=== PATIENT | female | born 1945 | race Caucasian/White ===

== ENCOUNTER 2020-05-11 07:07 | Emergency (ER) | payer MEDICARE, MEDICAID, SELFPAY ==
[2020-05-11] VITALS (8 sets, daily range): BP systolic 154–177; BP diastolic 68–103; PULSE 81–92; RESP 9–22; TEMP 36.7; O2SAT 96–99
--- NOTE | 2020-05-11 07:23 | PC.NURSE ---
PT CANNOT SAY WHAT PHARMACY SHE USES.
[2020-05-11] MEDS: FAMOTIDINE 20 MG TABLET PO (07:39)
[2020-05-11] MEDS: predniSONE 20 MG TABLET 60 MG PO (07:39)
--- NOTE | 2020-05-11 09:27 | ED.ALLEREA ---
HPI - Allergic Reaction General Chief complaint: Allergic Reaction Stated complaint: poss allergic reaction Source: RN notes reviewed History of Present Illness HPI narrative: Patient presents emergency department from [facility] via EMS for possible allergic reaction. The patient states that she had surgery on rectal prolapse approximately 1 week ago. She states that she has been on oxycodone as well as fentanyl IM for this at the long term. Last night the patient was having pain and possibly was given hydrocodone instead of oxycodone which she is allergic to. Patient states when she gets an allergy to these medication she gets a rash on her back which she developed last night and states that it is pruritic. She denies any rash anywhere else on her body. Denies any shortness of breath swelling of the lips or tongue. Patient was given Benadryl at 530 this morning and was sent to the emergency department for further evaluation. Patient currently with no complaints outside of rash Related Data Home Medications Medication Instructions Recorded Confirmed acetaminophen 650 mg PO Q8H 05/11/20 aspirin 81 mg PO DAILY 05/11/20 enoxaparin 40 mg SUBCUT DAILY 05/11/20 famotidine 20 mg PO DAILY 05/11/20 fentanyl citrate (PF) 25 mcg IM Q2-3H PRN 05/11/20 insulin lispro [Humalog KwikPen 6 unit SUBCUT DAILY 05/11/20 Insulin] ioversol [Optiray 320] 320 mg IV ONCE 05/11/20 lorazepam [Ativan] 1 mg PO TID PRN 05/11/20 losartan 100 mg PO DAILY 05/11/20 metoclopramide HCl 5 mg PO DAILY 05/11/20 miconazole nitrate 1 applic TOPICAL DAILY 05/11/20 ondansetron 4 mg PO Q6H PRN 05/11/20 oxycodone-acetaminophen 1 tablet PO Q4H PRN 05/11/20 polyethylene glycol 3350 17 g PO BID 05/11/20 quetiapine 50 mg PO BID 05/11/20 Allergies Allergy/AdvReac Type Severity Reaction Status Date / Time codeine Allergy Rash Verified 05/11/20 07:11 hydrocodone Allergy Rash Verified 05/11/20 07:11 morphine Allergy Rash Verified 05/11/20 07:11 sitagliptin [From Januvia] Allergy Rash Verified 05/11/20 07:11 Review of Systems Review of Systems: Narrative: Gen.: Denies fevers or chills ENT: Denies congestion Respiratory: Denies shortness of breath or cough CV: Denies chest pain or palpitations GI: Denies abdominal pain nausea, emesis or diarrhea denies burning, urgency, frequency or hematuria Musculoskeletal: Denies back pain or muscle pain Neuro: Denies numbness, tingling, weakness or focal weakness Skin: Reports rash Except as documented, all other systems reviewed and negative [facility] Past Medical History Medical History (Updated 05/11/20 @ 09:31 by Etienne Martínez DO) Diabetes mellitus Rectal prolapse Social History Social History (Updated 05/11/20 @ 09:28 by Etienne Martínez DO) Smoking status: Never smoker Gender identity (if verbalized by the patient): Female Exam Narrative: Exam Narrative: APPEARANCE: No acute distress, nontoxic, resting in bed EYES: EOMI HEENT: Normocephalic, atraumatic, OMM no swelling of the lips or tongue RESPIRATORY: No respiratory distress Clear to auscultation bilaterally with no rhonchi wheezing or rales. CARDIOVASCULAR: Regular rate and rhythm without murmurs rubs or gallops. ABDOMINAL: Soft, nontender, nondistended, no rebound or guarding MUSCULOSKELETAl: Moves all extremities. No clubbing, cyanosis or edema. NEURO: Awake and alert. Following commands, speech normal, no focal deficits SKIN:: Warm, dry. Erythematous rash over back that does not extend down past the line of her adult diaper and does not extend around to the flank or the abdomen. No rash on the extremities face or neck PSYCHIATRIC: Normal affect/mood, Course Course Emergency Course: Patient given prednisone and Pepcid in the ED. And will be monitored Patient does note some pain and is on every 2 hours IM fentanyl given fentanyl in ED Patient monitored in ED no progression of rash no swelling of lips or tongue. Discussed with phyllis
--- NOTE | 2020-05-11 09:51 | PC.NURSE ---
PT C/O NAUSEA, VERBAL ORDER PER [facility] FOR 4MG ZOFRAN ODT STAT. SPOKE WITH PT DAUGHTER AT HER REQUEST, INFORMED HER OF PT BEING TRANSFERRED BACK TO [facility]. DAUGHTER REFUSING TO COME AND TAKE PT BACK, INFORMED THAT EMS TRANSFER WOULD TAKE PLACE. NO FURTHER QUESTIONS. PT UPDATED THAT I SPOKE TO HER DAUGHTER.
[2020-05-11] MEDS: ONDANSETRON HCL ODT 4 MG TABLET PO (10:05)
--- NOTE | 2020-05-11 11:25 | PC.NURSE ---
pt informed that we are still awaiting pt transport.
--- NOTE | 2020-05-11 12:08 | PC.NURSE ---
still awaiting transport for pt.
== END 2020-05-11 12:46 | disposition home or self-care (01) ==
PROVIDERS: Emergency Provider Emergency Medicine; PCP Family Medicine
DX: T78.40XA Allergy, unspecified, initial encounter (principal); E11.9 Type 2 diabetes mellitus without complications; Z79.82 Long term (current) use of aspirin; Z79.4 Long term (current) use of insulin
CPT/HCPCS: 96372; 99283; A9270; J3010; J7512

== ENCOUNTER 2020-07-14 00:54 | Emergency (ER) | payer MEDICARE, MEDICAID, SELFPAY ==
--- NOTE | ~2020-07-14 | CT_ITS ---
EXAMINATION: CT abdomen pelvis w con EXAM DATE: 07/14/2020 02:24 INDICATION: Generalized abdominal pain for 3 days with nausea and vomiting. TECHNIQUE: Spiral CT of the abdomen and pelvis was performed following intravenous injection of 100 m L Omnipaque 350. Axial, coronal and sagittal images were reviewed. The dose-length product (DLP) fo r this examination was 1188.65 mGy-cm. The exposure was tailored according to patient size (auto mA exposure control), and iterative reconstruction (ASIR) was used as additional dose reduction techniqu e. There is no prior study for comparison. FINDINGS: The liver, spleen, adrenal glands and pancreas are unremarkable. There are cholecystectomy clips. Portal and splenic veins are patent. Kidneys enhance symmetrically. There is no hydronephr osis. The uterus is not identified and has likely been surgically resected. Some diffuse bladder w all thickening, could indicate chronic cystitis. Acute cystitis not excludable. There is no retroper itoneal or pelvic lymphadenopathy. There is mild scattered arteriosclerotic disease. Small umbilica l fat-containing hernia. Small right inguinal fat-containing hernia. The appendix is not positively visualized. There is no pericecal inflammatory change to suggest appe ndicitis. Rectosigmoid anastomosis material. There is mild sigmoid colonic diverticulosis. There is no adjacent inflammatory change to suggest diverticulitis. Equivocal mild gastric antritis and sigmoi d colitis. No free intraperitoneal gas. The heart is normal in size. There are no pericardial or p leural effusions. The lung bases are unremarkable. There are no osteoblastic or osteolytic lesions identified. L4-5 posterior and interbody fusion. Advanced lower lumbar spondylosis. IMPRESSION: 1. Equivocal mild gastric antritis and sigmoid colitis. 2. Mild bladder wall thickening, could be acute or chronic cystitis. Reviewed, dictated and finalized at location B.
--- NOTE | ~2020-07-14 | CT_ITS ---
EXAMINATION: CT soft tissue neck wo con DATE: 07/14/2020 06:10 INDICATION: Left neck and jaw pain. TECHNIQUE: Computed tomography (CT) of the neck was performed without intravenous contrast. Automated exposure control and iterative reconstruction technique were employed. The dose-length product was 5 95.09 mGy-cm. COMPARISON: None FINDINGS: The visualized portions of the lung apices demonstrate mild atelectasis. There are likely c hanges of ocular lens replacement surgeries. There are no pathologically enlarged lymph nodes. There is a 1.3 cm nodule in right thyroid lobe, likely not clinically significant. Calcified mediastinal ly mph nodes are consistent with old granulomatous disease. The pharyngeal mucosal space is normal. The larynx is normal. No abscess. The paranasal sinuses are clear. There are changes of left-sided mastoi dectomy with prosthetic stapes. There is a left mastoid effusion. There is severe cervical and thorac ic spondylosis. There are changes of anterior fusion procedure from C4 to C7. IMPRESSION: 1. No specific etiology for the patient's symptoms. Reviewed, dictated and finalized at location A.
[2020-07-14 01:00] VITALS: BP 136/93; PULSE 96; RESP 14; TEMP 37; O2SAT 100
--- NOTE | 2020-07-14 01:08 | ECG_ITS ---
Measurements Intervals [place] Rate: 101 P: 59 VT: 191 QRS: 36 QRSD: 121 T: 47 QT: 361 QTc: 470 Interpretive Statements SINUS TACHYCARDIA RIGHT BUNDLE BRANCH BLOCK ABNORMAL ECG Electronically Signed On 07-14-2020 6:59:24 CDT by Aaron Terry D.O.
--- NOTE | 2020-07-14 01:12 | ED.ABDPAIN ---
HPI - Abdominal Pain General Chief Complaint: Abdominal Pain Stated Complaint: EAR/JAW/ABD PAIN Time Seen by Provider: 07/14/20 00:58 History of Present Illness HPI narrative: Patient presents emergency department from [facility] via EMS for multiple complaints. Patient says for the past 3 days she is had pain in her left ear that radiates into her left jaw and left neck. States that hurts to touch in any of these areas. Patient also states that earlier today she is having abdominal pain with one episode of emesis this morning. 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 Related Data Home Medications Medication Instructions Recorded Confirmed aspirin 81 mg PO DAILY 05/11/20 famotidine 20 mg PO DAILY 05/11/20 insulin lispro [Humalog KwikPen 6 unit SUBCUT DAILY 05/11/20 Insulin] lorazepam [Ativan] 1 mg PO TID PRN 05/11/20 losartan 100 mg PO DAILY 05/11/20 ondansetron 4 mg PO Q6H PRN 05/11/20 polyethylene glycol 3350 17 g PO BID 05/11/20 quetiapine 50 mg PO BID 05/11/20 Adults Multivitamin 07/14/20 Vitamin B-1 07/14/20 dicyclomine 10 mg PO QID 07/14/20 glucagon HCl [Glucagon (HCl) 07/14/20 Emergency Kit] linaclotide [Linzess] 290 mcg PO DAILY 07/14/20 tramadol 50 mg PO Q6H PRN 07/14/20 vitamin B complex 07/14/20 Allergies Allergy/AdvReac Type Severity Reaction Status Date / Time acetaminophen [From Tylenol] Allergy Unknown Verified 07/14/20 03:15 aspirin Allergy Unknown Verified 07/14/20 03:15 caffeine Allergy Unknown Verified 07/14/20 03:15 chlordiazepoxide Allergy Unknown Verified 07/14/20 03:15 clidinium Allergy Unknown Verified 07/14/20 03:15 codeine Allergy Rash Verified 05/11/20 07:11 doxepin Allergy Unknown Verified 07/14/20 03:15 hydrocodone Allergy Rash Verified 05/11/20 07:11 hydromorphone [From Dilaudid] Allergy Unknown Verified 07/14/20 03:15 hydroxychloroquine Allergy Unknown Verified 07/14/20 03:15 morphine Allergy Rash Verified 05/11/20 07:11 sitagliptin [From Januvia] Allergy Rash Verified 05/11/20 07:11 Review of Systems Review of Systems: Narrative: Gen.: Denies fevers or chills Eyes: Denies eye pain or visual change ENT: See HPI Respiratory: Denies shortness of breath or cough CV: Denies chest pain or palpitations GI: Reports abdominal pain and one episode of nausea and vomiting denies burning, urgency, frequency or hematuria Musculoskeletal: Denies back pain or muscle pain Neuro: Denies numbness, tingling, weakness or focal weakness Skin: Denies rash Except as documented, all other systems reviewed and negative [facility] Past Medical History Medical History (Updated 07/14/20 @ 06:57 by Etienne Martínez DO) Diabetes mellitus Meniere disease Rectal prolapse Social History Social History Smoking status: Never smoker Gender identity (if verbalized by the patient): Female Exam Narrative: Exam Narrative: APPEARANCE: No acute distress, nontoxic, resting in bed EYES: EOMI HEENT: Normocephalic, atraumatic, right TM is normal in appearance, the left TM is erythematous, mild tenderness with pulling on the left ear, tender palpation of the left lower posterior jaw and left lateral neck no submandibular tenderness no submandibular tenderness, oromucosa is moist, there is no erythema exudate posterior pharynx uvula midline no trismus no loose or avulsed teeth or dental abscesses seen Neck: Supple, no cervical lymphadenopathy RESPIRATORY: No respiratory distress Clear to auscultation bilaterally with no rhonchi wheezing or rales. CARDIOVASCULAR: Regular rate and rhythm without murmurs rubs or gallops. ABDOMINAL: Soft, nondistended tender palpation right lower quadrant left lower quadrant, no tenderness right upper quadrant left upper quadrant, no
[2020-07-14 01:24] LABS: Basophils Percent Auto 0.8 % (0.2-1.2); Eosinophils Absolute Auto 0.1 K/mm3 (0-0.3); Eosinophils Percent Auto 2.7 % (0-4.4); Hematocrit 41.6 % (37.0-47.0); Hemoglobin 13.8 g/dL (12.0-15.0); Immature Granulocyte Absolute 0.01 K/mm3 (0.00-0.031); Immature Granulocyte Percent A 0.2 % (0-0.5); Lymphocytes Absolute Auto 1.63 K/mm3 (0.9-3.2); Lymphocytes Percent Auto 31.5 % (18.3-44.2); Mean Corpuscular HGB Conc 33.2 g/dl (32-36); Mean Corpuscular Hemoglobin 29.3 pg (26-34); Mean Corpuscular Volume 88.3 fl (80-100); Mean Platelet Volume 11.4 fl (7.4-10.4); Monocytes Absolute Auto 0.5 K/mm3 (0.1-0.6); Monocytes Percent Auto 8.9 % (2.6-8.5); Neutrophils Absolute Auto 2.9 K/mm3 (1.3-6.7); Neutrophils Percent Auto 55.9 % (45.5-73.1); Platelet Count Result 167 k/mm3 (150-375); Red Blood Count 4.71 M/mm3 (4.2-5.4); Red Cell Distribution Width 12.8 % (11.5-14.5); White Blood Count 5.2 K/mm3 (4.5-10.0)
[2020-07-14 01:29] LABS: Add Urine Microscopic? YES; Appearance Urine Cloudy (Clear); Bilirubin Urine Negative (Negative); Color Urine Yellow (Yellow); Glucose Urine UA 3+ mg/dL (Negative); Ketones Urine Negative (Negative); Leukocyte Esterase Ur 1+ LEU/UL (Negative); Mucus Urine Rare /lpf; Nitrate Urine Positive (Negative); Protein Urine Negative (Negative); Specific Grav Ur 1.015 (1.001-1.035); Urobilinogen Urine Negative mg/dL (<2.0); WBC Urine 51-75 /hpf
[2020-07-14 01:33] LABS: Blood Urine Negative (Negative)
[2020-07-14 01:34] LABS: Partial Thromboplastin Time 25.2 SECONDS (22.3-36.8); Prothrombin Time 13.2 Seconds (11.1-14.7)
[2020-07-14 01:35] LABS: Alanine Aminotransferase 19 U/L (4-35); Alkaline Phosphatase 98 U/L (38-126); Anion Gap 9 mmol/L (8-16); Aspartate Amino Transferase 26 U/L (14-36); Bilirubin,Total 0.4 mg/dL (0.2-1.3); Blood Urea Nitrogen 10 mg/dL (7-17); Calcium 9.5 mg/dL (8.4-10.2); Carbon Dioxide 24 mmol/L (22-30); Chloride 102 mmol/L (98-107); Estimated Glomerular Filt Rate > 60; Glucose 235 mg/dL (65-105); Lipase 22 U/L (23-300); Potassium 4.1 mmol/L (3.4-5.0); Sodium 135 mmol/L (137-145)
[2020-07-14 01:47] LABS: Troponin I < 0.012 ng/mL (0.000-0.034)
[2020-07-14 03:10] VITALS: BP 112/75; PULSE 86; RESP 16; O2SAT 96
[2020-07-14 04:12] VITALS: BP 112/69; PULSE 85; RESP 16; O2SAT 96
[2020-07-14] MEDS: traMADol HCL 50 MG TABLET PO (06:09)
[2020-07-14 06:32] VITALS: BP 143/88; PULSE 85; RESP 16; O2SAT 100
--- NOTE | 2020-07-14 07:03 | PC.NURSE ---
spoke to poa, pt unable to ambulated. pt will need to be taken back to [facility] by ems.
--- NOTE | 2020-07-14 07:13 | PC.NURSE ---
tried to call ron multiple times between [phone] and [phone]. they only answered 1 time and placed me on hold for over 8 mins. the phone either rings and gives me a your call can not be completed at this time , or they don't answer.
[2020-07-14 07:19] VITALS: BP 132/77; PULSE 91; RESP 17; O2SAT 97
[2020-07-14 08:18] VITALS: BP 142/70; PULSE 85; RESP 14; O2SAT 97
== END 2020-07-14 08:20 ==
PROVIDERS: Emergency Provider Emergency Medicine; PCP Internal Medicine
DX: H66.92 Otitis media, unspecified, left ear (principal); N39.0 Urinary tract infection, site not specified; E11.9 Type 2 diabetes mellitus without complications; H81.09 Meniere's disease, unspecified ear; R10.9 Unspecified abdominal pain; R00.0 Tachycardia, unspecified; I45.10 Unspecified right bundle-branch block; Z79.82 Long term (current) use of aspirin; Z79.4 Long term (current) use of insulin
CPT/HCPCS: 36415; 51701; 70490; 74177; 80053; 81001; 83690; 84484; 85025; 85610; 85730; 87077; 87086; 87088; 93005; 96365; 99284; A9270; J0696; Q9967

== ENCOUNTER 2020-07-31 15:31 | Emergency (ER) | payer MEDICARE, MEDICAID, SELFPAY ==
--- NOTE | ~2020-07-31 | CT_ITS ---
EXAMINATION: CT abdomen pelvis w con DATE: 07/31/2020 16:59 INDICATION: Lower abdominal pain and painful urination for 3 days TECHNIQUE: Computed tomography (CT) of the abdomen and pelvis was performed with 100 cc Omnipaque 350 intravenous contrast. Automated exposure control and iterative reconstruction technique were employe d. Exam dose: 954.63 mGy-cm total exam DLP. COMPARISON: 07/14/2020 CT abdomen and pelvis FINDINGS: Right breast implant is noted Normal heart size. No pericardial or pleural effusion. There are patchy bilateral lower lung groundgl ass infiltrates and atelectasis. Small sliding hiatal hernia. Status post cholecystectomy. This likely accounts for the mild intrahepatic and extra hepatic bile du ct prominence. No hepatic, splenic, pancreatic, and adrenal or renal space-occupying mass lesion is e vident. No urinary tract calculus or hydroureteronephrosis. There is diffuse thickening of the urinar y bladder which, in combination with dysuria and lower abdominal pain, suggest cystitis. Status post hysterectomy. Status post sigmoid colon resection. There are air-fluid levels within the colon which is not a normal finding in the absence of recent en emas. There is diverticulosis of the left colon; no CT evidence of diverticulitis. There is a fat-containing umbilical hernia. Status post posterior and interbody spinal fusion at L4-5. There is prominent degenerative disc disea se throughout the remaining lumbar and lumbosacral spine and diffuse idiopathic skeletal hyperostosis of the thoracic spine. IMPRESSION: Diffuse bladder wall thickening which in combination with lower abdominal pain and dysur ia suggest cystitis Status post right breast implant placement Small sliding hiatal hernia Status post cholecystectomy Status post sigmoid colon resection Diverticulosis of the sigmoid and descending colon; no CT evidence of diverticulitis Air-fluid levels within the colon which may indicate colitis in the absence of any recent enemas. No bowel obstruction Reviewed, dictated and finalized at Location [facility]. Reviewed, dictated and finalized at location A. IMPRESSION: Diffuse bladder wall thickening which in combination with lower ab dominal pain and dysuria suggest cystitis Status post right breast implant placement Small sliding hiatal hernia Status post cholecystectomy Status post sigmoid colon resection Diverticulosis of the sigmoid and descending colon; no CT evidence of diverticu litis Air-fluid levels within the colon which may indicate colitis in the absence of any recent enemas. No bowel obstruction
[2020-07-31 15:34] VITALS: BP 146/89; PULSE 96; RESP 16; TEMP 36.6; O2SAT 98
[2020-07-31 16:21] LABS: Basophils Absolute Auto 0.1 K/mm3 (0.0-0.1); Basophils Percent Auto 1.6 % (0.2-1.2); Eosinophils Absolute Auto 0.2 K/mm3 (0-0.3); Eosinophils Percent Auto 3.7 % (0-4.4); Hematocrit 41.9 % (37.0-47.0); Hemoglobin 13.9 g/dL (12.0-15.0); Immature Granulocyte Absolute 0.02 K/mm3 (0.00-0.031); Immature Granulocyte Percent A 0.4 % (0-0.5); Lymphocytes Absolute Auto 1.27 K/mm3 (0.9-3.2); Lymphocytes Percent Auto 22.6 % (18.3-44.2); Mean Corpuscular HGB Conc 33.2 g/dl (32-36); Mean Corpuscular Hemoglobin 29.3 pg (26-34); Mean Corpuscular Volume 88.4 fl (80-100); Mean Platelet Volume 11.3 fl (7.4-10.4); Monocytes Absolute Auto 0.5 K/mm3 (0.1-0.6); Monocytes Percent Auto 8.2 % (2.6-8.5); Neutrophils Absolute Auto 3.6 K/mm3 (1.3-6.7); Neutrophils Percent Auto 63.5 % (45.5-73.1); Platelet Count Result 191 k/mm3 (150-375); Red Blood Count 4.74 M/mm3 (4.2-5.4); Red Cell Distribution Width 12.7 % (11.5-14.5); White Blood Count 5.6 K/mm3 (4.5-10.0)
[2020-07-31 16:27] LABS: Add Urine Microscopic? YES; Appearance Urine Cloudy (Clear); Bacteria Urine Trace /hpf; Bilirubin Urine Negative (Negative); Color Urine Amber (Yellow); Glucose Urine UA 3+ mg/dL (Negative); Ketones Urine Negative (Negative); Leukocyte Esterase Ur 3+ LEU/UL (Negative); Mucus Urine Moderate /lpf; Nitrate Urine Negative (Negative); Protein Urine 2+ mg/dL (Negative); Specific Grav Ur 1.024 (1.001-1.035); Squamous Epithelial Cell Urine Rare /hpf (Few); Urobilinogen Urine Negative mg/dL (<2.0); WBC Urine >75 /hpf
[2020-07-31 16:28] LABS: Blood Urine Negative (Negative)
[2020-07-31 16:33] LABS: Alanine Aminotransferase 18 U/L (4-35); Alkaline Phosphatase 89 U/L (38-126); Anion Gap 9 mmol/L (8-16); Aspartate Amino Transferase 26 U/L (14-36); Bilirubin,Total 0.5 mg/dL (0.2-1.3); Blood Urea Nitrogen 17 mg/dL (7-17); Calcium 9.4 mg/dL (8.4-10.2); Carbon Dioxide 24 mmol/L (22-30); Chloride 103 mmol/L (98-107); Estimated CRCL calculation 59 ml/min; Estimated Glomerular Filt Rate > 60; Glucose 232 mg/dL (65-105); Lipase 24 U/L (23-300); Potassium 3.9 mmol/L (3.4-5.0); Sodium 136 mmol/L (137-145)
--- NOTE | 2020-07-31 17:01 | ED.ABDPAIN ---
HPI - Abdominal Pain General Chief Complaint: Abdominal Pain Stated Complaint: UTI/ABD PAIN Time Seen by Provider: 07/31/20 15:33 Source: patient Mode of arrival: EMS Limitations: no limitations History of Present Illness HPI narrative: 75 years old intermediate presents with severe burning urination and lower abdominal pain and rectal pain started 3 days ago. Intermittent nausea. Patient denies any fever, chills, vomiting. Related Data Home Medications Medication Instructions Recorded Confirmed aspirin 81 mg PO DAILY 05/11/20 famotidine 20 mg PO DAILY 05/11/20 lorazepam [Ativan] 1 mg PO TID PRN 05/11/20 losartan 100 mg PO DAILY 05/11/20 ondansetron 4 mg PO Q6H PRN 05/11/20 polyethylene glycol 3350 17 g PO BID 05/11/20 quetiapine 50 mg PO BID 05/11/20 Adults Multivitamin 07/14/20 Vitamin B-1 100 mg DAILY 07/14/20 dicyclomine 10 mg PO QID 07/14/20 glucagon HCl [Glucagon (HCl) 07/14/20 Emergency Kit] linaclotide [Linzess] 290 mcg PO DAILY 07/14/20 tramadol 50 mg PO Q6H PRN 07/14/20 vitamin B complex DAILY 07/14/20 insulin aspart U-100 [Novolog See Rx Instructions .ROUTE .COMPLEX 07/31/20 Flexpen U-100 Insulin] insulin glargine [Lantus Solostar 28 unit SUBCUT DAILY 07/31/20 U-100 Insulin] lactobacillus combination no.8 3,000 mmu cells PO DAILY 07/31/20 [Adult Probiotic] Allergies Allergy/AdvReac Type Severity Reaction Status Date / Time acetaminophen [From Tylenol] Allergy Unknown Verified 07/31/20 15:41 aspirin Allergy Unknown Verified 07/31/20 15:41 caffeine Allergy Unknown Verified 07/31/20 15:41 chlordiazepoxide Allergy Unknown Verified 07/31/20 15:41 clidinium Allergy Unknown Verified 07/31/20 15:41 codeine Allergy Rash Verified 07/31/20 15:41 doxepin Allergy Unknown Verified 07/31/20 15:41 hydrocodone Allergy Rash Verified 07/31/20 15:41 hydromorphone [From Dilaudid] Allergy Unknown Verified 07/31/20 15:41 hydroxychloroquine Allergy Unknown Verified 07/31/20 15:41 morphine Allergy Rash Verified 05/11/20 07:11 sitagliptin [From Januvia] Allergy Rash Verified 05/11/20 07:11 Review of Systems Review of Systems: Narrative: CONSTITUTIONAL: Denies fever, chills, or sweats. EYES: Denies visual changes, redness, or discharge. ENT: Denies rhinorrhea, congestion, sore throat, or otalgia. CARDIOVASCULAR: Denies chest pain, palpitations, or edema. RESPIRATORY: Denies cough or dyspnea. GASTROINTESTINAL: Denies abdominal pain, nausea, vomiting, or diarrhea. GENITOURINARY: Denies dysuria or hematuria. SKIN: Denies rash or itching. MUSCULOSKELETAL: Denies back pain, joint pain, or myalgia. NEUROLOGIC: Denies headache, numbness, or weakness. PSYCHIATRIC: Denies anxiety or depression. [facility] Past Medical History Medical History Diabetes mellitus Meniere disease Rectal prolapse Social History Social History Smoking status: Never smoker Gender identity (if verbalized by the patient): Female Exam Narrative: Exam Narrative: General appearance: Well-developed, well-nourished Skin: Normal color Head: Normocephalic, nontraumatic Eyes: Clear conjunctiva ENT: Oropharynx normal, ears normal, nose normal Neck: Supple, nontender Chest and respiratory: Airway patent, no respiratory distress, no accessory muscle use Heart: Regular rate/rhythm Abdomen: Soft, mild tenderness suprapubic area, no organomegaly, quiet bowel sounds Vascular: Normal peripheral pulses, normal capillary refill. Musculoskeletal: Normal range of motion, nontender back Neurologic: Alert and oriented ?3, ATHLETIC COACH is normal as tested, no gross motor deficit
[2020-07-31 17:27] VITALS: BP 150/74; PULSE 95; RESP 16; O2SAT 96
[2020-07-31] MEDS: PHENAZOPYRIDINE HCL 100 MG TABLET 200 MG PO (17:54)
[2020-07-31] MEDS: ACETAMINOPHEN 325 MG TABLET 650 MG PO (17:55)
--- NOTE | 2020-07-31 18:08 | PC.NURSE ---
phone report to paulino godinez of [place]. request for [facility] transport. pt updated
[2020-07-31 18:11] VITALS: BP 155/77; PULSE 90; RESP 16; O2SAT 96
== END 2020-07-31 18:49 ==
PROVIDERS: Emergency Provider Emergency Medicine; PCP Family Medicine
DX: N30.01 Acute cystitis with hematuria (principal); E11.9 Type 2 diabetes mellitus without complications; Z79.4 Long term (current) use of insulin
CPT/HCPCS: 36415; 51701; 74177; 80053; 81001; 83690; 85025; 87077; 87086; 87088; 87186; 96365; 99284; A9270; J0696; Q9967

== ENCOUNTER 2020-09-16 21:32 | Inpatient (IN) | payer MEDICARE, MEDICAID, SELFPAY ==
--- NOTE | ~2020-09-16 | XR_ITS ---
EXAMINATION: XR chest 1V portable DATE: 09/16/2020 22:14 INDICATION: Transient alteration of awareness TECHNIQUE: frontal view of the chest was obtained. COMPARISON: None FINDINGS: Mild left basilar atelectasis and mild biapical pleural-parenchymal scarring. No pulmonary edema, ple ural effusion or pneumothorax. The cardiomediastinal silhouette is normal. Cholecystectomy clips in t he right upper quadrant. Additional surgical clips at the right axilla likely related to prior lymph node dissection. IMPRESSION: 1. Mild left basilar atelectasis. Reviewed, dictated and finalized at location A.
--- NOTE | ~2020-09-16 | CT_ITS ---
EXAMINATION: CT abdomen pelvis wo con DATE: 09/20/2020 18:47 INDICATION: Lower abdominal pain. Dysuria. TECHNIQUE: Computed tomography (CT) of the abdomen and pelvis was performed without intravenous contr ast. The dose-length product was 893.27 mGy-cm. Automated exposure control and iterative reconstructi on technique were employed. COMPARISON: CT dated 07/31/2020. FINDINGS: There is bibasilar atelectasis. Heart size normal. Partially visualized right breast implan t. No significant pleural or pericardial effusion. Moderate atherosclerosis. No aneurysm. There is a focal fat-containing lesion with surrounding fatty infiltration in the anterior abdominal wall overlying the pelvis, likely focal fat necrosis. Mild shonna dder wall thickening. There are surgical changes of the distal colon. There are several locules of richardson bcutaneous gas, likely from recent injections. The liver, spleen, pancreas, adrenal glands and kidneys are unremarkable. Nonobstructive bowel gas pa ttern. Colonic diverticulosis without evidence for acute diverticulitis. No hydronephrosis or stones identified. No abnormal pelvic masses or fluid collections. There are surgical changes consistent wit h posterior spinal fusion at L4-5. There is severe lumbar spondylosis. Small fat-containing umbilical hernia. Status post cholecystectomy. IMPRESSION: 1. Mild bladder wall thickening. Consider cystitis in the appropriate clinical setting. 2: Probable focal fatty necrosis of the subcutaneous tissues anterior wall at the pelvic level. Reviewed, dictated and finalized at location A. IMPRESSION: 1. Mild bladder wall thickening. Consider cystitis in the appropriate clinical setting. 2: Probable focal fatty necrosis of the subcutaneous tissues anterior wall at t he pelvic level.
--- NOTE | ~2020-09-16 | CT_ITS ---
EXAMINATION: CT brain wo con DATE: 09/16/2020 22:09 INDICATION: Altered mental status TECHNIQUE: Computed tomography (CT) of the head was performed without intravenous contrast. Sagittal and coronal reconstructions were performed. The mA was adjusted according to patient size. Iterative reconstruction technique was employed. The dose-length product was 681.00 mGy-cm. COMPARISON: None FINDINGS: No acute intracranial hemorrhage, acute infarction or mass/mass effect. There is symmetric prominence of the sulci consistent with mild age-appropriate diffuse cerebral volume loss. Moderate scattered periventricular and subcortical white matter hypoattenuation consistent with chronic small vessel isc hemic disease. Changes of bilateral intraocular lens replacement. Left mastoid effusion with change o f prior mastoidectomy. Postoperative changes at the bilateral maxilla with tiny metallic clips along the anterior hanley of both the left and right maxilla and with chronic small defect along the posteri or inferior wall of the left maxilla. IMPRESSION: 1. No acute intracranial process. 2. Age-related changes including mild diffuse volume loss and moderate scattered white matter hypoatt enuation consistent with chronic small vessel ischemic disease. Reviewed, dictated and finalized at location A. IMPRESSION: 1. No acute intracranial process. 2. Age-related changes including mild diffuse volume loss and moderate scattere d white matter hypoattenuation consistent with chronic small vessel ischemic di sease.
[2020-09-16 21:34] VITALS: BP 176/88; PULSE 94; RESP 20; TEMP 36.2; O2SAT 96
--- NOTE | 2020-09-16 21:39 | ECG_ITS ---
Measurements Intervals [place] Rate: 94 P: 43 FL: 229 QRS: -9 QRSD: 85 T: 16 QT: 393 QTc: 493 Interpretive Statements SINUS RHYTHM BORDERLINE AV CONDUCTION DELAY INCOMPLETE RIGHT BUNDLE BRANCH BLOCK BASELINE ARTIFACT- II, III, AVF, V1 BORDERLINE ECG Electronically Signed On 09-17-2020 7:05:17 CDT by Aaron Terry D.O.
--- NOTE | 2020-09-16 21:54 | ED.GENADULT ---
HPI - General Adult General Chief complaint: Altered Mental Status Stated complaint: AMS Time Seen by Provider: 09/16/20 21:35 Source: RN notes reviewed History of Present Illness HPI narrative: Patient presents emergency department from [facility] via EMS for altered mental status. Per the staff the patient is normally awake and alert and has had progressively worsened altered mental status starting yesterday. Patient was tested for a UTI and urine had just come back positive however no medications have been started on the patient. Patient is currently laying in bed responsive to painful stimuli nonresponsive to verbal stimuli. Per the staff at [facility] patient has had similar episodes with UTIs in the past. Related Data Home Medications Medication Instructions Recorded Confirmed aspirin 81 mg PO DAILY 05/11/20 famotidine 20 mg PO DAILY 05/11/20 lorazepam [Ativan] 1 mg PO TID PRN 05/11/20 losartan 100 mg PO DAILY 05/11/20 ondansetron 4 mg PO Q6H PRN 05/11/20 polyethylene glycol 3350 17 g PO BID 05/11/20 quetiapine 50 mg PO BID 05/11/20 Adults Multivitamin 07/14/20 Vitamin B-1 100 mg DAILY 07/14/20 dicyclomine 10 mg PO QID 07/14/20 glucagon HCl [Glucagon (HCl) 07/14/20 Emergency Kit] linaclotide [Linzess] 290 mcg PO DAILY 07/14/20 tramadol 50 mg PO Q6H PRN 07/14/20 vitamin B complex DAILY 07/14/20 insulin aspart U-100 [Novolog See Rx Instructions .ROUTE .COMPLEX 07/31/20 Flexpen U-100 Insulin] insulin glargine [Lantus Solostar 28 unit SUBCUT DAILY 07/31/20 U-100 Insulin] lactobacillus combination no.8 3,000 mmu cells PO DAILY 07/31/20 [Adult Probiotic] Allergies Allergy/AdvReac Type Severity Reaction Status Date / Time acetaminophen [From Tylenol] Allergy Unknown Verified 07/31/20 15:41 aspirin Allergy Unknown Verified 07/31/20 15:41 caffeine Allergy Unknown Verified 07/31/20 15:41 chlordiazepoxide Allergy Unknown Verified 07/31/20 15:41 clidinium Allergy Unknown Verified 07/31/20 15:41 codeine Allergy Rash Verified 07/31/20 15:41 doxepin Allergy Unknown Verified 07/31/20 15:41 hydrocodone Allergy Rash Verified 07/31/20 15:41 hydromorphone [From Dilaudid] Allergy Unknown Verified 07/31/20 15:41 hydroxychloroquine Allergy Unknown Verified 07/31/20 15:41 morphine Allergy Rash Verified 05/11/20 07:11 sitagliptin [From Januvia] Allergy Rash Verified 05/11/20 07:11 Review of Systems Review of Systems: ROS unobtainable: Yes unobtainable due to medical condition and unobtainable due to mental status [facility] Past Medical History Medical History (Updated 09/17/20 @ 00:55 by Etienne Martínez DO) Diabetes mellitus Meniere disease Rectal prolapse Social History Social History Smoking status: Never smoker Gender identity (if verbalized by the patient): Female Exam Narrative: Exam Narrative: APPEARANCE: Laying in bed with eyes closed unresponsive to verbal stimuli, withdraws to painful stimuli EYES: PERRL HEENT: Normocephalic, atraumatic, EOMI RESPIRATORY: No respiratory distress Clear to auscultation bilaterally with no rhonchi wheezing or rales. CARDIOVASCULAR: Regular rate and rhythm without murmurs rubs or gallops. ABDOMINAL: Soft, nontender, nondistended, no rebound or guarding MUSCULOSKELETAl: No clubbing, cyanosis or edema. NEURO: Unresponsive to verbal stimuli, withdraws to painful stimuli, positive gag reflex, nonverbal SKIN:: Warm, dry. No rashes lesions or abrasions Course Course Emergency Course: Reviewed patient's lab work patient is a DNR who is comfortable with IV fluids and antibiotics. The patient's daughter did call up and discussed with nursing staff states patient similar episode several years ago with UTI Discussed with Dr. Schafer presentation work-up agrees with admission at this time Discussed with patient and family results of workup and diagnosis. Discussed need for admission. Patient and family understan
[2020-09-16] MEDS: SODIUM CHLORIDE 0.9% IV 1,000 ML 999 ML IV CONT (22:46)
[2020-09-16 22:47] VITALS: BP 152/81; PULSE 93; RESP 13; O2SAT 98
[2020-09-16 23:01] LABS: Basophils Percent Auto 0.7 % (0.2-1.2); Eosinophils Absolute Auto 0.1 K/mm3 (0-0.3); Eosinophils Percent Auto 2.4 % (0-4.4); Hematocrit 41.3 % (37.0-47.0); Hemoglobin 13.3 g/dL (12.0-15.0); Immature Granulocyte Absolute 0.02 K/mm3 (0.00-0.031); Immature Granulocyte Percent A 0.3 % (0-0.5); Lymphocytes Absolute Auto 1.36 K/mm3 (0.9-3.2); Lymphocytes Percent Auto 23.6 % (18.3-44.2); Mean Corpuscular HGB Conc 32.2 g/dl (32-36); Mean Corpuscular Hemoglobin 28.8 pg (26-34); Mean Corpuscular Volume 89.4 fl (80-100); Mean Platelet Volume 10.8 fl (7.4-10.4); Monocytes Absolute Auto 0.5 K/mm3 (0.1-0.6); Monocytes Percent Auto 7.8 % (2.6-8.5); Neutrophils Absolute Auto 3.8 K/mm3 (1.3-6.7); Neutrophils Percent Auto 65.2 % (45.5-73.1); Platelet Count Result 206 k/mm3 (150-375); Red Blood Count 4.62 M/mm3 (4.2-5.4); Red Cell Distribution Width 12.6 % (11.5-14.5); White Blood Count 5.8 K/mm3 (4.5-10.0)
[2020-09-16 23:08] LABS: INR 1.1; Prothrombin Time 13.8 Seconds (11.1-14.7)
[2020-09-16 23:09] LABS: Partial Thromboplastin Time 26.2 SECONDS (22.3-36.8)
[2020-09-16 23:11] LABS: Alanine Aminotransferase 19 U/L (4-35); Albumin Level 3.7 g/dL (3.5-5.1); Alkaline Phosphatase 91 U/L (38-126); Anion Gap 6 mmol/L (8-16); Aspartate Amino Transferase 25 U/L (14-36); Bilirubin,Total 0.5 mg/dL (0.2-1.3); Blood Urea Nitrogen 13 mg/dL (7-17); Calcium 9.5 mg/dL (8.4-10.2); Carbon Dioxide 31 mmol/L (22-30); Chloride 106 mmol/L (98-107); Estimated Glomerular Filt Rate > 60; Glucose 125 mg/dL (65-105); Potassium 3.9 mmol/L (3.4-5.0); Sodium 143 mmol/L (137-145)
[2020-09-16 23:12] LABS: Lactic Acid Reflex 1.5 mmol/L (0.7-2.1)
--- NOTE | 2020-09-16 23:21 | PC.NURSE ---
Report received from ANNIKA Garrison. Assumed care of patient at this time.
[2020-09-16 23:37] VITALS: PULSE 96; RESP 23
[2020-09-16 23:45] VITALS: PULSE 89
[2020-09-16 23:51] LABS: Add Urine Microscopic? YES; Appearance Urine Cloudy (Clear); Bacteria Urine Trace /hpf; Bilirubin Urine Negative (Negative); Blood Urine Negative (Negative); Color Urine Amber (Yellow); Glucose Urine UA Negative (Negative); Ketones Urine Negative (Negative); Leukocyte Esterase Ur 3+ LEU/UL (Negative); Mucus Urine Rare /lpf; Nitrate Urine Positive (Negative); Protein Urine Negative (Negative); Squamous Epithelial Cell Urine Rare /hpf (Few); Urobilinogen Urine Negative mg/dL (<2.0); WBC Urine >75 /hpf
[2020-09-17] VITALS (13 sets, daily range): BP systolic 144–181; BP diastolic 74–104; PULSE 83–107; RESP 16–22; TEMP 35.8–36.9; O2SAT 95–99
[2020-09-17 00:13] LABS: Base Excess ABG -2.3 mEq/l (+/-2.0); Fractional Inspired Oxygen 21 %; Oxygen Saturation ABG 96.4 % (95.0-100.0); Oxyhemoglobin 92.8 % THb (90.0-100.0); PCO2 ABG 31.5 mmHg (35.0-45.0); PO2 FiO2 Ratio Arterial Blood 3.81 %; Total Hemoglobin 12.2 g/dL (12.0-18.0); pH ABG 7.442 (7.350-7.450)
[2020-09-17 00:16] LABS: Device ROOM AIR; Modified Allen's Test Pass; Site Drawn LEFT RADIAL
--- NOTE | 2020-09-17 01:29 | PM.IMHP ---
H&P: HPI History of Present Illness Date/Time: 09/17/20 01:29 Chief complaint: UTI, metabolic encepholopathy Narrative: This is a 75 year old Diabetic female who was sent to the hospital [facility] from the group home secondary to acute altered mental status. The patient has been poorly responsive and nonverbal. Routine labs demonstrated a grossly abnormal urinalysis. CT brain was unremarkable. The patient's daughter called in and told the ER provider that the patient became unresponsive like this the last time she had a UTI. On my encounter with the patient she opens her eyes and withdraws to painful stimuli but is unresponsive to verbal stimuli. No history is obtainable from the patient. Review of Systems Review of Systems: ROS unobtainable: Yes unobtainable due to mental status PMFSH Past Medical History Medical History (Updated 09/17/20 @ 02:06 by Garth Schafer MD) Diabetes mellitus Meniere disease Rectal prolapse Social History Social History Smoking status: Never smoker Second hand tobacco smoke exposure: No Alcohol intake: never Substance use: never Gender identity (if verbalized by the patient): Female Spiritual care concerns: No Comments Past medical/surgical/social/family medical histories are unobtainable from the patient. Meds Home Medications and Allergies Home Medications Medication Instructions Recorded Confirmed Type aspirin 81 mg PO DAILY 05/11/20 History famotidine 20 mg PO DAILY 05/11/20 History lorazepam [Ativan] 1 mg PO TID PRN 05/11/20 History losartan 100 mg PO DAILY 05/11/20 History ondansetron 4 mg PO Q6H PRN 05/11/20 History polyethylene glycol 3350 17 g PO BID 05/11/20 History quetiapine 50 mg PO BID 05/11/20 History Adults Multivitamin 07/14/20 History Vitamin B-1 100 mg DAILY 07/14/20 History amoxicillin-pot clavulanate 1 tablet PO Q12H #20 tablet 07/14/20 Rx [Augmentin] dicyclomine 10 mg PO QID 07/14/20 History glucagon HCl [Glucagon (HCl) 07/14/20 History Emergency Kit] linaclotide [Linzess] 290 mcg PO DAILY 07/14/20 History tramadol 50 mg PO Q6H PRN 07/14/20 History vitamin B complex DAILY 07/14/20 History insulin aspart U-100 [Novolog See Rx Instructions .ROUTE .COMPLEX 07/31/20 History Flexpen U-100 Insulin] insulin glargine [Lantus Solostar 28 unit SUBCUT DAILY 07/31/20 History U-100 Insulin] lactobacillus combination no.8 3,000 mmu cells PO DAILY 07/31/20 History [Adult Probiotic] nitrofurantoin monohyd/m-cryst 100 mg PO Q12H 5 Days #10 cap 07/31/20 Rx [Macrobid] phenazopyridine [Pyridium] 200 mg PO TID PRN #6 tablet 07/31/20 Rx rifaximin 550 mg tablet 550 mg PO BID #20 tablet 08/17/20 Rx gabapentin 09/17/20 History Allergies Allergy/AdvReac Type Severity Reaction Status Date / Time acetaminophen [From Tylenol] Allergy Unknown Verified 09/17/20 01:06 aspirin Allergy Unknown Verified 09/17/20 01:06 caffeine Allergy Unknown Verified 09/17/20 01:06 chlordiazepoxide Allergy Unknown Verified 09/17/20 01:06 clidinium Allergy Unknown Verified 09/17/20 01:06 codeine Allergy Rash Verified 09/17/20 01:06 doxepin Allergy Unknown Verified 09/17/20 01:06 hydrocodone Allergy Rash Verified 09/17/20 01:06 hydromorphone [From Dilaudid] Allergy Unknown Verified 09/17/20 01:06 hydroxychloroquine Allergy Unknown Verified 09/17/20 01:06 morphine Allergy Rash Verified 09/17/20 01:06 sitagliptin [From Januvia] Allergy Rash Verified 09/17/20 01:06 Vital Signs Vital Signs - 24 hr 09/16/20 21:34 09/16/20 22:47 09/16/20 23:37 Temperature 36.2 C L Pulse Rate 94 93 96 Respiratory Rate 20 13 23 H Blood Pressure 176/88 H 152/81 H Pulse Oximetry 96 98 09/16/20 23:45 09/17/20 00:17 Temperature Pulse Rate 89 87 Respiratory Rate 18 Blood Pressure 144/86 H Pulse Oximetry 99 Exam Const: General: ill appearing and other (encephalopathic++ )
--- NOTE | 2020-09-17 01:54 | ADMGEN ---
This patient, Naomi Govea, was admitted to IMU Room 206-01. Patient/family oriented to hospital policies and general routines including ID bracelet, bed and alarms, visiting hours, pain management, procedures, bathroom and other care routines, personal items, smoking policy, room service/diet, and visiting hours. Information on how to activate the Rapid Response Team has been discussed. Patient/Family are encouraged to report perceived risks to care and to ask questions if they do not understand what they are told or what they should do.
[2020-09-17] MEDS: SODIUM CHLORIDE 0.9% IV 1,000 ML 100 ML IV CONT ×3 (02:38→21:34)
[2020-09-17 02:47] LABS: Glucose Point of Care 116 (65-105)
[2020-09-17 05:36] LABS: Glucose Point of Care 117 (65-105)
[2020-09-17 06:01] LABS: Thyroid Stimulating Hormone Reflex 0.342 uIU/mL (0.465-4.68)
[2020-09-17 06:08] LABS: Folic Acid 8.7 ng/mL (2.76->20)
[2020-09-17] MEDS: FAMOTIDINE 20 MG TABLET PO (11:22)
[2020-09-17] MEDS: ENOXAPARIN 40 MG/0.4 ML SYRINGE SUB-Q (11:22)
[2020-09-17] MEDS: LOSARTAN POTASSIUM 100 MG TABLET PO (11:23)
[2020-09-17] MEDS: ONDANSETRON HCL ODT 4 MG TABLET PO (11:23)
[2020-09-17] MEDS: ASPIRIN 81 MG ENTERIC TABLET PO (11:23)
[2020-09-17] MEDS: LORazepam (*CRX) 1 MG TABLET PO ×2 (11:24→15:51)
[2020-09-17] MEDS: traMADol HCL (*CRX) 50 MG TABLET PO (11:24)
[2020-09-17] MEDS: PHENAZOPYRIDINE HCL 100 MG TABLET 200 MG PO (11:25)
--- NOTE | 2020-09-17 11:46 | PC.NURSE ---
This patient, Naomi Govea, was transferred to [facility] on 09/17/20 at 1146. Personal belongings sent with patient. Report given to Rosalia ROBLERO. Appropriate documentation sent with patient.
--- NOTE | 2020-09-17 11:50 | PC.NURSE ---
This patient, Naomi Govea, was received from [IMU] on 09/17/20 at 1150. Personal belongings list checked and signed. Patient/family oriented to unit policies and routines
[2020-09-17 12:34] LABS: Glucose Point of Care 143 (65-105)
--- NOTE | 2020-09-17 13:03 | PCPTNOTE ---
Attempted PT evaluation; pt reported abdominal pain and refused PT evaluation at this time; discussed pt with charge nurse and MACHINE SHOP APPRENTICE/ her nurse is at lunch;
[2020-09-17] MEDS: GABAPENTIN 300 MG CAPSULE PO ×2 (13:38→17:54)
[2020-09-17] MEDS: DICYCLOMINE HCL 10 MG CAPSULE PO ×3 (13:38→21:32)
[2020-09-17 13:43] LABS: Free T4 Free Thyroxine Reflex 0.78 ng/dL (0.78-2.19)
--- NOTE | 2020-09-17 13:48 | PCOTNOTE ---
Attempted OT evaluation this date. Pt. reports 09/02 pain when she urinates and requested to attempt evaluation tomorrow.
--- NOTE | 2020-09-17 16:11 | PM.IMPN ---
Progress Note: A&P Assessment and Plan (1) Acute encephalopathy: Code(s): G93.40 - Encephalopathy, unspecified Status: Acute Assessment and Plan: Appears to be infectious encephalopathy. much improved this a.m. after hydration and IV antibiotics. Cultures of blood in urine still pending. TSH and B12 normal (2) Acute UTI: Code(s): N39.0 - Urinary tract infection, site not specified Status: Acute Assessment and Plan: Continue IV ceftriaxone, urine culture still pending. (3) Diabetes mellitus: Qualifiers: Diabetes mellitus type: type 2 Diabetes mellitus custodial insulin use: with custodial use Diabetes mellitus complication status: without complication Qualified Code(s): E11.9 - Type 2 diabetes mellitus without complications; Z79.4 - roasterman (current) use of insulin Code(s): E11.9 - Type 2 diabetes mellitus without complications Status: Acute Assessment and Plan: Accuchecks, SSI Coverage, Hypoglycemic protocol. continue sliding scale until sugars start rising then will resume Lantus. (4) Hypertension: Code(s): I10 - Essential (primary) hypertension Status: Acute Assessment and Plan: resume losartan (5) DVT prophylaxis: Code(s): Z29.9 - Encounter for prophylactic measures, unspecified Status: Acute Assessment and Plan: Lovenox Subjective Date/time seen: 09/17/20 16:11 Interval history: date of visit . 75-year-old hypertensive type 2 diabetic longterm resident presented to the emergency room with altered mental status and found to have urinary tract infection. Daughter relates that she has history of the same becoming obtunded with UTIs.. This a.m. after IV hydration and antibiotics she is alert and conversant and complaining of dysuria. Exam Narrative: Exam Narrative: blood pressure 150/80 pulse is 100 temp 36.9? sat 97% on room air pupils equal reactive light sclera anicteric lungs clear CV regular rate rhythm abdomen soft nontender no masses extremities without edema distal pulses 1+ neuro she is alert oriented person place with no focal deficits and cranial nerves 2-12 are intact integument no skin breakdown rashes psych affect slightly flat Objective Data Vital Signs Vital Signs: Vital Signs - 24 hr 09/16/20 21:34 09/16/20 22:47 09/16/20 23:37 Temperature 36.2 C L Pulse Rate 94 93 96 Respiratory Rate 20 13 23 H Blood Pressure 176/88 H 152/81 H Pulse Oximetry 96 98 09/16/20 23:45 09/17/20 00:17 09/17/20 01:29 Temperature 36.6 C Pulse Rate 89 87 92 Respiratory Rate 18 18 Blood Pressure 144/86 H 146/81 H Pulse Oximetry 99 96 09/17/20 01:38 09/17/20 01:50 09/17/20 04:00 Temperature 36.1 C L 36.0 C L Pulse Rate 86 84 107 H Respiratory Rate 18 16 Blood Pressure 162/74 H 170/85 H Pulse Oximetry 97 96 09/17/20 04:57 09/17/20 06:00 09/17/20 08:00 Temperature Pulse Rate 83 99 103 H Respiratory Rate Blood Pressure Pulse Oximetry 09/17/20 08:09 09/17/20 10:00 09/17/20 12:00 Temperature 35.8 C L Pulse Rate 106 H 98 98 Respiratory Rate 22 H 22 H Blood Pressure 181/104 H Pulse Oximetry 97 97 09/17/20 14:00 Temperature 36.9 C Pulse Rate 103 H Respiratory Rate 18 Blood Pressure 153/83 H Pulse Oximetry 97 Intake/Output Intake/Output: Intake & Output 09/14/20 09/15/20 09/16/20 09/17/20 23:59 23:59 23:59 23:59 Intake Total 1000 1110 Output Total 400 Balance 600 1110 Meds/Results Medications: Active Medications Generic Name Dose Route Start Last Admin Trade Name Freq PRN Reason Stop Dose Admin Aspirin 81 mg 09/17/20 10:15 09/17/20 11:23 Aspirin 81 Mg Enteric Tablet PO 81 mg DAILY WALDEMAR Administration Dextrose 12.5 gm 09/17/20 02:06 Dextrose 50% 25 Gm/50 Ml Syringe IV PUSH PRN PRN Hypoglycemia Protocol Dicyclomine HCl 10 mg 09/17/20 13:00 09/17/20 13:
[2020-09-17 19:10] LABS: Glucose Point of Care 139 (65-105)
[2020-09-18] MEDS: traMADol HCL (*CRX) 50 MG TABLET 100 MG PO ×3 (00:16→20:43)
[2020-09-18 06:00] VITALS: BP 128/72; PULSE 94; RESP 18; TEMP 36.9; O2SAT 97
[2020-09-18 06:14] LABS: Basophils Percent Auto 0.8 % (0.2-1.2); Eosinophils Absolute Auto 0.1 K/mm3 (0-0.3); Eosinophils Percent Auto 2.6 % (0-4.4); Hematocrit 34.2 % (37.0-47.0); Hemoglobin 11.2 g/dL (12.0-15.0); Immature Granulocyte Absolute 0.02 K/mm3 (0.00-0.031); Immature Granulocyte Percent A 0.4 % (0-0.5); Lymphocytes Absolute Auto 1.74 K/mm3 (0.9-3.2); Lymphocytes Percent Auto 34.8 % (18.3-44.2); Mean Corpuscular HGB Conc 32.7 g/dl (32-36); Mean Corpuscular Hemoglobin 29.2 pg (26-34); Mean Corpuscular Volume 89.1 fl (80-100); Monocytes Absolute Auto 0.5 K/mm3 (0.1-0.6); Neutrophils Absolute Auto 2.6 K/mm3 (1.3-6.7); Neutrophils Percent Auto 52.4 % (45.5-73.1); Platelet Count Result 181 k/mm3 (150-375); Red Blood Count 3.84 M/mm3 (4.2-5.4); Red Cell Distribution Width 12.5 % (11.5-14.5)
[2020-09-18] MEDS: SODIUM CHLORIDE 0.9% IV 1,000 ML 100 ML IV CONT ×3 (06:22→20:44)
[2020-09-18 06:24] LABS: Anion Gap 4 mmol/L (8-16); Blood Urea Nitrogen 10 mg/dL (7-17); Calcium 8.8 mg/dL (8.4-10.2); Carbon Dioxide 26 mmol/L (22-30); Chloride 109 mmol/L (98-107); Estimated CRCL calculation 66 ml/min; Estimated Glomerular Filt Rate > 60; Glucose 154 mg/dL (65-105); Potassium 3.4 mmol/L (3.4-5.0); Sodium 139 mmol/L (137-145)
[2020-09-18 08:00] VITALS: PULSE 94; RESP 18; O2SAT 97
[2020-09-18 08:53] LABS: Glucose Point of Care 150 (65-105)
[2020-09-18] MEDS: POTASSIUM CHLORIDE 20 MEQ TABLET 40 MEQ PO (09:24)
[2020-09-18] MEDS: THERAPEUTIC MULTIVITAMINS/MINERALS TAB (*BKC) 1 TABLET PO (09:26)
[2020-09-18] MEDS: DICYCLOMINE HCL 10 MG CAPSULE PO ×4 (09:26→20:43)
[2020-09-18] MEDS: THIAMINE HCL 100 MG TABLET PO (09:27)
[2020-09-18] MEDS: LOSARTAN POTASSIUM 100 MG TABLET PO (09:27)
[2020-09-18] MEDS: VITAMIN B COMPLEX CAPSULE 1 CAP PO (09:27)
[2020-09-18] MEDS: FAMOTIDINE 20 MG TABLET PO (09:27)
[2020-09-18] MEDS: ENOXAPARIN 40 MG/0.4 ML SYRINGE SUB-Q (09:28)
[2020-09-18] MEDS: SACCHAROMYCES BOULARDII 250 MG CAPSULE PO (09:28)
[2020-09-18] MEDS: GABAPENTIN 300 MG CAPSULE PO ×3 (09:28→17:42)
[2020-09-18] MEDS: ASPIRIN 81 MG ENTERIC TABLET PO (09:28)
[2020-09-18] MEDS: ONDANSETRON HCL ODT 4 MG TABLET PO (09:30)
--- NOTE | 2020-09-18 11:01 | PC.NURSE ---
Notified Dr. Brown of urine culture preliminary results. No new orders received.
[2020-09-18 12:40] LABS: Glucose Point of Care 252 (65-105)
[2020-09-18] MEDS: INSULIN ASPART (*BKC) 100 UNITS/ML SUB-Q ×2 (13:26→17:43)
[2020-09-18 14:00] VITALS: BP 156/75; PULSE 88; RESP 18; TEMP 37.2; O2SAT 98
--- NOTE | 2020-09-18 15:42 | PM.IMPN ---
Progress Note: A&P Assessment and Plan (1) Acute encephalopathy: Code(s): G93.40 - Encephalopathy, unspecified Status: Acute Assessment and Plan: Appears to be infectious encephalopathy. much improved after hydration and IV antibiotics. Cultures of blood neg so far and urine growing proteus as had in July, continue ceftriaxone for now. TSH and B12 normal (2) Acute UTI: Code(s): N39.0 - Urinary tract infection, site not specified Status: Acute Assessment and Plan: Continue IV ceftriaxone, urine culture proteus m. 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 continue sliding scale , Eating better now so will resume Lantus in lower dose 15 U and check A1C. (4) Hypertension: Code(s): I10 - Essential (primary) hypertension Status: Acute Assessment and Plan: resumed losartan (5) DVT prophylaxis: Code(s): Z29.9 - Encounter for prophylactic measures, unspecified Status: Acute Assessment and Plan: Lovenox Subjective Date/time seen: 09/18/20 15:42 Interval history: date of visit . 75-year-old hypertensive type 2 diabetic half-way resident presented to the emergency room with altered mental status and found to have urinary tract infection. Daughter relates that she has history of the same, becoming obtunded with UTIs.. This a.m. after IV hydration and antibiotics she is alert and conversant and complaining of less dysuria. Up with PT Exam Narrative: Exam Narrative: blood pressure 128/72 pulse is 94 temp AF sat 98% on room air pupils equal reactive light sclera anicteric lungs clear CV regular rate rhythm abdomen soft nontender no masses extremities without edema distal pulses 1+ neuro she is alert oriented person place with no focal deficits , hard of hearing integument no skin breakdown rashes psych affect slightly flat Objective Data Vital Signs Vital Signs: Vital Signs - 24 hr 09/17/20 22:00 09/18/20 06:00 09/18/20 08:00 Temperature 36.8 C 36.9 C Pulse Rate 104 H 94 94 Respiratory Rate 20 18 18 Blood Pressure 144/74 H 128/72 Pulse Oximetry 95 97 97 Intake/Output Intake/Output: Intake & Output 09/15/20 09/16/20 09/17/20 09/18/20 23:59 23:59 23:59 23:59 Intake Total 1000 2700 2960 Output Total 400 300 Balance 600 2400 2960 Meds/Results Medications: Active Medications Generic Name Dose Route Start Last Admin Trade Name Freq PRN Reason Stop Dose Admin Aspirin 81 mg 09/17/20 10:15 09/18/20 09:28 Aspirin 81 Mg Enteric Tablet PO 81 mg DAILY WALDEMAR Administration Dextrose 12.5 gm 09/17/20 02:06 Dextrose 50% 25 Gm/50 Ml Syringe IV PUSH PRN PRN Hypoglycemia Protocol Dicyclomine HCl 10 mg 09/17/20 13:00 09/18/20 13:29 Dicyclomine Hcl 10 Mg Capsule PO 10 mg QID WALDEMAR Administration Enoxaparin Sodium 40 mg 09/17/20 10:20 09/18/20 09:28 Enoxaparin 40 Mg/0.4 Ml Syringe SUB-Q 40 mg DAILY WALDEMAR Administration Famotidine 20 mg 09/17/20 10:15 09/18/20 09:27 Famotidine 20 Mg Tablet PO 20 mg DAILY WALDEMAR Administration Gabapentin 300 mg 09/17/20 13:00 09/18/20 13:29 Gabapentin 300 Mg Capsule PO 300 mg TID WALDEMAR Administration Glucagon 1 mg 09/17/20 02:06 Glucagon For Inj 1 Mg Vial IM PRN PRN Hypoglycemia Protocol Ceftriaxone Sodium/Dextrose 1 gm in 50 mls @ 100 mls/hr 09/17/20 21:00 09/17/20 23:19 Rocephin 1 Gm/D5w 50 Ml IVPB Infused HS WALDEMAR Infu
[2020-09-18 17:21] LABS: Glucose Point of Care 203 (65-105)
[2020-09-18] MEDS: INSULIN GLARGINE (*BKC) 100 UNITS/ML 15 UNITS SUB-Q (17:43)
[2020-09-18 21:13] LABS: Glucose Point of Care 267 (65-105)
[2020-09-18 22:00] VITALS: BP 127/97; PULSE 90; RESP 20; TEMP 36.6; O2SAT 100
[2020-09-19 06:00] VITALS: BP 139/86; PULSE 80; RESP 20; TEMP 36.9; O2SAT 95
[2020-09-19 06:48] LABS: Hemoglobin A1C 8.6 % (<5.7)
[2020-09-19 06:52] LABS: Anion Gap 5 mmol/L (8-16); Blood Urea Nitrogen 11 mg/dL (7-17); Carbon Dioxide 27 mmol/L (22-30); Chloride 106 mmol/L (98-107); Estimated CRCL calculation 66 ml/min; Estimated Glomerular Filt Rate > 60; Glucose 171 mg/dL (65-105); Potassium 4.1 mmol/L (3.4-5.0); Sodium 138 mmol/L (137-145)
--- NOTE | 2020-09-19 08:03 | PCOTNOTE ---
Attempted OT evaluation, pt reports to much pain for therapy at this time. RN notified. Will attempt at later time.
[2020-09-19] MEDS: ASPIRIN 81 MG ENTERIC TABLET PO (08:44)
[2020-09-19] MEDS: DICYCLOMINE HCL 10 MG CAPSULE PO (08:46)
[2020-09-19] MEDS: ENOXAPARIN 40 MG/0.4 ML SYRINGE SUB-Q (08:47)
[2020-09-19] MEDS: FAMOTIDINE 20 MG TABLET PO (08:48)
[2020-09-19] MEDS: GABAPENTIN 300 MG CAPSULE PO ×3 (08:51→17:37)
[2020-09-19] MEDS: INSULIN GLARGINE (*BKC) 100 UNITS/ML 15 UNITS SUB-Q (08:51)
[2020-09-19] MEDS: LOSARTAN POTASSIUM 100 MG TABLET PO (08:53)
[2020-09-19] MEDS: THERAPEUTIC MULTIVITAMINS/MINERALS TAB (*BKC) 1 TABLET PO (08:53)
[2020-09-19] MEDS: SACCHAROMYCES BOULARDII 250 MG CAPSULE PO (08:56)
[2020-09-19] MEDS: THIAMINE HCL 100 MG TABLET PO (08:57)
[2020-09-19] MEDS: VITAMIN B COMPLEX CAPSULE 1 CAP PO (08:57)
[2020-09-19] MEDS: PHENAZOPYRIDINE HCL 100 MG TABLET 200 MG PO (08:59)
[2020-09-19] MEDS: traMADol HCL (*CRX) 50 MG TABLET 100 MG PO ×2 (08:59→17:36)
[2020-09-19] MEDS: SODIUM CHLORIDE 0.9% IV 1,000 ML 100 ML IV CONT (09:05)
--- NOTE | 2020-09-19 09:21 | PM.IMPN ---
Progress Note: A&P Assessment and Plan (1) Acute encephalopathy: Code(s): G93.40 - Encephalopathy, unspecified Status: Acute Assessment and Plan: Appears to be infectious encephalopathy related to UTI. TSH and B12 level normal. Patient is anxious and nervous but is oriented x4. Acute encephalopathy symptoms appear to have a resolved. Continue to monitor. (2) Acute UTI: Code(s): N39.0 - Urinary tract infection, site not specified Status: Acute Assessment and Plan: Patient still complaining of dysuria. No evidence of fungal the vaginal infection. Urine culture growing Proteus sensitive to ceftriaxone. BCx NGTD. Symptoms could be related to urine retention. Continue Rocephin. Check bladder scan. 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 The patient's blood glucose was reviewed on 09/19 Glucose poorly controlled. Continue AccuCheks covering with sliding scale. Hypoglycemia protocol available as needed. Lantus resumed last night. Continue current medications with Lantus. (4) Hypertension: Code(s): I10 - Essential (primary) hypertension Status: Acute Assessment and Plan: Patient's blood pressure was reviewed on 09/19 Blood pressure better controlled. Will continue current medications with losartan (5) DVT prophylaxis: Code(s): Z29.9 - Encounter for prophylactic measures, unspecified Status: Acute Assessment and Plan: Lovenox Subjective Date/time seen: 09/19/20 09:21 Interval history: Date of visit 75yo female with HTN and DM brought in from [place] for altered mental status and found to have urinary tract infection. Assuming care. Chart reviewed. No issues overnight per RN. Patient complains of lower abdominal pain. Having dysuria again. No vaginal discharge. Having diarrheal stools. No blood. No chest pain or shortness of breath. She does chest wall soreness from what sounds sternal rub. staff states patient is refusing to get out of bed Exam Narrative: Exam Narrative: AF 98.4 139/86 80 20 95% ra Gen - NARD Chest - CTA bilaterally, nml RR CV - RRR S1/S2 Abd - Soft. Nondistended. Suprapubic tenderness. Bladder feels distended. - No vaginal erythema or discharge. Ext - No pedal edema Neuro - Alert and oriented x4. Psych - Anxious and nervous Skin - Warm and dry Objective Data Vital Signs Vital Signs: Vital Signs - 24 hr 09/18/20 14:00 09/18/20 22:00 09/19/20 06:00 Temperature 98.9 F 98 F 98.4 F Pulse Rate 88 90 80 Respiratory Rate 18 20 20 Blood Pressure 156/75 H 127/97 H 139/86 Pulse Oximetry 98 100 95 Intake/Output Intake/Output: Intake & Output 09/16/20 09/17/20 09/18/20 09/19/20 23:59 23:59 23:59 23:59 Intake Total 1000 2700 5350 1290 Output Total 400 300 Balance 600 2400 5350 1290 Meds/Results Medications: Active Medications Generic Name Dose Route Start Last Admin Trade Name Freq PRN Reason Stop Dose Admin Aspirin 81 mg 09/17/20 10:15 09/19/20 08:44 Aspirin 81 Mg Enteric Tablet PO 81 mg DAILY WALDEMAR Administration Dextrose 12.5 gm 09/17/20 02:06 Dextrose 50% 25 Gm/50 Ml Syringe IV PUSH PRN PRN Hypoglycemia Protocol Dicyclomine HCl 10 mg 09/17/20 13:00 09/19/20 08:46 Dicyclomine Hcl 10 Mg Capsule PO 10 mg QID WALDEMAR Administration Enoxaparin Sodium 40 mg 09/17/20 10:09/19/20 08:47 Enoxaparin 40 Mg/0.4 Ml Syringe SUB-Q 40 mg DAILY WALDEMAR Administration Famotidine 20 mg 09/17/20 10:15 09/19/20 08:48
[2020-09-19 09:46] LABS: Glucose Point of Care 147 (65-105)
[2020-09-19 10:10] VITALS: BP 157/85; PULSE 77; RESP 14; TEMP 36.3; O2SAT 95
--- NOTE | 2020-09-19 11:53 | PCPTNOTE ---
Attempted therapy session, Pt was sleeping upon entering room. Once awoken, Pt refused therapy stating she hurt all over. Reminded Pt the importance of getting up and moving and how that can sometimes help us to feel better, Pt continued to refuse and asked if therapy could come back later. Informed nursing of Pt's pain.
[2020-09-19 12:23] LABS: Glucose Point of Care 250 (65-105)
--- NOTE | 2020-09-19 13:11 | PC.NURSE ---
Called Dr. Gutiérrez left message about pt still having pain after prn Tramadol.
[2020-09-19] MEDS: INSULIN ASPART (*BKC) 100 UNITS/ML SUB-Q ×2 (13:16→18:36)
[2020-09-19 14:00] VITALS: BP 157/85; PULSE 78; RESP 16; TEMP 36.4; O2SAT 96
[2020-09-19 18:22] LABS: Glucose Point of Care 226 (65-105)
[2020-09-19 20:46] LABS: Glucose Point of Care 206 (65-105)
[2020-09-19 22:00] VITALS: BP 155/82; PULSE 83; RESP 18; TEMP 36.7; O2SAT 96
[2020-09-20 05:54] VITALS: BP 154/85; PULSE 80; RESP 20; TEMP 36.7; O2SAT 95
[2020-09-20] MEDS: LORazepam (*CRX) 1 MG TABLET PO (08:08)
[2020-09-20] MEDS: INSULIN GLARGINE (*BKC) 100 UNITS/ML 15 UNITS SUB-Q (08:47)
[2020-09-20] MEDS: ASPIRIN 81 MG ENTERIC TABLET PO (08:51)
[2020-09-20] MEDS: ENOXAPARIN 40 MG/0.4 ML SYRINGE SUB-Q (08:51)
[2020-09-20 08:52] LABS: Glucose Point of Care 200 (65-105)
[2020-09-20] MEDS: VITAMIN B COMPLEX CAPSULE 1 CAP PO (08:52)
[2020-09-20] MEDS: LOSARTAN POTASSIUM 100 MG TABLET PO (08:52)
[2020-09-20] MEDS: GABAPENTIN 300 MG CAPSULE PO ×2 (08:52→17:10)
[2020-09-20] MEDS: THIAMINE HCL 100 MG TABLET PO (08:52)
[2020-09-20] MEDS: THERAPEUTIC MULTIVITAMINS/MINERALS TAB (*BKC) 1 TABLET PO (08:52)
[2020-09-20] MEDS: SACCHAROMYCES BOULARDII 250 MG CAPSULE PO (08:52)
[2020-09-20] MEDS: FAMOTIDINE 20 MG TABLET PO (08:52)
[2020-09-20 10:40] VITALS: O2SAT 95
[2020-09-20] MEDS: traMADol HCL (*CRX) 50 MG TABLET 100 MG PO ×2 (11:11→21:27)
[2020-09-20] MEDS: INSULIN ASPART (*BKC) 100 UNITS/ML SUB-Q (12:36)
[2020-09-20 12:55] LABS: Glucose Point of Care 228 (65-105)
--- NOTE | 2020-09-20 13:40 | PCOTNOTE ---
Attempted to see patient twice this date. First attempt, patient declined due to burning pain from UTI. Attempted this pm, however patient unable to participate due to increased lethargy as a result of pain medicine.
[2020-09-20 14:00] VITALS: BP 125/71; PULSE 71; RESP 18; TEMP 36.7; O2SAT 98
--- NOTE | 2020-09-20 15:56 | PCPTNOTE ---
PT attempted to see patient 2x today. Patient refused PT in A.M. due to c/o pain from UTI. Patient sleeping this afternoon and did not wake to participate. PT will continue to follow per plan of care.
--- NOTE | 2020-09-20 17:15 | PM.IMPN ---
Progress Note: A&P Assessment and Plan (1) Acute encephalopathy: Code(s): G93.40 - Encephalopathy, unspecified Status: Acute Assessment and Plan: Appears to be infectious encephalopathy related to UTI. TSH and B12 level normal. Patient is anxious and nervous more related to the abd pain. Acute encephalopathy symptoms appear to have a resolved. Continue to monitor. (2) Acute UTI: Code(s): N39.0 - Urinary tract infection, site not specified Status: Acute Assessment and Plan: Patient still complaining of dysuria and lower abd pain. She has this as a long standing problem. She has had CT A/P in June and again in Jul showing acute/chronic cystitis. No evidence of fungal the vaginal infection. Consider fistula tract. Urine culture growing Proteus sensitive to ceftriaxone. BCx NGTD. Continue Rocephin. Repeat CT scan. Urology consult. Schedule pyridium for now Discussed with dtr. Patient did have a sigmoidectomy 4-5 months ago in [place]. Patient has chronic, persistent UTIs with chronic dysuria. (3) Diabetes mellitus: Qualifiers: Diabetes mellitus complication status: without complication Diabetes mellitus correction insulin use: with correction use Diabetes mellitus type: type 2 Qualified Code(s): E11.9 - Type 2 diabetes mellitus without complications; Z79.4 - longterm (current) use of insulin Code(s): E11.9 - Type 2 diabetes mellitus without complications Status: Acute Assessment and Plan: A1c 8.6. The patient's blood glucose was reviewed on 09/20 Glucose still poorly controlled. Continue AccuCheks covering with sliding scale. Hypoglycemia protocol available as needed. Will advance Lantus. (4) Hypertension: Code(s): I10 - Essential (primary) hypertension Status: Acute Assessment and Plan: Patient's blood pressure was reviewed on 09/20 Blood pressure reasonably well controlled. Will continue current medications with losartan (5) DVT prophylaxis: Code(s): Z29.9 - Encounter for prophylactic measures, unspecified Status: Acute Assessment and Plan: Lovenox - hold for possible cysto tomorrow. Subjective Date/time seen: 09/20/20 17:15 Interval history: Date of visit 09/20 75yo female with HTN and DM brought in from [place] for altered mental status and found to have urinary tract infection. No CP or SOB. Still with significant dysuria. Also has lower abd pain. States it occurs when voiding but also occurs on/off throughout the day. Nausea but no vomiting. Nausea associated with the dysuria and abd pain. Exam Narrative: Exam Narrative: AF 98.0 154/85 80 20 95% ra Gen - NARD Chest - CTA bilaterally, nml RR CV - RRR S1/S2 Abd - soft, diffusely tender, +BS, no guarding. - No vaginal erythema or discharge. No erythema at urethra. No obvious tears or sores Ext - No pedal edema Psych - Anxious and nervous Skin - Warm and dry Objective Data Vital Signs Vital Signs: Vital Signs - 24 hr 09/19/20 22:00 09/20/20 05:54 09/20/20 10:40 Temperature 98.0 F 98.0 F Pulse Rate 83 80 Respiratory Rate 18 20 Blood Pressure 155/82 H 154/85 H Pulse Oximetry 96 95 95 Intake/Output Intake/Output: Intake & Output 09/17/20 09/18/20 09/19/20 09/20/20 23:59 23:59 23:59 23:59 Intake Total 2700 5350 2680 370 Output Total 300 1800 Balance 2400 5350 880 370 Meds/Results Medications: Active Medications Generic Name Dose Route Start Last Admin Trade Name Freq PRN Reason Stop Dose Admin Aspirin 81 mg 09/17/20 10:15 09/20/20 08:51 Aspirin 81 Mg Enteric Tablet PO 81 mg DAILY WALDEMAR Administration Dextrose 12.5 gm 09/17/20 02:06 Dextrose 50% 25 Gm/50 Ml Syringe IV PUSH PRN PRN Hypoglycemia Protocol Dicyclomine HCl 10 mg 09/17/20 13:00 09/19/20 08:46 Dicyclomine Hcl 10 Mg Capsule PO 10 mg QID WALDEMAR Administration Enoxaparin Sodium
[2020-09-20 17:23] LABS: Glucose Point of Care 163 (65-105)
[2020-09-20 19:30] VITALS: RESP 18; O2SAT 95
[2020-09-20 20:36] VITALS: O2SAT 94
[2020-09-20] MEDS: PHENAZOPYRIDINE HCL 100 MG TABLET 200 MG PO (21:00)
[2020-09-20 21:20] LABS: Glucose Point of Care 276 (65-105)
[2020-09-20 22:00] VITALS: BP 153/74; PULSE 87; RESP 18; TEMP 36.8; O2SAT 95
[2020-09-21 06:00] VITALS: BP 150/99; PULSE 96; RESP 18; TEMP 36.7; O2SAT 97
[2020-09-21 06:37] LABS: Basophils Absolute Auto 0.1 K/mm3 (0.0-0.1); Eosinophils Absolute Auto 0.2 K/mm3 (0-0.3); Eosinophils Percent Auto 3.6 % (0-4.4); Hematocrit 39.2 % (37.0-47.0); Hemoglobin 13.1 g/dL (12.0-15.0); Immature Granulocyte Absolute 0.01 K/mm3 (0.00-0.031); Immature Granulocyte Percent A 0.2 % (0-0.5); Lymphocytes Absolute Auto 1.64 K/mm3 (0.9-3.2); Lymphocytes Percent Auto 32.7 % (18.3-44.2); Mean Corpuscular HGB Conc 33.4 g/dl (32-36); Mean Corpuscular Hemoglobin 28.6 pg (26-34); Mean Corpuscular Volume 85.6 fl (80-100); Mean Platelet Volume 10.8 fl (7.4-10.4); Monocytes Absolute Auto 0.5 K/mm3 (0.1-0.6); Monocytes Percent Auto 9.2 % (2.6-8.5); Neutrophils Absolute Auto 2.7 K/mm3 (1.3-6.7); Neutrophils Percent Auto 53.3 % (45.5-73.1); Platelet Count Result 208 k/mm3 (150-375); Red Blood Count 4.58 M/mm3 (4.2-5.4); Red Cell Distribution Width 12.3 % (11.5-14.5)
[2020-09-21 06:48] LABS: Alanine Aminotransferase 34 U/L (4-35); Albumin Level 3.7 g/dL (3.5-5.1); Alkaline Phosphatase 82 U/L (38-126); Anion Gap 6 mmol/L (8-16); Aspartate Amino Transferase 42 U/L (14-36); Bilirubin,Total 0.5 mg/dL (0.2-1.3); Blood Urea Nitrogen 11 mg/dL (7-17); Calcium 9.4 mg/dL (8.4-10.2); Carbon Dioxide 27 mmol/L (22-30); Chloride 103 mmol/L (98-107); Estimated CRCL calculation 66 ml/min; Estimated Glomerular Filt Rate > 60; Glucose 181 mg/dL (65-105); Lipase 20 U/L (23-300); Potassium 3.7 mmol/L (3.4-5.0); Sodium 136 mmol/L (137-145)
[2020-09-21 08:32] LABS: Glucose Point of Care 170 (65-105)
[2020-09-21] MEDS: ASPIRIN 81 MG ENTERIC TABLET PO (08:40)
[2020-09-21] MEDS: GABAPENTIN 300 MG CAPSULE PO ×3 (08:41→16:43)
[2020-09-21] MEDS: FAMOTIDINE 20 MG TABLET PO (08:41)
[2020-09-21] MEDS: INSULIN GLARGINE (*BKC) 100 UNITS/ML 20 UNITS SUB-Q (08:41)
[2020-09-21] MEDS: LOSARTAN POTASSIUM 100 MG TABLET PO (08:44)
[2020-09-21] MEDS: VITAMIN B COMPLEX CAPSULE 1 CAP PO (08:44)
[2020-09-21] MEDS: THERAPEUTIC MULTIVITAMINS/MINERALS TAB (*BKC) 1 TABLET PO (08:45)
[2020-09-21] MEDS: SACCHAROMYCES BOULARDII 250 MG CAPSULE PO (08:46)
[2020-09-21] MEDS: PHENAZOPYRIDINE HCL 100 MG TABLET 200 MG PO ×3 (08:46→16:43)
[2020-09-21] MEDS: THIAMINE HCL 100 MG TABLET PO (08:46)
[2020-09-21] MEDS: traMADol HCL (*CRX) 50 MG TABLET 100 MG PO (10:14)
[2020-09-21] MEDS: ONDANSETRON HCL ODT 4 MG TABLET PO (10:16)
[2020-09-21 12:41] LABS: Glucose Point of Care 167 (65-105)
--- NOTE | 2020-09-21 13:12 | WPDURCON ---
Assessment and Plan Assessment and plan (1) Acute UTI: Code(s): N39.0 - Urinary tract infection, site not specified Status: Acute Assessment and Plan: Continue IV antibiotics. (2) Chronic UTI: Code(s): N39.0 - Urinary tract infection, site not specified Status: Acute Assessment and Plan: I would recommend prophylaxis after treatment of this UTI with Keflex 250mg daily to prevent further UTI's. Upper tracts look normal on CT. Will recommend she also see Dr. Lo as an outpatient for a cystoscope. Otherwise no further recommendation or evaluation necessary. Urology Consult Note HPI Date Seen: 09/21/20 Requesting Physician: Tray Gutiérrez MD Primary Care Provider: Bhupendra Kerr MD Consult Narrative Narrative: Naomi Govea is a 75 year old female who presented to the ER on 09/16/2020 with complaints from [facility] staff of altered mental status, dysuria, hematuria and unresponsiveness. She is alert and oriented this morning but is very COMANCHE. She states she has had three UTI's since April of 2020 and has been in the hospital d/t sepsis a couple of times. Before this she has not had hardly any UTI's in her lifetime. She has a WBC today of 5.0, creatinine of 0.70, urine culture that grew proteus and is sensitive to the Ceftriaxone she is on. Her CT scan of the abdomen and pelvis shows mild bladder wall thickening but otherwise is normal. She states that a few of the aids at her NH refuse to change her diaper, which she wears d/t urinary incontinence and yell at her because she will not ambulate to the bathroom, even though she states she cannot walk on her own. Review of Systems Cardiovascular: Cardiovascular: Denies chest pain Respiratory: Respiratory: Reports no additional respiratory complaints Gastrointestinal: Gastrointestinal: Denies abdominal pain, Denies nausea and Denies vomiting Genitourinary: Genitourinary: Denies hematuria, Reports dysuria, Denies pelvic pain, Denies flank pain and Reports urinary incontinence PMF Past Medical History Medical History Diabetes mellitus Meniere disease Rectal prolapse Family History Family History Father Parkinsons Mother Alzheimer disease Social History Social History Smoking status: Never smoker Second hand tobacco smoke exposure: No Alcohol intake: never Substance use: never Gender identity (if verbalized by the patient): Female Spiritual care concerns: No Meds Home Medications and Allergies Home Medications Medication Instructions Recorded Confirmed Type aspirin 81 mg PO DAILY 05/11/20 09/17/20 History famotidine 20 mg PO DAILY 05/11/20 09/17/20 History lorazepam [Ativan] 1 mg PO QID PRN 05/11/20 09/17/20 History losartan 100 mg PO DAILY 05/11/20 09/17/20 History ondansetron 4 mg PO Q6H PRN 05/11/20 09/17/20 History polyethylene glycol 3350 17 g PO DAILY 05/11/20 09/17/20 History Vitamin B-1 100 mg PO DAILY 07/14/20 09/17/20 History dicyclomine 10 mg PO QID 07/14/20 09/17/20 History glucagon HCl [Glucagon (HCl) 1 mg SUBCUT PRN PRN 07/14/20 09/17/20 History Emergency Kit] linaclotide [Linzess] 290 mcg PO DAILY 07/14/20 09/17/20 History tramadol 50 mg PO Q8H PRN 07/14/20 09/17/20 History vitamin B complex 1 tablet PO DAILY 07/14/20 09/17/20 History insulin aspart U-100 [Novolog See Rx Instructions .ROUTE .COMPLEX 07/31/20 09/17/20 History Flexpen U-100 Insulin] insulin glargine [Lantus Solostar 28 unit SUBCUT DAILY 07/31/20 09/17/20 History U-100 Insulin] phenazopyridine [Pyridium] 200 mg PO TID PRN #6 tablet 07/31/20 09/17/20 Rx Saccharomyces boulardii [Florastor] 250 mg PO DAILY 09/17/20 09/17/20 History gabapentin 300 mg PO TID 09/17/20 09/17/20 History multivitamin with minerals 1 cap PO DAILY 09/17/20 09/17/20 History
[2020-09-21 14:00] VITALS: BP 133/81; PULSE 94; RESP 14; TEMP 37; O2SAT 96
--- NOTE | 2020-09-21 14:23 | PM.DS ---
DS: Admitting Diagnosis Admitting Diagnosis Admitting Diagnosis: UTI, metabolic encepholopathy DS: Discharge Diagnosis Discharge Diagnosis (1) Acute encephalopathy: Code(s): G93.40 - Encephalopathy, unspecified Status: Acute Assessment and Plan: Appears to be infectious encephalopathy related to UTI. TSH and B12 level normal. Patient is anxious and nervous more related to the abd pain. Acute encephalopathy symptoms have resolved. (2) Acute UTI: Code(s): N39.0 - Urinary tract infection, site not specified Status: Acute Assessment and Plan: Patient still complaining of dysuria and lower abd pain. She has this as a long standing problem. She has had CT A/P in June and again in Jul showing acute/chronic cystitis. No evidence of fungal vaginal infection. Urine culture growing Proteus sensitive to ceftriaxone. BCx NGTD. CT Abd/Pelvis showing mild bladder wall thickening - consider cystitis as well as probable focal fatty necrosis of the subcutaneous tissues anterior wall at the pelvic level. This could be causing some of her pain but the pain is diffuse and not localized. Urology consulted and recommended Keflex prophylaxis once she has completed her abx course. Also, plan for follow up with cystoscopy after discharge. Discussed with dtr. Hospital course and follow up plan discussed (3) Diabetes mellitus: Qualifiers: Diabetes mellitus type: type 2 Diabetes mellitus prison insulin use: with supervisor intermediates use Diabetes mellitus complication status: without complication Qualified Code(s): E11.9 - Type 2 diabetes mellitus without complications; Z79.4 - supervisor intermediates (current) use of insulin Code(s): E11.9 - Type 2 diabetes mellitus without complications Status: Acute Assessment and Plan: A1c 8.6. The patient's blood glucose was monitored closely. Glucose better controlled. We continued AccuCheks covering with sliding scale. Hypoglycemia protocol available as needed. (4) Hypertension: Code(s): I10 - Essential (primary) hypertension Status: Acute Assessment and Plan: Patient's blood pressure was monitored closely. Blood pressure reasonably well controlled. We continued current medications with losartan. DS: Summary Hospital Course Reason for hospitalization: 75yo female here for altered mental status. Please see H&P for details. Hospital Course: As above Time Spent with Patient Time attestation: Total time spent providing and/or coordinating discharge services: 34 minutes Time spent: Greater than 30 minutes Exam Narrative: Exam Narrative: AF 98.0 150/99 96 18 97% ra Gen - NARD Chest - CTA bilaterally, nml RR CV - RRR S1/S2 Abd - soft, diffusely tender but no guarding. +BS Ext - No pedal edema Psych - Anxious and nervous; AOx4 Skin - Warm and dry DS: Data Data Completed and Pending Labs on day of discharge: Labs from last 24 hours 09/21/20 09/21/20 09/21/20 12:38 08:26 05:55 WBC RBC Hgb Hct MCV MCH MCHC RDW Plt Count MPV Immature Gran % (Auto) Neut % (Auto) Lymph % (Auto) [place] % (Auto) Eos % (Auto) Baso % (Auto) Lymph # (Auto) [place] # (Auto) Eos # (Auto) Baso # (Auto) Abs Immat Gran (auto) Absolute Neuts (auto) Absolute Nucleated RBC Nucleated RBC % Sodium 136 L Potassium 3.7 Chloride 103 Carbon Dioxide 27 Anion Gap 6 L BUN 11 Creatinine 0.70 Estim Creat Clear Calc 66 Estimated GFR > 60 Glucose 181 H POC Capillary Glucose 167 H 170 H Calcium 9.4 Total Bilirubin 0.5 AST 42 H ALT 34 Alkaline Phosphatase 82 Total Protein 6.0 L Albumin 3.7 Lipase 20 L 09/21/20 09/20/20 09/20/20 05:55 21:09 17:09 WBC 5.0 RBC 4.58 Hgb 13.1 Hct 39.2 MCV 85.6 MCH 28.6 MCHC 33.4 RDW 12.3 Plt Count 208 MPV 10.8 H Immature Gran
[2020-09-21 16:45] LABS: Glucose Point of Care 127 (65-105)
== END 2020-09-21 18:05 | DRG 690 ==
LOC: ANHED 09-17 00:55 → ANHIMU 09-17 01:04 → ANH3MEDSUR 09-17 11:42
PROVIDERS: Internal Medicine; Admitting Provider Family Medicine; Emergency Provider Emergency Medicine; PCP Family Medicine; Visit Provider Internal Medicine
DX: N39.0 Urinary tract infection, site not specified (principal); G93.40 Encephalopathy, unspecified; B96.4 Proteus (mirabilis) (morganii) as the cause of diseases classified elsewhere; E11.9 Type 2 diabetes mellitus without complications; I10 Essential (primary) hypertension; Z79.4 Long term (current) use of insulin; Z79.82 Long term (current) use of aspirin
CPT/HCPCS: 36415; 36600; 51701; 70450; 71045; 74176; 80048; 80053; 81001; 82607; 82746; 82805; 83036; 83605; 83690; 84439; 84443; 84480; 85025; 85610; 85730; 87040; 87077; 87086; 87088; 87186; 93005; 96361; 96365; 96366; 96372; 97110; 97161; 97165; 97530; 99285; A9270; G0378; J0696; J1650; J1815; J7030

== ENCOUNTER 2020-09-22 14:45 | Inpatient (IN) | payer MEDICARE, MEDICAID, SELFPAY ==
[2020-09-22] VITALS (32 sets, daily range): BP systolic 112–142; BP diastolic 66–100; PULSE 63–101; RESP 12–22; TEMP 36.6–36.9; O2SAT 93–100; BMI 32.1
--- NOTE | ~2020-09-22 | XR_ITS ---
EXAMINATION: XR chest 1V portable 09/22/2020 15:55 INDICATION: Weakness, transient alteration of awareness PROCEDURE: AP portable chest COMPARISON: 10/17/2020 FINDINGS: The lungs are clear. The cardiomediastinal silhouette is within normal limits. There are no pleural effusions. There is no pneumothorax suspected. There are degenerative changes of the lef t shoulder with probable rotator cuff tear. There is atherosclerosis of the aorta. IMPRESSION: 1: NO ACUTE CARDIOPULMONARY DISEASE. Reviewed, dictated and finalized at location A.
--- NOTE | ~2020-09-22 | CT_ITS ---
EXAMINATION: CT brain wo con DATE: 09/22/2020 16:37 INDICATION: Confusion TECHNIQUE: Computed tomography (CT) of the head was performed without intravenous contrast. The dose- length product was 681.00 mGy-cm. The mA was adjusted according to patient size. Iterative reconstruc tion technique was employed. COMPARISON: CT dated 09/16/2020 FINDINGS: No acute intracranial hemorrhage, infarction, mass or mass effect. There are scattered mode rate periventricular and subcortical white matter changes, most likely related to small vessel ischem ic disease (microangiopathy). There is intracranial atherosclerosis. No ventriculomegaly or midline s hift. There is minimal mucosal thickening of the ethmoid air cells. Left mastoid effusion. Postsurgic al changes of the left mastoids noted. IMPRESSION: 1. No acute intracranial abnormality. 2: Chronic age-related findings. Reviewed, dictated and finalized at location A.
--- NOTE | 2020-09-22 15:18 | ECG_ITS ---
Measurements Intervals [place] Rate: 78 P: 51 SD: 209 QRS: -8 QRSD: 125 T: 24 QT: 388 QTc: 444 Interpretive Statements SINUS RHYTHM RIGHT BUNDLE BRANCH BLOCK BASELINE ARTIFACT- I, II, AVR, AVL, V1 ABNORMAL ECG Electronically Signed On 09-22-2020 16:58:18 CDT by Aaron Terry D.O.
--- NOTE | 2020-09-22 17:12 | ED.GENADULT ---
HPI - General Adult General Chief complaint: Altered Mental Status Stated complaint: AMS Time Seen by Provider: 09/22/20 14:56 Source: EMS Limitations: dementia History of Present Illness HPI narrative: Patient is 75 years old white female came from [facility] because of increased change of mental status in the last 24 hours. Patient is normally oriented x1, and responsive to verbal command, today is responsive only to painful stimulation. Patient was recently diagnosed of having urinary tract infection Related Data Home Medications Medication Instructions Recorded Confirmed aspirin 81 mg PO DAILY 05/11/20 09/17/20 famotidine 20 mg PO DAILY 05/11/20 09/17/20 lorazepam [Ativan] 1 mg PO QID PRN 05/11/20 09/17/20 losartan 100 mg PO DAILY 05/11/20 09/17/20 ondansetron 4 mg PO Q6H PRN 05/11/20 09/17/20 polyethylene glycol 3350 17 g PO DAILY 05/11/20 09/17/20 Glucagon (HCl) Emergency Kit 1 mg SUBCUT PRN PRN 07/14/20 09/17/20 Linzess 290 mcg PO DAILY 07/14/20 09/17/20 Vitamin B-1 100 mg PO DAILY 07/14/20 09/17/20 vitamin B complex 1 tablet PO DAILY 07/14/20 09/17/20 Lantus Solostar U-100 Insulin 28 unit SUBCUT DAILY 07/31/20 09/17/20 insulin aspart U-100 [Novolog See Rx Instructions .ROUTE .COMPLEX 07/31/20 09/17/20 Flexpen U-100 Insulin] Saccharomyces boulardii [Florastor] 250 mg PO DAILY 09/17/20 09/17/20 gabapentin 300 mg PO TID 09/17/20 09/17/20 multivitamin with minerals 1 cap PO DAILY 09/17/20 09/17/20 Allergies Allergy/AdvReac Type Severity Reaction Status Date / Time acetaminophen [From Tylenol] Allergy Unknown Verified 09/17/20 01:06 aspirin Allergy Unknown Verified 09/17/20 01:06 caffeine Allergy Unknown Verified 09/17/20 01:06 chlordiazepoxide Allergy Unknown Verified 09/17/20 01:06 clidinium Allergy Unknown Verified 09/17/20 01:06 codeine Allergy Rash Verified 09/17/20 01:06 doxepin Allergy Unknown Verified 09/17/20 01:06 hydrocodone Allergy Rash Verified 09/17/20 01:06 hydromorphone [From Dilaudid] Allergy Unknown Verified 09/17/20 01:06 hydroxychloroquine Allergy Unknown Verified 09/17/20 01:06 morphine Allergy Rash Verified 09/17/20 01:06 sitagliptin [From Januvia] Allergy Rash Verified 09/17/20 01:06 Review of Systems Review of Systems: ROS unobtainable: Yes unobtainable due to medical condition and unobtainable due to mental status PMFSH Past Medical History Medical History Diabetes mellitus Meniere disease Rectal prolapse Family History Family History Father Parkinsons Mother Alzheimer disease Social History Social History Smoking status: Never smoker Second hand tobacco smoke exposure: No Alcohol intake: never Substance use: never Gender identity (if verbalized by the patient): Female Spiritual care concerns: No Exam Narrative: Exam Narrative: General appearance: Well-developed, well-nourished Skin: Normal color Head: Normocephalic, nontraumatic Eyes: Clear conjunctiva ENT: Oropharynx normal, ears normal, nose normal Neck: Supple, nontender Chest and respiratory: Airway patent, no respiratory distress, no accessory muscle use Heart: Regular rate/rhythm Abdomen: Soft, nontender, no organomegaly, quiet bowel sounds Vascular: Normal peripheral pulses, normal capillary refill. Neurologic: Responsive only to painful stimulation Course Course Emergency Course: Stable Vital Signs Vital signs: Vital Signs Temperature 36.9 C 09/22/20 15:10 Pulse Rate 82 09/22/20 15:10 Respiratory Rate 14 09/22/20 15:10 Blood Pre
[2020-09-22 17:35] LABS: Basophils Percent Auto 0.6 % (0.2-1.2); Eosinophils Absolute Auto 0.1 K/mm3 (0-0.3); Hematocrit 44.3 % (37.0-47.0); Hemoglobin 14.4 g/dL (12.0-15.0); Immature Granulocyte Absolute 0.03 K/mm3 (0.00-0.031); Immature Granulocyte Percent A 0.4 % (0-0.5); Lymphocytes Absolute Auto 1.64 K/mm3 (0.9-3.2); Lymphocytes Percent Auto 23.1 % (18.3-44.2); Mean Corpuscular HGB Conc 32.5 g/dl (32-36); Mean Corpuscular Volume 89.3 fl (80-100); Mean Platelet Volume 11.1 fl (7.4-10.4); Monocytes Absolute Auto 0.6 K/mm3 (0.1-0.6); Monocytes Percent Auto 7.9 % (2.6-8.5); Neutrophils Absolute Auto 4.7 K/mm3 (1.3-6.7); Platelet Count Result 205 k/mm3 (150-375); Red Blood Count 4.96 M/mm3 (4.2-5.4); Red Cell Distribution Width 13.1 % (11.5-14.5); White Blood Count 7.1 K/mm3 (4.5-10.0)
[2020-09-22 17:47] LABS: Alanine Aminotransferase 35 U/L (4-35); Albumin Level 4.2 g/dL (3.5-5.1); Alkaline Phosphatase 89 U/L (38-126); Anion Gap 11 mmol/L (8-16); Aspartate Amino Transferase 41 U/L (14-36); Bilirubin,Total 0.6 mg/dL (0.2-1.3); Blood Urea Nitrogen 23 mg/dL (7-17); Calcium 9.8 mg/dL (8.4-10.2); Carbon Dioxide 27 mmol/L (22-30); Chloride 102 mmol/L (98-107); Estimated Glomerular Filt Rate 48; Glucose 170 mg/dL (65-105); Sodium 140 mmol/L (137-145)
[2020-09-22 18:02] LABS: Add Urine Microscopic? YES; Appearance Urine Clear (Clear); Bacteria Urine Trace /hpf; Bilirubin Urine Negative (Negative); Blood Urine Negative (Negative); Color Urine Amber (Yellow); Glucose Urine UA Negative (Negative); Hyaline Casts Urine 30-49 /lpf; Ketones Urine Negative (Negative); Leukocyte Esterase Ur Negative LEU/UL (Negative); Mucus Urine Heavy /lpf; Nitrate Urine Positive (Negative); Protein Urine 1+ mg/dL (Negative); Specific Grav Ur 1.019 (1.001-1.035); Squamous Epithelial Cell Urine Rare /hpf (Few)
--- NOTE | 2020-09-22 19:40 | PM.IMHP ---
H&P: HPI History of Present Illness Date/Time: 09/22/20 19:40 Chief complaint: sent from long term for altered mental status Narrative: Naomi Govea is a 75 year old female With a past medical history of dementia, chronic back pain, chronic abdominal pain, and chronic UTI who presented back to the ER around 24 hours after discharge due to altered mental status. The patient was reportedly only alert and oriented to painful stimuli On arrival to the ER. Shortly after arrival to the ER the patient was awake in yelling out repeatedly for help. The patient was fixated on discomfort from her IV site. She reported to the nursing staff that she wanted the nurse to stay in the room with her. At the time of my evaluation the patient could not give me specific complaints for why she was in the ER. She was weak but moving all extremities. She was fixated on a hallucination she had of a mouse running across the counter in the ER. She was commenced that there was mouse droppings on the wall under the paper towel dispenser. On examination she complained of pain in her periumbilical and lower abdominal region. Her abdomen was otherwise benign. She has been afebrile since presentation and does not have a white count. She has not had any nausea or vomiting since presentation in no mention of said symptoms in EMS documentation. Nursing staff informs me that his carter is the patient arrived to the medical floor she was alert oriented to the fact that she was in the hospital but could not tell the nurse which hospital. She was oriented to the month and year as well as the name of the current president. She stated that she hates her current living facility. She does not like that they tried to get her up and move her around for the day. Each time nursing staff leaves the room the patient presses the call light income has a new complaint. She initially complained of abdominal pain. She then complained of foot pain. But again the patient would not provide me any of this information when she was in the ER and was focused on the fact that she thought she saw limb mouse running across the counter. She did not mention seeing the mouse to the nursing staff. Review of Systems Review of Systems: ROS unobtainable: Yes unobtainable due to medical condition (Dementia) and unobtainable due to mental status PMFSH Past Medical History Medical History (Updated 09/22/20 @ 19:56 by Carlene Nolasco DO) Cancer of right breast Dementia Diabetes mellitus Essential hypertension GERD (gastroesophageal reflux disease) Hyperlipidemia Meniere disease Rectal prolapse Surgical History Surgical History (Updated 09/22/20 @ 19:56 by Carlene Nolasco DO) H/O cervical spine surgery History of bilateral cataract extraction History of hysterectomy History of lumbar surgery History of rectopexy rectal prolapse with repair February 2020 History of right mastectomy Hx of cholecystectomy Family History Family History Father Parkinsons Mother Alzheimer disease Social History Social History (Updated 09/22/20 @ 20:36 by Carlene Nolasco DO) Social History: Primary care physician: Dr. Bhupendra Kerr Code status: Per state advanced directive form the patient is supposed to be a full code with only selective treatment. This will need to be clarified with family. Smoking status: Never smoker Second hand tobacco smoke exposure: No Alcohol intake: unknown Substance use: never Substance use type: does not use Living arrangements: long term Gender identity (if verbalized by the patient): Female Spiritual care concerns: No Meds Home Medications and Allergies Home Medications Medication Instructions Recorded Confirmed Type aspirin 81 mg PO DAILY 05/11/20 09/22/20 History famotidine 20 mg PO DAILY 05/11/20 09/22/20 History lorazepam [Ativan] 1 mg PO QID PRN 05/11/20 09/22/20 Hi
--- NOTE | 2020-09-22 20:28 | ADMGEN ---
This patient, Naomi Govea, was admitted to 2 Medical Room 241-01 on 09/22/2020 @ 2024. Patient/family oriented to hospital policies and general routines including ID bracelet, bed and alarms, visiting hours, pain management, procedures, bathroom and other care routines, personal items, smoking policy, room service/diet, and visiting hours. Information on how to activate the Rapid Response Team has been discussed. Patient/Family are encouraged to report perceived risks to care and to ask questions if they do not understand what they are told or what they should do.
[2020-09-22] MEDS: SODIUM CHLORIDE 0.9% IV 1,000 ML 125 ML IV CONT (20:43)
[2020-09-22 21:47] LABS: Glucose Point of Care 175 (65-105)
[2020-09-23] MEDS: CEFDINIR 300 MG CAPSULE PO (01:52)
[2020-09-23] MEDS: traMADol HCL (*CRX) 50 MG TABLET PO (01:52)
[2020-09-23] MEDS: GABAPENTIN 300 MG CAPSULE PO ×3 (01:52→12:07)
[2020-09-23] MEDS: LORazepam (*CRX) 1 MG TABLET PO (01:53)
[2020-09-23] MEDS: INSULIN GLARGINE (*BKC) 100 UNITS/ML 28 UNITS SUB-Q (01:53)
[2020-09-23] MEDS: SODIUM CHLORIDE 0.9% IV 1,000 ML 125 ML IV CONT (05:47)
[2020-09-23 06:00] VITALS: BP 135/68; PULSE 92; RESP 18; TEMP 36.7; O2SAT 95
[2020-09-23 07:06] LABS: Hematocrit 39.4 % (37.0-47.0); Mean Corpuscular Hemoglobin 29.1 pg (26-34); Mean Corpuscular Volume 88.1 fl (80-100); Mean Platelet Volume 10.9 fl (7.4-10.4); Platelet Count Result 195 k/mm3 (150-375); Red Blood Count 4.47 M/mm3 (4.2-5.4); Red Cell Distribution Width 12.9 % (11.5-14.5); White Blood Count 6.4 K/mm3 (4.5-10.0)
[2020-09-23 07:17] LABS: Anion Gap 6 mmol/L (8-16); Blood Urea Nitrogen 18 mg/dL (7-17); Calcium 9.1 mg/dL (8.4-10.2); Carbon Dioxide 24 mmol/L (22-30); Chloride 108 mmol/L (98-107); Estimated CRCL calculation 60 ml/min; Estimated Glomerular Filt Rate > 60; Glucose 128 mg/dL (65-105); Potassium 3.7 mmol/L (3.4-5.0); Sodium 138 mmol/L (137-145)
[2020-09-23 07:49] LABS: Glucose Point of Care 123 (65-105)
[2020-09-23] MEDS: VITAMIN B COMPLEX CAPSULE 1 CAP PO (08:27)
[2020-09-23] MEDS: THERAPEUTIC MULTIVITAMINS/MINERALS TAB (*BKC) 1 TABLET PO (08:27)
[2020-09-23] MEDS: LOSARTAN POTASSIUM 100 MG TABLET PO (08:28)
[2020-09-23] MEDS: THIAMINE HCL 100 MG TABLET PO (08:28)
[2020-09-23] MEDS: SACCHAROMYCES BOULARDII 250 MG CAPSULE PO (08:28)
[2020-09-23] MEDS: FAMOTIDINE 20 MG TABLET PO (08:28)
[2020-09-23 09:12] VITALS: O2SAT 94
[2020-09-23 11:32] LABS: Glucose Point of Care 114 (65-105)
[2020-09-23] MEDS: ASPIRIN 81 MG ENTERIC TABLET PO (12:07)
--- NOTE | 2020-09-23 12:32 | PM.DS ---
DS: Admitting Diagnosis Admitting Diagnosis Admitting Diagnosis: sent from custodial for altered mental status DS: Discharge Diagnosis Discharge Diagnosis (1) SHELL (acute kidney injury): Code(s): N17.9 - Acute kidney failure, unspecified Status: Acute Assessment and Plan: The patient had just been discharged from the hospital on Sep 21. Her BUN and creatinine at that time were 11 and 0.7 respectfully. On admission here, her BUN was 23 and Cr 1.1. She is likely dehydrated due to decreased oral intake. She was started on IV fluids and renal function improved (18/0.8). (2) Chronic UTI: Code(s): N39.0 - Urinary tract infection, site not specified Status: Acute Assessment and Plan: Her urine culture from 09/16/2020 grew out Proteus that was relatively pansensitive. Urology was consulted at that time due to chronic cystitis and chronic dysuria. They recommended the patient be discharged on cefdinir to finish a coarse of abx and then start Keflex prophylaxis. She was to complete her abx on 09/22/20. Her UA here is positive for nitrates but only 4-6WBC. Will stop Rocephin and resume Keflex prophylaxis. 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 Glucoses remained reasonably well controlled. Lantus was resumed and moderate sliding scale insulin added with Accu-Cheks a.c. HS. (4) Altered mental status: Qualifiers: Altered mental status type: unspecified Qualified Code(s): R41.82 - Altered mental status, unspecified Code(s): R41.82 - Altered mental status, unspecified Status: Acute Assessment and Plan: Patient brought [facility] the ED from the [facility] for altered mental status. CT brain showing no acute findings. CXR was clear. CBC was normal. Please see H&P for details of what had transpired. It was felt that the patient's symptoms are due to malingering. She does not like her current living facility. She is histrionic at times. Dtr is aware but is ot making any plans to move the patient at this time. She is agreeable for patient discharge with plan for psychiatry evaluation at the [facility]. DS: Summary Hospital Course Reason for hospitalization: 75yo female here for altered mental status. Please see H&P for details. Hospital Course: As above Time Spent with Patient Time attestation: Total time spent providing and/or coordinating discharge services: 34 minutes Time spent: Greater than 30 minutes Exam Narrative: Exam Narrative: AF 98.1 135/68 92 18 95% ra Gen - NARD lying almost flat in bed Chest - CTA bilaterally, nml RR CV - RRR S1/S2 Abd - Soft, mild, diffuse tenderness. No guarding Ext - No pedal edema Neuro - Alert and appropriate. Nml speech. strength and tone symmetric. no facial asymmetry Psych - alert, cooperative Skin - Warm and dry DS: Data Data Completed and Pending Labs on day of discharge: Labs from last 24 hours 09/23/20 09/23/20 09/23/20 11:29 07:42 06:44 WBC RBC Hgb Hct MCV MCH MCHC RDW Plt Count MPV Immature Gran % (Auto) Neut % (Auto) Lymph % (Auto) [place] % (Auto) Eos % (Auto) Baso % (Auto) Lymph # (Auto) [place] # (Auto) Eos # (Auto) Baso # (Auto) Abs Immat Gran (auto) Absolute Neuts (auto) Absolute Nucleated RBC Nucleated RBC % Sodium 138 Potassium 3.7 Chloride 108 H Carbon Dioxide 24 Anion Gap 6 L BUN 18 H Creatinine 0.80 Estim Creat Clear Calc 60 Estimated GFR > 60 Glucose 128
--- NOTE | 2020-09-25 07:51 | PC.NURSE ---
Urine cx results- probable contamination. Dr. Marla solano.
--- NOTE | 2020-09-29 11:48 | PC.NURSE ---
Blood cx are negative.
== END 2020-09-23 15:00 | DRG 683 ==
LOC: ANHED 18:32 → ANH2MED 20:00
PROVIDERS: Internal Medicine; Admitting Provider Family Medicine; Emergency Provider Emergency Medicine; PCP Family Medicine; Visit Provider Internal Medicine
DX: N17.9 Acute kidney failure, unspecified (principal); N39.0 Urinary tract infection, site not specified; R41.82 Altered mental status, unspecified; Z76.5 Malingerer [conscious simulation]; E11.9 Type 2 diabetes mellitus without complications; F03.90 Unspecified dementia, unspecified severity, without behavioral disturbance, psychotic disturbance, mood disturbance, and anxiety; E78.5 Hyperlipidemia, unspecified; K21.9 Gastro-esophageal reflux disease without esophagitis; Z79.4 Long term (current) use of insulin; Z79.82 Long term (current) use of aspirin; Z79.899 Other long term (current) drug therapy; Z85.3 Personal history of malignant neoplasm of breast; Z98.42 Cataract extraction status, left eye; Z98.41 Cataract extraction status, right eye
CPT/HCPCS: 36415; 51701; 70450; 71045; 80048; 80053; 81001; 85025; 85027; 87040; 87086; 87088; 93005; 96365; 99285; A9270; J0696; J1815; J7030

== ENCOUNTER 2021-01-08 19:28 | Emergency (ER) | payer MEDICARE, MEDICAID, SELFPAY ==
[2021-01-08] VITALS (11 sets, daily range): BP systolic 157–176; BP diastolic 69–120; PULSE 98–127; RESP 13–25; TEMP 36.6; O2SAT 95–99
--- NOTE | ~2021-01-08 | XR_ITS ---
EXAMINATION: XR chest 1V EXAM DATE: 01/08/2021 19:51 INDICATION: Transient alteration of awareness. TECHNIQUE: Portable AP frontal chest x-ray was obtained. Comparison is made to prior examination from 09/15/2020. FINDINGS: The lungs are clear. There are no pleural effusions. The cardiomediastinal silhouette is within normal limits. There is no pneumothorax suspected. There are bony degenerative changes. Righ t axillary surgical clips. IMPRESSION: No acute cardiopulmonary findings. Reviewed, dictated and finalized at location G. ATAL INTENSIVE CARE UNIT NURSE
--- NOTE | ~2021-01-08 | CT_ITS ---
EXAMINATION: CT brain wo [facility] EXAM DATE: 01/08/2021 19:48 INDICATION: Confusion and altered mental status. TECHNIQUE: Spiral CT of the head was performed without contrast. Axial, coronal and sagittal images were reviewed. The dose-length product (DLP) for this examination was 681.00 mGy-cm. The exposure w as tailored according to patient size, and iterative reconstruction (ASIR) was used as additional dos e reduction technique. There is no prior study for comparison. FINDINGS: There is no acute intraparenchymal hemorrhage. No evidence of intraparenchymal brain mass lesion. No evidence of acute infarction. Please note that initial head CT has limited sensitivity f or small or acute infarctions. There is moderate periventricular and subcortical hypodensity, nonspec ific but probably related to small vessel ischemic disease. There is moderate prominence of the sul ci and ventricles related to cerebral atrophy. There is intracranial carotid arteriosclerosis. The re are no extra-axial collections. There is no mass effect or midline shift. The orbits are unremar kable. Soft tissue is unremarkable. The visualized sinuses and mastoid air cells are well aerated. IMPRESSION: 1. No acute intracranial findings. 2. Chronic age related findings. Reviewed, dictated and finalized at location G. METRY TECH
--- NOTE | 2021-01-08 19:33 | ECG_ITS ---
Measurements Intervals [place] Rate: 123 P: 92 TN: 190 QRS: 31 QRSD: 126 T: 30 QT: 320 QTc: 459 Interpretive Statements SINUS TACHYCARDIA RIGHT BUNDLE BRANCH BLOCK BASELINE WANDER- I, II ABNORMAL ECG Electronically Signed On 01-09-2021 7:10:27 BUNDLE CLERK by Aaron Terry D.O.
--- NOTE | 2021-01-08 19:39 | PC.NURSE ---
Patient to radiology.
--- NOTE | 2021-01-08 19:57 | ED.GENADULT ---
HPI - General Adult General Chief complaint: Altered Mental Status Stated complaint: behavior issues/psych eval Time Seen by Provider: 01/08/21 19:32 Source: patient History of Present Illness HPI narrative: Patient is a 75 y/o female sent from [facility] for altered mental status. There is no alleviating or exacerbating factor. She states that she feels fine and does not like the way they do things at the facility. She has no medical complaints at this time. Patient is reported to be combative at the facility. Related Data Home Medications Medication Instructions Recorded Confirmed aspirin 81 mg PO DAILY 05/11/20 09/22/20 famotidine 20 mg PO DAILY 05/11/20 09/22/20 losartan 100 mg PO DAILY 05/11/20 09/22/20 ondansetron 4 mg PO Q6H PRN 05/11/20 09/22/20 Linzess 290 mcg PO DAILY 07/14/20 09/22/20 Vitamin B-1 100 mg PO DAILY 07/14/20 09/22/20 vitamin B complex 1 tablet PO DAILY 07/14/20 09/22/20 Lantus Solostar U-100 Insulin 28 unit SUBCUT HS 07/31/20 09/22/20 insulin aspart U-100 [Novolog See Rx Instructions .ROUTE .COMPLEX 07/31/20 09/22/20 Flexpen U-100 Insulin] Saccharomyces boulardii [Florastor] 250 mg PO DAILY 09/17/20 09/22/20 gabapentin 300 mg PO TID 09/17/20 09/22/20 multivitamin with minerals 1 cap PO DAILY 09/17/20 09/22/20 Allergies Allergy/AdvReac Type Severity Reaction Status Date / Time acetaminophen [From Tylenol] Allergy Unknown Verified 09/23/20 03:52 caffeine Allergy Unknown Verified 09/23/20 03:52 chlordiazepoxide Allergy Unknown Verified 09/23/20 03:52 clidinium Allergy Unknown Verified 09/23/20 03:52 codeine Allergy Rash Verified 09/23/20 03:52 doxepin Allergy Unknown Verified 09/23/20 03:52 hydrocodone Allergy Rash Verified 09/23/20 03:52 hydromorphone [From Dilaudid] Allergy Unknown Verified 09/23/20 03:52 hydroxychloroquine Allergy Unknown Verified 09/23/20 03:52 morphine Allergy Rash Verified 09/17/20 01:06 sitagliptin [From Januvia] Allergy Rash Verified 09/17/20 01:06 Review of Systems Constitutional: Constitutional: Denies chills, Denies fever(s), Denies headache(s) and Denies weakness Eyes: Eyes: Denies blurry vision ENT: Denies headache(s) and Denies neck pain Cardiovascular: Cardiovascular: Denies chest pain and Denies dyspnea Respiratory: Respiratory: Denies cough and Denies dyspnea Gastrointestinal: Gastrointestinal: Denies abdominal pain, Denies diarrhea, Denies nausea and Denies vomiting Genitourinary: Genitourinary: Denies hematuria and Denies dysuria Musculoskeletal: Musculoskeletal: Reports back pain and Denies neck pain Neurologic: Denies headache(s) and Denies weakness PMFSH Past Medical History Medical History Anxiety disorder, unspecified Cancer of right breast Dementia Diabetes mellitus Essential hypertension GERD (gastroesophageal reflux disease) Hyperlipidemia Meniere disease Rectal prolapse Surgical History Surgical History H/O cervical spine surgery History of bilateral cataract extraction History of hysterectomy History of lumbar surgery History of rectopexy rectal prolapse with repair February 2020 History of right mastectomy Hx of cholecystectomy Family History Family History Father Parkinsons Mother Alzheimer disease Social History Social History Social History: Primary care physician: Dr. Bhupendra Kerr Code status: Per state advanced directive form the patient is supposed to be a full code with only selective treatment. This will need to be clarified with family. Smoking status: Never smoker Second hand tobacco smoke exposure: No Alcohol intake: unknown Substance use: never Substance use type: does not use Gender identity (if verbalized by the patient): Female Spiritual care concerns: No Exam
[2021-01-08 20:28] LABS: Basophils Percent Auto 0.7 % (0.2-1.2); Eosinophils Absolute Auto 0.1 K/mm3 (0-0.3); Eosinophils Percent Auto 1.3 % (0-4.4); Hemoglobin 13.7 g/dL (12.0-15.0); Immature Granulocyte Absolute 0.01 K/mm3 (0.00-0.031); Immature Granulocyte Percent A 0.2 % (0-0.5); Lymphocytes Absolute Auto 1.49 K/mm3 (0.9-3.2); Lymphocytes Percent Auto 26.7 % (18.3-44.2); Mean Corpuscular HGB Conc 33.4 g/dl (32-36); Mean Corpuscular Volume 86.7 fl (80-100); Mean Platelet Volume 11.2 fl (7.4-10.4); Monocytes Absolute Auto 0.4 K/mm3 (0.1-0.6); Monocytes Percent Auto 7.7 % (2.6-8.5); Neutrophils Absolute Auto 3.5 K/mm3 (1.3-6.7); Neutrophils Percent Auto 63.4 % (45.5-73.1); Platelet Count Result 196 k/mm3 (150-375); Red Blood Count 4.73 M/mm3 (4.2-5.4); Red Cell Distribution Width 12.5 % (11.5-14.5); White Blood Count 5.6 K/mm3 (4.5-10.0)
[2021-01-08 20:39] LABS: Potassium 4.2 mmol/L (3.4-5.0)
[2021-01-08 20:41] LABS: Alanine Aminotransferase 18 U/L (4-35); Albumin Level 4.1 g/dL (3.5-5.1); Alkaline Phosphatase 92 U/L (38-126); Anion Gap 2 mmol/L (8-16); Aspartate Amino Transferase 27 U/L (14-36); Bilirubin,Total 0.4 mg/dL (0.2-1.3); Blood Urea Nitrogen 9 mg/dL (7-17); Carbon Dioxide 32 mmol/L (22-30); Chloride 105 mmol/L (98-107); Estimated Glomerular Filt Rate > 60; Glucose 179 mg/dL (65-105); Sodium 139 mmol/L (137-145)
[2021-01-08 20:50] LABS: Add Urine Microscopic? YES; Appearance Urine Clear (Clear); Bilirubin Urine Negative (Negative); Blood Urine 1+ (Negative); Color Urine Colorless (Yellow); Glucose Urine UA Negative (Negative); Ketones Urine Negative (Negative); Leukocyte Esterase Ur Negative LEU/UL (Negative); Nitrate Urine Negative (Negative); Protein Urine Negative (Negative); RBC Urine 0-2 /hpf (0-2); Specific Grav Ur 1.006 (1.001-1.035); Urobilinogen Urine Negative mg/dL (<2.0); WBC Urine 0-3 /hpf
[2021-01-08] MEDS: SODIUM CHLORIDE 0.9% IV 1,000 ML 999 ML IV CONT (21:38)
--- NOTE | 2021-01-08 23:31 | PC.NURSE ---
Pt resting on stretcher, requests my tramadol that I always take at night . States I don't know if that other dong told you, he knows, I'm not going back to that [facility] . Explained that at this time that is the plan, states I'm not going back there, no matter what you say . IVF continue to infuse.
[2021-01-08] MEDS: diphenhydrAMINE HCl INJ 50 MG/ML VIAL 25 MG IV PUSH (23:41)
--- NOTE | 2021-01-08 23:43 | PC.NURSE ---
Spoke to patient's POA, Nelda, regarding discharge home to [facility]. She states she is unable to pick patient up from hospital. Patient in room stating she wants to go home with her daughter to see her new house because I don't want to go back to the [facility].
--- NOTE | 2021-01-09 00:40 | PC.NURSE ---
new eta for transport back to [facility]f is [id number]
[2021-01-09] MEDS: traMADol HCL (*CRX) 50 MG TABLET 100 MG (01:07)
[2021-01-09 01:30] VITALS: BP 140/92; PULSE 95; RESP 12; O2SAT 96
--- NOTE | 2021-01-09 01:45 | PC.NURSE ---
Pt sleeping soundly on stretcher.
--- NOTE | 2021-01-09 02:28 | PC.NURSE ---
[facility] called with updated ETA. Crew is en route and will be at this facility in approx 1 hour pending weather conditions.
[2021-01-09 03:01] VITALS: BP 142/77; PULSE 88; RESP 14; O2SAT 97
== END 2021-01-09 03:48 ==
PROVIDERS: Emergency Provider Emergency Medicine; PCP Family Medicine
DX: F03.90 Unspecified dementia, unspecified severity, without behavioral disturbance, psychotic disturbance, mood disturbance, and anxiety (principal); R41.82 Altered mental status, unspecified; Z85.3 Personal history of malignant neoplasm of breast; I10 Essential (primary) hypertension; K21.9 Gastro-esophageal reflux disease without esophagitis; E11.9 Type 2 diabetes mellitus without complications; E78.5 Hyperlipidemia, unspecified; H81.09 Meniere's disease, unspecified ear; Z90.11 Acquired absence of right breast and nipple; Z79.4 Long term (current) use of insulin; Z79.82 Long term (current) use of aspirin; R00.0 Tachycardia, unspecified; I45.10 Unspecified right bundle-branch block
CPT/HCPCS: 36415; 70450; 71045; 80053; 81001; 85025; 93005; 96361; 96374; 99284; A9270; J1200; J7030

== ENCOUNTER 2021-03-19 21:43 | Inpatient (IN) | payer MEDICARE, MEDICAID, SELFPAY ==
--- NOTE | ~2021-03-19 | XR_ITS ---
EXAMINATION: XR chest 2V DATE: 03/19/2021 22:29 INDICATION: Shortness of breath and midsternal chest pain TECHNIQUE: frontal and lateral views of the chest were obtained. COMPARISON: Chest radiograph dated 01/08/2021 and 09/22/2020 FINDINGS: Mild elevation of the left hemidiaphragm. No airspace opacities, pulmonary edema, pleural effusion or pneumothorax. The cardiomediastinal silhouette is normal. Cholecystectomy clips in the right upper q uadrant. Surgical clips at the right axilla consistent with prior axillary lymph node dissection. Sut ure anchors at the right humeral head likely for prior rotator cuff repair. IMPRESSION: 1. Chronic mild elevation the left hemidiaphragm. No acute cardiopulmonary disease. Reviewed, dictated and finalized at location A. IMPRESSION: 1. Chronic mild elevation the left hemidiaphragm. No acute cardiopulmonary dise ase.
--- NOTE | ~2021-03-19 | CT_ITS ---
EXAMINATION: CTA chest PE protocol DATE: 03/20/2021 17:21 INDICATION: Chest pain with inspiration. Expiratory rhonchi. TECHNIQUE: Computed tomography (CT) pulmonary angiogram of the chest was performed with 100 mL Omnipa que-350 intravenous contrast. Additional 3D reconstructions utilizing coronal maximum intensity proje ction (MIP) were performed. Automated exposure control and iterative reconstruction technique were em ployed. The dose-length product was 664.13 mGy-cm. COMPARISON: None FINDINGS: Excellent contrast opacification of the pulmonary arteries. There is mild streak artifact from dense contrast in the superior vena cava and right atrium. Mild to moderate basilar predominant scattered r espiratory motion artifact. Overall this mildly decreases sensitivity in the subsegmental pulmonary a rteries most prominently at the lung bases. Mild right basilar atelectasis. No interval change since 07/14/2020 in a band of consolidation extending inferiorly from the right hilum along the posterior me dial right middle lobe. No pulmonary edema, pneumonia, pleural effusion or pneumothorax. Heart size i s normal. No pericardial effusion. Thoracic aorta is normal in caliber with no dissection. No patholo gically enlarged thoracic lymphadenopathy. Small sliding-type hiatal hernia. Postoperative change of prior right mastectomy and right axillary lymph node dissection with right breast implant. Cholecyst ectomy clips the gallbladder fossa. A few tiny calcified splenic nodules consistent with old granulom atous disease. Relatively recent-appearing T12 burst fracture with 20% anterior vertebral body height loss and 3 mm retropulsion which is new since CT abdomen and pelvis dated 09/20/2020. Moderate to se antony upper thoracic predominant spondylosis. 6 anchors at the right humeral head from likely rotator cuff repair. Moderate bilateral glenohumeral osteoarthritis. IMPRESSION: 1. No pulmonary embolism. 2. Chronic bandlike consolidation at the posterior medial right middle lobe most likely representing atelectasis/scarring although could not exclude a central obstructing lesion. Consider PET CT for fur ther evaluation. 3. Small sliding-type hiatal hernia. 4. Relatively recent-appearing T12 burst fracture, new since 09/20/2020 Reviewed, dictated and finalized at location A. IMPRESSION: 1. No pulmonary embolism. 2. Chronic bandlike consolidation at the posterior medial right middle lobe mos t likely representing atelectasis/scarring although could not exclude a central obstructing lesion. Consider PET CT for further evaluation. 3. Small sliding-type hiatal hernia. 4. Relatively recent-appearing T12 burst fracture, new since 09/20/2020
--- NOTE | ~2021-03-19 | CT_ITS ---
EXAMINATION: CT abdomen pelvis wo con EXAM DATE: 03/22/2021 13:43 INDICATION: Abdominal pain with nausea and vomiting. TECHNIQUE: Spiral CT of the abdomen and pelvis was performed without contrast. Axial, coronal and s agittal images of the abdomen and pelvis were reviewed. The dose-length product (DLP) for this exami nation was 1123.01 mGy-cm. The exposure was tailored according to patient size (auto mA exposure con trol), and iterative reconstruction (ASIR) was used as additional dose reduction technique. Compariso n is made to prior examination from 09/20/2020. FINDINGS: The liver, spleen, adrenal glands and pancreas are unremarkable. There are cholecystectomy clips. There is no nephrolithiasis or hydronephrosis. The uterus is not identified and has likely been surgically resected. The bladder is unremarkable. There is no retroperitoneal or pelvic lymph adenopathy. There is mild scattered arteriosclerotic disease. Small umbilical fat-containing hernia . The appendix is not positively visualized. There is no pericecal inflammatory change to suggest appe ndicitis. There is mild scattered colonic diverticulosis. There is no adjacent inflammatory change t o suggest diverticulitis. There is small sliding gastroesophageal hiatal hernia. There is moderate a mount of colonic stool. Rectosigmoid anastomosis. No free intraperitoneal gas. The heart is danielle l in size. There are no pericardial or pleural effusions. Right middle lobe subsegmental atelectasi s. T12 has developed a mild burst fracture at the superior endplate, minimal involvement of the posterio r superior aspect. Probably subacute with reparative response. There is mild lumbar dextroscoliosis. L4-5 fusion with pedicular screws and interbody device. IMPRESSION: 1. No acute intra-abdominal findings. 2. Moderate colonic stool. 3. Scattered colonic diverticulosis. 4. Small umbilical hernia. 5. Subacute T12 burst fracture. Reviewed, dictated and finalized at location A.
--- NOTE | ~2021-03-19 | US_ITS ---
EXAMINATION:US venous doppler LE BI INDICATION:Elevated d-dimer TECHNIQUE: Multiple grayscale, color flow and Doppler images of the right and left lower extremity de ep venous systems were obtained and reviewed. COMPARISON:No prior studies for comparison. FINDINGS: The common femoral, superficial femoral and popliteal veins demonstrate normal respiratory variation, augmentation and compressibility. Color flow is also seen within the posterior tibial, pe roneal, greater saphenous and profunda veins. IMPRESSION: 1: No lower extremity deep venous thrombosis. Reviewed, dictated and finalized at location B.
[2021-03-19 21:43] VITALS: BP 162/95; PULSE 87; RESP 20; TEMP 36.5; O2SAT 100
--- NOTE | 2021-03-19 21:50 | ECG_ITS ---
Measurements Intervals [place] Rate: 101 P: 57 [place]: 199 QRS: 43 QRSD: 129 T: 40 QT: 368 QTc: 477 Interpretive Statements SINUS TACHYCARDIA RIGHT BUNDLE BRANCH BLOCK BASELINE ARTIFACT- I, II, III, AVR, AVL, AVF, V2-V6 ABNORMAL ECG Electronically Signed On 03-20-2021 7:02:32 CDT by Aaron Terry D.O.
--- NOTE | 2021-03-19 22:05 | ED.CHESTPAIN ---
HPI - Chest Pain General Chief Complaint: Chest Pain Stated Complaint: chest pain Time Seen by Provider: 03/19/21 22:03 Related Data Home Medications Medication Instructions Recorded Confirmed aspirin 81 mg PO DAILY 05/11/20 09/22/20 famotidine 20 mg PO DAILY 05/11/20 09/22/20 losartan 100 mg PO DAILY 05/11/20 09/22/20 ondansetron 4 mg PO Q6H PRN 05/11/20 09/22/20 Linzess 290 mcg PO DAILY 07/14/20 09/22/20 Vitamin B-1 100 mg PO DAILY 07/14/20 09/22/20 vitamin B complex 1 tablet PO DAILY 07/14/20 09/22/20 Lantus Solostar U-100 Insulin 28 unit SUBCUT HS 07/31/20 09/22/20 insulin aspart U-100 [Novolog See Rx Instructions .ROUTE .COMPLEX 07/31/20 09/22/20 Flexpen U-100 Insulin] Saccharomyces boulardii [Florastor] 250 mg PO DAILY 09/17/20 09/22/20 gabapentin 300 mg PO TID 09/17/20 09/22/20 multivitamin with minerals 1 cap PO DAILY 09/17/20 09/22/20 Allergies Allergy/AdvReac Type Severity Reaction Status Date / Time acetaminophen [From Tylenol] Allergy Unknown Verified 09/23/20 03:52 caffeine Allergy Unknown Verified 09/23/20 03:52 chlordiazepoxide Allergy Unknown Verified 09/23/20 03:52 clidinium Allergy Unknown Verified 09/23/20 03:52 codeine Allergy Rash Verified 09/23/20 03:52 doxepin Allergy Unknown Verified 09/23/20 03:52 hydrocodone Allergy Rash Verified 09/23/20 03:52 hydromorphone [From Dilaudid] Allergy Unknown Verified 09/23/20 03:52 hydroxychloroquine Allergy Unknown Verified 09/23/20 03:52 morphine Allergy Rash Verified 09/17/20 01:06 sitagliptin [From Januvia] Allergy Rash Verified 09/17/20 01:06 [facility] Past Medical History Medical History Anxiety disorder, unspecified Cancer of right breast Dementia Diabetes mellitus Essential hypertension GERD (gastroesophageal reflux disease) Hyperlipidemia Meniere disease Rectal prolapse Surgical History Surgical History H/O cervical spine surgery History of bilateral cataract extraction History of hysterectomy History of lumbar surgery History of rectopexy rectal prolapse with repair February 2020 History of right mastectomy Hx of cholecystectomy Family History Family History Father Parkinsons Mother Alzheimer disease Social History Social History Social History: Primary care physician: Dr. Bhupendra Kerr Code status: Per state advanced directive form the patient is supposed to be a full code with only selective treatment. This will need to be clarified with family. Smoking status: Never smoker Second hand tobacco smoke exposure: No Alcohol intake: unknown Substance use: never Substance use type: does not use Gender identity (if verbalized by the patient): Female Spiritual care concerns: No Course Vital Signs Vital signs: Vital Signs Temperature 36.5 C 03/19/21 21:43 Pulse Rate 87 03/19/21 21:43 Respiratory Rate 20 03/19/21 21:43 Blood Pressure 162/95 H 03/19/21 21:43 Pulse Oximetry 100 03/19/21 21:43 Temperature 36.5 C 03/19/21 21:43 Pulse Rate 87 03/19/21 21:43 Respiratory Rate 20 03/19/21 21:43 Blood Pressure 162/95 H 03/19/21 21:43 Pulse Oximetry 100 03/19/21 21:43 Discharge Plan Discharge Prescriptions: No Action ondansetron 4 mg Tablet,Disintegrating 4 mg PO Q6H PRN (Reason: Nausea) RF: 0 aspirin 81 mg Tablet,Delayed Release (Dr/Ec) 81 mg PO DAILY RF: 0 famotidine 20 mg Tablet 20 mg PO DAILY RF: 0 losartan 100 mg Tablet 100 mg PO DAILY RF: 0 Linzess 290 mcg Capsule 290 mcg PO DAILY RF: 0 Vitamin B-1 100 mg PO DAILY RF: 0 vitamin B complex 1 tablet PO DAILY RF: 0 Lantus Solostar U-100 Insulin 100 unit/mL (3 mL) insulin pen 28 unit SUBCUT HS RF: 0 insulin aspart U-100 [Novolog Flexpen U-100 Insulin] 100 u
[2021-03-19 22:24] LABS: Basophils Percent Auto 0.8 % (0.2-1.2); Eosinophils Absolute Auto 0.2 K/mm3 (0-0.3); Hematocrit 41.6 % (37.0-47.0); Hemoglobin 13.7 g/dL (12.0-15.0); Immature Granulocyte Absolute 0.01 K/mm3 (0.00-0.031); Immature Granulocyte Percent A 0.2 % (0-0.5); Lymphocytes Absolute Auto 1.85 K/mm3 (0.9-3.2); Lymphocytes Percent Auto 36.8 % (18.3-44.2); Mean Corpuscular HGB Conc 32.9 g/dl (32-36); Mean Corpuscular Hemoglobin 28.7 pg (26-34); Mean Platelet Volume 11.1 fl (7.4-10.4); Monocytes Absolute Auto 0.4 K/mm3 (0.1-0.6); Monocytes Percent Auto 8.2 % (2.6-8.5); Neutrophils Absolute Auto 2.6 K/mm3 (1.3-6.7); Platelet Count Result 189 k/mm3 (150-375); Red Blood Count 4.78 M/mm3 (4.2-5.4); Red Cell Distribution Width 13.5 % (11.5-14.5)
[2021-03-19 22:33] LABS: Prothrombin Time 13.3 Seconds (11.1-14.7)
[2021-03-19 22:34] LABS: Anion Gap 4 mmol/L (8-16); Blood Urea Nitrogen 15 mg/dL (7-17); Calcium 9.7 mg/dL (8.4-10.2); Carbon Dioxide 30 mmol/L (22-30); Chloride 103 mmol/L (98-107); Estimated CRCL calculation 57 ml/min; Estimated Glomerular Filt Rate > 60; Glucose 254 mg/dL (65-105); Partial Thromboplastin Time 25.1 SECONDS (22.3-36.8); Sodium 137 mmol/L (137-145)
[2021-03-19] MEDS: LIDOCAINE HCL 2% VISC SOLN 15 ML UDC 10 ML PO (22:41)
[2021-03-19] MEDS: MAG HYDROX/AL HYDROX/SIMETH 30 ML UDC PO (22:41)
[2021-03-19 22:46] LABS: Troponin I < 0.012 ng/mL (0.000-0.034)
[2021-03-19 22:51] LABS: Alanine Aminotransferase 20 U/L (4-35); Albumin Level 4.1 g/dL (3.5-5.1); Alkaline Phosphatase 105 U/L (38-126); Aspartate Amino Transferase 29 U/L (14-36); Bilirubin,Total 0.3 mg/dL (0.2-1.3); Lipase 45 U/L (23-300)
[2021-03-19 23:38] VITALS: BP 132/80; PULSE 98; RESP 16; O2SAT 97
[2021-03-20] VITALS (18 sets, daily range): BP systolic 130–180; BP diastolic 85–106; PULSE 73–134; RESP 18–20; TEMP 36–36.6; O2SAT 95–99
[2021-03-20] MEDS: fentaNYL CITRATE INJ (*CRX) 100 MCG/2 ML VIAL 25 MCG IV PUSH (01:23)
[2021-03-20 01:42] LABS: Troponin I < 0.012 ng/mL (0.000-0.034)
--- NOTE | 2021-03-20 02:31 | ED.GENADULT ---
HPI - General Adult General Chief complaint: Chest Pain Stated complaint: chest pain Time Seen by Provider: 03/19/21 22:03 History of Present Illness HPI narrative: Patient 76-year-old female presents to emergency department with chief complaint of chest pain. Patient is a resident of a local care facility and tonight after eating started having chest pain this is a normal thing for the patient but normally this resolves with a sublingual nitro and a p.o. Ativan. After the patient's pain did not resolve EMS was called and the patient was transported to our facility for further evaluation patient states that she feels as though a little boy is running up and kicking her in the chest and she wants to stop them from doing that Related Data Home Medications Medication Instructions Recorded Confirmed aspirin 81 mg PO DAILY 05/11/20 09/22/20 famotidine 20 mg PO DAILY 05/11/20 09/22/20 losartan 100 mg PO DAILY 05/11/20 09/22/20 ondansetron 4 mg PO Q6H PRN 05/11/20 09/22/20 Linzess 290 mcg PO DAILY 07/14/20 09/22/20 Vitamin B-1 100 mg PO DAILY 07/14/20 09/22/20 vitamin B complex 1 tablet PO DAILY 07/14/20 09/22/20 Lantus Solostar U-100 Insulin 28 unit SUBCUT HS 07/31/20 09/22/20 insulin aspart U-100 [Novolog See Rx Instructions .ROUTE .COMPLEX 07/31/20 09/22/20 Flexpen U-100 Insulin] Saccharomyces boulardii [Florastor] 250 mg PO DAILY 09/17/20 09/22/20 gabapentin 300 mg PO TID 09/17/20 09/22/20 multivitamin with minerals 1 cap PO DAILY 09/17/20 09/22/20 Allergies Allergy/AdvReac Type Severity Reaction Status Date / Time acetaminophen [From Tylenol] Allergy Unknown Verified 03/19/21 23:40 caffeine Allergy Unknown Verified 03/19/21 23:40 chlordiazepoxide Allergy Unknown Verified 03/19/21 23:40 clidinium Allergy Unknown Verified 03/19/21 23:40 codeine Allergy Rash Verified 03/19/21 23:40 doxepin Allergy Unknown Verified 03/19/21 23:40 hydrocodone Allergy Rash Verified 03/19/21 23:40 hydromorphone [From Dilaudid] Allergy Unknown Verified 03/19/21 23:40 hydroxychloroquine Allergy Unknown Verified 03/19/21 23:40 morphine Allergy Rash Verified 03/19/21 23:40 sitagliptin [From Januvia] Allergy Rash Verified 03/19/21 23:40 Review of Systems Review of Systems: Narrative: A 10 system review of systems was completed on the patient and is negative except for what is stated in the HPI. Nursing and ancillary documentation was reviewed. PMFSH Past Medical History Medical History Anxiety disorder, unspecified Cancer of right breast Dementia Diabetes mellitus Essential hypertension GERD (gastroesophageal reflux disease) Hyperlipidemia Meniere disease Rectal prolapse Surgical History Surgical History H/O cervical spine surgery History of bilateral cataract extraction History of hysterectomy History of lumbar surgery History of rectopexy rectal prolapse with repair February 2020 History of right mastectomy Hx of cholecystectomy Family History Family History Father Parkinsons Mother Alzheimer disease Social History Social History Social History: Primary care physician: Dr. Bhupendra Kerr Code status: Per state advanced directive form the patient is supposed to be a full code with only selective treatment. This will need to be clarified with family. Smoking status: Never smoker Second hand tobacco smoke exposure: No Alcohol intake: unknown Substance use: never Substance use type: does not use Gender identity (if verbalized by the patient): Female Spiritual care concerns: No Exam Narrative: Exam Narrative: GENERAL: Well-appearing, well-nourished, and in no acute distress. HEAD: Normocephalic, atraumatic. EYES: PERRLA and EOMI. ENT: Nares clear, n
--- NOTE | 2021-03-20 04:21 | ADMGEN ---
This patient, Naomi Govea, was admitted to IMU Room 206-02. Patient/family oriented to hospital policies and general routines including ID bracelet, bed and alarms, visiting hours, pain management, procedures, bathroom and other care routines, personal items, smoking policy, room service/diet, and visiting hours. Information on how to activate the Rapid Response Team has been discussed. Patient/Family are encouraged to report perceived risks to care and to ask questions if they do not understand what they are told or what they should do.
[2021-03-20 05:27] LABS: Troponin I < 0.012 ng/mL (0.000-0.034)
--- NOTE | 2021-03-20 06:17 | PM.IMHP ---
H&P: HPI History of Present Illness Date/Time: 03/20/21 06:17 this is a 76-year-old female patient who resides at care center at [facility]. Is reported that the patient complains of having chest pain every night after eating dinner. She typically gets Ativan and nitro after dinner which resolved her chest discomfort. She received a Ativan and nitro last night which it did not resolve her chest pain. The chest pain is reproducible. The patient stated that she feels like she got kicked in the chest. Her troponins are negative. This chest pain occurred after she ate something. Chest x-ray was read as chronic mild elevation the left hemo diaphragm. No acute cardiopulmonary disease., nitro, and GI cocktail. The patient stated that she still has some soreness. Patient's EKG was read as tachycardia. Patient has a right bundle-branch block. Patient was being admitted for observation on the date of service of 03/20/2021. Chief Complaint: chest pain Review of Systems Review of Systems: All systems reviewed & are unremarkable except as noted in HPI and below Constitutional: Constitutional: Reports as per HPI and Reports no additional constitutional complaints Eyes: Eyes: Reports as per HPI and Reports no additional eye complaints ENT: Reports system reviewed and no additional complaints, except as documented and Reports Normal hearing present Cardiovascular: Cardiovascular: Reports no additional cardiovascular complaints Respiratory: Respiratory: Reports no additional respiratory complaints and Reports no additional respiratory complaints Gastrointestinal: Gastrointestinal: Reports as per HPI and Reports no additional gastrointestinal complaints Musculoskeletal: Musculoskeletal: Reports no additional musculoskeletal complaints Integumentary/Breasts: Skin/Breast: Reports system reviewed and no additional complaints, except as docu and Reports as per HPI Neurologic: Reports system reviewed and no additional complaints, except as documented, Reports as per HPI and Reports Normal hearing present Psychiatric: Psychiatric: Reports no additional psychiatric complaints and Reports as per HPI Endocrine: Endocrine: Reports no additional endocrine complaints Hematologic/Lymphatic: Hematologic/Lymphatic: Reports no additional hematologic/lymphatic complaints Allergic/Immunologic: Allergic/Immunologic: Reports no additional allergic/immunologic complaints [facility] Past Medical History Medical History (Updated 03/20/21 @ 06:31 by Iqra Dodson NP) Anxiety disorder, unspecified Cancer of right breast Right mastectomy with chemo and radiation Dementia Diabetes mellitus With neuropathy Essential hypertension GERD (gastroesophageal reflux disease) Hyperlipidemia Meniere disease Rectal prolapse Surgical History Surgical History H/O cervical spine surgery History of bilateral cataract extraction History of hysterectomy History of lumbar surgery History of rectopexy rectal prolapse with repair February 2020 History of right mastectomy Hx of cholecystectomy Family History Family History Father Parkinsons Mother Alzheimer disease Social History Social History (Updated 03/20/21 @ 06:32 by Iqra Dodson NP) Social History: The patient resides at care center at [facility]. Primary care physician: Dr. Bhupendra Kerr Code status: Per state advanced directive form the patient is supposed to be a full code with only selective treatment. This will need to be clarified with family. The patient has a son and a daughter. She is estranged from the son. 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 To lifelong nonsmoker. She does not use any marijuana or illicit drugs. No alcohol. Smoking status: Never smoker Second hand tobacco smoke exposure: No Alcohol intake: never Substance use: never Substance use
[2021-03-20 06:49] LABS: Alanine Aminotransferase 17 U/L (4-35); Albumin Level 3.7 g/dL (3.5-5.1); Alkaline Phosphatase 78 U/L (38-126); Anion Gap 5 mmol/L (8-16); Aspartate Amino Transferase 28 U/L (14-36); Bilirubin,Total 0.4 mg/dL (0.2-1.3); Blood Urea Nitrogen 14 mg/dL (7-17); Calcium 9.1 mg/dL (8.4-10.2); Carbon Dioxide 30 mmol/L (22-30); Chloride 104 mmol/L (98-107); Estimated CRCL calculation 66 ml/min; Estimated Glomerular Filt Rate > 60; Glucose 106 mg/dL (65-105); Lipase 26 U/L (23-300); Potassium 4.2 mmol/L (3.4-5.0); Sodium 139 mmol/L (137-145)
[2021-03-20 06:50] LABS: Basophils Absolute Auto 0.1 K/mm3 (0.0-0.1); Basophils Percent Auto 1.2 % (0.2-1.2); Eosinophils Absolute Auto 0.2 K/mm3 (0-0.3); Eosinophils Percent Auto 3.3 % (0-4.4); Hematocrit 38.3 % (37.0-47.0); Hemoglobin 12.9 g/dL (12.0-15.0); Immature Granulocyte Absolute 0.01 K/mm3 (0.00-0.031); Immature Granulocyte Percent A 0.2 % (0-0.5); Lymphocytes Percent Auto 40.6 % (18.3-44.2); Mean Corpuscular HGB Conc 33.7 g/dl (32-36); Mean Corpuscular Hemoglobin 28.6 pg (26-34); Mean Corpuscular Volume 84.9 fl (80-100); Mean Platelet Volume 11.6 fl (7.4-10.4); Monocytes Absolute Auto 0.4 K/mm3 (0.1-0.6); Monocytes Percent Auto 8.5 % (2.6-8.5); Neutrophils Absolute Auto 2.4 K/mm3 (1.3-6.7); Neutrophils Percent Auto 46.2 % (45.5-73.1); Platelet Count Result 211 k/mm3 (150-375); Red Blood Count 4.51 M/mm3 (4.2-5.4); Red Cell Distribution Width 13.5 % (11.5-14.5); White Blood Count 5.2 K/mm3 (4.5-10.0)
[2021-03-20 06:54] LABS: Hemoglobin A1C 8.2 % (<5.7)
[2021-03-20 08:05] LABS: Glucose Point of Care 87 (65-105)
[2021-03-20] MEDS: CEPHALEXIN 250 MG CAPSULE PO (08:14)
[2021-03-20] MEDS: ASPIRIN 81 MG ENTERIC TABLET PO (08:14)
[2021-03-20] MEDS: FAMOTIDINE 20 MG TABLET PO (08:14)
[2021-03-20] MEDS: GABAPENTIN 300 MG CAPSULE PO ×2 (08:14→19:55)
[2021-03-20] MEDS: SACCHAROMYCES BOULARDII 250 MG CAPSULE PO (08:15)
[2021-03-20] MEDS: LOSARTAN POTASSIUM 100 MG TABLET PO (08:15)
[2021-03-20] MEDS: THERAPEUTIC MULTIVITAMINS/MINERALS TAB (*BKC) 1 TABLET PO (08:15)
[2021-03-20] MEDS: VITAMIN B COMPLEX CAPSULE 1 CAP PO (08:15)
[2021-03-20] MEDS: THIAMINE HCL 100 MG TABLET PO (08:15)
[2021-03-20] MEDS: traMADol HCL (*CRX) 50 MG TABLET 100 MG PO ×2 (08:22→17:38)
--- NOTE | 2021-03-20 09:55 | PM.CNCAR ---
Assessment and Plan Assessment and plan (1) Chest pain: Qualifiers: Chest pain type: unspecified Qualified Code(s): R07.9 - Chest pain, unspecified Code(s): R07.9 - Chest pain, unspecified Status: Acute Assessment and Plan: Atypical, constant highly reproducible palpation with negative serial cardiac enzymes, chronic right bundle branch block without acute ischemic changes very likely musculoskeletal in etiology. Reported recurrence or onset of chest pain after eating but patient does not confirm this upon questioning. Severity of chest pain improved although has been constant since yesterday. Pain control per primary service. 2D echocardiogram reasonable, however, this is the precise location where she complains of significant pain with palpation. Improved pain control prior to obtaining echocardiogram. No indication for ischemic evaluation at this time despite multiple risk factors atypical, musculoskeletal reproducible chest pain. May continue aspirin daily. Continue famotidine. Depending upon response to therapy further recommendations to follow. Telemetry unremarkable thus far. (2) Diabetes mellitus: Qualifiers: Diabetes mellitus complication status: without complication Diabetes mellitus buttermaker helper insulin use: with usp use Diabetes mellitus type: type 2 Qualified Code(s): E11.9 - Type 2 diabetes mellitus without complications; Z79.4 - manager terminal (current) use of insulin Code(s): E11.9 - Type 2 diabetes mellitus without complications Status: Chronic Assessment and Plan: Management per primary service. (3) Essential hypertension: Code(s): I10 - Essential (primary) hypertension Status: Chronic Assessment and Plan: BP not ideally controlled at this time. Additional medical therapy may be required if remains elevated. (4) Hyperlipidemia: Code(s): E78.5 - Hyperlipidemia, unspecified Status: Chronic Assessment and Plan: Check lipid panel. History of Present Illness History of Present Illness Consult date/time: Date of service: 03/20/21 09:55 Cardiology [facility]. Requesting physician: Massiel Gore PA-C Consult reason: chest pain Reason For Visit: chest pain Narrative: Patient is a 76-year-old female with a past medical history significant for hypertension, diabetes mellitus, dementia, GERD admitted [facility] from [facility] for complaints of chest pain. Reportedly she was experiencing chest pain every night after eating dinner and apparently receives Ativan and nitroglycerin resolving or chest pain. Per electronic medical record she received Ativan and nitroglycerin without resolution of her chest pain and was sent to the emergency department as a result. Chest pain has persisted without response to nitroglycerin chest pain is reportedly reproducible on exam. She has ruled out for myocardial infarction with negative serial cardiac enzymes with a chronic RBBB on EKG without acute changes. Patient continues to complain of chest achiness much better but has not resolved at all since onset last night. She received multiple medications including GI cocktail nitroglycerin, Ativan, viscous lidocaine, and Fentanyl. we were asked to see her for her chest pain. On my questioning patient states she has never had chest pain similar to this before which is quite different than that reported in the electronic record. She denies any prior known coronary disease history or prior workup. She denies shortness of breath, falls, trauma, recent illnesses cough, nausea or vomiting. Review of Systems Review of Systems: All systems reviewed & are unremarkable except as noted in HPI and below Constitutional: Constitutional: Reports as per HPI, Reports no additional constitutional complaints and Denies weakn
[2021-03-20] MEDS: LIDOCAINE 5% PATCH 1 PATCH TRANSDERM (10:50)
[2021-03-20 11:55] LABS: Glucose Point of Care 136 (65-105)
--- NOTE | 2021-03-20 15:42 | PM.IMPN ---
Progress Note: A&P Assessment and Plan (1) Chest pain: Qualifiers: Chest pain type: unspecified Qualified Code(s): R07.9 - Chest pain, unspecified Code(s): R07.9 - Chest pain, unspecified Status: Acute Assessment and Plan: Atypical chest pain that is reproducible. Negative cardiac enzymes x3. EKG is unchanged with a chronic right bundle branch block without acute ischemic changes. Cardiology was consulted due to the patient's chest pain as well as her taking nitro and Ativan every night for chest pain. Wanted to rule out it being cardiac in nature. Cardiology evaluated the patient who recommended no indication for ischemic evaluation at this time. If patient's chest pain improves they did recommend an echocardiogram, but she is still very tender to palpation. Applied Lidocaine patch and to continue Tramadol PRN which she takes at home. Will also order Kpad Due to pain with deep inspiration will order a CTA of her chest to rule out PE Telemetry shows normal sinus rhythm with a heart rate of 97 beats per minute. One alarms with no acute arrhythmia noted. Continue monitoring. Continue telemetry (2) Anxiety disorder, unspecified: Code(s): F41.9 - Anxiety disorder, unspecified Status: Chronic Assessment and Plan: Continue with Ativan p.r.n.. (3) Hypertension: Code(s): I10 - Essential (primary) hypertension Status: Acute Assessment and Plan: Blood pressure was 170/88 this morning, elevated. Continue home medications. Continue monitoring. (4) Diabetes mellitus: Qualifiers: Diabetes mellitus type: type 2 Diabetes mellitus chcf insulin use: with ocean transportation intermediary use Diabetes mellitus complication status: without complication Qualified Code(s): E11.9 - Type 2 diabetes mellitus without complications; Z79.4 - buttermaker helper (current) use of insulin Code(s): E11.9 - Type 2 diabetes mellitus without complications Status: Chronic Assessment and Plan: Hemoglobin A1c is 8.2%. Elevated. Will continue home Lantus. Continue monitoring glucose Accu-Cheks AC and HS. Sliding scale insulin. Hypoglycemic protocol in place. (5) Hyperlipidemia: Code(s): E78.5 - Hyperlipidemia, unspecified Status: Chronic Assessment and Plan: Continue with home medications. Time Spent With Patient Time with patient: 25 - 35 minutes Subjective Date/time seen: 03/20/21 15:42 Interval history: Date of service 03/20/2021: Patient still having chest pain mostly substernal to left-sided that is reproducible to palpation. She feels like someone kicked her in the chest. Denies any activity, lifting or falling causing the pain. Reports constant chest pain, without any alleviating factors. Worsening chest discomfort with taking a deep breath. Also feeling some rattling noises when she takes a deep breath in unsure what that is. Patient states she has been noticing some foot and ankle swelling which is relieved with elevation. Denies any coughing, productive cough, palpitations, fever, chills, nausea, vomiting, abdominal pain, constipation, calf pain, urinary symptoms, or any other symptoms at this time. Review of Systems Review of Systems: All systems reviewed & are unremarkable except as noted in HPI and below Exam Narrative: Exam Narrative: General: 76-year-old woman sitting up in bed watching TV. Appears comfortable. In no acute distress. Skin: No jaundice or cyanosis. Good skin turgor. Neck: Full range of motion. Supple. Respiratory: Lungs are clear to auscultation bilaterally. Expiratory rhonchi noted to right and left lower anterior lung field. Reproducible tenderness to palpation of substernal area a
[2021-03-20 16:29] LABS: Glucose Point of Care 200 (65-105)
[2021-03-20] MEDS: GABAPENTIN 300 MG CAPSULE 600 MG PO (17:39)
[2021-03-20] MEDS: AMITRIPTYLINE HCL 25 MG TABLET 50 MG PO (17:39)
[2021-03-20] MEDS: SUCRALFATE 1 GM TABLET PO ×2 (17:41→19:55)
[2021-03-20] MEDS: LORazepam (*CRX) 1 MG TABLET PO (19:54)
[2021-03-20] MEDS: PANTOPRAZOLE SODIUM IV 40 MG VIAL IV PUSH (19:55)
[2021-03-20] MEDS: INSULIN GLARGINE (*BKC) 100 UNITS/ML 35 UNITS SUB-Q (19:56)
[2021-03-20 20:04] LABS: Glucose Point of Care 230 (65-105)
[2021-03-21] VITALS (13 sets, daily range): BP systolic 119–151; BP diastolic 74–91; PULSE 10–123; RESP 18–24; TEMP 36.1–36.6; O2SAT 96–100
[2021-03-21] MEDS: SUCRALFATE 1 GM TABLET PO ×4 (06:19→20:45)
[2021-03-21 06:51] LABS: Basophils Percent Auto 0.8 % (0.2-1.2); Eosinophils Absolute Auto 0.2 K/mm3 (0-0.3); Eosinophils Percent Auto 4.1 % (0-4.4); Hematocrit 44.4 % (37.0-47.0); Hemoglobin 14.6 g/dL (12.0-15.0); Immature Granulocyte Absolute 0.01 K/mm3 (0.00-0.031); Immature Granulocyte Percent A 0.2 % (0-0.5); Lymphocytes Absolute Auto 1.86 K/mm3 (0.9-3.2); Lymphocytes Percent Auto 37.9 % (18.3-44.2); Mean Corpuscular HGB Conc 32.9 g/dl (32-36); Mean Corpuscular Hemoglobin 28.7 pg (26-34); Mean Corpuscular Volume 87.2 fl (80-100); Mean Platelet Volume 10.9 fl (7.4-10.4); Monocytes Absolute Auto 0.4 K/mm3 (0.1-0.6); Monocytes Percent Auto 8.6 % (2.6-8.5); Neutrophils Absolute Auto 2.4 K/mm3 (1.3-6.7); Neutrophils Percent Auto 48.4 % (45.5-73.1); Platelet Count Result 182 k/mm3 (150-375); Red Blood Count 5.09 M/mm3 (4.2-5.4); Red Cell Distribution Width 13.6 % (11.5-14.5); White Blood Count 4.9 K/mm3 (4.5-10.0)
[2021-03-21 07:48] LABS: Glucose Point of Care 96 (65-105)
--- NOTE | 2021-03-21 08:55 | PCOTNOTE ---
Attempted to see Patient for OT treatment session. Therapist and RN present, attempting to arouse Patient for services and to take her medications. Patient difficult to arouse, will open her eyes with agitation and choosing to not communicate/participate with stimulation. Patient was able to verbalize her date. Patient was encouraged to participate and was given a cool cloth to assist with alertness, declined. Therapist attempted to perform bed mobility with Patient to the edge of the bed, Patient resisting movement and shaking her head NO . Patient is refusing.
[2021-03-21] MEDS: PANTOPRAZOLE SODIUM IV 40 MG VIAL IV PUSH ×2 (09:11→20:44)
[2021-03-21 10:45] LABS: Alanine Aminotransferase 18 U/L (4-35); Albumin Level 3.9 g/dL (3.5-5.1); Alkaline Phosphatase 88 U/L (38-126); Anion Gap 1 mmol/L (8-16); Aspartate Amino Transferase 27 U/L (14-36); Bilirubin,Total 0.5 mg/dL (0.2-1.3); Blood Urea Nitrogen 14 mg/dL (7-17); Calcium 9.3 mg/dL (8.4-10.2); Carbon Dioxide 33 mmol/L (22-30); Chloride 102 mmol/L (98-107); Estimated CRCL calculation 66 ml/min; Estimated Glomerular Filt Rate > 60; Glucose 90 mg/dL (65-105); Sodium 136 mmol/L (137-145)
[2021-03-21] MEDS: LIDOCAINE 5% PATCH 1 PATCH TRANSDERM (10:50)
[2021-03-21] MEDS: GABAPENTIN 300 MG CAPSULE PO ×2 (10:51→20:44)
[2021-03-21] MEDS: CEPHALEXIN 250 MG CAPSULE PO (10:51)
[2021-03-21] MEDS: SACCHAROMYCES BOULARDII 250 MG CAPSULE PO (10:51)
[2021-03-21] MEDS: VITAMIN B COMPLEX CAPSULE 1 CAP PO (10:51)
[2021-03-21] MEDS: ASPIRIN 81 MG ENTERIC TABLET PO (10:51)
[2021-03-21] MEDS: LOSARTAN POTASSIUM 100 MG TABLET PO (10:51)
[2021-03-21] MEDS: THIAMINE HCL 100 MG TABLET PO (10:51)
[2021-03-21] MEDS: THERAPEUTIC MULTIVITAMINS/MINERALS TAB (*BKC) 1 TABLET PO (10:51)
[2021-03-21 12:18] LABS: Glucose Point of Care 161 (65-105)
--- NOTE | 2021-03-21 13:56 | PM.PNCARD ---
Progress Note: A&P Assessment and Plan (1) Chest pain: Qualifiers: Chest pain type: unspecified Qualified Code(s): R07.9 - Chest pain, unspecified Code(s): R07.9 - Chest pain, unspecified Status: Acute Assessment and Plan: Atypical, constant highly reproducible palpation with negative serial cardiac enzymes, chronic right bundle branch block without acute ischemic changes very likely musculoskeletal in etiology. Management per primary service. Lidocaine patch improving symptoms. 2D echocardiogram reasonable If pain better controlled unable to tolerate. No indication for ischemic evaluation at this time despite multiple risk factors atypical, musculoskeletal reproducible chest pain. May continue aspirin daily. Continue famotidine. Depending upon response to therapy further recommendations to follow. May discontinue telemetry. Will follow as needed. Please do not hesitate to contact us with additional questions or concerns. (2) Diabetes mellitus: Qualifiers: Diabetes mellitus type: type 2 Diabetes mellitus mcfp insulin use: with mcfp use Diabetes mellitus complication status: without complication Qualified Code(s): E11.9 - Type 2 diabetes mellitus without complications; Z79.4 - intermediate (current) use of insulin Code(s): E11.9 - Type 2 diabetes mellitus without complications Status: Chronic Assessment and Plan: Management per primary service. (3) Essential hypertension: Code(s): I10 - Essential (primary) hypertension Status: Chronic Assessment and Plan: BP not ideally controlled at this time. Additional medical therapy may be required if remains elevated. (4) Hyperlipidemia: Code(s): E78.5 - Hyperlipidemia, unspecified Status: Chronic Assessment and Plan: Check lipid panel. Subjective Date/time seen: Date of service: 03/21/21 13:56 Follow-up for atypical, reproducible chest pain. Lidocaine patch applied yesterday with improvement in her chest pain. Denies shortness of breath and new concerns. CT PE protocol obtain negative for PE bandlike consolidation posterior medial right middle lobe atelectasis versus scarring although central obstructing lesion could not be excluded with recommendation for PET-CT. T12 burst fracture also noted. Review of Systems Review of Systems: All systems reviewed & are unremarkable except as noted in HPI and below Constitutional: Constitutional: Reports as per HPI, Reports no additional constitutional complaints and Denies weakness Eyes: Eyes: Reports as per HPI and Reports no additional eye complaints ENT: Reports system reviewed and no additional complaints, except as documented and Reports as per HPI Cardiovascular: Cardiovascular: Reports as per HPI, Reports no additional cardiovascular complaints, Reports chest pain, Denies palpitations, Denies dyspnea and Denies dyspnea on exertion Respiratory: Respiratory: Reports as per HPI, Reports no additional respiratory complaints, Denies cough, Denies dyspnea and Denies dyspnea on exertion Gastrointestinal: Gastrointestinal: Reports as per HPI, Reports no additional gastrointestinal complaints, Denies abdominal pain, Denies melena, Denies hematochezia, Denies nausea and Denies vomiting Genitourinary: Genitourinary: Reports as per HPI Musculoskeletal: Musculoskeletal: Reports no additional musculoskeletal complaints, Reports as per HPI, Denies back pain and Reports arthralgias Integumentary/Breasts: Skin/Breast: Reports system reviewed and no additional complaints, except as docu and Reports as per HPI Neurologic: Reports system reviewed and no additional complaints, except as documented, Reports as per HPI, Reports confusion and Denies weakness Psychiatric: Psychiatric: Reports no additional psychiatric complaints, Reports as per HPI and Reports confusion Endocrine: Endocrine: Reports no additional endocrine complaint
--- NOTE | 2021-03-21 14:06 | PM.IMPN ---
Progress Note: A&P Assessment and Plan (1) T12 burst fracture: Code(s): S22.081A - Stable burst fracture of T11-T12 vertebra, initial encounter for closed fracture Status: Acute Assessment and Plan: CT Chest showed Relatively recent-appearing T12 burst fracture, new since 09/20/2020. Called Dr. Gardiner who recommended PT evaluation and if having pain and issues. Also recommend follow up if necessary and [facility] Patient had some pain with PT therapy and it was felt best to order a Lumbar Corset from [employer]. Pending drywall boardhanger coming to bring corset. Will have the patient work with PT/OT prior to discharge. (2) Chest pain: Qualifiers: Chest pain type: unspecified Qualified Code(s): R07.9 - Chest pain, unspecified Code(s): R07.9 - Chest pain, unspecified Status: Acute Assessment and Plan: Atypical chest pain that is reproducible. Negative cardiac enzymes x3. EKG is unchanged with a chronic right bundle branch block without acute ischemic changes. Cardiology evaluated the patient who recommended no indication for ischemic evaluation at this time. If patient's chest pain has improved but drier and pulverizer tender to palpation. Will have her follow-up with cardiology as an outpatient if further heart issues and possible need for echocardiogram. Continue Lidocaine patch and to continue Tramadol PRN which she takes at home. Continue Kpad CTA of her chest showed no acute PE. Telemetry shows normal sinus rhythm with a heart rate of 99 beats per minute. One alarms with no acute arrhythmia noted. Continue monitoring. Continue telemetry (3) Anxiety disorder, unspecified: Code(s): F41.9 - Anxiety disorder, unspecified Status: Chronic Assessment and Plan: Continue with Ativan p.r.n.. (4) Hypertension: Code(s): I10 - Essential (primary) hypertension Status: Acute Assessment and Plan: Blood pressure was 139/82 this morning, stable. Continue home medications. Continue monitoring. (5) Diabetes mellitus: Qualifiers: Diabetes mellitus complication status: without complication Diabetes mellitus ad terminal makeup operator insulin use: with ad terminal makeup operator use Diabetes mellitus type: type 2 Qualified Code(s): E11.9 - Type 2 diabetes mellitus without complications; Z79.4 - penitentiary (current) use of insulin Code(s): E11.9 - Type 2 diabetes mellitus without complications Status: Chronic Assessment and Plan: Hemoglobin A1c is 8.2%. Elevated. Will continue home Lantus. Continue monitoring glucose Accu-Cheks AC and HS. Sliding scale insulin. Hypoglycemic protocol in place. (6) Hyperlipidemia: Code(s): E78.5 - Hyperlipidemia, unspecified Status: Chronic Assessment and Plan: Continue with home medications. (7) Abnormal CT of the chest: Code(s): R93.89 - Abnormal findings on diagnostic imaging of other specified body structures Status: Acute Assessment and Plan: CT chest showed Chronic bandlike consolidation at the posterior medial right middle lobe most likely representing atelectasis/scarring although could not exclude a central obstructing lesion. Consider PET CT for further evaluation. Will need outpatient PET Scan Time Spent With Patient Time with patient: 25 - 35 minutes Subjective Date/time seen: 03/21/21 14:06 Interval history: Date of service 03/21/2021: Patient reports improvement of her chest pain today. She still has it mostly to the left lateral side, worse with palpation. Still has some pain with taking a deep breath. She also reports back pain from
[2021-03-21 16:45] LABS: Glucose Point of Care 110 (65-105)
[2021-03-21] MEDS: GABAPENTIN 300 MG CAPSULE 600 MG PO (17:46)
[2021-03-21] MEDS: AMITRIPTYLINE HCL 25 MG TABLET 50 MG PO (17:46)
[2021-03-21 19:50] LABS: Glucose Point of Care 160 (65-105)
[2021-03-21] MEDS: ACETAMINOPHEN 325 MG TABLET 650 MG PO (20:44)
[2021-03-21] MEDS: LORazepam (*CRX) 1 MG TABLET PO (20:44)
[2021-03-21] MEDS: INSULIN GLARGINE (*BKC) 100 UNITS/ML 35 UNITS SUB-Q (20:44)
[2021-03-22] VITALS (10 sets, daily range): BP systolic 110–151; BP diastolic 63–97; PULSE 103–124; RESP 12–20; TEMP 35.8–36.5; O2SAT 96–99
[2021-03-22] MEDS: SUCRALFATE 1 GM TABLET PO ×4 (05:46→20:25)
[2021-03-22] MEDS: LOSARTAN POTASSIUM 100 MG TABLET PO (08:11)
[2021-03-22] MEDS: CEPHALEXIN 250 MG CAPSULE PO (08:11)
[2021-03-22] MEDS: GABAPENTIN 300 MG CAPSULE PO ×2 (08:12→20:26)
[2021-03-22] MEDS: SACCHAROMYCES BOULARDII 250 MG CAPSULE PO (08:12)
[2021-03-22] MEDS: ASPIRIN 81 MG ENTERIC TABLET PO (08:12)
[2021-03-22] MEDS: VITAMIN B COMPLEX CAPSULE 1 CAP PO (08:12)
[2021-03-22] MEDS: polyethylene glycoL 3350 17 GM POWD.PACK PO (08:12)
[2021-03-22] MEDS: THIAMINE HCL 100 MG TABLET PO (08:12)
[2021-03-22] MEDS: PANTOPRAZOLE SODIUM IV 40 MG VIAL IV PUSH ×2 (08:12→20:26)
[2021-03-22] MEDS: THERAPEUTIC MULTIVITAMINS/MINERALS TAB (*BKC) 1 TABLET PO (08:12)
[2021-03-22 08:23] LABS: Glucose Point of Care 112 (65-105)
--- NOTE | 2021-03-22 09:00 | PC.NURSE ---
This patient, Naomi Govea, was received from [ 206-2 ] on 03/22/21 at 0900. Patient/family oriented to unit policies and routines
[2021-03-22] MEDS: ENOXAPARIN 40 MG/0.4 ML SYRINGE SUB-Q (09:27)
--- NOTE | 2021-03-22 10:03 | PC.NURSE ---
This patient, Naomi Govea, was transferred to [[id number] ] on 03/22/21 at 0847. Personal belongings sent with patient. Report given to [Anali ]. Appropriate documentation sent with patient.
--- NOTE | 2021-03-22 10:49 | PCOTNOTE ---
Patient refused to participate at this time. Patient very alert versus yesterday when attempted for therapy session, very lethargic. Patient verbalized, she was sick to her stomach, needed a bag to get sick in. Patient was set up with an emesis bag and washcloth, RN was notified. Will try back at a later time this afternoon.
--- NOTE | 2021-03-22 11:15 | PCPTNOTE ---
Attempted to see patient, however patient declined PT due to nausea. PT will follow up in P.M..
[2021-03-22 12:01] LABS: Glucose Point of Care 168 (65-105)
--- NOTE | 2021-03-22 12:01 | PM.IMPN ---
Progress Note: A&P Assessment and Plan (1) Abdominal pain: Code(s): R10.9 - Unspecified abdominal pain Status: Acute Assessment and Plan: Patient has diffuse abdominal pain to palpation. Also having symptoms of nausea and vomiting after eating breakfast. Will get a CT of her abdomen pelvis make sure there is no acute abnormality. Pain control and antiemetics p.r.n. Continue monitoring. (2) T12 burst fracture: Code(s): S22.081A - Stable burst fracture of T11-T12 vertebra, initial encounter for closed fracture Status: Acute Assessment and Plan: CT Chest showed Relatively recent-appearing T12 burst fracture, new since 09/20/2020. Called Dr. Gardiner who recommended PT evaluation and if having pain and issues. Also recommend follow up if necessary and recommended by PCP at [facility]. Patient received a Lumbar Corset from [facility] yesterday evening. Will continue to work with therapy with coarse in place.. Continue PT/OT (3) Chest pain: Qualifiers: Chest pain type: unspecified Qualified Code(s): R07.9 - Chest pain, unspecified Code(s): R07.9 - Chest pain, unspecified Status: Acute Assessment and Plan: Atypical chest pain that is reproducible. Negative cardiac enzymes x3. EKG is unchanged with a chronic right bundle branch block without acute ischemic changes. Cardiology evaluated the patient who recommended no indication for ischemic evaluation at this time. If patient's chest pain has improved but slide machine tender to palpation. Will have her follow-up with cardiology as an outpatient if further heart issues and possible need for echocardiogram. Continue Lidocaine patch and to continue Tramadol PRN which she takes at home. Continue Kpad CTA of her chest showed no acute PE. 03/22/21-still having her reproducible tenderness to palpation as well as pain with deep inspiration. Most likely due to costochondritis. Continue medications as such. Continue monitoring. Continue telemetry (4) Anxiety disorder, unspecified: Code(s): F41.9 - Anxiety disorder, unspecified Status: Chronic Assessment and Plan: Continue with Ativan p.r.n.. (5) Hypertension: Code(s): I10 - Essential (primary) hypertension Status: Acute Assessment and Plan: Blood pressure was blood pressure slightly elevated 150/95. Continue home medications. Continue monitoring. 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 Elevated. Glucose this morning was 168. Will continue home Lantus. Continue monitoring glucose Accu-Cheks AC and HS. Sliding scale insulin. Hypoglycemic protocol in place. (7) Hyperlipidemia: Code(s): E78.5 - Hyperlipidemia, unspecified Status: Chronic Assessment and Plan: Continue with home medications. (8) Abnormal CT of the chest: Code(s): R93.89 - Abnormal findings on diagnostic imaging of other specified body structures Status: Acute Assessment and Plan: CT chest showed Chronic bandlike consolidation at the posterior medial right middle lobe most likely representing atelectasis/scarring although could not exclude a central obstructing lesion. Consider PET CT fo
[2021-03-22 15:04] LABS: Glucose Point of Care 133 (65-105)
[2021-03-22] MEDS: BISACODYL 10 MG SUPPOSITORY RECTAL (16:49)
[2021-03-22 17:10] LABS: Glucose Point of Care 189 (65-105)
[2021-03-22] MEDS: GABAPENTIN 300 MG CAPSULE 600 MG PO (17:31)
[2021-03-22] MEDS: AMITRIPTYLINE HCL 25 MG TABLET 50 MG PO (17:31)
[2021-03-22] MEDS: LORazepam (*CRX) 1 MG TABLET PO (20:25)
[2021-03-22] MEDS: DOCUSATE SODIUM 100 MG CAPSULE PO (20:26)
[2021-03-22] MEDS: INSULIN GLARGINE (*BKC) 100 UNITS/ML 35 UNITS SUB-Q (20:26)
[2021-03-22 21:15] LABS: Glucose Point of Care 275 (65-105)
[2021-03-23] VITALS (9 sets, daily range): BP systolic 141–157; BP diastolic 83–94; PULSE 103–125; RESP 16–18; TEMP 35.8–36.1; O2SAT 97–100
--- NOTE | 2021-03-23 | ECHO_ITS ---
Patient Info Name: Naomi Govea Age: 76 years : 1945 Gender: Female Ht: 68 in Wt: 199 lbs BSA: 2.11 m2 HR: 111 bpm BP: 141 / 83 mmHg Heart Rhythm: Sinus Rhythm Technical Quality: Good Exam Date: 03/23/2021 2:56 PM Exam Location: [facility] Card Pulmonary Patient Status: Inpatient Admit Date: 03/22/2021 Staff Ordering Physician: Massiel Gore PA-C Materials Development Engineer: Dony Moseley RDCS, RT Attending Provider: Massiel Gore PA-C Referring Physician: Bao VELASCO; Exam Type: CA echo doppler color flow Study Info Indications R07.89 - Other chest pain Strain analysis performed. Complete two-dimensional, color flow and Doppler transthoracic echocardiogram is performed with contrast to opacify the left ventricle and to improve the deliniation of the left ventricle endocardial borders. Summary 1. Left ventricular systolic function is mildly reduced, estimated at 40-45%. 2. The posterior segment is hypodynamic. 3. Left atrial chamber dimension is mildly enlarged. 4. No significant valve disease. Left Ventricle Left ventricular chamber dimension is mildly enlarged. Left ventricular systolic function is mildly reduced, estimated at 40-45%. The left ventricular diastolic function is normal. The posterior segment is hypodynamic. Right Ventricle Right ventricular chamber dimension is normal. Left Atria Left atrial chamber dimension is mildly enlarged. Right Atria Right atrial chamber dimension is normal. Aortic Valve The aortic valve is trileaflet. There is mild aortic valve sclerosis. Pulmonic Valve The pulmonic valve is not well visualized. Mitral Valve The mitral valve has normal leaflets. Tricuspid Valve The tricuspid valve leaflets are normal. Pericardium/Pleural The pericardium appears normal. Aorta The aortic root size at the sinus of Valsalva is normal. Left Ventricular Outflow Tract Name Value Normal LVOT 2D LVOT Diameter 2.0 cm LVOT Doppler LVOT Peak Gradient 2 mmHg LVOT Mean Gradient 1 mmHg LVOT VTI 11 cm LVOT VTI/AV VTI Ratio 0.6 LVOT Stroke Volume 36 ml LVOT CO 3.9 l/min LVOT CI 1.9 l/min/m2 Mitral Valve Name Value Normal MV Doppler MV Decel [place] 948 cm/s2 MV PHT 31 ms MV Area (PHT) 7.0 cm2 4.0-5.0 MV Diastolic Function MV E Peak Velocity 102 cm/s MV A Peak Velocity 0 cm/s MV E/A 352.4 MV Decel Time 108
[2021-03-23 05:52] LABS: Hematocrit 42.5 % (37.0-47.0); Hemoglobin 14.1 g/dL (12.0-15.0); Mean Corpuscular HGB Conc 33.2 g/dl (32-36); Mean Corpuscular Volume 87.3 fl (80-100); Mean Platelet Volume 10.7 fl (7.4-10.4); Platelet Count Result 192 k/mm3 (150-375); Red Blood Count 4.87 M/mm3 (4.2-5.4); Red Cell Distribution Width 13.7 % (11.5-14.5)
[2021-03-23 06:04] LABS: Alanine Aminotransferase 16 U/L (4-35); Albumin Level 3.8 g/dL (3.5-5.1); Alkaline Phosphatase 84 U/L (38-126); Anion Gap 5 mmol/L (8-16); Aspartate Amino Transferase 23 U/L (14-36); Bilirubin,Total 0.5 mg/dL (0.2-1.3); Blood Urea Nitrogen 14 mg/dL (7-17); Calcium 9.3 mg/dL (8.4-10.2); Carbon Dioxide 28 mmol/L (22-30); Chloride 105 mmol/L (98-107); Estimated CRCL calculation 68 ml/min; Estimated Glomerular Filt Rate > 60; Glucose 164 mg/dL (65-105); Magnesium 1.9 mg/dL (1.6-2.3); Sodium 138 mmol/L (137-145)
[2021-03-23] MEDS: SUCRALFATE 1 GM TABLET PO ×4 (06:06→20:18)
[2021-03-23] MEDS: traMADol HCL (*CRX) 50 MG TABLET 100 MG PO ×2 (06:10→17:08)
[2021-03-23 07:48] LABS: Glucose Point of Care 125 (65-105)
[2021-03-23] MEDS: DOCUSATE SODIUM 100 MG CAPSULE PO ×2 (09:00→20:18)
[2021-03-23] MEDS: ASPIRIN 81 MG ENTERIC TABLET PO (09:00)
[2021-03-23] MEDS: THIAMINE HCL 100 MG TABLET PO (09:01)
[2021-03-23] MEDS: PANTOPRAZOLE SODIUM IV 40 MG VIAL IV PUSH ×2 (09:01→20:18)
[2021-03-23] MEDS: VITAMIN B COMPLEX CAPSULE 1 CAP PO (09:01)
[2021-03-23] MEDS: CEPHALEXIN 250 MG CAPSULE PO (09:01)
[2021-03-23] MEDS: polyethylene glycoL 3350 17 GM POWD.PACK PO (09:01)
[2021-03-23] MEDS: SACCHAROMYCES BOULARDII 250 MG CAPSULE PO (09:01)
[2021-03-23] MEDS: THERAPEUTIC MULTIVITAMINS/MINERALS TAB (*BKC) 1 TABLET PO (09:01)
[2021-03-23] MEDS: LOSARTAN POTASSIUM 100 MG TABLET PO (09:01)
[2021-03-23] MEDS: ENOXAPARIN 40 MG/0.4 ML SYRINGE SUB-Q (09:01)
[2021-03-23] MEDS: GABAPENTIN 300 MG CAPSULE PO ×2 (09:01→20:18)
[2021-03-23 11:11] LABS: D Dimer 0.84 ug/mL (<0.48)
[2021-03-23 12:15] LABS: Glucose Point of Care 243 (65-105)
[2021-03-23] MEDS: INSULIN ASPART (*BKC) 100 UNITS/ML SUB-Q (12:27)
--- NOTE | 2021-03-23 14:24 | PM.IMPN ---
Progress Note: A&P Assessment and Plan (1) Tachycardia: Code(s): R00.0 - Tachycardia, unspecified Status: Acute Assessment and Plan: Reviewing the patient's prior hospitalizations appears she has a history of tachycardia which could be from deconditioning. During this admission her heart rate has ranged in the 90s to low 100s. Patient came in with chest pain and we have had her on telemetry. Over the last 2 days she has had tachycardia. Today resting, eating breakfast her heart rate was 115 beats per minute. She has alarms over the last 24 hours that show her heart rate in the 130s and 2 times in the 150s. Patient is 100% on room air at this time, no complaints of shortness of breath, hemoptysis. She still having some chest pain to palpation and with deep inspiration but it is improving. Patient had a CTA of her chest which ruled out pulmonary embolism on 03/20/2021. Since then she has been on Lovenox 40 mg for DVT prophylaxis. Due to slightly worsening tachycardia at rest and with exertion I ordered a D-dimer which was slightly elevated. I will order venous Dopplers of her lower extremities to rule out any acute blood clots. I will also order an echocardiogram at this time which was not completed initially during her visit due to exquisite tenderness to palpation of her left chest wall. I feel an echo was warranted at this time to rule out acute cardiac abnormality, systolic dysfunction, or other abnormality. If this workup is normal, patient is feeling better tomorrow then she can be discharged back to her residential. (2) Constipation: Code(s): K59.00 - Constipation, unspecified Status: Acute Assessment and Plan: Patient has diffuse abdominal pain to palpation. Also having symptoms of nausea and vomiting after eating breakfast. CT of her abdomen pelvis showed moderate constipation. She was given a suppository with improvement of her constipation and now not having anymore symptoms. She has eaten 100% of her meal for the last 24 hours. Continue monitoring. (3) Chest pain: Qualifiers: Chest pain type: unspecified Qualified Code(s): R07.9 - Chest pain, unspecified Code(s): R07.9 - Chest pain, unspecified Status: Acute Assessment and Plan: Atypical chest pain that is reproducible. Negative cardiac enzymes x3. EKG is unchanged with a chronic right bundle branch block without acute ischemic changes. Cardiology evaluated the patient who recommended no indication for ischemic evaluation at this time. If patient's chest pain has improved but fusing machine tender to palpation. Will have her follow-up with cardiology as an outpatient if further heart issues and possible need for echocardiogram. Continue Lidocaine patch and to continue Tramadol PRN which she takes at home. Continue Kpad CTA of her chest showed no acute PE 03/20/21. 03/23/21-still having her reproducible tenderness to palpation as well as pain with deep inspiration, improved. Will get Echocardiogram due to tachycardia at rest for further structural evaluation of heart. If everything is normal may consider discharge to follow up with cardiology as an outpatient. Continue medications as such. Continue monitoring. Continue telemetry (4) T12 burst fracture: Code(s): S22.081A - Stable burst fracture of T11-T12 vertebra, initial encounter for closed fracture Status: Acute Assessment and Plan: CT Chest showed Relatively recent-appearing T12 burst fracture, new since 09/20/2020. Called Dr. Gardiner who recommended PT evaluation and if having pain and issues. Also recommend follow up if necessary and recommended by PCP at [facility]. Patient received a Lumbar Corset from [facility]. Will continue to work with therapy with coarse in place.. Continue PT/OT
[2021-03-23] MEDS: PERFLUTREN LIPID MICROSPHERES 1.5 ML VIAL DILUTED TO 10 ML TOTAL VOLUME IV PUSH (15:26)
[2021-03-23] MEDS: GABAPENTIN 300 MG CAPSULE 600 MG PO (17:04)
[2021-03-23] MEDS: AMITRIPTYLINE HCL 25 MG TABLET 50 MG PO (17:04)
[2021-03-23 17:46] LABS: Glucose Point of Care 175 (65-105)
[2021-03-23] MEDS: INSULIN GLARGINE (*BKC) 100 UNITS/ML 35 UNITS SUB-Q (20:22)
[2021-03-23 20:48] LABS: Glucose Point of Care 179 (65-105)
[2021-03-24] VITALS: PULSE 102
[2021-03-24 04:00] VITALS: PULSE 98
[2021-03-24 05:35] VITALS: BP 118/69; PULSE 101; RESP 18; TEMP 35.8; O2SAT 96
[2021-03-24] MEDS: SUCRALFATE 1 GM TABLET PO ×2 (06:33→11:00)
[2021-03-24 06:56] LABS: Glucose Point of Care 137 (65-105)
[2021-03-24 08:00] VITALS: PULSE 99
[2021-03-24] MEDS: SACCHAROMYCES BOULARDII 250 MG CAPSULE PO (09:21)
[2021-03-24] MEDS: THIAMINE HCL 100 MG TABLET PO (09:21)
[2021-03-24] MEDS: THERAPEUTIC MULTIVITAMINS/MINERALS TAB (*BKC) 1 TABLET PO (09:21)
[2021-03-24] MEDS: ASPIRIN 81 MG ENTERIC TABLET PO (09:21)
[2021-03-24] MEDS: VITAMIN B COMPLEX CAPSULE 1 CAP PO (09:21)
[2021-03-24] MEDS: LOSARTAN POTASSIUM 100 MG TABLET PO (09:21)
[2021-03-24] MEDS: DOCUSATE SODIUM 100 MG CAPSULE PO (09:21)
--- NOTE | 2021-03-24 09:21 | PM.PNCARD ---
Progress Note: A&P Additional Plan 76-year-old woman with: Chest wall pain, not obviously noncardiac by history and according to Dr. Plummer's consult notes. She does have some evidence of modest LV systolic dysfunction and persistent sinus tachycardia. I am going to start her onmoderate dose of metoprolol for this. Cardiac status otherwise is stable she seems to be a reasonable candidate for discharge Tip Evans MD [facility] Subjective Date/time seen: Date of service:03/24/21 09:21 Interval history: Follow-up visit in this 76-year-old lady with: Chest wall pain, noncardiac this has resolved. Persistent sinus tachycardia. Hospitalist staff called me about this again today. Hope/plans are to discharge her back to her detention. Echocardiogram done yesterday does suggest some evidence of inferior hypokinesia as well as modestly reduced ejection fraction. Discussed this with the patient in detail, she is very hard of hearing but I do believe understands what I have told her. I am going to start some beta-allan therapy for this. She has already appropriately on an ARB. Exam Const: General: comfortable and no acute distress Other: Pleasant white female rather hard of hearing but comfortable cooperative reports no symptoms this morning HENMT: Mouth: Yes moist mucous membranes Eyes: Sclera: sclerae normal Pupils: Equal, round and reactive pupils present Neck: Neck: supple and no JVD Thyroid: thyroid normal Resp: Effort & Inspection: normal respiratory effort Auscultation: clear to auscultation bilaterally Cardio: Rate: regular rate Rhythm: regular rhythm GI: GI Palp: Yes Soft to palpation Auscultation: normal bowel sounds Skin: General skin exam: normal color Neuro: Cognition (Neuro): normal cognition Extrem: General: normal to inspection Objective Data Vital Signs Vital Signs: Vital Signs - 24 hr 03/23/21 12:00 03/23/21 14:00 03/23/21 16:00 Temperature 36.1 C L Pulse Rate 107 H 105 H 125 H Respiratory Rate 16 Blood Pressure 141/83 H Pulse Oximetry 100 03/23/21 20:00 03/23/21 20:14 03/24/21 00:00 Temperature 35.8 C L Pulse Rate 119 H 114 H 102 H Respiratory Rate 18 Blood Pressure 157/94 H Pulse Oximetry 97 03/24/21 04:00 03/24/21 05:35 03/24/21 08:00 Temperature 35.8 C L Pulse Rate 98 101 H 99 Respiratory Rate 18 Blood Pressure 118/69 Pulse Oximetry 96 Intake/Output Intake/Output: Intake & Output 03/21/21 03/22/21 03/23/21 03/24/21 23:59 23:59 23:59 23:59 Intake Total 860 1410 880 300 Output Total 7787 709 9675 150 Balance -140 760 -1170 150 Meds/Results Medications: Active Medications Generic Name Dose Route Start Last Admin Trade Name Freq PRN Reason Stop Dose Admin Acetaminophen 650 mg 03/20/21 21:11 03/21/21 20:44 Acetaminophen 325 Mg Tablet PO 650 mg Q4H PRN Administration Mild Pain (1-3) or Fever Amitriptyline HCl 50 mg 03/20/21 18:00 03/23/21 17:04 Amitriptyline Hcl 25 Mg Tablet PO 50 mg QPM WALDEMAR Administration Aspirin 81 mg 03/20/21 09:00 03/23/21 09:00 Aspirin 81 Mg Enteric Tablet PO 81 mg DAILY WALDEMAR Administration Cephalexin HCl 250 mg 03/20/21 09:00 03/23/21 09:01 Cephalexin 250 Mg Capsule PO 250 mg DAILY WALDEMAR Administration Dextrose 12.5 gm 03/20/21 06:28 Dextrose 50% 25 Gm/50 Ml Syringe IV PUSH PRN PRN Hypoglycemia Protocol Docusate Sodium 100 mg 03/22/21 21:00 03/23/21 20:18 Docusate Sodium 100 Mg Capsule PO 100 mg Q12HR WALDEMAR Administration Enoxaparin Sodium 40 mg 03/22/21 09:05 03/23/21 09:01 Enoxaparin 40 Mg/0.4 Ml Syringe SUB-Q 40 mg DAILY WALDEMAR Administration Gabapentin 300 mg 03/20/21 09:00 03/23/21 20:18 Gabapentin 300 Mg Capsule PO 300 mg Q12HR WALDEMAR Administration Gabapentin 600 mg 03/20/21 18:00 03/23/21 17:04 Gabapentin 300 Mg Capsule PO 600 mg QPM WALDEMAR Administration Glucago
[2021-03-24] MEDS: GABAPENTIN 300 MG CAPSULE PO (09:22)
[2021-03-24] MEDS: CEPHALEXIN 250 MG CAPSULE PO (09:22)
[2021-03-24] MEDS: ENOXAPARIN 40 MG/0.4 ML SYRINGE SUB-Q (09:22)
[2021-03-24] MEDS: PANTOPRAZOLE SODIUM IV 40 MG VIAL IV PUSH (09:23)
[2021-03-24] MEDS: traMADol HCL (*CRX) 50 MG TABLET 100 MG PO (09:39)
[2021-03-24 11:01] VITALS: PULSE 114
[2021-03-24] MEDS: METOPROLOL SUCCINATE EXT REL 50 MG TABCR PO (11:01)
--- NOTE | 2021-03-24 11:06 | PM.DS ---
DS: Admitting Diagnosis Admitting Diagnosis Admitting Diagnosis: Chest pain DS: Discharge Diagnosis Discharge Diagnosis (1) Systolic dysfunction: Code(s): I51.9 - Heart disease, unspecified Status: Acute (2) Tachycardia: Code(s): R00.0 - Tachycardia, unspecified Status: Acute (3) Constipation: Code(s): K59.00 - Constipation, unspecified Status: Acute (4) Chest pain: Qualifiers: Chest pain type: unspecified Qualified Code(s): R07.9 - Chest pain, unspecified Code(s): R07.9 - Chest pain, unspecified Status: Acute (5) T12 burst fracture: Code(s): S22.081A - Stable burst fracture of T11-T12 vertebra, initial encounter for closed fracture Status: Acute (6) Anxiety disorder, unspecified: Code(s): F41.9 - Anxiety disorder, unspecified Status: Chronic (7) Hypertension: Code(s): I10 - Essential (primary) hypertension Status: Acute (8) Diabetes mellitus: Qualifiers: Diabetes mellitus complication status: without complication Diabetes mellitus intermediate insulin use: with intermediate use Diabetes mellitus type: type 2 Qualified Code(s): E11.9 - Type 2 diabetes mellitus without complications; Z79.4 - FPC (current) use of insulin Code(s): E11.9 - Type 2 diabetes mellitus without complications Status: Chronic (9) Hyperlipidemia: Code(s): E78.5 - Hyperlipidemia, unspecified Status: Chronic (10) Abnormal CT of the chest: Code(s): R93.89 - Abnormal findings on diagnostic imaging of other specified body structures Status: Acute Assessment and Plan: CT chest showed Chronic bandlike consolidation at the posterior medial right middle lobe most likely representing atelectasis/scarring although could not exclude a central obstructing lesion. Consider PET CT for further evaluation. Will need outpatient PET Scan DS: Summary Hospital Course Reason for hospitalization: Patient is a 76-year-old woman with a history of diabetes, dementia, hypertension, who presents to the emergency room from her longterm via EMS for chest pain which has been occurring every night after eating dinner. Initial vitals showed she was afebrile, non tachycardic, respiratory rate 20, blood pressure elevated at 162/95, normal oxygenation on room air. Initial labs showed normal CBC with differential, normal coag panel, normal CMP, other than elevated glucose at 254, negative troponin x3. Normal lipase. Normal TSH. Initial chest x-ray showed Chronic mild elevation the left hemidiaphragm. No acute cardiopulmonary disease. The patient was admitted into the hospital for further evaluation of her chest pain with a consult to cardiology. Patient a CTA of her chest which showed no acute pulmonary embolism. Chronic bandlike consolidation at the posterior medial right middle lobe most likely representing atelectasis/scarring although could not exclude a central obstructing lesion. Consider PET CT for further evaluation. Relatively recent-appearing T12 burst fracture, new since 09/20/2020. Patients pain was found to be reproducible in nature and treated with a lidocaine patch and her p.o. tramadol with improvement of symptoms. Cardiology evaluated the patient into normal perform an echocardiogram initially due to her severe tenderness on examination. On patient's x-ray she was found have a T12 burst fracture and I discussed this with Dr. Anne who recommended a lumbar corset if she continued to have pain with PT/OT. Lumbar corset was ordered and patient was doing well. The patient also had nausea, vomiting and abdominal pain [address] abdomen pelvis was performed showing No acute intra-abdominal findings. Moderate colonic stool. She was given a stool softener with improvement of her symptoms. She is back to eating without any issues. Patient continued to have tachycardia a
--- NOTE | 2021-03-24 11:28 | PCPTNOTE ---
Attempted to see patient for Physical Therapy this AM. Patient refused to participate in Physical Therapy secondary to being discharged today.
[2021-03-24 11:50] LABS: Glucose Point of Care 188 (65-105)
[2021-03-24 12:00] VITALS: PULSE 119
== END 2021-03-24 14:42 | DRG 206 ==
LOC: ANHED 03-20 02:35 → ANHIMU 03-20 06:15 → ANH3MED 03-22 10:32 → ANH3MEDSUR 04-04 07:47
PROVIDERS: Nurse Practitioner; Physician Assistant; Admitting Provider Family Medicine; Emergency Provider Emergency Medicine; PCP Family Medicine; Visit Provider Internal Medicine
DX: M94.0 Chondrocostal junction syndrome [Tietze] (principal); S22.081A Stable burst fracture of T11-T12 vertebra, initial encounter for closed fracture; M60.88 Other myositis, other site; R00.0 Tachycardia, unspecified; X58.XXXA Exposure to other specified factors, initial encounter; F41.9 Anxiety disorder, unspecified; K21.9 Gastro-esophageal reflux disease without esophagitis; F03.90 Unspecified dementia, unspecified severity, without behavioral disturbance, psychotic disturbance, mood disturbance, and anxiety; K59.00 Constipation, unspecified; E78.5 Hyperlipidemia, unspecified; E11.42 Type 2 diabetes mellitus with diabetic polyneuropathy; Z85.3 Personal history of malignant neoplasm of breast; Z98.42 Cataract extraction status, left eye; Z98.41 Cataract extraction status, right eye; Z90.710 Acquired absence of both cervix and uterus; Z90.49 Acquired absence of other specified parts of digestive tract; Z79.4 Long term (current) use of insulin
CPT/HCPCS: 36415; 71046; 71275; 74176; 80048; 80053; 80076; 82948; 83036; 83690; 83735; 84443; 84484; 85025; 85027; 85380; 85610; 85730; 93005; 93306; 93970; 96372; 96374; 96375; 96376; 97110; 97161; 97165; 97530; 97535; 99285; A9270; C8929; C9113; G0378; J1650; J1815; J3010; Q9957; Q9967

== ENCOUNTER 2021-07-16 12:14 | Emergency (ER) | payer MEDICARE, MEDICAID, SELFPAY ==
[2021-07-16 12:43] VITALS: BP 136/83; PULSE 81; RESP 18; TEMP 36.6; O2SAT 96
--- NOTE | 2021-07-16 12:49 | ECG_ITS ---
Measurements Intervals [place] Rate: 78 P: 53 DC: 199 QRS: 11 QRSD: 125 T: 24 QT: 391 QTc: 447 Interpretive Statements SINUS RHYTHM RIGHT BUNDLE BRANCH BLOCK ABNORMAL ECG Electronically Signed On 07-16-2021 13:10:15 CDT by Aaron Terry D.O.
[2021-07-16 16:02] VITALS: BP 153/73; PULSE 79; O2SAT 95
--- NOTE | 2021-07-16 17:50 | ED.AMS ---
HPI - Altered Mental Status General Chief Complaint: Altered Mental Status Stated Complaint: AMS Time Seen by Provider: 07/16/21 17:38 History of Present Illness HPI narrative: 76 yo female brought in by EMS from [place] for altered mental status. The history is not clear. She reports that she was choking on a piece of piedra and tried to get someone to help her. They thought she was having a stroke and would not help her. Once she got here she was put in the waiting room for 5.5 hours. She is now concerned because she is diabetic and she has not eaten all day. She does have mild nausea. According to the shelter/EMS she may have lost consciousness and/or been confused after choking. She is apparently being treated for a UTI right now. Related Data Home Medications Medication Instructions Recorded Confirmed aspirin 81 mg PO DAILY 05/11/20 03/20/21 losartan 100 mg PO DAILY 05/11/20 03/20/21 ondansetron 4 mg PO TID PRN 05/11/20 03/20/21 Linzess 290 mcg PO DAILY 07/14/20 03/20/21 Vitamin B-1 100 mg PO DAILY 07/14/20 03/20/21 vitamin B complex 1 tablet PO DAILY 07/14/20 03/20/21 Lantus Solostar U-100 Insulin 35 unit SUBCUT HS 07/31/20 03/20/21 insulin aspart U-100 [Novolog See Protocol SUBCUT BID 07/31/20 03/20/21 Flexpen U-100 Insulin] Saccharomyces boulardii [Florastor] 250 mg PO DAILY 09/17/20 03/20/21 gabapentin 600 mg PO QPM 09/17/20 03/20/21 multivitamin with minerals 1 cap PO DAILY 09/17/20 03/20/21 amitriptyline 50 mg PO QPM 03/20/21 03/20/21 gabapentin 300 mg PO BID 03/20/21 03/20/21 lorazepam [Ativan] 1 mg PO QID PRN 03/20/21 03/20/21 polyethylene glycol 1 ea DAILY 03/20/21 03/20/21 Allergies Allergy/AdvReac Type Severity Reaction Status Date / Time caffeine Allergy Unknown Verified 03/19/21 23:40 chlordiazepoxide Allergy Unknown Verified 03/19/21 23:40 clidinium Allergy Unknown Verified 03/19/21 23:40 codeine Allergy Rash Verified 03/19/21 23:40 doxepin Allergy Unknown Verified 03/19/21 23:40 hydrocodone Allergy Rash Verified 03/19/21 23:40 hydromorphone [From Dilaudid] Allergy Unknown Verified 03/19/21 23:40 hydroxychloroquine Allergy Unknown Verified 03/19/21 23:40 morphine Allergy Rash Verified 03/19/21 23:40 sitagliptin [From Januvia] Allergy Rash Verified 03/19/21 23:40 Review of Systems Review of Systems: All systems reviewed & are unremarkable except as noted in HPI and below Constitutional: Constitutional: Denies fever(s) Cardiovascular: Cardiovascular: Denies chest pain Respiratory: Respiratory: Denies dyspnea Gastrointestinal: Gastrointestinal: Reports nausea Genitourinary: Genitourinary: Reports no additional female genitourinary complaints [facility] Past Medical History Medical History Anxiety disorder, unspecified Cancer of right breast Right mastectomy with chemo and radiation Dementia Diabetes mellitus With neuropathy Essential hypertension GERD (gastroesophageal reflux disease) Hyperlipidemia Meniere disease Rectal prolapse Surgical History Surgical History H/O cervical spine surgery History of bilateral cataract extraction History of hysterectomy History of lumbar surgery History of rectopexy rectal prolapse with repair February 2020 History of right mastectomy Hx of cholecystectomy Family History Family History Father Parkinsons Mother Alzheimer disease Social History Social History Social History: The patient resides at care center at [facility]. Primary care physician: Dr. Bhupendra Kerr Code status: Per state advanced directive form the patient is supposed to be a full code with only selective treatment. This will need to be clarified with family. The patient has a son and a daughter. She is estranged from the son. 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
[2021-07-16 18:13] LABS: Basophils Percent Auto 0.7 % (0.2-1.2); Eosinophils Absolute Auto 0.3 K/mm3 (0-0.3); Eosinophils Percent Auto 4.1 % (0-4.4); Hematocrit 40.1 % (37.0-47.0); Immature Granulocyte Absolute 0.01 K/mm3 (0.00-0.031); Immature Granulocyte Percent A 0.2 % (0-0.5); Lymphocytes Percent Auto 24.6 % (18.3-44.2); Mean Corpuscular HGB Conc 32.4 g/dl (32-36); Mean Corpuscular Hemoglobin 28.6 pg (26-34); Mean Corpuscular Volume 88.1 fl (80-100); Mean Platelet Volume 11.2 fl (7.4-10.4); Monocytes Absolute Auto 0.5 K/mm3 (0.1-0.6); Monocytes Percent Auto 8.4 % (2.6-8.5); Neutrophils Absolute Auto 3.8 K/mm3 (1.3-6.7); Platelet Count Result 173 k/mm3 (150-375); Red Blood Count 4.55 M/mm3 (4.2-5.4); Red Cell Distribution Width 11.9 % (11.5-14.5); White Blood Count 6.1 K/mm3 (4.5-10.0)
[2021-07-16 18:31] VITALS: BP 112/44; PULSE 89; RESP 18; O2SAT 100
[2021-07-16 19:12] LABS: Add Urine Microscopic? YES; Appearance Urine Clear (Clear); Bilirubin Urine Negative (Negative); Blood Urine Negative (Negative); Color Urine Yellow (Yellow); Glucose Urine UA Negative (Negative); Ketones Urine Negative (Negative); Leukocyte Esterase Ur 1+ LEU/UL (Negative); Nitrate Urine Negative (Negative); Protein Urine Negative (Negative); Specific Grav Ur 1.016 (1.001-1.035); Urobilinogen Urine Negative mg/dL (<2.0)
[2021-07-16 19:21] LABS: Alanine Aminotransferase 25 U/L (4-35); Alkaline Phosphatase 114 U/L (38-126); Anion Gap 8 mmol/L (8-16); Aspartate Amino Transferase 29 U/L (14-36); Bilirubin,Total 0.6 mg/dL (0.2-1.3); Blood Urea Nitrogen 18 mg/dL (7-17); Calcium 9.8 mg/dL (8.4-10.2); Carbon Dioxide 29 mmol/L (22-30); Chloride 102 mmol/L (98-107); Estimated Glomerular Filt Rate > 60; Glucose 130 mg/dL (65-110); Sodium 139 mmol/L (137-145)
[2021-07-16 19:24] VITALS: BP 160/96; PULSE 78; RESP 16; O2SAT 97
--- NOTE | 2021-07-16 19:24 | PC.NURSE ---
Assumed care of pt at this time. Pt A&Ox3 upright on stretcher, updated on POC.
[2021-07-16 19:50] LABS: Squamous Epithelial Cell Urine Rare /hpf (Few); WBC Clumps Urine Present /HPF; WBC Urine >75 /hpf
--- NOTE | 2021-07-16 19:55 | PC.NURSE ---
Spoke with DIAMANTEKourtney (daughter) Nelda and gave update on pts POC. Requests further update as results come back. (PH: [phone]).
--- NOTE | 2021-07-16 20:22 | PC.NURSE ---
This RN called ELLIE Lutz to give update on discharge. States she will be able to picker tender helper pt from ED and transport back to facility. Will call when here, but states it might take her a while .
[2021-07-16 20:42] VITALS: BP 156/91; PULSE 85; RESP 18; O2SAT 97
--- NOTE | 2021-07-16 20:46 | PC.NURSE ---
Attempted to call report to [facility] at this time. Phone rang continuously and then was disconnected.
--- NOTE | 2021-07-16 21:10 | PC.NURSE ---
Pt taken to waiting room via wheelchair by neurology technologist to wait for ride. Pt alert and upright in wheelchair during transport to waiting room. daughter reports she will call when here to picker packer pt.
== END 2021-07-16 21:10 ==
PROVIDERS: Family Medicine; Emergency Provider Emergency Medicine; PCP Family Medicine
DX: N39.0 Urinary tract infection, site not specified (principal); F41.9 Anxiety disorder, unspecified; F03.90 Unspecified dementia, unspecified severity, without behavioral disturbance, psychotic disturbance, mood disturbance, and anxiety; E11.40 Type 2 diabetes mellitus with diabetic neuropathy, unspecified; I10 Essential (primary) hypertension; K21.9 Gastro-esophageal reflux disease without esophagitis; E78.5 Hyperlipidemia, unspecified; H81.09 Meniere's disease, unspecified ear; Z85.3 Personal history of malignant neoplasm of breast; Z90.11 Acquired absence of right breast and nipple; Z92.21 Personal history of antineoplastic chemotherapy; Z92.3 Personal history of irradiation; Z79.4 Long term (current) use of insulin; Z79.82 Long term (current) use of aspirin; Z98.42 Cataract extraction status, left eye; Z98.41 Cataract extraction status, right eye
CPT/HCPCS: 36415; 51701; 80053; 81001; 85025; 87086; 87088; 93005; 96365; 99284; J0696

== ENCOUNTER 2021-07-23 17:58 | Emergency (ER) | payer MEDICARE, MEDICAID, SELFPAY ==
--- NOTE | ~2021-07-23 | CT_ITS ---
EXAMINATION: CT cervical spine wo con DATE: 07/23/2021 18:32 INDICATION: Neck injury. TECHNIQUE: Computed tomography (CT) of the cervical spine was performed without intravenous contrast. Automated exposure control and iterative reconstruction technique were employed. The dose-length pro duct was 393.91 mGy-cm. COMPARISON: Neck CT 07/14/2020 FINDINGS: There is kyphosis of cervical spine. There are changes of healed anterior fusion procedure from C4 to C7. Vertebral body heights are normal. There is mildly decreased disc height at C2-C3 and severely decreased disc height at C3-C4, C7-T1, and T1-T2. There are laminectomies from C1 to C5. Oss eous central spinal canal is developmentally small at C6 and C7. The following disc levels are specif ically discussed: C2-C3: There is no uncovertebral joint osteoarthritis. There is severe left facet joint osteoarthriti s. There is ankylosis of right facet joint with moderate hypertrophy. There is mild right neural fora tanisha stenosis. There is mild central canal stenosis with posterior decompression. C3-C4: There is severe bilateral uncovertebral joint osteoarthritis. There is severe bilateral facet joint osteoarthritis. There is moderate bilateral neural foraminal stenosis. There is mild central ca nal stenosis with posterior decompression. C4-C5: There is mild bilateral uncovertebral joint hypertrophy. There is ankylosis of the facet joint s without hypertrophy. There is no neural foraminal stenosis. There is mild central canal stenosis wi th posterior decompression. C5-C6: There is mild bilateral uncovertebral joint hypertrophy. There is ankylosis of the facet joint s without hypertrophy. There is no neural foraminal stenosis. There is mild central canal stenosis wi th posterior decompression. C6-C7: There is mild bilateral uncovertebral joint hypertrophy. There is ankylosis of left facet join t with mild hypertrophy. There is no neural foraminal stenosis. There is mild central canal stenosis. C7-T1: There is severe bilateral uncovertebral joint osteoarthritis. There is severe bilateral facet joint osteoarthritis. There is mild right and moderate left neural foraminal stenosis. There is mild central canal stenosis. IMPRESSION: 1. No fracture. 2. Severe cervical spondylosis. 3. Anterior fusion procedure from C4 to C7. Reviewed, dictated and finalized at location A.
--- NOTE | ~2021-07-23 | XR_ITS ---
EXAMINATION: XR hip BI 2V w AP pelvis DATE: 07/23/2021 18:44 INDICATION: Left hip pain. Fall. TECHNIQUE: An anteroposterior view pelvis and 2 views of each hip were obtained. COMPARISON: None. FINDINGS: There is lumbar dextroscoliosis and severe spondylosis. There are changes of anterior and p osterior fusion procedures at L4-L5. No fracture. There is moderate right hip osteoarthritis and mild left hip osteoarthritis. IMPRESSION: 1. Moderate right hip osteoarthritis and mild left hip osteoarthritis. Reviewed, dictated and finalized at location A.
--- NOTE | ~2021-07-23 | CT_ITS ---
EXAMINATION: CT brain wo con DATE: 07/23/2021 18:32 INDICATION: Head injury. TECHNIQUE: Computed tomography (CT) of the head was performed without intravenous contrast. The mA wa s adjusted according to patient size. Iterative reconstruction technique was employed. The dose-lengt h product was 605.33 mGy-cm. COMPARISON: Head CT 01/08/2021 FINDINGS: There are scattered areas of low attenuation in the cerebral white matter. There is no intr acranial hemorrhage, acute infarction, or abnormal intracranial mass lesion. The ventricles are danielle l in size. There are likely changes of ocular lens replacement surgeries. There is mild mucosal thick ening in the ethmoid sinuses. There are changes of left mastoidectomy. There is a prosthetic stapes o n the left. IMPRESSION: 1. Stable moderate nonspecific cerebral white matter disease, which likely represents chronic small v essel ischemic disease. Reviewed, dictated and finalized at location A. IMPRESSION: 1. Stable moderate nonspecific cerebral white matter disease, which likely repr esents chronic small vessel ischemic disease.
[2021-07-23 17:59] VITALS: BP 155/109; PULSE 87; RESP 17; TEMP 36.8; O2SAT 100
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
[2021-07-23 20:01] VITALS: BP 153/86; PULSE 85; RESP 18; O2SAT 100
[2021-07-23] MEDS: CEFDINIR 300 MG CAPSULE PO (20:21)
--- NOTE | 2021-07-23 20:35 | PC.NURSE ---
pt up for discharge at this time. attempted to call facility to give report 8 separate times over 20 minute span. Facility did not citrus picker. charge nurse made aware pt discharged with instructions given and discharge paperwork.
[2021-07-23 20:47] VITALS: BP 164/74; PULSE 93; RESP 18; O2SAT 99
== END 2021-07-23 20:47 ==
PROVIDERS: Emergency Provider Emergency Medicine; PCP Family Medicine
DX: M25.552 Pain in left hip (principal); M25.551 Pain in right hip; S09.90XA Unspecified injury of head, initial encounter; F03.90 Unspecified dementia, unspecified severity, without behavioral disturbance, psychotic disturbance, mood disturbance, and anxiety; E11.40 Type 2 diabetes mellitus with diabetic neuropathy, unspecified; I10 Essential (primary) hypertension; K21.9 Gastro-esophageal reflux disease without esophagitis; E78.5 Hyperlipidemia, unspecified; F41.9 Anxiety disorder, unspecified; Z85.3 Personal history of malignant neoplasm of breast; Z92.21 Personal history of antineoplastic chemotherapy; Z90.11 Acquired absence of right breast and nipple; Z92.3 Personal history of irradiation; Z79.82 Long term (current) use of aspirin; Z79.4 Long term (current) use of insulin; H81.09 Meniere's disease, unspecified ear; Z98.42 Cataract extraction status, left eye; Z98.41 Cataract extraction status, right eye; R90.82 White matter disease, unspecified; M47.812 Spondylosis without myelopathy or radiculopathy, cervical region; Z98.1 Arthrodesis status; M16.0 Bilateral primary osteoarthritis of hip; W18.39XA Other fall on same level, initial encounter
CPT/HCPCS: 70450; 72125; 73521; 99284; A9270

== ENCOUNTER 2022-11-24 17:30 | Inpatient (IN) | payer MEDICARE, MEDICAID, SELFPAY ==
--- NOTE | ~2022-11-24 | XR_ITS ---
EXAMINATION: XR chest 1V portable Exam Date/Time: 11/27/2022 16:35 BEEF SPLITTER HISTORY: cough Comparison: 11/24/2022. RESULT: Lines, tubes, and devices: Right axillary surgical clips. Cholecystectomy clips. Lungs and pleura: Clear. Slightly improved aeration of the right lung base. Cardiomediastinal silhouette: Stable. Other: No acute osseous or upper abdominal finding. IMPRESSION: No acute cardiopulmonary process. Reviewed, dictated and finalized at location K. SPLITTER
--- NOTE | ~2022-11-24 | CT_ITS ---
EXAMINATION: CT brain wo con DATE: 11/24/2022 20:01 INDICATION: confusion, pt unable to speak but able to understand and nod . TECHNIQUE: Computed tomography (CT) of the head was performed without intravenous contrast. The mA wa s adjusted according to patient size. Iterative reconstruction technique was employed. The dose-lengt h product was 681.00 mGy-cm. COMPARISON: 07/23/2021. FINDINGS: No acute intracranial hemorrhage or extra-axial fluid collection. No hydrocephalus, mass, or herniation. No acute ischemic infarct. Unremarkable dural venous sinus attenuation. No acute osseous abnormality. Left mastoid fluid. Prior partial left mastoidectomy. Aerated secretions in the bilateral maxillary s inuses and ethmoid air cells. Mucosal thickening and a retention cyst/polyp in the sphenoid sinus. Th e remaining aerated spaces are clear. Moderate atrophy and chronic white matter change. Atherosclerotic intracranial calcification. Bilater al lens replacements. IMPRESSION: No acute intracranial process. Paranasal sinus findings may reflect acute sinusitis in the appropriat e clinical context. Reviewed, dictated and finalized at location K. OM POLISHER IMPRESSION: No acute intracranial process. Paranasal sinus findings may reflect acute sinus itis in the appropriate clinical context.
--- NOTE | ~2022-11-24 | XR_ITS ---
EXAMINATION: XR chest 1V portable Exam Date/Time: 11/24/2022 19:18 DIRECTOR WOMEN HISTORY: AMS Comparison: 03/19/2021. RESULT: Lines, tubes, and devices: None. Lungs and pleura: Subsegmental left basilar opacity with angle blunting. Cardiomediastinal silhouette: Stable. Other: No acute osseous or upper abdominal finding. IMPRESSION: Atelectasis/consolidation left lung base. Possible small left pleural effusion. Reviewed, dictated and finalized at location K. CTOR WOMEN
--- NOTE | ~2022-11-24 | XR_ITS ---
EXAM: XR abdomen/kub 1V DATE: 11/25/2022 18:18 HISTORY: abd pain . COMPARISON: CT abdomen and pelvis 03/22/2021. FINDINGS: Bibasilar scar/atelectasis and senescent change. Cholecystectomy clips. Posterior lumbar f usion hardware. Normal bowel gas pattern. No organomegaly. Scattered vascular calcification. Lumbar d egenerative disc disease. Stable T12 burst fracture. Mild bilateral hip osteoarthritis. IMPRESSION: No radiographic evidence of obstruction or ileus. Reviewed, dictated and finalized at location K. L RIVETER
[2022-11-24 18:32] VITALS: BP 180/107; PULSE 102; RESP 18; TEMP 36.6; O2SAT 100
--- NOTE | 2022-11-24 19:13 | ECG_ITS ---
Measurements Intervals [place] Rate: 97 P: 36 CA: 216 QRS: 1 QRSD: 128 T: 34 QT: 370 QTc: 472 Interpretive Statements SINUS RHYTHM WITH FIRST DEGREE AV BLOCK RIGHT BUNDLE BRANCH BLOCK BASELINE ARTIFACT- I, II, III, AVR, AVL, AVF ABNORMAL ECG COMPARED TO ECG 07/16/2021 13:00:38 FIRST DEGREE AV BLOCK NOW PRESENT Electronically Signed On 11-24-2022 19:42:40 PEDIATRIC PHYSICIAN by Aaron Terry D.O.
--- NOTE | 2022-11-24 19:16 | ED.GENADULT ---
HPI - General Adult General Chief complaint: Altered Mental Status Stated complaint: altered mental status Time Seen by Provider: 11/24/22 19:04 Source: EMS and RN notes reviewed History of Present Illness HPI narrative: Patient presents emergency department from [facility] for altered mental status. History is per the patient's daughter. The daughter states that she got a call from the [facility] today and the nurse there had stated that the patient had had a stroke. When I asked her more specifically why she had said that she said that the nurse had just stated patient appeared to have had a stroke. The patient appeared to have walked up to the nurses station and had not been speaking but that is normal per the daughter the patient is currently awake and alert she has no complaints at this time. There is no history of a unilateral neurological deficit. The patient denies any chest pain or shortness of breath denies any headaches per the daughter the patient did recently have a UTI Related Data Home Medications Medication Instructions Recorded Confirmed aspirin 81 mg tablet,delayed 81 mg PO DAILY 05/11/20 03/20/21 release losartan 100 mg tablet 100 mg PO DAILY 05/11/20 03/20/21 ondansetron 4 mg disintegrating 4 mg PO TID PRN Nausea 05/11/20 03/20/21 tablet Vitamin B-1 100 mg PO DAILY 07/14/20 03/20/21 linaclotide 290 mcg capsule 290 mcg PO DAILY 07/14/20 03/20/21 (Linzess) vitamin B complex 1 tablet PO DAILY 07/14/20 03/20/21 insulin aspart U-100 100 unit/mL See Protocol subcut BID 07/31/20 03/20/21 (3 mL) subcutaneous pen (Novolog Flexpen U-100 Insulin aspart) insulin glargine 100 unit/mL (3 35 unit subcut HS 07/31/20 03/20/21 mL) subcutaneous pen (Lantus Solostar U-100 Insulin) Saccharomyces boulardii 250 mg 250 mg PO DAILY 09/17/20 03/20/21 capsule (Florastor) gabapentin 300 mg capsule 600 mg PO QPM 09/17/20 03/20/21 multivitamin with minerals 1 cap PO DAILY 09/17/20 03/20/21 amitriptyline 50 mg tablet 50 mg PO QPM 03/20/21 03/20/21 gabapentin 300 mg capsule 300 mg PO BID 03/20/21 03/20/21 lorazepam 1 mg tablet (Ativan) 1 mg PO QID PRN Anxiety 03/20/21 03/20/21 polyethylene glycol 1 ea DAILY 03/20/21 03/20/21 Allergies Allergy/AdvReac Type Severity Reaction Status Date / Time caffeine Allergy Unknown Verified 07/23/21 18:18 chlordiazepoxide Allergy Unknown Verified 07/23/21 18:18 clidinium Allergy Unknown Verified 07/23/21 18:18 codeine Allergy Rash Verified 07/23/21 18:18 doxepin Allergy Unknown Verified 07/23/21 18:18 hydrocodone Allergy Rash Verified 07/23/21 18:18 hydromorphone [From Dilaudid] Allergy Unknown Verified 07/23/21 18:18 hydroxychloroquine Allergy Unknown Verified 07/23/21 18:18 morphine Allergy Rash Verified 07/23/21 18:18 sitagliptin [From Januvia] Allergy Rash Verified 07/23/21 18:18 Review of Systems Review of Systems: Gen.: Denies fevers or chills Eyes: Denies eye pain or visual change ENT: Denies congestion Respiratory: Denies shortness of breath or cough CV: Denies chest pain or palpitations GI: Denies abdominal pain nausea, emesis or diarrhea reports history of recent UTI Musculoskeletal: Denies back pain or muscle pain Neuro: See HPI Skin: Denies rash Except as documented, all other systems reviewed and negative PMFSH Past Medical History Medical History Anxiety disorder, unspecified Cancer of right breast Right mastectomy with chemo and radiation Dementia Diabetes mellitus With neuropathy Essential hypertension GERD (gastroesophageal reflux disease) Hyperlipidemia Meniere disease Rectal prolapse Surgical History Surgical History H/O cervical spine surgery History of bilateral cataract extraction History of hysterectomy History of lumbar surgery History of rectopexy rectal prolapse with repair February 2020 History of right mastectomy H
[2022-11-24 19:40] LABS: Basophils Absolute Auto 0.1 K/mm3 (0.0-0.1); Basophils Percent Auto 0.8 % (0.2-1.2); Eosinophils Absolute Auto 0.3 K/mm3 (0-0.3); Eosinophils Percent Auto 5.3 % (0-4.4); Hematocrit 41.5 % (37.0-47.0); Hemoglobin 13.6 g/dL (12.0-15.0); Immature Granulocyte Absolute 0.01 K/mm3 (0.00-0.031); Immature Granulocyte Percent A 0.2 % (0-0.5); Lymphocytes Absolute Auto 1.91 K/mm3 (0.9-3.2); Lymphocytes Percent Auto 30.7 % (18.3-44.2); Mean Corpuscular HGB Conc 32.8 g/dl (32-36); Mean Corpuscular Hemoglobin 28.8 pg (26-34); Mean Corpuscular Volume 87.9 fl (80-100); Mean Platelet Volume 10.8 fl (7.4-10.4); Monocytes Absolute Auto 0.5 K/mm3 (0.1-0.6); Monocytes Percent Auto 8.2 % (2.6-8.5); Neutrophils Absolute Auto 3.4 K/mm3 (1.3-6.7); Neutrophils Percent Auto 54.8 % (45.5-73.1); Platelet Count Result 193 k/mm3 (150-375); Red Blood Count 4.72 M/mm3 (4.2-5.4); Red Cell Distribution Width 12.9 % (11.5-14.5); White Blood Count 6.2 K/mm3 (4.5-10.0)
[2022-11-24] MEDS: SODIUM CHLORIDE 0.9% IV 1,000 ML 999 ML IV CONT (19:43)
[2022-11-24 19:46] LABS: Glucose Point of Care 183 mg/dl (65-105)
[2022-11-24 19:51] LABS: Alanine Aminotransferase 19 U/L (6-35); Albumin Level 4.1 g/dL (3.5-5.1); Alkaline Phosphatase 110 U/L (38-126); Anion Gap 6 mmol/L (8-16); Aspartate Amino Transferase 24 U/L (14-36); Bilirubin,Total 0.4 mg/dL (0.2-1.3); Blood Urea Nitrogen 18 mg/dL (7-17); Calcium 9.4 mg/dL (8.4-10.2); Carbon Dioxide 29 mmol/L (22-30); Chloride 102 mmol/L (98-107); Estimated CRCL calculation 56 ml/min; Estimated Glomerular Filt Rate > 60; Glucose 184 mg/dL (65-110); INR 1.1; Potassium 3.8 mmol/L (3.4-5.0); Prothrombin Time 13.5 Seconds (11.1-14.7); Sodium 137 mmol/L (137-145)
[2022-11-24 19:52] LABS: Partial Thromboplastin Time 25.3 SECONDS (22.3-36.8)
[2022-11-24 20:02] LABS: Troponin I < 0.012 ng/mL (0.000-0.034)
[2022-11-24 20:46] LABS: Influenza A QL RT-PCR Negative (Negative); Influenza B QL RT-PCR Negative (Negative); SARS-CoV-2 RNA PCR Negative
[2022-11-24 21:31] LABS: Add Urine Microscopic? YES; Appearance Urine Clear (Clear); Bilirubin Urine Negative (Negative); Blood Urine Negative (Negative); Color Urine Straw (Yellow); Glucose Urine UA Negative (Negative); Ketones Urine Negative (Negative); Leukocyte Esterase Ur 1+ LEU/UL (Negative); Nitrate Urine Negative (Negative); Protein Urine Negative (Negative); Urobilinogen Urine 0.2 mg/dL (<2.0)
[2022-11-24 21:36] LABS: Bacteria Urine Trace /hpf; Mucus Urine Rare /lpf; RBC Urine 0-2 /hpf (0-2); Squamous Epithelial Cell Urine Rare /hpf (Few); WBC Urine 16-20 /hpf
--- NOTE | 2022-11-24 22:24 | ADMGEN ---
This patient, Naomi Govea, was admitted to 2 Medical Room 257-01. Patient/family oriented to hospital policies and general routines including ID bracelet, bed and alarms, visiting hours, pain management, procedures, bathroom and other care routines, personal items, smoking policy, room service/diet, and visiting hours. Information on how to activate the Rapid Response Team has been discussed. Patient/Family are encouraged to report perceived risks to care and to ask questions if they do not understand what they are told or what they should do.
[2022-11-24 22:31] VITALS: BP 167/95; PULSE 80; RESP 18; TEMP 36.7; O2SAT 100
[2022-11-24 22:32] VITALS: BMI 34.1
[2022-11-24 22:33] LABS: Lactic Acid Reflex 1.7 mmol/L (0.7-2.0)
[2022-11-24] MEDS: SODIUM CHLORIDE 0.9% IV 1,000 ML 100 ML IV CONT (22:54)
[2022-11-25] VITALS (9 sets, daily range): BP systolic 153–171; BP diastolic 84–92; PULSE 79–112; RESP 18–21; TEMP 36.3–37.2; O2SAT 98–100; BMI 34.1
--- NOTE | 2022-11-25 02:00 | PM.IMHP ---
H&P: HPI History of Present Illness Date/Time: 11/25/22 02:00 Chief Complaint: Altered mental status Narrative: Patient is a 77-year-old female who lives at [facility] with past medical history essential hypertension, GERD, constipation, type 2 diabetes with peripheral neuropathy, dementia? presents the ED with complaints of altered mental status. [facility] and no some concern of patient becoming altered, baseline functional status is quite minimal. It is unclear as by my evaluation I was told that patient may be back to baseline mentation. In the ED: WBC count 6.2, urinalysis with 16-20 WBC in urine, influenza negative, COVID negative, CT head no acute process, chest x-ray showed atelectasis left lung base. EKG normal sinus rhythm rate 97, first-degree AV block. Review of Systems Review of Systems: Unable to obtain due to mental status PMFSH Past Medical History Medical History Anxiety disorder, unspecified Cancer of right breast Right mastectomy with chemo and radiation Dementia Diabetes mellitus With neuropathy Essential hypertension GERD (gastroesophageal reflux disease) Hyperlipidemia Meniere disease Rectal prolapse Surgical History Surgical History H/O cervical spine surgery History of bilateral cataract extraction History of hysterectomy History of lumbar surgery History of rectopexy rectal prolapse with repair February 2020 History of right mastectomy Hx of cholecystectomy Family History Family History Father Parkinsons Mother Alzheimer disease Social History Social History Social History: The patient resides at care center at [facility]. Primary care physician: Dr. Bhupendra Kerr Code status: Per state advanced directive form the patient is supposed to be a full code with only selective treatment. This will need to be clarified with family. The patient has a son and a daughter. She is estranged from the son. 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 To lifelong nonsmoker. She does not use any marijuana or illicit drugs. No alcohol. Smoking status: Never smoker Second hand tobacco smoke exposure: No Alcohol intake: never Substance use: never Substance use type: does not use Gender identity (if verbalized by the patient): Female Spiritual care concerns: No Meds Home Medications and Allergies Home Medications Medication Instructions Recorded Confirmed Type ondansetron 4 mg disintegrating 4 mg PO TID PRN Nausea 05/11/20 11/25/22 History tablet linaclotide 290 mcg capsule 290 mcg PO DAILY 07/14/20 11/24/22 History (Linzess) vitamin B complex 1 tablet PO DAILY 07/14/20 11/24/22 History insulin glargine 100 unit/mL (3 35 unit subcut HS 07/31/20 11/24/22 History mL) subcutaneous pen (Lantus Solostar U-100 Insulin) gabapentin 300 mg capsule 600 mg PO HS 09/17/20 11/24/22 History gabapentin 300 mg capsule 300 mg PO BID 03/20/21 11/24/22 History lorazepam 1 mg tablet (Ativan) 0.5 mg PO TID 03/20/21 11/24/22 History pantoprazole 40 mg tablet,delayed 40 mg PO QAM 4 weeks #28 tabs 03/24/21 11/25/22 Rx release tramadol 50 mg tablet 100 mg PO Q6H PRN Pain (Scale 07/03/21 11/25/22 Rx Score 4-6) #60 tabs Allergy (diphenhydramine) 25 mg PO Q6-8H PRN Itching 11/24/22 11/24/22 History Anti-Diarrheal (loperamide) 2 mg PO DIRECTED 11/24/22 11/24/22 History Cozaar 100 mg PO DAILY 11/24/22 11/24/22 History Lactobacillus acidophilus 1 cap PO DAILY 11/24/22 11/24/22 History Lasix 20 mg PO DAILY 11/24/22 11/24/22 History Miralax 17 g PO DAILY PRN Constipation 11/24/22 11/25/22 History buspirone 10 mg PO TID 11/24/22 11/24/22 History dextroamphetamine-amphetamine ER 10 mg PO DAILY 11/24/22 11/24/22 History 10 mg 24h
[2022-11-25] MEDS: traZODone HCL 50 MG TABLET 150 MG PO ×2 (03:39→20:47)
[2022-11-25] MEDS: GABAPENTIN 300 MG CAPSULE 600 MG PO (03:39)
[2022-11-25] MEDS: INSULIN GLARGINE (*BKC) 100 UNITS/ML 35 UNITS SUB-Q ×2 (03:43→20:50)
[2022-11-25 03:50] LABS: Glucose Point of Care 226 mg/dl (65-105)
[2022-11-25 05:47] LABS: Alanine Aminotransferase 17 U/L (6-35); Albumin Level 3.6 g/dL (3.5-5.1); Alkaline Phosphatase 92 U/L (38-126); Anion Gap 6 mmol/L (8-16); Aspartate Amino Transferase 23 U/L (14-36); Basophils Percent Auto 0.6 % (0.2-1.2); Bilirubin,Total 0.6 mg/dL (0.2-1.3); Blood Urea Nitrogen 13 mg/dL (7-17); Calcium 8.6 mg/dL (8.4-10.2); Carbon Dioxide 27 mmol/L (22-30); Chloride 101 mmol/L (98-107); Eosinophils Absolute Auto 0.3 K/mm3 (0-0.3); Eosinophils Percent Auto 4.5 % (0-4.4); Estimated CRCL calculation 63 ml/min; Estimated Glomerular Filt Rate > 60; Glucose 194 mg/dL (65-110); Hematocrit 38.6 % (37.0-47.0); Hemoglobin 12.9 g/dL (12.0-15.0); Immature Granulocyte Absolute 0.02 K/mm3 (0.00-0.031); Immature Granulocyte Percent A 0.3 % (0-0.5); Lymphocytes Absolute Auto 1.75 K/mm3 (0.9-3.2); Lymphocytes Percent Auto 28.1 % (18.3-44.2); Mean Corpuscular HGB Conc 33.4 g/dl (32-36); Mean Corpuscular Hemoglobin 28.7 pg (26-34); Mean Corpuscular Volume 85.8 fl (80-100); Mean Platelet Volume 11.7 fl (7.4-10.4); Monocytes Absolute Auto 0.5 K/mm3 (0.1-0.6); Monocytes Percent Auto 8.4 % (2.6-8.5); Neutrophils Absolute Auto 3.6 K/mm3 (1.3-6.7); Neutrophils Percent Auto 58.1 % (45.5-73.1); Platelet Count Result 189 k/mm3 (150-375); Potassium 3.6 mmol/L (3.4-5.0); Red Cell Distribution Width 12.5 % (11.5-14.5); Sodium 134 mmol/L (137-145); White Blood Count 6.2 K/mm3 (4.5-10.0)
[2022-11-25] MEDS: LINACLOTIDE 145 MCG CAPSULE 290 MCG PO (05:51)
[2022-11-25 05:59] LABS: Hemoglobin A1C 10.6 % (<5.7)
[2022-11-25 06:13] LABS: Procalcitonin 0.1 ng/mL
[2022-11-25 08:45] LABS: Glucose Point of Care 199 mg/dl (65-105)
--- NOTE | 2022-11-25 12:10 | PM.IMPN ---
Progress Note: A&P Assessment and Plan (1) Acute metabolic encephalopathy: Code(s): G93.41 - Metabolic encephalopathy Status: Acute (2) Acute UTI: Code(s): N39.0 - Urinary tract infection, site not specified Status: Acute Plan # acute metabolic encephalopathy -it is unclear how far from baseline mentation patient is, patient currently is nonverbal to me. Nurse reports patient will say very few words -possible UTI with WBC 16-20 in the urine otherwise systemic WBCs normal, afebrile, chest x-ray shows some atelectasis CT head shows possible sinusitis. Patient does not appear to have any other respiratory symptoms. Difficult to ascertain if there is any urinary issues -unclear if patient has bacterial infection, checking procalcitonin -antibiotics: Continue azithromycin Rocephin for now and see if there is any clinical improvement by tomorrow -IV fluids normal saline 100 cc/hour -repeat labs in a.m. # other chronic conditions -anxiety/depression: Clifton, Irina, p.r.n. Ativan -essential hypertension: Cozaar, metoprolol, prn hydralazine available to for elevated BP -abdominal spasms: Bentyl -insulin-dependent type 2 diabetic: Sliding scale insulin, continue home insulin lispro 5 units t.i.d. with meals, Lantus 35 units q.h.s., Accu-Cheks a.c. HS, hypoglycemia protocol, checking hemoglobin A1c -peripheral edema Lasix -constipation: MiraLax daily -GERD: Carafate, Protonix -insomnia: Trazodone -peripheral neuropathy likely secondary to type 2 diabetes: Gabapentin -ADHD?: on dextroamphetamine-amphetamine, appears to be long-standing Diet: diabetic diet DVT prophylaxis: Lovenox Code status: Full code Disposition: Likely back to snf in 2-3 days Subjective Date/time seen: 11/25/22 12:10 No new complaints. Vital signs stable. Exam Narrative: - GENERAL: Pleasant older woman nonverbal - EYES: EOMI. Anicteric. - HENT: Moist mucous membranes. - LUNGS: Clear to auscultation bilaterally, no wheezing, rhonchi, or rales. - CARDIOVASCULAR: Regular rate and rhythm. - ABDOMEN: Soft, non-tender and non-distended - EXTREMITIES: No edema. Peripheral pulses 2+. Non-tender. - NEUROLOGIC: No focal neurological deficits, limited exam, not following commands. maintained eye contact, was able to move extremities in bed - PSYCHIATRIC: Awake alert, unable to assess orientation as she is nonverbal. Flat affect Objective Data Vital Signs Vital Signs: Vital Signs - 24 hr 11/24/22 18:32 11/24/22 22:31 11/25/22 00:00 Temperature 97.8 F 98.1 F Pulse Rate 102 H 80 82 Respiratory Rate 18 18 Blood Pressure 180/107 H 167/95 H Pulse Oximetry 100 100 Oxygen Delivery Room Air 11/25/22 04:00 11/25/22 06:00 Temperature 97.9 F Pulse Rate 79 84 Respiratory Rate 21 H Blood Pressure 153/92 H Pulse Oximetry 100 Oxygen Delivery Intake/Output Intake/Output: Intake & Output 11/22/22 11/23/22 11/24/22 11/25/22 23:59 23:59 23:59 23:59 Intake Total 1300 300 Output Total 600 Balance 1300 -300 Meds/Results Medications: Active Medications Generic Name Dose Route Start Last Admin Trade Name Freq PRN Reason Stop Dose Admin Buspirone HCl 10 mg 11/25/22 09:00 11/25/22 11:56 Buspirone Hcl 10 Mg Tablet PO Not Given TID [facility] Dextrose 12.5 gm 11/25/22 02:19 Dextrose 50% 25 Gm/50 Ml Syringe IV PUSH PRN PRN Hypoglycemia Protocol Dicyclomine HCl 10 mg 11/25/22 02:31 Dicyclomine Hcl 10 Mg Capsule PO Q6-8H PRN Abdominal Pain Enoxaparin Sodium 40 mg 11/25/22 09:00 Enoxaparin 40 Mg/0.4 Ml Syringe SUB-Q DAILY [facility] Ergocalciferol 50,000 units 11/25/22 09:00 Ergocalciferol 50,000 Units Capsule PO Mo WALDEMAR Glucagon 1 mg 11/25/22 02:19 Glucagon For Inj 1 Mg Vial IM PRN PRN Hypoglycemia Protocol Glucose 15 gm 11/25/22 02:19 Glucose Oral Gel 15 Gm Of Glucse In 37.5 Gm Tube PO PRN PRN Hy
[2022-11-25 12:17] LABS: Glucose Point of Care 198 mg/dl (65-105)
[2022-11-25] MEDS: METOPROLOL SUCCINATE EXT REL 50 MG TABCR 100 MG PO (12:28)
[2022-11-25] MEDS: ENOXAPARIN 40 MG/0.4 ML SYRINGE SUB-Q (12:28)
[2022-11-25] MEDS: PANTOPRAZOLE 40 MG TABLET PO (12:28)
[2022-11-25] MEDS: VITAMIN B COMPLEX CAPSULE 1 CAP PO (12:28)
[2022-11-25] MEDS: LOSARTAN POTASSIUM 100 MG TABLET PO (12:28)
[2022-11-25] MEDS: ACIDOPHILUS/BULGARICUS CHEWABLE TABLET 2 TABLET BY MOUTH (12:28)
[2022-11-25] MEDS: ERGOCALCIFEROL 50,000 UNITS CAPSULE 50000 UNITS PO (12:28)
[2022-11-25] MEDS: busPIRone HCL 10 MG TABLET PO ×2 (12:29→16:09)
[2022-11-25] MEDS: SUCRALFATE SUSP 100 MG/ML 10 ML UDC 1000 MG PO ×2 (12:29→16:09)
[2022-11-25] MEDS: INSULIN ASPART (*BKC) 100 UNITS/ML SUB-Q (12:37)
[2022-11-25] MEDS: DICYCLOMINE HCL 10 MG CAPSULE PO (16:04)
[2022-11-25] MEDS: traMADol HCL (*CRX) 50 MG TABLET 100 MG PO (16:08)
[2022-11-25] MEDS: MAGNESIUM HYDROXIDE SUSP 30 ML UDC PO (16:12)
[2022-11-25] MEDS: SODIUM CHLORIDE 0.9% IV 1,000 ML 100 ML IV CONT ×2 (16:16→20:36)
[2022-11-25 16:56] LABS: Glucose Point of Care 218 mg/dl (65-105)
[2022-11-25 18:38] LABS: Glucose Point of Care 177 mg/dl (65-105)
[2022-11-25] MEDS: LORazepam (*CRX) 0.5 MG TABLET PO (20:35)
[2022-11-25] MEDS: hydrALAZINE HCL 20 MG/ML VIAL 10 MG IV PUSH (20:36)
[2022-11-25] MEDS: polyethylene glycoL 3350 17 GM POWD.PACK PO (20:48)
[2022-11-25 22:32] LABS: Glucose Point of Care 171 mg/dl (65-105)
[2022-11-26] VITALS (12 sets, daily range): BP systolic 116–183; BP diastolic 73–86; PULSE 74–132; RESP 18–20; TEMP 35.8–37.2; O2SAT 96–100
[2022-11-26] MEDS: LINACLOTIDE 145 MCG CAPSULE 290 MCG PO (05:29)
[2022-11-26 06:04] LABS: Basophils Percent Auto 0.7 % (0.2-1.2); Eosinophils Absolute Auto 0.2 K/mm3 (0-0.3); Eosinophils Percent Auto 3.3 % (0-4.4); Hematocrit 40.3 % (37.0-47.0); Hemoglobin 12.9 g/dL (12.0-15.0); Immature Granulocyte Absolute 0.01 K/mm3 (0.00-0.031); Immature Granulocyte Percent A 0.2 % (0-0.5); Immature Platelet Fraction Pct 10.4 % (0.9-11.2); Lymphocytes Absolute Auto 1.83 K/mm3 (0.9-3.2); Mean Corpuscular Hemoglobin 28.5 pg (26-34); Monocytes Absolute Auto 0.4 K/mm3 (0.1-0.6); Monocytes Percent Auto 7.1 % (2.6-8.5); Neutrophils Absolute Auto 2.9 K/mm3 (1.3-6.7); Neutrophils Percent Auto 54.7 % (45.5-73.1); Platelet Count Result 163 k/mm3 (150-375); Red Blood Count 4.53 M/mm3 (4.2-5.4); Red Cell Distribution Width 12.8 % (11.5-14.5); White Blood Count 5.4 K/mm3 (4.5-10.0)
[2022-11-26 06:09] LABS: Anion Gap 2 mmol/L (8-16); Blood Urea Nitrogen 9 mg/dL (7-17); Calcium 8.4 mg/dL (8.4-10.2); Carbon Dioxide 24 mmol/L (22-30); Chloride 108 mmol/L (98-107); Estimated CRCL calculation 73 ml/min; Estimated Glomerular Filt Rate > 60; Glucose 110 mg/dL (65-110); Potassium 3.6 mmol/L (3.4-5.0); Sodium 134 mmol/L (137-145)
[2022-11-26 08:14] LABS: Glucose Point of Care 112 mg/dl (65-105)
[2022-11-26] MEDS: SODIUM CHLORIDE 0.9% IV 1,000 ML 100 ML IV CONT ×2 (09:04→21:27)
[2022-11-26] MEDS: ENOXAPARIN 40 MG/0.4 ML SYRINGE SUB-Q (09:14)
[2022-11-26] MEDS: PROMETHAZINE HCL 25 MG/ML AMPUL 12.5 MG IV PUSH ×2 (10:02→16:58)
--- NOTE | 2022-11-26 11:35 | PM.IMPN ---
Progress Note: A&P Assessment and Plan (1) Acute metabolic encephalopathy: Code(s): G93.41 - Metabolic encephalopathy Status: Acute (2) Acute UTI: Code(s): N39.0 - Urinary tract infection, site not specified Status: Acute Plan # acute metabolic encephalopathy -it is unclear how far from baseline mentation patient is, patient currently is nonverbal to me. Nurse reports patient will say very few words -likely related to UTI in community-acquired pneumonia. -improved today. Questionable baseline again # other chronic conditions -anxiety/depression: Clifton, Irina, p.r.n. Ativan -essential hypertension: Cozaar, metoprolol, prn hydralazine available to for elevated BP -abdominal spasms: Bentyl -insulin-dependent type 2 diabetic: Sliding scale insulin, continue home insulin lispro 5 units t.i.d. with meals, Lantus 35 units q.h.s., Accu-Cheks a.c. HS, hypoglycemia protocol, checking hemoglobin A1c -peripheral edema Lasix -constipation: MiraLax daily -GERD: Carafate, Protonix -insomnia: Trazodone -peripheral neuropathy likely secondary to type 2 diabetes: Gabapentin -ADHD?: on dextroamphetamine-amphetamine, appears to be long-standing Diet: diabetic diet DVT prophylaxis: Lovenox Code status: Full code Disposition: Likely back to senior living in 1 day Subjective Date/time seen: 11/26/22 11:35 No new complaints. Respiratory status okay. Exam Narrative: - GENERAL: Pleasant older woman nonverbal - EYES: EOMI. Anicteric. - HENT: Moist mucous membranes. - LUNGS: Clear to auscultation bilaterally, no wheezing, rhonchi, or rales. - CARDIOVASCULAR: Regular rate and rhythm. - ABDOMEN: Soft, non-tender and non-distended - EXTREMITIES: No edema. Peripheral pulses 2+. Non-tender. - NEUROLOGIC: No focal neurological deficits, limited exam, not following commands. maintained eye contact, was able to move extremities in bed - PSYCHIATRIC: Awake alert, unable to assess orientation as she is nonverbal. Flat affect Objective Data Vital Signs Vital Signs: Vital Signs - 24 hr 11/25/22 14:00 11/25/22 12:00 11/25/22 16:00 Temperature 99.0 F Pulse Rate 83 91 112 H Respiratory Rate 18 Blood Pressure 162/84 H Pulse Oximetry 98 11/25/22 22:19 11/25/22 20:00 11/26/22 00:00 Temperature 97.4 F L Pulse Rate 83 81 80 Respiratory Rate 20 Blood Pressure 171/92 H Pulse Oximetry 98 11/26/22 00:57 11/26/22 04:00 11/26/22 06:00 Temperature 96.4 F L Pulse Rate 74 88 Respiratory Rate 20 Blood Pressure 116/73 137/81 Pulse Oximetry 99 Intake/Output Intake/Output: Intake & Output 11/23/22 11/24/22 11/25/22 11/26/22 23:59 23:59 23:59 23:59 Intake Total 1300 3220 1100 Output Total 600 Balance 1300 2620 1100 Meds/Results Medications: Active Medications Generic Name Dose Route Start Last Admin Trade Name Freq PRN Reason Stop Dose Admin Buspirone HCl 10 mg 11/25/22 09:00 11/25/22 16:09 Buspirone Hcl 10 Mg Tablet PO 10 mg TID WALDEMAR Administration Dextrose 12.5 gm 11/25/22 02:19 Dextrose 50% 25 Gm/50 Ml Syringe IV PUSH PRN PRN Hypoglycemia Protocol Dicyclomine HCl 10 mg 11/25/22 02:31 11/25/22 16:04 Dicyclomine Hcl 10 Mg Capsule PO 10 mg Q6-8H PRN Administration Abdominal Pain Enoxaparin Sodium 40 mg 11/25/22 09:00 11/26/22 09:14 Enoxaparin 40 Mg/0.4 Ml Syringe SUB-Q 40 mg DAILY WALDEMAR Administration Ergocalciferol 50,000 units 11/25/22 09:00 11/25/22 12:28 Ergocalciferol 50,000 Units Capsule PO 50,000 units Mo WALDEMAR Administration Glucagon 1 mg 11/25/22 02:19 Glucagon For Inj 1 Mg Vial IM PRN PRN Hypoglycemia Protocol Glucose 15 gm 11/25/22 02:19 Glucose Oral Gel 15 Gm Of Glucse In 37.5 Gm Tube PO PRN PRN Hypoglycemia Protocol Hydralazine HCl 10 mg 11/25/22 02:23 11/25/22 20:36 Hydralazine Hcl 20 Mg/Ml Vial IV PUSH 10 mg Q4H PRN Admin
[2022-11-26 12:16] LABS: Glucose Point of Care 178 mg/dl (65-105)
[2022-11-26] MEDS: hydrALAZINE HCL 20 MG/ML VIAL 10 MG IV PUSH (15:03)
[2022-11-26] MEDS: DICYCLOMINE HCL 10 MG CAPSULE PO (16:37)
[2022-11-26] MEDS: traMADol HCL (*CRX) 50 MG TABLET 100 MG PO (16:38)
[2022-11-26] MEDS: busPIRone HCL 10 MG TABLET PO (16:42)
[2022-11-26 17:09] LABS: Glucose Point of Care 177 mg/dl (65-105)
[2022-11-26] MEDS: METOPROLOL TARTRATE INJ 5 MG/5 ML VIAL IV PUSH (20:54)
[2022-11-26] MEDS: INSULIN GLARGINE (*BKC) 100 UNITS/ML 35 UNITS SUB-Q (21:42)
[2022-11-26 21:47] LABS: Glucose Point of Care 207 mg/dl (65-105)
[2022-11-27] VITALS (14 sets, daily range): BP systolic 152–169; BP diastolic 79–100; PULSE 78–113; RESP 16–20; TEMP 36.3–37.2; O2SAT 97–100
[2022-11-27] MEDS: SODIUM CHLORIDE 0.9% IV 1,000 ML 100 ML IV CONT ×3 (01:02→20:41)
[2022-11-27] MEDS: METOPROLOL TARTRATE INJ 5 MG/5 ML VIAL IV PUSH ×4 (04:00→20:41)
[2022-11-27] MEDS: LORazepam INJ (*CRX) 2 MG/ML VIAL 0.5 MG IV PUSH ×2 (06:35→21:28)
--- NOTE | 2022-11-27 06:39 | PC.NURSE ---
Patient uncooperative with care, refused medication. refused po . Incontinent of urine, changed pt entire bed. Pt clenching teeth together, squeezing and pulling at staff. Tele showed ST sustained in 130's since pt refused medication all day shift as well . Notified hospatilist- received order for metoprolol 5mg IVP every 6 hours. Given- -heart rate decreased to 90-100's. Pt continued to be uncooperative with care, yelling help me , received order earlier in shift for ativan IVP. Pt yelling don't leave me Legs over bedside rails. Given ativan 0635 .
--- NOTE | 2022-11-27 07:51 | PC.NURSE ---
Pt calm after ativan given IVP this am.
[2022-11-27] MEDS: INSULIN ASPART (*BKC) 100 UNITS/ML SUB-Q (08:40)
[2022-11-27 08:46] LABS: Glucose Point of Care 161 mg/dl (65-105)
[2022-11-27] MEDS: ENOXAPARIN 40 MG/0.4 ML SYRINGE SUB-Q (09:01)
--- NOTE | 2022-11-27 09:36 | PCNFU ---
Nutrition Follow-Up Complete: Suboptimal po intake related to level of alertness as evidenced by pt not alert or awake for po intake Goal: PO intake 75% of meals Patient has limited progress towards goal. We will continue current goal. Pt current nutrition is DBCC. Last recorded weight is 93 kg. Bowel Motility:+BM reported 1/2 Labs Reviewed:no labs to report. Meds Noted:Protonix, Lovenox, NovoLog, Lantus, Vancomycin, Rocephin. Skin: Deep Tissue PU-Right heel Additional Notes: Nutrition follow up. Patient is refusing meals. Diet supplements are on trays of Glucerna shakes BID providing an additional 220 kcals and 10 gms protein and Protein Modular of Qasim BID added for wound healing. PO intake encouraged. Monitor intake, wt, labs. Follow up in 5 days.
[2022-11-27 12:23] LABS: Glucose Point of Care 101 mg/dl (65-105)
[2022-11-27] MEDS: LORazepam INJ (*CRX) 2 MG/ML VIAL 1 MG IV PUSH (16:07)
--- NOTE | 2022-11-27 16:28 | PM.IMPN ---
Progress Note: A&P Assessment and Plan (1) Acute metabolic encephalopathy: Code(s): G93.41 - Metabolic encephalopathy Status: Acute Assessment and Plan: No focal deficits Neuro check Treat underlying disease (2) Acute UTI: Code(s): N39.0 - Urinary tract infection, site not specified Status: Acute Plan # acute metabolic encephalopathy -it is unclear how far from baseline mentation patient is, patient currently is nonverbal to me. Nurse reports patient will say very few words -likely related to UTI and community-acquired pneumonia. - Questionable baseline again Follow-up CBCs, BMP, chest x-ray, procalcitonin the a.m. tomorrow # other chronic conditions -anxiety/depression: BuSpar, Seroquel, p.r.n. Ativan -essential hypertension: Cozaar, metoprolol, prn hydralazine available to for elevated BP -abdominal spasms: Bentyl -insulin-dependent type 2 diabetic: Sliding scale insulin, continue home insulin lispro 5 units t.i.d. with meals, Lantus 35 units q.h.s., Accu-Cheks a.c. HS, hypoglycemia protocol, checking hemoglobin A1c -peripheral edema Lasix -constipation: MiraLax daily -GERD: Carafate, Protonix -insomnia: Trazodone -peripheral neuropathy likely secondary to type 2 diabetes: Gabapentin -ADHD?: on dextroamphetamine-amphetamine, appears to be long-standing Diet: diabetic diet DVT prophylaxis: Lovenox Code status: Full code Disposition: [facility] back to [facility] in 1 day Subjective Date/time seen: 11/27/22 16:28 I saw examined patient today, no new treatment overnight. Patient is still confused, denies chest pain, still has some shortness breath, and cough. Exam Narrative: - GENERAL: Pleasant older woman nonverbal - EYES: EOMI. Anicteric. - HENT: Moist mucous membranes. - LUNGS: Clear to auscultation bilaterally, no wheezing, rhonchi, or rales. - CARDIOVASCULAR: Regular rate and rhythm. - ABDOMEN: Soft, non-tender and non-distended - EXTREMITIES: No edema. Peripheral pulses 2+. Non-tender. - NEUROLOGIC: No focal neurological deficits, limited exam, not following commands. maintained eye contact, was able to move extremities in bed - PSYCHIATRIC: Awake alert, not orientation , nonverbal. Flat affect Objective Data Vital Signs Vital Signs: Vital Signs - 24 hr 11/26/22 18:23 11/26/22 20:54 11/26/22 21:25 Temperature 98.9 F 98.1 F Pulse Rate 123 H 132 H 126 H Respiratory Rate 18 20 Blood Pressure 147/79 H 143/77 H Pulse Oximetry 96 99 Oxygen Delivery 11/26/22 20:00 11/27/22 00:00 11/27/22 04:00 Temperature Pulse Rate 131 H 88 110 H Respiratory Rate Blood Pressure Pulse Oximetry Oxygen Delivery 11/27/22 05:04 11/27/22 04:00 11/27/22 08:54 Temperature 97.4 F L Pulse Rate 105 H 98 88 Respiratory Rate 17 16 Blood Pressure 159/79 H 152/87 H Pulse Oximetry 97 100 Oxygen Delivery 11/27/22 09:02 11/27/22 09:03 11/27/22 08:00 Temperature Pulse Rate 90 94 78 Respiratory Rate Blood Pressure Pulse Oximetry Oxygen Delivery 11/27/22 09:00 11/27/22 12:00 11/27/22 14:00 Temperature 98.9 F Pulse Rate 87 98 Respiratory Rate 20 Blood Pressure 162/87 H Pulse Oximetry 100 Oxygen Delivery Room Air 11/27/22 14:35 Temperature Pulse Rate 98 Respiratory Rate Blood Pressure Pulse Oximetry Oxygen Delivery Intake/Output Intake/Output: Intake & Output 11/24/22 11/25/22 11/26/22 11/27/22 23:59 23:59 23:59 23:59 Intake Total 1300 3220 4000 1000 Output Total 600 Balance 1300 2620 4000 1000 Meds/Results Medications: Active Medications Generic Name Dose Route Start Last Admin Trade Name Freq PRN Reason Stop Dose Admin Buspirone HCl 10 mg 11/25/22 09:00 11/27/22 16:15 Buspirone Hcl 10 Mg Tablet PO Not Given TID WALDEMAR Dextrose 12.5 gm 11/25/22 02:19 Dextrose 50% 25 Gm/50 Ml Syringe IV PUSH PRN PRN Hypoglycemia Protocol Dicyclomine HCl 10 mg
[2022-11-27 16:58] LABS: Glucose Point of Care 133 mg/dl (65-105)
[2022-11-27] MEDS: diphenhydrAMINE HCl INJ 50 MG/ML VIAL IM (21:35)
[2022-11-27 22:11] LABS: Glucose Point of Care 106 mg/dl (65-105)
[2022-11-27] MEDS: INSULIN GLARGINE (*BKC) 100 UNITS/ML 35 UNITS SUB-Q (23:15)
[2022-11-28] VITALS (9 sets, daily range): BP systolic 139–175; BP diastolic 81–101; PULSE 66–113; RESP 14–18; TEMP 36.1–36.7; O2SAT 97–99
[2022-11-28] MEDS: LORazepam INJ (*CRX) 2 MG/ML VIAL 1 MG IM (04:36)
--- NOTE | 2022-11-28 04:42 | PC.NURSE ---
Cannot provide any teaching , nor instructions this shift due to patient's resistive behavior to all care. Pt uncooperative, swings- hits staff, digs nails into staff, kicks and pulled off tele and pulled out IV sites x2. Kick one staff member in the head. Attempts to restart IV unsuccessful with multiple people assisting. Pt would not cooperate. Able to obtain vein several times while pt screamed and moved to cause the catheter to dislodge from vein even with 4 staff members assisting. Given Ativan IVP earlier in shift and also Benadryl IM with no change in behavior noted. Will not follow any instructions, cannot be redirected. Pt got out of bed, bed alarm went off. Found standing next to bed. Notified hospitalist precision inspector of inability to start IV site due to pt uncooperativeness. Received order for Ativan 1mg IM and bilateral soft wrist restraints.
--- NOTE | 2022-11-28 06:22 | PC.NURSE ---
Call placed to Daughter Nelda Dumont and explained that the pt had been violent through out the night and that we where going to place restraints on her. Daughter understood reason for restraint but wished for us to wait to see if she would be able to help and stated she would come up and to wait if possible on the restraints.
--- NOTE | 2022-11-28 06:29 | PC.NURSE ---
Restraints on hold until family comes in to see pt this am as per daughter request. Pt remains without IV site . No meds/ food given. Pt took 3 sips of water during 12 hour shift
[2022-11-28 08:15] LABS: Glucose Point of Care 87 mg/dl (65-105)
[2022-11-28 08:54] LABS: Procalcitonin 0.1 ng/mL
[2022-11-28 09:10] LABS: Anion Gap 5 mmol/L (8-16); Blood Urea Nitrogen 7 mg/dL (7-17); Calcium 9.4 mg/dL (8.4-10.2); Carbon Dioxide 22 mmol/L (22-30); Chloride 111 mmol/L (98-107); Estimated CRCL calculation 63 ml/min; Estimated Glomerular Filt Rate > 60; Glucose 87 mg/dL (65-110); Potassium 3.7 mmol/L (3.4-5.0); Sodium 138 mmol/L (137-145)
[2022-11-28] MEDS: METOPROLOL SUCCINATE EXT REL 50 MG TABCR 100 MG PO (09:44)
[2022-11-28] MEDS: VITAMIN B COMPLEX CAPSULE 1 CAP PO (09:44)
[2022-11-28] MEDS: ACIDOPHILUS/BULGARICUS CHEWABLE TABLET 2 TABLET BY MOUTH (09:46)
[2022-11-28] MEDS: PANTOPRAZOLE 40 MG TABLET PO (09:46)
[2022-11-28] MEDS: LOSARTAN POTASSIUM 100 MG TABLET PO (09:46)
[2022-11-28] MEDS: LINACLOTIDE 145 MCG CAPSULE 290 MCG PO (09:46)
[2022-11-28] MEDS: busPIRone HCL 10 MG TABLET PO ×2 (09:47→18:16)
[2022-11-28] MEDS: QUEtiapine FUMARATE 25 MG TABLET PO ×2 (09:51→21:18)
[2022-11-28 12:19] LABS: Glucose Point of Care 149 mg/dl (65-105)
[2022-11-28] MEDS: SODIUM CHLORIDE 0.9% IV 1,000 ML 100 ML IV CONT (14:05)
[2022-11-28] MEDS: hydrALAZINE HCL 20 MG/ML VIAL 10 MG IV PUSH (14:55)
--- NOTE | 2022-11-28 16:07 | PM.IMPN ---
Progress Note: A&P Assessment and Plan (1) Acute metabolic encephalopathy: Code(s): G93.41 - Metabolic encephalopathy Status: Acute Assessment and Plan: No focal deficits Neuro check Treat underlying disease (2) Acute UTI: Code(s): N39.0 - Urinary tract infection, site not specified Status: Acute Plan # acute metabolic encephalopathy -it is unclear how far from baseline mentation patient is, patient currently is nonverbal to me. Nurse reports patient will say very few words -likely related to UTI and community-acquired pneumonia. - Questionable baseline again Follow-up CBCs, BMP, chest x-ray, procalcitonin the a.m. tomorrow Mental status improving Discussed with patient nurse, physician more frequently, consult dietitian # other chronic conditions -anxiety/depression: Irina Lazo, p.r.n. Ativan -essential hypertension: Cozaar, metoprolol, prn hydralazine available to for elevated BP -abdominal spasms: Bentyl -insulin-dependent type 2 diabetic: Sliding scale insulin, continue home insulin lispro 5 units t.i.d. with meals, Lantus 35 units q.h.s., Accu-Cheks a.c. HS, hypoglycemia protocol, checking hemoglobin A1c -peripheral edema Lasix -constipation: MiraLax daily -GERD: Carafate, Protonix -insomnia: Trazodone -peripheral neuropathy likely secondary to type 2 diabetes: Gabapentin -ADHD?: on dextroamphetamine-amphetamine, appears to be long-standing Diet: diabetic diet DVT prophylaxis: Lovenox Code status: Full code Disposition: Likely back to group home in 1 day Subjective Date/time seen: 11/28/22 16:07 Patient is nonverbal, still confusing, mental status improving, patient tried to answer questions. No new issues or events overnight Exam Narrative: - GENERAL: Pleasant older woman nonverbal - EYES: EOMI. Anicteric. - HENT: Moist mucous membranes. - LUNGS: Clear to auscultation bilaterally, no wheezing, rhonchi, or rales. - CARDIOVASCULAR: Regular rate and rhythm. - ABDOMEN: Soft, non-tender and non-distended - EXTREMITIES: No edema. Peripheral pulses 2+. Non-tender. - NEUROLOGIC: No focal neurological deficits, limited exam, not following commands. maintained eye contact, was able to move extremities in bed - PSYCHIATRIC: Awake alert, not orientation , nonverbal. Flat affect Objective Data Vital Signs Vital Signs: Vital Signs - 24 hr 11/27/22 16:40 11/27/22 20:41 11/27/22 22:00 Temperature Pulse Rate 89 99 113 H Respiratory Rate 20 Blood Pressure 169/100 H Pulse Oximetry 100 11/27/22 20:00 11/28/22 04:00 11/28/22 09:44 Temperature Pulse Rate 101 H 101 H 66 Respiratory Rate Blood Pressure Pulse Oximetry 11/28/22 14:00 Temperature 98.0 F Pulse Rate 88 Respiratory Rate 14 Blood Pressure 175/101 H Pulse Oximetry 97 Intake/Output Intake/Output: Intake & Output 11/25/22 11/26/22 11/27/22 11/28/22 23:59 23:59 23:59 23:59 Intake Total 3220 4000 2500 1520 Output Total 600 Balance 2620 4000 2500 1520 Meds/Results Medications: Active Medications Generic Name Dose Route Start Last Admin Trade Name Freq PRN Reason Stop Dose Admin Buspirone HCl 10 mg 11/25/22 09:00 11/28/22 13:30 Buspirone Hcl 10 Mg Tablet PO Not Given TID WALDEMAR Dextrose 12.5 gm 11/25/22 02:19 Dextrose 50% 25 Gm/50 Ml Syringe IV PUSH PRN PRN Hypoglycemia Protocol Dicyclomine HCl 10 mg 11/25/22 02:31 11/26/22 16:37 Dicyclomine Hcl 10 Mg Capsule PO 10 mg Q6-8H PRN Administration Abdominal Pain Enoxaparin Sodium 40 mg 11/25/22 09:00 11/28/22 10:07 Enoxaparin 40 Mg/0.4 Ml Syringe SUB-Q Not Given DAILY WALDEMAR Ergocalciferol 50,000 units 11/25/22 09:00 11/25/22 12:28 Ergocalciferol 50,000 Units Capsule PO 50,000 units Mo WALDEMAR Administration Glucagon 1 mg 11/25/22 02:19 Glucagon For Inj 1 Mg Vial IM PRN PRN Hypoglycemia Protocol Glucose 15 gm 11/25/22 02:19
[2022-11-28 17:42] LABS: Glucose Point of Care 107 mg/dl (65-105)
[2022-11-28 18:14] LABS: Hemoglobin 13.7 g/dL (12.0-15.0); Mean Corpuscular HGB Conc 33.4 g/dl (32-36); Mean Corpuscular Hemoglobin 28.9 pg (26-34); Mean Corpuscular Volume 86.5 fl (80-100); Mean Platelet Volume 11.3 fl (7.4-10.4); Platelet Count Result 221 k/mm3 (150-375); Red Blood Count 4.74 M/mm3 (4.2-5.4); Red Cell Distribution Width 12.9 % (11.5-14.5); White Blood Count 5.7 K/mm3 (4.5-10.0)
[2022-11-28 18:31] LABS: Vancomycin Trough 5.9 ug/mL (10.0-20.0)
[2022-11-28] MEDS: ONDANSETRON HCL ODT 4 MG TABLET PO (19:11)
[2022-11-28] MEDS: INSULIN GLARGINE (*BKC) 100 UNITS/ML 35 UNITS SUB-Q (21:01)
[2022-11-28 21:08] LABS: Glucose Point of Care 245 mg/dl (65-105)
[2022-11-28] MEDS: METOPROLOL TARTRATE INJ 5 MG/5 ML VIAL IV PUSH (21:14)
[2022-11-28] MEDS: traZODone HCL 50 MG TABLET 150 MG PO (21:18)
[2022-11-29] VITALS (8 sets, daily range): BP systolic 149–160; BP diastolic 80–90; PULSE 87–112; RESP 16–20; TEMP 36.1–36.8; O2SAT 99–100
[2022-11-29] MEDS: METOPROLOL TARTRATE INJ 5 MG/5 ML VIAL IV PUSH ×2 (02:39→09:17)
[2022-11-29 06:02] LABS: Anion Gap 5 mmol/L (8-16); Blood Urea Nitrogen 9 mg/dL (7-17); Calcium 9.2 mg/dL (8.4-10.2); Carbon Dioxide 25 mmol/L (22-30); Chloride 105 mmol/L (98-107); Estimated CRCL calculation 56 ml/min; Estimated Glomerular Filt Rate > 60; Glucose 129 mg/dL (65-110); Potassium 3.3 mmol/L (3.4-5.0); Sodium 135 mmol/L (137-145)
[2022-11-29 06:34] LABS: Procalcitonin 0.1 ng/mL
[2022-11-29 08:23] LABS: Glucose Point of Care 215 mg/dl (65-105)
[2022-11-29] MEDS: ENOXAPARIN 40 MG/0.4 ML SYRINGE SUB-Q (09:14)
--- NOTE | 2022-11-29 11:08 | PCOTNOTE ---
Attempted OT evaluation, patient is currently sleeping, therapist unable to arouse at this time. Will follow. RN notified.
[2022-11-29] MEDS: SODIUM CHLORIDE 0.9% IV 1,000 ML 100 ML IV CONT (11:40)
[2022-11-29 12:54] LABS: Glucose Point of Care 165 mg/dl (65-105)
--- NOTE | 2022-11-29 14:45 | PM.DS ---
DS: Admitting Diagnosis Discharge Date 11/29/22 Admitting Diagnosis Acute metabolic encephalopathy, UTI, DS: Discharge Diagnosis Discharge Diagnosis (1) Acute UTI: Code(s): N39.0 - Urinary tract infection, site not specified Status: Acute (2) Acute metabolic encephalopathy: Code(s): G93.41 - Metabolic encephalopathy Status: Acute Assessment and Plan: No focal deficits Neuro check Treat underlying disease now pt is alert and f/u commands hold meds with sedative effects at dc (3) Anxiety disorder, unspecified: Code(s): F41.9 - Anxiety disorder, unspecified Status: Chronic Plan # acute metabolic encephalopathy -it is unclear how far from baseline mentation patient is, patient currently is nonverbal to me. Nurse reports patient will say very few words -likely related to UTI and community-acquired pneumonia. -change azithromycin Rocephin to augmentin for 2 more days DS: Summary Hospital Course Reason for hospitalization: Patient is a 77-year-old female who lives at [facility] with past medical history essential hypertension, GERD, constipation, type 2 diabetes with peripheral neuropathy, dementia? presents the ED with complaints of altered mental status.? Patient lives in halfway and no some concern of patient becoming altered, baseline functional status is quite minimal.? It is unclear as by my evaluation In the ED:? WBC count 6.2, urinalysis with 16-20 WBC in urine, influenza negative, COVID negative, CT head no acute process, chest x-ray showed atelectasis left lung base.? EKG normal sinus rhythm rate 97, first-degree AV block. Hospital Course: Patient is a 77-year-old female who lives at [facility] with past medical history essential hypertension, GERD, constipation, type 2 diabetes with peripheral neuropathy, dementia? presents the ED with complaints of altered mental status.? Patient lives in halfway and no some concern of patient becoming altered, baseline functional status is quite minimal.? In the ED:? WBC count 6.2, urinalysis with 16-20 WBC in urine, influenza negative, COVID negative, CT head no acute process, chest x-ray showed atelectasis left lung base.? EKG normal sinus rhythm rate 97, first-degree AV block. Status at Discharge Cognitive/behavioral status at discharge: stable Time Spent with Patient Time attestation: Total time spent providing and/or coordinating discharge services: 44 mins Exam Narrative: - GENERAL: Pleasant older woman nonverbal - EYES: EOMI. Anicteric. - HENT: Moist mucous membranes. - LUNGS: Clear to auscultation bilaterally, no wheezing, rhonchi, or rales. - CARDIOVASCULAR: Regular rate and rhythm. - ABDOMEN: Soft, non-tender and non-distended - EXTREMITIES: No edema. Peripheral pulses 2+. Non-tender. - NEUROLOGIC: No focal neurological deficits, limited exam, not following commands. maintained eye contact, was able to move extremities in bed - PSYCHIATRIC: Awake alert, not orientation , nonverbal. Flat affect DS: Data Data Completed and Pending Labs on day of discharge: Labs from last 24 hours 11/29/22 11/29/22 11/29/22 12:18 08:10 05:32 WBC RBC Hgb Hct MCV MCH MCHC RDW Plt Count MPV Sodium Potassium Chloride Carbon Dioxide Anion Gap BUN Creatinine Estim Creat Clear Calc Estimated GFR Glucose POC Capillary Glucose 165 H 215 H Calcium Procalcitonin 0.1 Vancomycin Trough 11/29/22 11/28/22 11/28/22 05:32 20:58 17:33 WBC 5.7 RBC 4.74 Hgb 13.7 Hct 41.0 MCV 86.5 MCH 28.9 MCHC 33.4 RDW 12.9 Plt Count 221 MPV 11.3 H Sodium 135 L Potassium 3.3 L Chloride 105 Carbon Dioxide 25 Anion Gap 5 L BUN 9 Creatinine 0.80 Estim Creat Clear Calc 56 Estimated GFR > 60 Glucose 129 H POC Capillary Glucose 245 H Calcium 9.2 Procalcitonin Vancomycin Trough 11/28/22 11/28/22
[2022-11-29 15:41] LABS: EDCOVIDSCREEN Negative (Negative)
== END 2022-11-29 16:14 | DRG 689 ==
LOC: ANHED 21:55 → ANH2MED 22:05
PROVIDERS: Chiropractor; Admitting Provider Student in an Organized Health Care Education/Training Program; Emergency Provider Emergency Medicine; Visit Provider Hospitalist
DX: N39.0 Urinary tract infection, site not specified (principal); G93.41 Metabolic encephalopathy; F41.9 Anxiety disorder, unspecified; E11.40 Type 2 diabetes mellitus with diabetic neuropathy, unspecified; I10 Essential (primary) hypertension; K21.9 Gastro-esophageal reflux disease without esophagitis; Z90.11 Acquired absence of right breast and nipple; Z79.4 Long term (current) use of insulin; Z79.82 Long term (current) use of aspirin; Z85.3 Personal history of malignant neoplasm of breast
CPT/HCPCS: 36415; 70450; 71045; 74018; 80048; 80053; 80202; 81001; 82948; 83036; 83605; 84145; 84484; 85025; 85027; 85055; 85610; 85730; 87040; 87086; 87147; 87181; 87186; 87426; 87636; 93005; 96361; 96367; 97161; 99285; A9270; C9803; G0378; J0360; J0456; J0696; J1200; J1650; J1815; J2060; J2550; J3370; J7030

== ENCOUNTER 2023-10-22 20:54 | Inpatient (IN) | payer MEDICARE, MEDICAID, SELFPAY ==
--- NOTE | ~2023-10-22 | CT_ITS ---
EXAMINATION: CT brain wo con DATE: 10/22/2023 22:04 INDICATION: altered mental status . TECHNIQUE: Computed tomography (CT) of the head was performed without intravenous contrast. The mA wa s adjusted according to patient size. Iterative reconstruction technique was employed. The dose-lengt h product was 756.67 mGy-cm. COMPARISON: 11/24/2022. FINDINGS: No acute intracranial hemorrhage or extra-axial fluid collection. No hydrocephalus, mass, or herniation. No acute ischemic infarct. Unremarkable dural venous sinus attenuation. No acute osseous abnormality. Status post left mastoidectomy. Moderate left mastoid fluid, the remaining aerated spaces are clear. Moderate atrophy and chronic white matter change. Atherosclerotic intracranial calcification. Minimal bilateral basal ganglia calcification. Small bilateral old lacunar infarcts. Bilateral lens replacem ents. IMPRESSION: No acute intracranial process. Reviewed, dictated and finalized at location K. LESS OPERATOR
--- NOTE | ~2023-10-22 | XR_ITS ---
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 RESULT: Lines, tubes, and devices: Soft tissue anchors over the right humerus. Right axillary clips. Cholecy stectomy clips. Lungs and pleura: Senescent changes. Bibasilar atelectasis/scar. Cardiomediastinal silhouette: Stable. Other: No acute osseous or upper abdominal finding. IMPRESSION: No acute cardiopulmonary process. Reviewed, dictated and finalized at location K. MBLY LINE ROBOT OPERATOR
--- NOTE | ~2023-10-22 | CT_ITS ---
EXAMINATION: CT abdomen pelvis wo con DATE: 10/22/2023 22:07 INDICATION: abdominal pain TECHNIQUE: Computed tomography (CT) of the abdomen and pelvis was performed without intravenous contr ast. Automated exposure control and iterative reconstruction technique were employed. The dose-length product was 1308.74 mGy-cm. COMPARISON: None. FINDINGS: Lower thorax: Senescent changes. Dependent scar/atelectasis. Mitral calcifications. Partially visuali zed right breast implant. Liver: Normal. Biliary/Gallbladder: Surgically absent gallbladder. No bile duct dilation. Pancreas: Pancreatic atrophy Spleen: Normal. Adrenals:No mass. Kidneys: No suspicious mass, obstructing stone, or hydronephrosis. GI tract: Diffuse perales attenuation wall thickening of the transverse colon, with loss of haustration. Uncomplicated appearing distal sigmoid anastomosis. No small or large bowel dilation. Appendix not v isualized Diverticulosis without diverticulitis. Mesentery/Peritoneum: No ascites, mass, or free air. Retroperitoneum: No mass. Atherosclerotic abdominal aortic and/or arterial calcifications. Pelvis: Partially distended bladder with wall thickening. Absent uterus. Soft Tissues: Soft tissues and body wall unremarkable. Bones: No acute osseous finding. Uncomplicated appearing L4-5 posterior lumbar fusion hardware IMPRESSION: Soft tissue density wall thickening and loss of haustration in the transverse colon, may reflect infl ammatory or ischemic colitis. Cystitis versus bladder wall thickening from inadequate distention. Reviewed, dictated and finalized at location K. E BACKBOARD NOTCHER IMPRESSION: Soft tissue density wall thickening and loss of haustration in the transverse c olon, may reflect inflammatory or ischemic colitis. Cystitis versus bladder wall thickening from inadequate distention.
[2023-10-22 20:51] VITALS: BP 120/50; PULSE 69; RESP 13; TEMP 36; O2SAT 100
--- NOTE | 2023-10-22 20:59 | ECG_ITS ---
Measurements Intervals [place] Rate: 69 P: 34 GA: 224 QRS: -8 QRSD: 133 T: 8 QT: 444 QTc: 478 Interpretive Statements SINUS RHYTHM WITH FIRST DEGREE AV BLOCK RIGHT BUNDLE BRANCH BLOCK BASELINE ARTIFACT- I, II, III, AVR, AVL, V1-V2 ABNORMAL ECG COMPARED TO ECG 11/24/2022 19:33:08 NO SIGNIFICANT CHANGES Electronically Signed On 10-23-2023 6:27:19 SPEECH PATHOLOGY SUPERVISOR by Aaron Terry D.O.
[2023-10-22 21:29] LABS: Glucose Point of Care 436 mg/dl (65-105)
[2023-10-22 21:33] LABS: Basophils Absolute Auto 0.1 K/mm3 (0.0-0.1); Basophils Percent Auto 0.9 % (0.2-1.2); Eosinophils Absolute Auto 0.2 K/mm3 (0-0.3); Eosinophils Percent Auto 3.2 % (0-4.4); Hematocrit 41.5 % (37.0-47.0); Hemoglobin 13.5 g/dL (12.0-15.0); Immature Granulocyte Absolute 0.02 K/mm3 (0.00-0.031); Immature Granulocyte Percent A 0.3 % (0-0.5); Lymphocytes Absolute Auto 1.67 K/mm3 (0.9-3.2); Lymphocytes Percent Auto 24.5 % (18.3-44.2); Mean Corpuscular HGB Conc 32.5 g/dl (32-36); Mean Corpuscular Hemoglobin 29.1 pg (26-34); Mean Corpuscular Volume 89.4 fl (80-100); Monocytes Absolute Auto 0.4 K/mm3 (0.1-0.6); Monocytes Percent Auto 6.3 % (2.6-8.5); Neutrophils Absolute Auto 4.4 K/mm3 (1.3-6.7); Neutrophils Percent Auto 64.8 % (45.5-73.1); Platelet Count Result 157 k/mm3 (150-375); Red Blood Count 4.64 M/mm3 (4.2-5.4); Red Cell Distribution Width 12.5 % (11.5-14.5); White Blood Count 6.8 K/mm3 (4.5-10.0)
[2023-10-22 21:42] LABS: Alanine Aminotransferase 18 U/L (6-35); Alkaline Phosphatase 85 U/L (38-126); Anion Gap 12 mmol/L (8-16); Aspartate Amino Transferase 21 U/L (14-36); Bilirubin,Total 0.4 mg/dL (0.2-1.3); Blood Urea Nitrogen 19 mg/dL (7-17); Calcium 9.3 mg/dL (8.4-10.2); Carbon Dioxide 23 mmol/L (22-30); Chloride 103 mmol/L (98-107); Estimated CRCL calculation 35 ml/min; Estimated Glomerular Filt Rate 36; Glucose 413 mg/dL (65-110); Potassium 4.1 mmol/L (3.4-5.0); Sodium 138 mmol/L (137-145)
[2023-10-22 21:43] LABS: Partial Thromboplastin Time 21.3 SECONDS (22.3-36.8); Prothrombin Time 13.7 Seconds (11.1-14.7)
[2023-10-22 21:44] LABS: Appearance Urine Turbid (Clear); Bacteria Urine 4+ /hpf; Bilirubin Urine Negative (Negative); Blood Urine 3+ (Negative); Color Urine Yellow (Yellow); Glucose Urine UA 2+ mg/dL (Negative); Ketones Urine Trace mg/dL (Negative); Leukocyte Esterase Ur 3+ LEU/UL (Negative); Need Manual Microscopic Reviewed; Nitrate Urine Negative (Negative); Non Pathogenic Casts >20; Protein Urine 1+ mg/dL (Negative); RBC Urine 21-50 /hpf (0-2); Specific Grav Ur 1.018 (1.001-1.035); Squamous Epithelial Cell Urine Many /hpf (Few); Urobilinogen Urine 0.2 mg/dL (<2.0); WBC Urine >100 /hpf; pH Urine 5.5 (5.0-9.0)
[2023-10-22 21:47] LABS: Add Urine Microscopic? YES
[2023-10-22 22:16] LABS: Alveolar/Arterial O2 Gradient 21.6 mmHg; Base Excess ABG -3.9 mEq/l (+/-2.0); Fractional Inspired Oxygen 21 %; HCO3 ABG 21.3 mEq/l (22.0-26.0); Oxygen Content ABG 18.4 %vol (16.0-22.0); Oxygen Saturation ABG 95.5 % (95.0-100.0); Oxyhemoglobin 93.8 % THb (90.0-100.0); PCO2 ABG 39.4 mmHg (35.0-45.0); PO2 FiO2 Ratio Arterial Blood 3.86 %; Total Hemoglobin 13.9 g/dL (12.0-18.0); pH ABG 7.351 (7.350-7.450)
[2023-10-22 22:17] LABS: Device ROOM AIR; Modified Allen's Test Pass; Site Drawn RIGHT RADIAL
[2023-10-22 22:23] LABS: Troponin I < 0.012 ng/mL (0.000-0.034)
[2023-10-22 22:32] LABS: Procalcitonin 0.1 ng/mL
[2023-10-22] MEDS: SODIUM CHLORIDE 0.9% IV 1,000 ML 999 ML IV CONT (22:33)
--- NOTE | 2023-10-22 22:47 | ED.GENADULT ---
HPI - General Adult General Chief complaint: Altered Mental Status Stated complaint: unresponsive Time Seen by Provider: 10/22/23 21:44 History of Present Illness HPI narrative: patient 78-year-old female presents emergency department chief complaint of altered mental status patient is a resident of a local nursing facility and was found to be decreased responsive than normal patient is normally nonverbal and now is responsive with opening her eyes to loud stimuli. The patient has prior history of altered mental status with UTIs Related Data Home Medications Medication Instructions Recorded Confirmed ondansetron 4 mg disintegrating 4 mg PO TID PRN Nausea 05/11/20 11/25/22 tablet linaclotide 290 mcg capsule 290 mcg PO DAILY 07/14/20 11/24/22 (Linzess) vitamin B complex 1 tablet PO DAILY 07/14/20 11/24/22 insulin glargine 100 unit/mL (3 35 unit subcut HS 07/31/20 11/24/22 mL) subcutaneous pen (Lantus Solostar U-100 Insulin) gabapentin 300 mg capsule 600 mg PO HS 09/17/20 11/24/22 gabapentin 300 mg capsule 300 mg PO BID 03/20/21 11/24/22 lorazepam 1 mg tablet (Ativan) 0.5 mg PO TID 03/20/21 11/24/22 Allergy (diphenhydramine) 25 mg PO Q6-8H PRN Itching 11/24/22 11/24/22 Anti-Diarrheal (loperamide) 2 mg PO DIRECTED 11/24/22 11/24/22 Cozaar 100 mg PO DAILY 11/24/22 11/24/22 Lactobacillus acidophilus 1 cap PO DAILY 11/24/22 11/24/22 Lasix 20 mg PO DAILY 11/24/22 11/24/22 Miralax 17 g PO DAILY PRN Constipation 11/24/22 11/25/22 buspirone 10 mg PO TID 11/24/22 11/24/22 dextroamphetamine-amphetamine ER 10 mg PO DAILY 11/24/22 11/24/22 10 mg 24hr capsule,extend release dicyclomine 10 mg PO Q6-8H PRN Abdominal Pain 11/24/22 11/24/22 ergocalciferol (vitamin D2) 50,000 unit PO WEEKLY 11/24/22 11/25/22 ibuprofen 800 mg tablet 800 mg PO Q8-10H PRN Pain 11/24/22 11/24/22 insulin lispro 100 unit/mL 5 unit subcut TIDWM 11/24/22 11/24/22 subcutaneous pen (Humalog KwikPen (U-100) Insulin) insulin lispro 100 unit/mL See Rx Instructions .Route .COMPLEX 11/24/22 11/24/22 subcutaneous pen (Humalog KwikPen (U-100) Insulin) magnesium hydroxide 30 ml PO HS PRN constipation 11/24/22 11/25/22 meloxicam 7.5 mg PO DAILY 11/24/22 11/25/22 nitrofurantoin 1 cap PO DAILY 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 11/24/22 11/25/22 monohydrate/macrocrystals 100 mg antibiotic therapy capsule quetiapine 25 mg tablet 25 mg PO BID 11/24/22 11/25/22 sucralfate 10 ml PO BID 11/24/22 11/25/22 trazodone 150 mg PO HS 11/24/22 11/25/22 metoprolol succinate 50 mg 100 mg PO QAM 11/25/22 11/25/22 tablet,extended release 24 hr Allergies Allergy/AdvReac Type Severity Reaction Status Date / Time caffeine Allergy Unknown Verified 11/24/22 23:43 chlordiazepoxide Allergy Unknown Verified 11/24/22 23:43 clidinium Allergy Unknown Verified 11/24/22 23:43 codeine Allergy Rash Verified 11/24/22 23:43 doxepin Allergy Unknown Verified 11/24/22 23:43 hydrocodone Allergy Rash Verified 11/24/22 23:43 hydromorphone [From Dilaudid] Allergy Unknown Verified 11/24/22 23:43 hydroxychloroquine Allergy Unknown Verified 11/24/22 23:43 morphine Allergy Rash Verified 11/24/22 23:43 sitagliptin [From Januvia] Allergy Rash Verified 11/24/22 23:43 Review of Systems Review of Systems: A 10 system review of systems was completed on the patient and is negative except for what is stated in the HPI. Nursing and ancillary documentation was reviewed. [facility] Past Medical History Medical History Anxiety disorder, unspecified Cancer of right breast Right mastectomy with chemo and radiation Dementia Diabetes mellitus With neuropathy Essential hypertension GERD (gastroesophageal reflux disease) Hyperlipidemia Meniere disease Rectal prolapse Surgical History Surgical History H/O cervical spine surgery History of bilateral cataract extraction History of hyst
[2023-10-22 23:24] VITALS: BP 139/68; PULSE 73; RESP 12; O2SAT 98
[2023-10-22 23:27] LABS: Influenza A QL RT-PCR Negative (Negative); Influenza B QL RT-PCR Negative (Negative); RSV RNA, RT-PCR Negative (Negative); SARS-CoV-2 RNA PCR Negative (Negative)
[2023-10-22 23:39] LABS: Lactic Acid Reflex 3.5 mmol/L (0.7-2.0)
[2023-10-23] VITALS (8 sets, daily range): BP systolic 109–159; BP diastolic 52–81; PULSE 67–86; RESP 12–16; TEMP 36.1–37; O2SAT 95–99; BMI 34.5
--- NOTE | 2023-10-23 00:20 | PC.NURSE ---
When attempting to take pt's blood pressure pt swung her closed fist at this RN. Pt still disoriented. Care ongoing.
[2023-10-23 02:25] LABS: Reflex Lactic Acid Yes or No Add Lactic
[2023-10-23] MEDS: SODIUM CHLORIDE 0.9% IV 1,000 ML 125 ML IV CONT ×2 (02:41→15:36)
--- NOTE | 2023-10-23 03:18 | PC.NURSE ---
Pt brought up to the floor via bed, A&Ox0, unable to make needs know. Pt is unable to make needs known. Pt requires continuous monitoring, bed alarm is on. Physician's orders carried out. Pt is unable to answer admission questions, will have to contact family.
[2023-10-23 05:25] LABS: Basophils Absolute Auto 0.1 K/mm3 (0.0-0.1); Basophils Percent Auto 1.1 % (0.2-1.2); Eosinophils Absolute Auto 0.1 K/mm3 (0-0.3); Hematocrit 42.7 % (37.0-47.0); Hemoglobin 13.5 g/dL (12.0-15.0); Immature Granulocyte Absolute 0.02 K/mm3 (0.00-0.031); Immature Granulocyte Percent A 0.3 % (0-0.5); Lymphocytes Absolute Auto 1.78 K/mm3 (0.9-3.2); Lymphocytes Percent Auto 27.8 % (18.3-44.2); Mean Corpuscular HGB Conc 31.6 g/dl (32-36); Mean Corpuscular Volume 91.8 fl (80-100); Mean Platelet Volume 11.9 fl (7.4-10.4); Monocytes Absolute Auto 0.4 K/mm3 (0.1-0.6); Monocytes Percent Auto 6.4 % (2.6-8.5); Neutrophils Percent Auto 62.4 % (45.5-73.1); Platelet Count Result 158 k/mm3 (150-375); Red Blood Count 4.65 M/mm3 (4.2-5.4); Red Cell Distribution Width 12.6 % (11.5-14.5); White Blood Count 6.4 K/mm3 (4.5-10.0)
[2023-10-23 05:38] LABS: Anion Gap 13 mmol/L (8-16); Blood Urea Nitrogen 18 mg/dL (7-17); Carbon Dioxide 18 mmol/L (22-30); Chloride 107 mmol/L (98-107); Estimated CRCL calculation 44 ml/min; Estimated Glomerular Filt Rate 48; Glucose 364 mg/dL (65-110); Potassium 4.1 mmol/L (3.4-5.0); Sodium 138 mmol/L (137-145)
[2023-10-23 05:40] LABS: Lactic Acid 4.3 mmol/L (0.7-2.0)
--- NOTE | 2023-10-23 06:45 | PC.NURSE ---
new order received from Dr Garcia to re-check Lactic Acid in 3 hours at 11:55 am. Order entered by this RN.
[2023-10-23 12:06] LABS: Lactic Acid Reflex 3.8 mmol/L (0.7-2.0)
--- NOTE | 2023-10-23 13:50 | PM.IMHP ---
H&P: HPI History of Present Illness Date/Time: 10/23/23 13:50 Chief Complaint: Altered mental status Narrative: Patient is a 77-year-old female who lives at [facility] with past medical history essential hypertension, GERD, constipation, type 2 diabetes with peripheral neuropathy, dementia? presents the ED with complaints of altered mental status. Patient lives in custodial and no some concern of patient being altered. Pt was quiet restless yesterday and agitated today appears calm, pt is non verbal from [facility]. UA is positive awaiting UC. Review of Systems Review of Systems: AMS and agitation on admission PMFSH Past Medical History Medical History Anxiety disorder, unspecified Cancer of right breast Right mastectomy with chemo and radiation Dementia Diabetes mellitus With neuropathy Essential hypertension GERD (gastroesophageal reflux disease) Hyperlipidemia Meniere disease Rectal prolapse Surgical History Surgical History H/O cervical spine surgery History of bilateral cataract extraction History of hysterectomy History of lumbar surgery History of rectopexy rectal prolapse with repair February 2020 History of right mastectomy Hx of cholecystectomy Family History Family History Father Parkinsons Mother Alzheimer disease Social History Social History Social History: The patient resides at care center at [facility]. Primary care physician: Dr. Bhupendra Kerr Code status: Per state advanced directive form the patient is supposed to be a full code with only selective treatment. This will need to be clarified with family. The patient has a son and a daughter. She is estranged from the son. 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 To lifelong nonsmoker. She does not use any marijuana or illicit drugs. No alcohol. Smoking status: Never smoker Second hand tobacco smoke exposure: No Alcohol intake: never Substance use: never Substance use type: does not use Living arrangements: custodial Gender identity (if verbalized by the patient): Female Spiritual care concerns: No Meds Home Medications and Allergies Home Medications Medication Instructions Recorded Confirmed Type ondansetron 4 mg disintegrating 4 mg PO TID PRN Nausea 05/11/20 10/23/23 History tablet linaclotide 290 mcg capsule 290 mcg PO DAILY 07/14/20 10/23/23 History (Linzess) vitamin B complex 1 tablet PO DAILY 07/14/20 10/23/23 History insulin glargine 100 unit/mL (3 35 unit subcut HS 07/31/20 10/23/23 History mL) subcutaneous pen (Lantus Solostar U-100 Insulin) gabapentin 300 mg capsule 600 mg PO HS 09/17/20 10/23/23 History gabapentin 300 mg capsule 300 mg PO BID 03/20/21 10/23/23 History lorazepam 1 mg tablet (Ativan) 0.5 mg PO TID 03/20/21 10/23/23 History pantoprazole 40 mg tablet,delayed 40 mg PO QAM 4 weeks #28 tabs 03/24/21 10/23/23 Rx release tramadol 50 mg tablet 100 mg PO Q6H PRN Pain (Scale 07/03/21 10/23/23 Rx Score 4-6) #60 tabs Allergy (diphenhydramine) 25 mg PO Q6-8H PRN Itching 11/24/22 10/23/23 History Anti-Diarrheal (loperamide) 2 mg PO DIRECTED 11/24/22 10/23/23 History Cozaar 100 mg PO DAILY 11/24/22 10/23/23 History Lactobacillus acidophilus 1 cap PO DAILY 11/24/22 10/23/23 History Lasix 20 mg PO DAILY 11/24/22 10/23/23 History Miralax 17 g PO DAILY PRN Constipation 11/24/22 10/23/23 History buspirone 10 mg PO TID 11/24/22 10/23/23 History dicyclomine 10 mg PO Q6-8H PRN Abdominal Pain 11/24/22 10/23/23 History ergocalciferol (vitamin D2) 50,000 unit PO WEEKLY 11/24/22 10/23/23 History ibuprofen 800 mg tablet 800 mg PO Q8-10H PRN Pain 11/24/22 10/23/23 History insulin lispro 100 unit/mL 5 unit subcut TIDWM 11/24/22 10/23/23 Histor
[2023-10-23 14:48] LABS: Reflex Lactic Acid Yes or No Add Lactic
[2023-10-23 15:26] LABS: Lactic Acid 4.4 mmol/L (0.7-2.0)
[2023-10-23] MEDS: cefTRIAXone 2 GM/NS 100 ML 2 GM/100 ML BAG IVPB (15:31)
[2023-10-23] MEDS: SUCRALFATE SUSP 100 MG/ML 10 ML UDC 1000 MG PO (18:05)
[2023-10-23] MEDS: busPIRone HCL 10 MG TABLET PO (18:05)
[2023-10-23] MEDS: GABAPENTIN 300 MG CAPSULE PO (18:07)
[2023-10-23] MEDS: QUEtiapine FUMARATE 25 MG TABLET PO (18:07)
[2023-10-23] MEDS: LORazepam (*CRX) 0.5 MG TABLET PO (18:07)
[2023-10-23 18:17] LABS: Glucose Point of Care 335 mg/dl (65-105)
[2023-10-23] MEDS: INSULIN ASPART (*BKC) 100 UNITS/ML SUB-Q ×2 (18:17)
[2023-10-23 18:40] LABS: Hemoglobin A1C 9.6 % (<5.7)
[2023-10-23] MEDS: traZODone HCL 50 MG TABLET 150 MG PO (21:21)
[2023-10-23] MEDS: GABAPENTIN 300 MG CAPSULE 600 MG PO (21:21)
[2023-10-23] MEDS: INSULIN GLARGINE (*BKC) 100 UNITS/ML 35 UNITS SUB-Q (21:22)
[2023-10-23 23:30] LABS: Glucose Point of Care 336 mg/dl (65-105)
[2023-10-24 06:00] VITALS: BP 162/65; PULSE 82; RESP 16; TEMP 36.7; O2SAT 99
[2023-10-24] MEDS: SUCRALFATE SUSP 100 MG/ML 10 ML UDC 1000 MG PO ×2 (06:29→16:13)
[2023-10-24] MEDS: SODIUM CHLORIDE 0.9% IV 1,000 ML 125 ML IV CONT (06:29)
[2023-10-24 07:44] LABS: Glucose Point of Care 312 mg/dl (65-105)
[2023-10-24 08:00] VITALS: O2SAT 97
[2023-10-24 11:21] LABS: Glucose Point of Care 268 mg/dl (65-105)
[2023-10-24] MEDS: busPIRone HCL 10 MG TABLET PO ×2 (11:22→15:57)
[2023-10-24] MEDS: LORazepam (*CRX) 0.5 MG TABLET PO ×2 (11:23→15:57)
[2023-10-24] MEDS: GABAPENTIN 300 MG CAPSULE PO ×2 (11:23→15:57)
[2023-10-24] MEDS: QUEtiapine FUMARATE 25 MG TABLET PO ×2 (11:24→16:13)
[2023-10-24] MEDS: ACIDOPHILUS/BULGARICUS CHEWABLE TABLET 1 TABLET PO (11:24)
[2023-10-24] MEDS: FUROSEMIDE 20 MG TABLET PO (11:25)
[2023-10-24 11:26] VITALS: PULSE 95
[2023-10-24] MEDS: METOPROLOL SUCCINATE EXT REL 50 MG TABCR 100 MG PO (11:26)
[2023-10-24] MEDS: LOSARTAN POTASSIUM 100 MG TABLET PO (11:26)
[2023-10-24] MEDS: LINACLOTIDE 145 MCG CAPSULE 290 MCG PO (11:26)
[2023-10-24] MEDS: PANTOPRAZOLE 40 MG TABLET PO (11:27)
[2023-10-24] MEDS: INSULIN ASPART (*BKC) 100 UNITS/ML SUB-Q ×4 (11:28→18:12)
--- NOTE | 2023-10-24 11:47 | PM.IMPN ---
Progress Note: A&P Assessment and Plan (1) Acute UTI: Code(s): N39.0 - Urinary tract infection, site not specified Status: Acute Assessment and Plan: - possible UTI with WBC 21-50 in the urine otherwise systemic WBCs normal, afebrile, chest x-ray is nl CT head is nl - continue fluids and iv rocephin 2 grams daily day 2 - repeat labs in a.m. - watch lactate levels - UC shows Ecoli (2) Acute metabolic encephalopathy: Code(s): G93.41 - Metabolic encephalopathy Status: Acute Assessment and Plan: # acute metabolic encephalopathy -it is unclear how far from baseline mentation patient is, patient currently is nonverbal to me. - pt appears more calm today - pt was very agitated and restless on admission Plan Pts sugars are running high today Plan to increase lantus to 40 units at night continue to monitor in hospital # other chronic conditions -anxiety/depression: BuSrosibel, Serojanett, p.r.n. Ativan -essential hypertension: Cozaar, metoprolol, prn hydralazine available to for elevated BP -abdominal spasms: Bentyl -insulin-dependent type 2 diabetic: Sliding scale insulin, continue home insulin lispro 5 units t.i.d. with meals, Lantus 35 units q.h.s., Accu-Cheks a.c. HS, hypoglycemia protocol, checking hemoglobin A1c -peripheral edema Lasix -constipation: MiraLax daily -GERD: Carafate, Protonix -insomnia: Trazodone -peripheral neuropathy likely secondary to type 2 diabetes: Gabapentin Diet: diabetic diet DVT prophylaxis: Lovenox Code status: Full code Disposition: Likely back to care home in 1-2 days time Subjective Date/time seen: 10/24/23 11:47 Interval history: 77-year-old female who lives at [facility] with past medical history essential hypertension, GERD, constipation, type 2 diabetes with peripheral neuropathy, dementia? Presents the ED with complaints of altered mental status.? Patient lives in care home and no some concern of patient being altered. Pt is usually non verbal or talking few words. Pt is more relaxed and calm today resting more. Review of Systems Review of Systems: AMS and agitation on admission More calm Exam Narrative: - GENERAL: Pleasant older woman nonverbal - EYES: EOMI. Anicteric. - HENT: Moist mucous membranes. - LUNGS: Clear to auscultation bilaterally, no wheezing, rhonchi, or rales. - CARDIOVASCULAR: Regular rate and rhythm. - ABDOMEN: Soft, non-tender and non-distended - EXTREMITIES: No edema. Peripheral pulses 2+. Non-tender. - NEUROLOGIC: No focal neurological deficits, limited exam, not following commands. maintained eye contact, was able to move extremities in bed - PSYCHIATRIC: Awake alert, not orientation , nonverbal. Flat affect Objective Data Vital Signs Vital Signs: Vital Signs - 24 hr 10/23/23 14:00 10/23/23 22:00 10/24/23 06:00 Temperature 37.0 C 36.5 C 36.7 C Pulse Rate 86 74 82 Respiratory Rate 16 16 16 Blood Pressure 159/81 H 141/70 H 162/65 H Pulse Oximetry 98 98 99 10/24/23 11:26 Temperature Pulse Rate 95 Respiratory Rate Blood Pressure Pulse Oximetry Intake/Output Intake/Output: Intake & Output 10/21/23 10/22/23 10/23/23 10/24/23 23:59 23:59 23:59 23:59 Intake Total 50 5880 120 Balance 50 5880 120 Meds/Results Medications: Active Medications Generic Name Dose Route Start Last Admin Trade Name Freq PRN Reason Stop Dose Admin Acetaminophen 650 mg 10/22/23 22:52 Acetaminophen 325 Mg Tablet PO Q4H PRN Mild Pain (1-3) or Fever Buspirone HCl 10 mg 10/23/23 17:00 10/24/23 11:22 Buspirone Hcl 10 Mg Tablet PO 11/22/23 16:59 10 mg TID WALDEMAR Administration Dextrose 12.5 gm 10/23/23 16:35 Dextrose 50% 25 Gm/50 Ml Syringe IV PUSH PRN PRN Hypoglycemia Protocol Dicyclomine HCl 10 mg 10/23/23 14:03 Dicyclomine Hcl 10 Mg Capsule PO Q6-8H PRN Abdominal Pain Furosemide 20 mg 10/24/23 09:00 10/24/23 11:2
[2023-10-24] MEDS: cefTRIAXone 2 GM/NS 100 ML 2 GM/100 ML BAG IVPB (13:51)
[2023-10-24 14:00] VITALS: BP 168/91; PULSE 108; RESP 21; TEMP 36.2; O2SAT 98
[2023-10-24] MEDS: SODIUM CHLORIDE 0.9% IV 1,000 ML 70 ML IV CONT ×2 (15:54→18:12)
[2023-10-24 16:32] LABS: Glucose Point of Care 388 mg/dl (65-105)
[2023-10-24 19:26] LABS: Hematocrit 39.2 % (37.0-47.0); Hemoglobin 13.1 g/dL (12.0-15.0); Mean Corpuscular HGB Conc 33.4 g/dl (32-36); Mean Corpuscular Volume 86.9 fl (80-100); Mean Platelet Volume 11.7 fl (7.4-10.4); Platelet Count Result 158 k/mm3 (150-375); Red Blood Count 4.51 M/mm3 (4.2-5.4)
[2023-10-24 20:06] LABS: Lactic Acid Reflex 4.5 mmol/L (0.7-2.0)
--- NOTE | 2023-10-24 20:06 | PC.NURSE ---
lactic acid 4.5 critical reported to ROCIO Becker
--- NOTE | 2023-10-24 20:08 | PC.NURSE ---
ROCIO Knox to place orders to start patient on Flagyl r/t lactic acid 4.5
[2023-10-24 20:22] LABS: Alanine Aminotransferase 31 U/L (6-35); Albumin Level 3.6 g/dL (3.5-5.1); Alkaline Phosphatase 85 U/L (38-126); Anion Gap 11 mmol/L (8-16); Aspartate Amino Transferase 23 U/L (14-36); Bilirubin,Total 0.4 mg/dL (0.2-1.3); Blood Urea Nitrogen 11 mg/dL (7-17); Carbon Dioxide 21 mmol/L (22-30); Chloride 105 mmol/L (98-107); Estimated CRCL calculation 41 ml/min; Estimated Glomerular Filt Rate 43; Glucose 386 mg/dL (65-110); Potassium 3.8 mmol/L (3.4-5.0); Sodium 137 mmol/L (137-145)
[2023-10-24] MEDS: INSULIN GLARGINE (*BKC) 100 UNITS/ML 40 UNITS SUB-Q (20:39)
[2023-10-24 20:41] LABS: Glucose Point of Care 361 mg/dl (65-105)
[2023-10-24 21:16] VITALS: BP 154/86; PULSE 106; RESP 13; TEMP 36.6; O2SAT 97
[2023-10-24 22:24] LABS: Reflex Lactic Acid Yes or No Add Lactic
--- NOTE | 2023-10-24 22:25 | PC.NURSE ---
patient closed lips and refused to take HS medication. Reattempted patient continued to refuse medication.
[2023-10-24 23:21] LABS: Lactic Acid 2.5 mmol/L (0.7-2.0)
[2023-10-25] VITALS (8 sets, daily range): BP systolic 119–191; BP diastolic 70–98; PULSE 77–90; RESP 13–18; TEMP 36.1–37.1; O2SAT 96–100
--- NOTE | 2023-10-25 01:00 | P.PNCROSS_ITS ---
Event Note Event Note Event Note: Cross Coverage: Lactic initially 3.5 on 10/22. Has remained elevated over the last 2 days ranging from 3.8-4.5. Sepsis alert activated, RN called to alert provider. Per chart review patient was fluid resuscitated with 1L and currently being treated for UTI, given minimal improvement in lactic acid - reassessed chart. CT showed signs of colitis as well as bladder wall thickening. patient unable to provide ROS. on exam patient had guarding of lower abdomen, specif ically LLQ. Adding Flagyl for colitis coverage. Lactate repeated as well, 2.5.
[2023-10-25] MEDS: metroNIDAZOLE 500 MG/ISO 100ML 500 MG/100 ML BAG 100 MG IVPB ×3 (01:38→17:11)
--- NOTE | 2023-10-25 01:46 | PC.NURSE ---
attempted purewick patient did not tolerate.
--- NOTE | 2023-10-25 05:16 | PC.NURSE ---
patient not having medication, will not open mouth.
--- NOTE | 2023-10-25 05:27 | PC.NURSE ---
patient bp 191/97 this morning.
[2023-10-25] MEDS: hydrALAZINE HCL 20 MG/ML VIAL 10 MG IV PUSH (06:00)
[2023-10-25 07:15] LABS: Anion Gap 10 mmol/L (8-16); Blood Urea Nitrogen 10 mg/dL (7-17); Calcium 9.7 mg/dL (8.4-10.2); Carbon Dioxide 21 mmol/L (22-30); Chloride 105 mmol/L (98-107); Estimated CRCL calculation 59 ml/min; Estimated Glomerular Filt Rate > 60; Glucose 279 mg/dL (65-110); Potassium 4.5 mmol/L (3.4-5.0); Sodium 136 mmol/L (137-145)
[2023-10-25 07:26] LABS: Glucose Point of Care 293 mg/dl (65-105)
[2023-10-25] MEDS: LINACLOTIDE 145 MCG CAPSULE 290 MCG PO (09:20)
[2023-10-25] MEDS: ACIDOPHILUS/BULGARICUS CHEWABLE TABLET 1 TABLET PO (09:21)
[2023-10-25] MEDS: LOSARTAN POTASSIUM 100 MG TABLET PO (09:21)
[2023-10-25] MEDS: PANTOPRAZOLE 40 MG TABLET PO (09:21)
[2023-10-25] MEDS: busPIRone HCL 10 MG TABLET PO ×3 (09:21→17:11)
[2023-10-25] MEDS: QUEtiapine FUMARATE 25 MG TABLET PO ×2 (09:22→17:11)
[2023-10-25] MEDS: LORazepam (*CRX) 0.5 MG TABLET PO ×3 (09:22→17:11)
[2023-10-25] MEDS: GABAPENTIN 300 MG CAPSULE PO ×2 (09:22→17:11)
[2023-10-25] MEDS: FUROSEMIDE 20 MG TABLET PO (09:22)
[2023-10-25] MEDS: INSULIN ASPART (*BKC) 100 UNITS/ML SUB-Q ×6 (09:23→17:15)
--- NOTE | 2023-10-25 09:49 | PM.IMPN ---
Progress Note: A&P Assessment and Plan (1) Acute UTI: Code(s): N39.0 - Urinary tract infection, site not specified Status: Acute Assessment and Plan: - possible UTI with WBC 21-50 in the urine otherwise systemic WBCs normal, afebrile, chest x-ray is nl CT head is nl - continue fluids and iv rocephin 2 grams daily day 2 - repeat labs in a.m. - watch lactate levels - UC shows Ecoli (2) Acute metabolic encephalopathy: Code(s): G93.41 - Metabolic encephalopathy Status: Acute Assessment and Plan: # acute metabolic encephalopathy -it is unclear how far from baseline mentation patient is, patient currently is nonverbal to me. - pt appears more calm today - pt was very agitated and restless on admission Plan Pts sugars are running high again at 270s Plan to increase lantus to 40 units at night continue to monitor in hospital continue fluid hydration Elevated lactic levels _ pt to continue on fluids - lactic level is improving continue to watch lactate levels over the weekend - kidney function is stable Colitis - iv Flagyl added by night team # other chronic conditions -anxiety/depression: Irina Lazo, p.r.n. Ativan -essential hypertension: Cozaar, metoprolol, prn hydralazine available to for elevated BP -abdominal spasms: Bentyl -insulin-dependent type 2 diabetic: Sliding scale insulin, continue home insulin lispro 5 units t.i.d. with meals, Lantus 35 units q.h.s., Accu-Cheks a.c. HS, hypoglycemia protocol, checking hemoglobin A1c -peripheral edema Lasix -constipation: MiraLax daily -GERD: Carafate, Protonix -insomnia: Trazodone -peripheral neuropathy likely secondary to type 2 diabetes: Gabapentin Diet: diabetic diet DVT prophylaxis: Lovenox Code status: Full code Disposition: Likely back to fdc in 1-2 days time friday/ friday Subjective Date/time seen: 10/25/23 09:49 Interval history: 77-year-old female who lives at [facility] with past medical history essential hypertension, GERD, constipation, type 2 diabetes with peripheral neuropathy, dementia? Presents the ED with complaints of altered mental status.? Patient lives in [facility]dc and no some concern of patient being altered. Pt is usually non verbal or talking few words. Pt is more relaxed and calm today resting more. Pts lactic level is still running high but is improving started on flagyl by night team Pt holding few words conversation today no specific complaints Review of Systems Review of Systems: Slow improvement Exam Narrative: - GENERAL: Pleasant older woman usually nonverbal few words today - EYES: EOMI. Anicteric. - HENT: Moist mucous membranes. - LUNGS: Clear to auscultation bilaterally, no wheezing, rhonchi, or rales. - CARDIOVASCULAR: Regular rate and rhythm. - ABDOMEN: Soft, non-tender and non-distended - EXTREMITIES: No edema. Peripheral pulses 2+. Non-tender. - NEUROLOGIC: No focal neurological deficits, limited exam, not following commands. maintained eye contact, was able to move extremities in bed - PSYCHIATRIC: Awake alert, not orientation , nonverbal. Flat affect Objective Data Vital Signs Vital Signs: Vital Signs - 24 hr 10/24/23 11:26 10/24/23 14:00 10/24/23 21:16 Temperature 36.2 C L 36.6 C Pulse Rate 95 108 H 106 H Respiratory Rate 21 H 13 Blood Pressure 168/91 H 154/86 H Pulse Oximetry 98 97 10/25/23 05:33 10/25/23 05:57 10/25/23 08:00 Temperature 36.1 C L 36.4 C L Pulse Rate 77 77 90 Respiratory Rate 13 18 Blood Pressure 191/97 H 191/97 H 163/98 H Pulse Oximetry 100 99 Intake/Output Intake/Output: Intake & Output 10/22/23 10/23/23 10/24/23 10/25/23 23:59 23:59 23:59 23:59 Intake Total 50 5880 3960 600 Balance 50 5880 3960 600 Meds/Results Medications: Active Medications Generic Name Dose Route Start Last Admin Trade Name Freq PRN Reason Stop Dose Admin Acetaminophen 650 mg 10/22/23
[2023-10-25] MEDS: METOPROLOL SUCCINATE EXT REL 100 MG TABCR PO (10:03)
[2023-10-25 11:29] LABS: Glucose Point of Care 316 mg/dl (65-105)
[2023-10-25 13:15] LABS: Lactic Acid Reflex 2.6 mmol/L (0.7-2.0)
[2023-10-25] MEDS: cefTRIAXone 2 GM/NS 100 ML 2 GM/100 ML BAG IVPB (14:49)
[2023-10-25 15:39] LABS: Lactic Acid Reflex 2.3 mmol/L (0.7-2.0)
[2023-10-25 16:04] LABS: Reflex Lactic Acid Yes or No Add Lactic
[2023-10-25 16:22] LABS: Glucose Point of Care 232 mg/dl (65-105)
[2023-10-25] MEDS: SUCRALFATE SUSP 100 MG/ML 10 ML UDC 1000 MG PO (17:11)
[2023-10-25] MEDS: amLODIPine BESYLATE 5 MG TABLET 10 MG PO (17:12)
[2023-10-25 17:51] LABS: Lactic Acid 2.2 mmol/L (0.7-2.0)
[2023-10-25] MEDS: INSULIN GLARGINE (*BKC) 100 UNITS/ML 40 UNITS SUB-Q (20:16)
[2023-10-25 20:44] LABS: Glucose Point of Care 264 mg/dl (65-105)
[2023-10-25 22:02] LABS: Lactic Acid Reflex 1.7 mmol/L (0.7-2.0)
[2023-10-26] MEDS: metroNIDAZOLE 500 MG/ISO 100ML 500 MG/100 ML BAG 100 MG IVPB ×2 (01:47→09:10)
[2023-10-26 05:31] VITALS: BP 165/85; PULSE 84; RESP 14; TEMP 36.5; O2SAT 98
[2023-10-26] MEDS: SUCRALFATE SUSP 100 MG/ML 10 ML UDC 1000 MG PO (05:59)
[2023-10-26 07:07] LABS: Hematocrit 43.3 % (37.0-47.0); Hemoglobin 14.1 g/dL (12.0-15.0); Mean Corpuscular HGB Conc 32.6 g/dl (32-36); Mean Corpuscular Hemoglobin 28.6 pg (26-34); Mean Corpuscular Volume 87.8 fl (80-100); Platelet Count Result 179 k/mm3 (150-375); Red Blood Count 4.93 M/mm3 (4.2-5.4); Red Cell Distribution Width 12.6 % (11.5-14.5); White Blood Count 6.3 K/mm3 (4.5-10.0)
[2023-10-26 07:17] LABS: Glucose Point of Care 216 mg/dl (65-105)
[2023-10-26 07:20] LABS: Anion Gap 9 mmol/L (8-16); Blood Urea Nitrogen 16 mg/dL (7-17); Calcium 9.9 mg/dL (8.4-10.2); Carbon Dioxide 25 mmol/L (22-30); Chloride 105 mmol/L (98-107); Estimated CRCL calculation 59 ml/min; Estimated Glomerular Filt Rate > 60; Glucose 212 mg/dL (65-110); Potassium 3.6 mmol/L (3.4-5.0); Sodium 139 mmol/L (137-145)
[2023-10-26 07:21] LABS: Lactic Acid Reflex 1.9 mmol/L (0.7-2.0)
[2023-10-26] MEDS: FUROSEMIDE 20 MG TABLET PO (09:09)
[2023-10-26] MEDS: LINACLOTIDE 145 MCG CAPSULE 290 MCG PO (09:09)
[2023-10-26] MEDS: ENOXAPARIN 40 MG/0.4 ML SYRINGE SUB-Q (09:09)
[2023-10-26 09:10] VITALS: PULSE 84
[2023-10-26] MEDS: LOSARTAN POTASSIUM 100 MG TABLET PO (09:10)
[2023-10-26] MEDS: busPIRone HCL 10 MG TABLET PO ×2 (09:10→14:17)
[2023-10-26] MEDS: ACIDOPHILUS/BULGARICUS CHEWABLE TABLET 1 TABLET PO (09:10)
[2023-10-26] MEDS: PANTOPRAZOLE 40 MG TABLET PO (09:10)
[2023-10-26] MEDS: METOPROLOL SUCCINATE EXT REL 100 MG TABCR PO (09:10)
[2023-10-26] MEDS: LORazepam (*CRX) 0.5 MG TABLET PO ×2 (09:10→14:17)
[2023-10-26] MEDS: GABAPENTIN 300 MG CAPSULE PO (09:10)
[2023-10-26] MEDS: amLODIPine BESYLATE 5 MG TABLET 10 MG PO (09:11)
[2023-10-26] MEDS: QUEtiapine FUMARATE 25 MG TABLET PO (09:11)
[2023-10-26] MEDS: INSULIN ASPART (*BKC) 100 UNITS/ML SUB-Q ×4 (09:18→12:27)
[2023-10-26 11:41] LABS: Glucose Point of Care 250 mg/dl (65-105)
[2023-10-26 12:39] LABS: SARS-CoV-2 RNA PCR Negative (Negative)
--- NOTE | 2023-10-26 13:21 | PM.DS ---
DS: Admitting Diagnosis Discharge Date 10/26/2023: Admitting Diagnosis Altered mental status UTI DS: Discharge Diagnosis Discharge Diagnosis (1) Acute UTI: Code(s): N39.0 - Urinary tract infection, site not specified Status: Acute (2) Acute metabolic encephalopathy: Code(s): G93.41 - Metabolic encephalopathy Status: Acute (3) Hyperlipidemia: Code(s): E78.5 - Hyperlipidemia, unspecified Status: Chronic (4) Essential hypertension: Code(s): I10 - Essential (primary) hypertension Status: Chronic (5) Anxiety disorder, unspecified: Code(s): F41.9 - Anxiety disorder, unspecified Status: Chronic (6) SHELL (acute kidney injury): Code(s): N17.9 - Acute kidney failure, unspecified Status: Acute (7) Hypertension: Code(s): I10 - Essential (primary) hypertension Status: Acute (8) Diabetes mellitus: Qualifiers: Diabetes mellitus type: type 2 Diabetes mellitus shelter insulin use: with combination window installer use Diabetes mellitus complication status: without complication Qualified Code(s): E11.9 - Type 2 diabetes mellitus without complications; Z79.4 - nursing home (current) use of insulin Code(s): E11.9 - Type 2 diabetes mellitus without complications Status: Chronic DS: Summary Hospital Course Reason for hospitalization: Altered mental status UTI Hospital Course: H&P: HPI History of Present Illness Date/Time: 10/23/23? 13:50 Chief Complaint: Altered mental status Narrative: Patient is a 77-year-old female who lives at [facility] with past medical history essential hypertension, GERD, constipation, type 2 diabetes with peripheral neuropathy, dementia? presents the ED with complaints of altered mental status.? Patient lives in detention and no some concern of patient being altered. Pt was quiet restless yesterday and agitated today appears calm, pt is non verbal from [facility]. UA is positive awaiting UC. Hospital Course: 10/23/2023 - 10/26/2023: 77-year-old female who lives at [facility] with past medical history essential hypertension, GERD, constipation, type 2 diabetes with peripheral neuropathy, dementia, presents the ED with complaints of altered mental status.? Patient lives in detention and they had concerns of patient being altered. Patient was found to have UTI and SHELL. She was started on IV antibiotics and IV hydration. Her condition slowly improved over the last couple of days. Pt is usually non verbal or talking few words. Pt is more relaxed, calm today and resting more. She expressed that she wants to go back home. She is approaching her baseline hence I'll discharge her on oral antibiotics in the form of nitrofurantoin due to her urine culture results as below: Urine Culture Final 10/24/23-2248 Q Organism 1 Escherichia Coli SOURCE: UCATH STATUS: FINAL RESULT: Additional non-predominating organism(s) isolated. These organisms, commonly found on external and internal genitalia, are considered colonizers. No further testing performed. ISOLATE 1: Greater than 100,000 CFU/mL of Escherichia coli NOTE: THIS RESULT IS FLAGGED ABNORMAL THIS TEST WAS PERFORMED AT: [facility] [id number] RIDGE STONER MD 1. Escherichia Coli M.I.C. RX --------- --- Amoxicillin/Clavulanate 16 I Ampicillin/Sulbactam >=32 R Cefazolin >=64 R Ceftazidime 16 I Cefepime 8 I Ceftriaxone >=64 R Ciprofloxacin
[2023-10-26 14:00] VITALS: BP 124/62; PULSE 94; RESP 18; TEMP 36.8; O2SAT 100
== END 2023-10-26 15:05 | DRG 689 ==
LOC: ANHED 22:51 → ANH3MEDSUR 10-23 01:53
PROVIDERS: Family Medicine; Student in an Organized Health Care Education/Training Program; Admitting Provider Internal Medicine; Emergency Provider Emergency Medicine; PCP Hospitalist; Visit Provider Family Medicine
DX: N39.0 Urinary tract infection, site not specified (principal); G93.41 Metabolic encephalopathy; N17.9 Acute kidney failure, unspecified; B96.20 Unspecified Escherichia coli [E. coli] as the cause of diseases classified elsewhere; E78.5 Hyperlipidemia, unspecified; E11.42 Type 2 diabetes mellitus with diabetic polyneuropathy; F03.90 Unspecified dementia, unspecified severity, without behavioral disturbance, psychotic disturbance, mood disturbance, and anxiety; F41.9 Anxiety disorder, unspecified; F32.A Depression, unspecified; G47.00 Insomnia, unspecified; H81.09 Meniere's disease, unspecified ear; I10 Essential (primary) hypertension; K52.9 Noninfective gastroenteritis and colitis, unspecified; K21.9 Gastro-esophageal reflux disease without esophagitis; K59.00 Constipation, unspecified; Z85.3 Personal history of malignant neoplasm of breast; Z11.52 Encounter for screening for COVID-19; Z98.41 Cataract extraction status, right eye; Z98.42 Cataract extraction status, left eye; Z79.4 Long term (current) use of insulin; Z90.710 Acquired absence of both cervix and uterus; Z90.49 Acquired absence of other specified parts of digestive tract
CPT/HCPCS: 36415; 36600; 70450; 71045; 74176; 80048; 80053; 81001; 82805; 82948; 83036; 83605; 84145; 84484; 85025; 85027; 85610; 85730; 87040; 87077; 87086; 87147; 87181; 87186; 87635; 87637; 93005; 96361; 96365; 99285; A9270; G0378; J0360; J0696; J1650; J1815; J1836; J7030

== ENCOUNTER 2023-12-23 15:17 | Outpatient (NON) | payer MEDICARE, MEDICAID, SELFPAY ==
[2023-12-23 15:54] LABS: Influenza A QL RT-PCR Positive (Negative); Influenza B QL RT-PCR Negative (Negative); RSV RNA, RT-PCR Negative (Negative); SARS-CoV-2 RNA PCR Negative (Negative)
== END 2023-12-23 15:18 | disposition home or self-care (01) ==
LOC: ANHLAB 15:20
PROVIDERS: PCP Hospitalist; Visit Provider Hospitalist
DX: R05.9 Cough, unspecified (principal); Z20.822 Contact with and (suspected) exposure to COVID-19
CPT/HCPCS: 87637

== ENCOUNTER 2024-01-02 20:18 | Inpatient (IN) | payer MEDICARE, MEDICAID, SELFPAY ==
--- NOTE | ~2024-01-02 | CT_ITS ---
EXAMINATION: CT chest abdomen pelvis wo con DATE: 01/02/2024 21:32 INDICATION: Pulmonary nodule. Abdominal pain. TECHNIQUE: Computed tomography (CT) of the chest, abdomen, and pelvis was performed without intraveno us contrast. Automated exposure control and iterative reconstruction technique were employed. The dos e-length product was 1561.97 mGy-cm. COMPARISON: CT abdomen and pelvis 10/22/2023, chest CT 03/20/2021 FINDINGS: CHEST CT: The lungs demonstrate mild atelectasis. There is peripheral septal thickening in the lungs with an in ferior predominance. There is chronic collapse of right middle lobe. No pleural effusion. The heart s ize is normal. No pericardial effusion. There is a small sliding hiatal hernia. There is a right emelia st implant. There is severe thoracic spondylosis. There is a chronic burst fracture of T12. ABDOMEN/PELVIS CT: The liver is normal. There are changes of cholecystectomy. Calcifications in the spleen are consisten t with old granulomatous disease. The pancreas, adrenal glands, and kidneys are normal. There is no u rolithiasis. There is an anastomosis in the sigmoid colon. There is diverticulosis of the colon witho ut evidence of diverticulitis. The appendix is not visualized. There is calcified atherosclerosis of the aorta and many of the other arteries. There are no pathologically enlarged lymph nodes. There is no free intraperitoneal fluid. There is a right inguinal hernia containing fat. There are changes of anterior and posterior fusion procedures at L4-L5. There is severe lumbar spondylosis. IMPRESSION: 1. Right inguinal hernia containing fat. 2. Mild chronic interstitial lung disease. Chronic collapse of right lung middle lobe. 3. No abnormal lung nodule to correlate with the chest radiograph finding. 4. Small sliding hiatal hernia. Reviewed, dictated and finalized at location E. ISION ASSEMBLY INSPECTOR IMPRESSION: 1. Right inguinal hernia containing fat. 2. Mild chronic interstitial lung disease. Chronic collapse of right lung middl e lobe. 3. No abnormal lung nodule to correlate with the chest radiograph finding. 4. Small sliding hiatal hernia.
--- NOTE | ~2024-01-02 | XR_ITS ---
Portable chest x-ray Comparison: 01/02/2024 Clinical History: Cough Findings: Lungs are clear, without focal consolidation or pleural effusion. Cardiomediastinal silho uette is stable. Bones and soft tissues are unremarkable. Impression: Clear lungs. Reviewed, dictated and finalized at location . H HEAD MAKER Impression: Clear lungs.
--- NOTE | ~2024-01-02 | XR_ITS ---
EXAMINATION: XR chest 1V portable DATE: 01/02/2024 20:44 INDICATION: Weakness. Failure to thrive. TECHNIQUE: A single frontal view of the chest was obtained. COMPARISON: Chest single view 10/22/2023, CT abdomen and pelvis 10/22/2023, chest CT 07/23/21 FINDINGS: There is mild atelectasis in left lower lung zone. There is an ill-defined nodule in left u pper lobe. No pleural effusion or pneumothorax. The heart size is normal. Surgical clips in the right upper quadrant are likely from cholecystectomy. There is a right breast implant. IMPRESSION: 1. Ill-defined nodule in left lung upper lobe suspicious for primary bronchogenic carcinoma. Noncontr ast chest CT is recommended. Reviewed, dictated and finalized at location E. HER TOOLER IMPRESSION: 1. Ill-defined nodule in left lung upper lobe suspicious for primary bronchogen ic carcinoma. Noncontrast chest CT is recommended.
[2024-01-02 20:23] VITALS: BP 164/100; PULSE 108; RESP 18; TEMP 36.2; O2SAT 98
[2024-01-02 20:27] VITALS: BP 164/101; O2SAT 98
[2024-01-02 20:31] VITALS: BP 185/111; O2SAT 99
--- NOTE | 2024-01-02 20:34 | ECG_ITS ---
Measurements Intervals [place] Rate: 111 P: 38 IA: 175 QRS: -29 QRSD: 121 T: 25 QT: 351 QTc: 479 Interpretive Statements SINUS TACHYCARDIA BORDERLINE LEFT AXIS DEVIATION [QRS AXIS < -20] RIGHT BUNDLE BRANCH BLOCK [120+ ms QRS DURATION, UPRIGHT V1, 40+ ms S IN I/aVL/V4/V5/V6] ABNORMAL ECG COMPARED TO ECG 10/22/2023 21:00:05 SINUS TACHYCARDIA NOW PRESENT Electronically Signed On 01-03-2024 8:03:45 MOBILE SERVICE RV TECHNICIAN by Smooth Casas M.D.
[2024-01-02] MEDS: SODIUM CHLORIDE 0.9% IV 1,000 ML 999 ML IV CONT (21:07)
[2024-01-02 21:09] LABS: Basophils Absolute Auto 0.1 K/mm3 (0.0-0.1); Basophils Percent Auto 0.5 % (0.2-1.2); Eosinophils Absolute Auto 0.1 K/mm3 (0-0.3); Eosinophils Percent Auto 1.1 % (0-4.4); Hematocrit 45.7 % (37.0-47.0); Hemoglobin 15.3 g/dL (12.0-15.0); Immature Granulocyte Absolute 0.06 K/mm3 (0.00-0.031); Immature Granulocyte Percent A 0.5 % (0-0.5); Lymphocytes Absolute Auto 1.98 K/mm3 (0.9-3.2); Lymphocytes Percent Auto 15.1 % (18.3-44.2); Mean Corpuscular HGB Conc 33.5 g/dl (32-36); Mean Corpuscular Hemoglobin 28.5 pg (26-34); Mean Corpuscular Volume 85.3 fl (80-100); Mean Platelet Volume 11.8 fl (7.4-10.4); Monocytes Absolute Auto 0.9 K/mm3 (0.1-0.6); Monocytes Percent Auto 6.9 % (2.6-8.5); Neutrophils Percent Auto 75.9 % (45.5-73.1); Platelet Count Result 302 k/mm3 (150-375); Red Blood Count 5.36 M/mm3 (4.2-5.4); White Blood Count 13.1 K/mm3 (4.5-10.0)
[2024-01-02 21:22] LABS: Lactic Acid Reflex 1.6 mmol/L (0.7-2.0)
[2024-01-02 21:40] LABS: Procalcitonin 0.5 ng/mL
[2024-01-02 21:52] LABS: INR 1.1; Partial Thromboplastin Time 25.8 SECONDS (22.3-36.8); Prothrombin Time 14.4 Seconds (11.1-14.7)
[2024-01-02 21:55] LABS: Influenza A QL RT-PCR Negative (Negative); Influenza B QL RT-PCR Negative (Negative); RSV RNA, RT-PCR Negative (Negative); SARS-CoV-2 RNA PCR Negative (Negative)
[2024-01-02 22:49] LABS: Appearance Urine Turbid (Clear); Bacteria Urine 4+ /hpf; Bilirubin Urine Negative (Negative); Blood Urine Negative (Negative); Color Urine Dark Yellow (Yellow); Glucose Urine UA 1+ mg/dL (Negative); Ketones Urine 1+ mg/dL (Negative); Leukocyte Esterase Ur 2+ LEU/UL (Negative); Nitrate Urine Negative (Negative); Non Pathogenic Casts 0-2; Protein Urine 1+ mg/dL (Negative); RBC Urine 0-2 /hpf (0-2); Squamous Epithelial Cell Urine None seen /hpf (Few); WBC Urine 21-50 /hpf
--- NOTE | 2024-01-02 23:04 | PC.NURSE ---
this rn assumed care of patient. this rn took patient report from ANNIKA Tony.
[2024-01-02 23:09] VITALS: PULSE 69; RESP 12; O2SAT 100
--- NOTE | 2024-01-02 23:09 | PC.NURSE ---
upon trying to take vitals from pt, pt began ripping vital equipment off. This RN was unable to obtain a blood pressure for pt due to pt not wanting to keep blood pressure cuff on.
[2024-01-02 23:23] LABS: Add Urine Microscopic? YES
--- NOTE | 2024-01-02 23:50 | PC.NURSE ---
Per POA request, they would like to be called and updated on pt condition.
[2024-01-03] VITALS (8 sets, daily range): BP systolic 156–193; BP diastolic 70–120; PULSE 81–101; RESP 16–20; TEMP 35.8–36.4; O2SAT 94–100; BMI 25.9
[2024-01-03 00:14] LABS: Alanine Aminotransferase 24 U/L (6-35); Albumin Level 3.5 g/dL (3.5-5.1); Alkaline Phosphatase 77 U/L (38-126); Anion Gap 6 mmol/L (8-16); Aspartate Amino Transferase 39 U/L (14-36); Bilirubin,Total 1.3 mg/dL (0.2-1.3); Blood Urea Nitrogen 15 mg/dL (7-17); Calcium 9.8 mg/dL (8.4-10.2); Carbon Dioxide 27 mmol/L (22-30); Chloride 105 mmol/L (98-107); Estimated CRCL calculation 67 ml/min; Estimated Glomerular Filt Rate > 60; Glucose 265 mg/dL (65-110); Magnesium 1.9 mg/dL (1.6-2.3); Potassium 3.4 mmol/L (3.4-5.0); Sodium 138 mmol/L (137-145)
[2024-01-03 00:19] LABS: Troponin I < 0.012 ng/mL (0.000-0.034)
--- NOTE | 2024-01-03 01:01 | ED.GENADULT ---
HPI - General Adult General Chief complaint: Unspecified Stated complaint: failure to thrive Time Seen by Provider: 01/02/24 20:28 History of Present Illness HPI narrative: patient is a 78-year-old female who presents from and he will Nursing Rehab for failure to thrive. He had decreased oral intake for the last week did family and facility have noticed that she has been less active than normal. The patient normally is nonverbal but will nod. Upon presentation here the patient is able to mumble some and will point to things but otherwise is not able to communicate. The patient does appear to be extremely dry Related Data Home Medications Medication Instructions Recorded Confirmed ondansetron 4 mg disintegrating 4 mg PO TID PRN Nausea 05/11/20 10/23/23 tablet linaclotide 290 mcg capsule 290 mcg PO DAILY 07/14/20 10/23/23 (Linzess) vitamin B complex 1 tablet PO DAILY 07/14/20 10/23/23 insulin glargine 100 unit/mL (3 35 unit subcut HS 07/31/20 10/23/23 mL) subcutaneous pen (Lantus Solostar U-100 Insulin) gabapentin 300 mg capsule 300 mg PO BID 03/20/21 10/23/23 lorazepam 1 mg tablet (Ativan) 0.5 mg PO TID 03/20/21 10/23/23 Allergy (diphenhydramine) 25 mg PO Q6-8H PRN Itching 11/24/22 10/23/23 Anti-Diarrheal (loperamide) 2 mg PO DIRECTED 11/24/22 10/23/23 Cozaar 100 mg PO DAILY 11/24/22 10/23/23 Lactobacillus acidophilus 1 cap PO DAILY 11/24/22 10/23/23 Miralax 17 g PO DAILY PRN Constipation 11/24/22 10/23/23 buspirone 10 mg PO TID 11/24/22 10/23/23 dicyclomine 10 mg PO Q6-8H PRN Abdominal Pain 11/24/22 10/23/23 ergocalciferol (vitamin D2) 50,000 unit PO WEEKLY 11/24/22 10/23/23 insulin lispro 100 unit/mL 5 unit subcut TIDWM 11/24/22 10/23/23 subcutaneous pen (Humalog KwikPen (U-100) Insulin) insulin lispro 100 unit/mL See Rx Instructions .Route .COMPLEX 11/24/22 10/23/23 subcutaneous pen (Humalog KwikPen (U-100) Insulin) magnesium hydroxide 30 ml PO HS PRN constipation 11/24/22 10/23/23 meloxicam 7.5 mg PO DAILY 11/24/22 10/23/23 quetiapine 25 mg tablet 25 mg PO BID 11/24/22 10/23/23 sucralfate 10 ml PO BID 11/24/22 10/23/23 trazodone 150 mg PO HS 11/24/22 10/23/23 metoprolol succinate 50 mg 100 mg PO QAM 11/25/22 10/23/23 tablet,extended release 24 hr Allergies Allergy/AdvReac Type Severity Reaction Status Date / Time caffeine Allergy Unknown Verified 01/02/24 20:28 chlordiazepoxide Allergy Unknown Verified 01/02/24 20:28 clidinium Allergy Unknown Verified 01/02/24 20:28 codeine Allergy Rash Verified 01/02/24 20:28 doxepin Allergy Unknown Verified 01/02/24 20:28 hydrocodone Allergy Rash Verified 01/02/24 20:28 hydromorphone [From Dilaudid] Allergy Unknown Verified 01/02/24 20:28 hydroxychloroquine Allergy Unknown Verified 01/02/24 20:28 morphine Allergy Rash Verified 01/02/24 20:28 sitagliptin [From Januvia] Allergy Rash Verified 01/02/24 20:28 Review of Systems Review of Systems: A 10 system review of systems was completed on the patient and is negative except for what is stated in the HPI. Nursing and ancillary documentation was reviewed. PENDING SALE TO [facility] Past Medical History Medical History Anxiety disorder, unspecified Cancer of right breast Right mastectomy with chemo and radiation Dementia Diabetes mellitus With neuropathy Essential hypertension GERD (gastroesophageal reflux disease) Hyperlipidemia Meniere disease Rectal prolapse Surgical History Surgical History H/O cervical spine surgery History of bilateral cataract extraction History of hysterectomy History of lumbar surgery History of rectopexy rectal prolapse with repair February 2020 History of right mastectomy Hx of cholecystectomy Family History Family History Father Parkinsons Mother Alzheimer disease Social History
--- NOTE | 2024-01-03 01:56 | PM.IMHP ---
H&P: HPI History of Present Illness Date/Time: 01/03/24 01:56 Chief Complaint: generalized weakness Narrative: This is an 78-year-old female past medical history significant for insulin-dependent diabetes mellitus, chronic constipation, hypertension, GERD, breast cancer, Meniere's disease, [facility] resident patient was brought to the emergency room due to altered mental status, obtundation, lethargy. Patient was obtained upon reviewing medical records and discussion with emergency room physician EXAMINATION: XR chest 1V portable DATE: 01/02/2024 20:44 INDICATION: Weakness. Failure to thrive. TECHNIQUE: A single frontal view of the chest was obtained. COMPARISON: Chest single view 10/22/2023, CT abdomen and pelvis 10/22/2023, chest CT 07/23/21 FINDINGS: There is mild atelectasis in left lower lung zone. There is an ill-defined nodule in left upper lobe. No pleural effusion or pneumothorax. The heart size is normal. Surgical clips in the right upper quadrant are likely from cholecystectomy. There is a right breast implant. IMPRESSION: 1. Ill-defined nodule in left lung upper lobe suspicious for primary bronchogenic carcinoma. Noncontrast chest CT is recommended. EXAMINATION: CT chest abdomen pelvis wo con DATE: 01/02/2024 21:32 INDICATION: Pulmonary nodule. Abdominal pain. TECHNIQUE: Computed tomography (CT) of the chest, abdomen, and pelvis was performed without intravenous contrast. Automated exposure control and iterative reconstruction technique were employed. The dose-length product was 1561.97 mGy-cm. COMPARISON: CT abdomen and pelvis 10/22/2023, chest CT 03/20/2021 FINDINGS: CHEST CT: The lungs demonstrate mild atelectasis. There is peripheral septal thickening in the lungs with an inferior predominance. There is chronic collapse of right middle lobe. No pleural effusion. The heart size is normal. No pericardial effusion. There is a small sliding hiatal hernia. There is a right breast implant. There is severe thoracic spondylosis. There is a chronic burst fracture of T12. ABDOMEN/PELVIS CT: The liver is normal. There are changes of cholecystectomy. Calcifications in the spleen are consistent with old granulomatous disease. The pancreas, adrenal glands, and kidneys are normal. There is no urolithiasis. There is an anastomosis in the sigmoid colon. There is diverticulosis of the colon without evidence of diverticulitis. The appendix is not visualized. There is calcified atherosclerosis of the aorta and many of the other arteries. There are no pathologically enlarged lymph nodes. There is no free intraperitoneal fluid. There is a right inguinal hernia containing fat. There are changes of anterior and posterior fusion procedures at L4-L5. There is severe lumbar spondylosis. IMPRESSION: 1. Right inguinal hernia containing fat. 2. Mild chronic interstitial lung disease. Chronic collapse of right lung middle lobe. 3. No abnormal lung nodule to correlate with the chest radiograph finding. 4. Small sliding hiatal hernia. Review of Systems Review of Systems: ROS unobtainable: Yes unobtainable due to mental status ( obtundation, lethargy) COUNT INCLUDES THE [facility] Past Medical History Medical History (Updated 01/03/24 @ 06:38 by Skyler Garcia MD) Anxiety disorder, unspecified Cancer of right breast Right mastectomy with chemo and radiation Dementia Diabetes mellitus With neuropathy Essential hypertension GERD (gastroesophageal reflux disease) Hyperlipidemia Meniere disease Rectal prolapse Surgical History Surgical History H/O cervical spine surgery History of bilateral cataract extraction History of hysterectomy History of lumbar surgery History of rectopexy rectal prolapse with repair February 2020 History of right mastectomy Hx of cholecystectomy Family History Family History Father Inesainsley Mo
[2024-01-03] MEDS: SODIUM CHLORIDE 0.9% IV 1,000 ML 100 ML IV CONT ×2 (03:08→14:10)
[2024-01-03] MEDS: MEROPENEM 1 GM/NS 100 ML 1 GM/100 ML BAG IVPB ×3 (03:08→17:45)
--- NOTE | 2024-01-03 03:22 | ADMGEN ---
This patient, Naomi Govea, was admitted to [facility] Surg Room 323-02. Patient/family oriented to hospital policies and general routines including ID bracelet, bed and alarms, visiting hours, pain management, procedures, bathroom and other care routines, personal items, smoking policy, room service/diet, and visiting hours. Information on how to activate the Rapid Response Team has been discussed. Patient/Family are encouraged to report perceived risks to care and to ask questions if they do not understand what they are told or what they should do.
--- NOTE | 2024-01-03 12:00 | PC.NURSE ---
On 01/03/24, the TERMITE CONTROL SERVICER, Licha, provided care and completed [facility] documentation on this patient. I have reviewed the TERMITE CONTROL SERVICER's documentation and agree with the findings.
--- NOTE | 2024-01-03 12:01 | PM.IMPN ---
Progress Note: A&P Assessment and Plan (1) Acute UTI: Code(s): N39.0 - Urinary tract infection, site not specified Status: Acute Assessment and Plan: Pt with history of ESBL Staph species, E.coli and Proteus Await cultures, of blood and Urine Continue Meropenem, treatment day #2 Monitor labs and VS. Not meeting Sepsis criteria. 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 (4) Acute metabolic encephalopathy: Code(s): G93.41 - Metabolic encephalopathy Status: Acute Assessment and Plan: Secondary to problem #1 (5) GERD (gastroesophageal reflux disease): Code(s): K21.9 - Gastro-esophageal reflux disease without esophagitis Status: Acute Assessment and Plan: Continue Pantoprazole Time Spent With Patient Time with patient: 15 - 25 minutes Subjective Date/time seen: 01/03/24 1015 Interval history: This pt was examined at the bedside today in interval assessment after being admitted to the hospital from the SNF where she resides with decreased Mental status, decreased po intake and increased confusion beyond her baseline. She was found to have a UTI with hx of known ESBL, so she was placed on Meropenem. Pt is overall non-verbal and is unable to give any information regarding her overall complaints and how she is feeling. Review of Systems Review of Systems: ROS unobtainable: Yes unobtainable due to medical condition and unobtainable due to mental status Exam Narrative: CONSTITUTIONAL: Elderly female pt sitting up in bed at this time, non-verbal, and appears chronically ill overall. No acute distress is noted. HEENT: Atraumatic and normocephalic with dry Mucous membranes and patent oropharynx EYES: PERRLA, EOM's intact NECK: Supple with FROM and no JVD RESPIRATORY: Decreased throughout secondary to effort. CARDIAC: RRR, S1 and S2 present. No S3, S4, m,r,g,h GI: Soft NT, BS present in all four quads. SKIN: Pale, without lesion or injury NEURO: Alert, non-verbal, will occasionally nod to acknowledge yes questions. Non-focal exam otherwise. EXTREMITIES: MAEW and fully without any deficits. PSYCH: ALert, otherwise unassessable. Objective Data Vital Signs Vital Signs: Vital Signs - 24 hr 01/02/24 20:23 01/02/24 23:09 01/02/24 20:27 Temperature 97.2 F L Pulse Rate 108 H 69 Respiratory Rate 18 12 Blood Pressure 164/100 H 164/101 H Pulse Oximetry 98 100 98 Oxygen Delivery Room Air 01/02/24 20:31 01/03/24 00:31 01/03/24 02:17 Temperature Pulse Rate Respiratory Rate Blood Pressure 185/111 H 188/95 H 193/120 H Pulse Oximetry 99 99 Oxygen Delivery 01/03/24 03:00 01/03/24 03:36 Temperature 96.5 F L Pulse Rate 101 H Respiratory Rate 16 Blood Pressure 168/87 H Pulse Oximetry 99 Oxygen Delivery Room Air Intake/Output Intake/Output: Intake & Output 12/31/23 01/01/24 01/02/24 01/03/24 23:59 23:59 23:59 23:59 Intake Total 1000 520 Balance 1000 520 Meds/Results Medications: Active Medications Generic Name Dose Route Start Last Admin Trade Name Freq PRN Reason Stop Dose Admin Acetaminophen 650 mg 01/03/24 01:04 Acetaminophen 325 Mg Tablet PO Q4H PRN Mild Pain (1-3) or Feve
[2024-01-03 12:09] LABS: Glucose Point of Care 218 mg/dl (65-105)
--- NOTE | 2024-01-03 12:20 | PC.NURSE ---
On 01/05/24, the VICE PRESIDENT FOR INSTRUCTION, Licha, provided care and completed [facility] documentation on this patient. I have reviewed the VICE PRESIDENT FOR INSTRUCTION's documentation and agree with the findings.
[2024-01-03] MEDS: INSULIN ASPART (*BKC) 100 UNITS/ML SUB-Q ×2 (13:07→17:24)
[2024-01-03] MEDS: METOPROLOL TARTRATE INJ 5 MG/5 ML VIAL IV PUSH (14:16)
[2024-01-03 17:17] LABS: Glucose Point of Care 208 mg/dl (65-105)
[2024-01-03] MEDS: LORazepam INJ (*CRX) 2 MG/ML VIAL 0.5 MG IV PUSH (17:50)
[2024-01-03] MEDS: QUEtiapine FUMARATE 25 MG TABLET PO (18:01)
[2024-01-03] MEDS: GABAPENTIN 300 MG CAPSULE PO (18:01)
[2024-01-03] MEDS: busPIRone HCL 10 MG TABLET PO (18:01)
[2024-01-03] MEDS: INSULIN GLARGINE (*BKC) 100 UNITS/ML 35 UNITS SUB-Q (21:09)
[2024-01-03 21:34] LABS: Glucose Point of Care 195 mg/dl (65-105)
[2024-01-04] VITALS (7 sets, daily range): BP systolic 151–174; BP diastolic 81–97; PULSE 86–97; RESP 18–20; TEMP 36.2–36.9; O2SAT 95–100
[2024-01-04] MEDS: MEROPENEM 1 GM/NS 100 ML 1 GM/100 ML BAG IVPB ×2 (01:00→10:26)
[2024-01-04] MEDS: SODIUM CHLORIDE 0.9% IV 1,000 ML 100 ML IV CONT ×2 (01:00→13:06)
[2024-01-04 07:45] LABS: Basophils Percent Auto 0.6 % (0.2-1.2); Eosinophils Absolute Auto 0.3 K/mm3 (0-0.3); Eosinophils Percent Auto 4.8 % (0-4.4); Hematocrit 41.3 % (37.0-47.0); Hemoglobin 13.6 g/dL (12.0-15.0); Immature Granulocyte Absolute 0.03 K/mm3 (0.00-0.031); Immature Granulocyte Percent A 0.5 % (0-0.5); Lymphocytes Absolute Auto 1.76 K/mm3 (0.9-3.2); Lymphocytes Percent Auto 27.1 % (18.3-44.2); Mean Corpuscular HGB Conc 32.9 g/dl (32-36); Mean Corpuscular Hemoglobin 29.1 pg (26-34); Mean Corpuscular Volume 88.4 fl (80-100); Mean Platelet Volume 11.9 fl (7.4-10.4); Monocytes Absolute Auto 0.5 K/mm3 (0.1-0.6); Monocytes Percent Auto 8.3 % (2.6-8.5); Neutrophils Absolute Auto 3.8 K/mm3 (1.3-6.7); Neutrophils Percent Auto 58.7 % (45.5-73.1); Platelet Count Result 232 k/mm3 (150-375); Red Blood Count 4.67 M/mm3 (4.2-5.4); Red Cell Distribution Width 13.1 % (11.5-14.5); White Blood Count 6.5 K/mm3 (4.5-10.0)
[2024-01-04 07:50] LABS: Glucose Point of Care 123 mg/dl (65-105)
[2024-01-04 07:55] LABS: Anion Gap 5 mmol/L (8-16); Blood Urea Nitrogen 8 mg/dL (7-17); Calcium 9.4 mg/dL (8.4-10.2); Carbon Dioxide 27 mmol/L (22-30); Chloride 109 mmol/L (98-107); Estimated CRCL calculation 66 ml/min; Estimated Glomerular Filt Rate > 60; Glucose 141 mg/dL (65-110); Potassium 3.3 mmol/L (3.4-5.0); Sodium 141 mmol/L (137-145)
[2024-01-04] MEDS: METOPROLOL SUCCINATE EXT REL 50 MG TABCR 100 MG PO (09:56)
[2024-01-04] MEDS: ACIDOPHILUS/BULGARICUS CHEWABLE TABLET 1 TABLET PO (09:56)
[2024-01-04] MEDS: MELOXICAM 7.5 MG TABLET PO (09:57)
[2024-01-04] MEDS: LOSARTAN POTASSIUM 100 MG TABLET PO (09:57)
[2024-01-04] MEDS: QUEtiapine FUMARATE 25 MG TABLET PO (09:57)
[2024-01-04] MEDS: GABAPENTIN 300 MG CAPSULE PO (09:57)
[2024-01-04] MEDS: VITAMIN B COMPLEX CAPSULE 1 CAP PO (09:57)
[2024-01-04] MEDS: ENOXAPARIN 40 MG/0.4 ML SYRINGE SUB-Q (09:58)
[2024-01-04] MEDS: busPIRone HCL 10 MG TABLET PO (09:58)
[2024-01-04] MEDS: hydrALAZINE HCL 20 MG/ML VIAL 10 MG IV PUSH (10:23)
[2024-01-04] MEDS: LORazepam INJ (*CRX) 2 MG/ML VIAL 0.5 MG IV PUSH ×2 (10:23→13:10)
[2024-01-04] MEDS: PANTOPRAZOLE SODIUM IV 40 MG VIAL IV PUSH (10:24)
[2024-01-04 11:23] LABS: Glucose Point of Care 118 mg/dl (65-105)
--- NOTE | 2024-01-04 12:23 | P.PNIM_ITS ---
Progress Note: A&P Assessment and Plan (1) Acute UTI: Code(s): N39.0 - Urinary tract infection, site not specified Status: Acute Assessment and Plan: * Pt with history of ESBL Staph species, E.coli and Proteus * Await cultures, of blood and Urine * Continue Meropenem, treatment day #2 * Monitor labs and VS. * Not meeting Sepsis criteria. * 01/04/24: Urine culture has grown out E.coli with limited sensitivity. Infection is sensitive to Meropenem which she is currently receiving. Will continue with meropenem for now and re-evaluate whether there is any improvement in her overall Mental status, and whether or not she begins eating enough to sustain hydration. (2) Generalized weakness: Code(s): R53.1 - Weakness Status: Acute Assessment and Plan: * Secondary to problem #1 (3) Failure to thrive in adult: Code(s): R62.7 - Adult failure to thrive Status: Acute Assessment and Plan: * Pt with poor intake. Eating only a few bites of meals despite being fed and offering food. * Will start to accurately record her I&O * Provide protein supplementation with ensure * Daily weights * Calorie count * Dietary consult * If unsuccessful in the setting of her chronic dementia and chronic disease, may consider discussing with POA initiation of artificial nutrition and/or palliative care. (4) GERD (gastroesophageal reflux disease): Code(s): K21.9 - Gastro-esophageal reflux disease without esophagitis Status: Acute Assessment and Plan: * Continue Pantoprazole switched to IV. 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 * If pt not eating, may hold insulin. * 01/04/2024: Pt's glucose has been maintained, but her appetite is very poor. She only takes a few bites according to nursing staff. If pt does not eat, we may hold and then adjust insulin as necessary, but otherwise continue to give. She has not had any hypoglycemic episodes to this point. (6) Acute metabolic encephalopathy: Code(s): G93.41 - Metabolic encephalopathy Status: Acute Assessment and Plan: * Secondary to problem #1 (7) Hypertension: Code(s): I10 - Essential (primary) hypertension Status: Chronic Assessment and Plan: * Pt is refusing po meds, and will not open her mouth to take them. * Change prn IV Hydralazine to scheduled IV with parameters for holding. Pulse stable. Time Spent With Patient Time with patient: 25 - 35 minutes Subjective Date/time seen: 01/04/24 1130 Interval history: This pt was examined at the bedside today in interval assessment after being admitted to the hospital for treatment of UTI and found to have increased AMS beyond what is her baseline. At baseline she is non-verbal and occasionally nods appropriately, but is not consistent. Her Urine culture returned positive today for E.coli with limited sensitivity. She has had hx of E.coli ESBL in the past requiring Meropenem and it is currently sensitive to it n
--- NOTE | 2024-01-04 12:23 | PM.IMPN ---
Progress Note: A&P Assessment and Plan (1) Acute UTI: Code(s): N39.0 - Urinary tract infection, site not specified Status: Acute Assessment and Plan: Pt with history of ESBL Staph species, E.coli and Proteus Await cultures, of blood and Urine Continue Meropenem, treatment day #2 Monitor labs and VS. Not meeting Sepsis criteria. 01/04/24: Urine culture has grown out E.coli with limited sensitivity. Infection is sensitive to Meropenem which she is currently receiving. Will continue with meropenem for now and re-evaluate whether there is any improvement in her overall Mental status, and whether or not she begins eating enough to sustain hydration. (2) Generalized weakness: Code(s): R53.1 - Weakness Status: Acute Assessment and Plan: Secondary to problem #1 (3) Failure to thrive in adult: Code(s): R62.7 - Adult failure to thrive Status: Acute Assessment and Plan: Pt with poor intake. Eating only a few bites of meals despite being fed and offering food. Will start to accurately record her I&O Provide protein supplementation with ensure Daily weights Calorie count Dietary consult If unsuccessful in the setting of her chronic dementia and chronic disease, may consider discussing with POA initiation of artificial nutrition and/or palliative care. (4) GERD (gastroesophageal reflux disease): Code(s): K21.9 - Gastro-esophageal reflux disease without esophagitis Status: Acute Assessment and Plan: Continue Pantoprazole switched to IV. 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 If pt not eating, may hold insulin. 01/04/2024: Pt's glucose has been maintained, but her appetite is very poor. She only takes a few bites according to nursing staff. If pt does not eat, we may hold and then adjust insulin as necessary, but otherwise continue to give. She has not had any hypoglycemic episodes to this point. (6) Acute metabolic encephalopathy: Code(s): G93.41 - Metabolic encephalopathy Status: Acute Assessment and Plan: Secondary to problem #1 (7) Hypertension: Code(s): I10 - Essential (primary) hypertension Status: Chronic Assessment and Plan: Pt is refusing po meds, and will not open her mouth to take them. Change prn IV Hydralazine to scheduled IV with parameters for holding. Pulse stable. Time Spent With Patient Time with patient: 25 - 35 minutes Subjective Date/time seen: 01/04/24 1130 Interval history: This pt was examined at the bedside today in interval assessment after being admitted to the hospital for treatment of UTI and found to have increased AMS beyond what is her baseline. At baseline she is non-verbal and occasionally nods appropriately, but is not consistent. Her Urine culture returned positive today for E.coli with limited sensitivity. She has had hx of E.coli ESBL in the past requiring Meropenem and it is currently sensitive to it now, so we will continue. Pt is having elevated BP, but is refusing her oral meds. We have transitioned as many of her oral meds to IV as possible at this time. Her appetite is decreased, taking only a couple of bites of food with her meals. She does not appear to be in any acute distress, but is unable to give any ROS. Review of Systems Review of Systems: ROS unobtainable: Yes unobtainable
--- NOTE | 2024-01-04 14:17 | PC.NURSE ---
On 01/04/24, the SEED CORN MANAGER PRODUCTION, Licha, provided care and completed [facility] patient. I have reviewed the SEED CORN MANAGER PRODUCTION's documentation and agree with the findings.
[2024-01-04 16:50] LABS: Glucose Point of Care 106 mg/dl (65-105)
[2024-01-04 21:20] LABS: Glucose Point of Care 92 mg/dl (65-105)
[2024-01-05] VITALS (7 sets, daily range): BP systolic 121–163; BP diastolic 53–117; PULSE 91–119; RESP 16–20; TEMP 36.4–36.9; O2SAT 97–99; BMI 25.8
[2024-01-05 06:37] LABS: Basophils Absolute Auto 0.1 K/mm3 (0.0-0.1); Basophils Percent Auto 0.6 % (0.2-1.2); Eosinophils Absolute Auto 0.3 K/mm3 (0-0.3); Hematocrit 46.1 % (37.0-47.0); Hemoglobin 15.6 g/dL (12.0-15.0); Immature Granulocyte Absolute 0.05 K/mm3 (0.00-0.031); Immature Granulocyte Percent A 0.5 % (0-0.5); Lymphocytes Percent Auto 16.9 % (18.3-44.2); Mean Corpuscular HGB Conc 33.8 g/dl (32-36); Mean Corpuscular Hemoglobin 29.2 pg (26-34); Mean Corpuscular Volume 86.3 fl (80-100); Mean Platelet Volume 11.9 fl (7.4-10.4); Monocytes Absolute Auto 0.6 K/mm3 (0.1-0.6); Monocytes Percent Auto 6.6 % (2.6-8.5); Neutrophils Absolute Auto 6.8 K/mm3 (1.3-6.7); Neutrophils Percent Auto 72.4 % (45.5-73.1); Platelet Count Result 280 k/mm3 (150-375); Red Blood Count 5.34 M/mm3 (4.2-5.4); Red Cell Distribution Width 12.9 % (11.5-14.5); White Blood Count 9.5 K/mm3 (4.5-10.0)
[2024-01-05 06:57] LABS: Alanine Aminotransferase 23 U/L (6-35); Alkaline Phosphatase 76 U/L (38-126); Anion Gap 9 mmol/L (8-16); Aspartate Amino Transferase 38 U/L (14-36); Bilirubin,Total 1.3 mg/dL (0.2-1.3); Blood Urea Nitrogen 4 mg/dL (7-17); Calcium 10.2 mg/dL (8.4-10.2); Carbon Dioxide 26 mmol/L (22-30); Chloride 104 mmol/L (98-107); Estimated CRCL calculation 66 ml/min; Estimated Glomerular Filt Rate > 60; Glucose 124 mg/dL (65-110); Magnesium 1.7 mg/dL (1.6-2.3); Potassium 3.5 mmol/L (3.4-5.0); Sodium 139 mmol/L (137-145)
[2024-01-05 07:59] LABS: Glucose Point of Care 117 mg/dl (65-105)
[2024-01-05] MEDS: VITAMIN B COMPLEX CAPSULE 1 CAP PO (09:31)
[2024-01-05] MEDS: GABAPENTIN 300 MG CAPSULE PO (09:32)
[2024-01-05] MEDS: METOPROLOL SUCCINATE EXT REL 50 MG TABCR 100 MG PO (09:32)
[2024-01-05] MEDS: ACIDOPHILUS/BULGARICUS CHEWABLE TABLET 1 TABLET PO (09:32)
[2024-01-05] MEDS: busPIRone HCL 10 MG TABLET PO ×2 (09:32→14:25)
[2024-01-05] MEDS: MELOXICAM 7.5 MG TABLET PO (09:32)
[2024-01-05] MEDS: QUEtiapine FUMARATE 25 MG TABLET PO (09:32)
[2024-01-05] MEDS: LOSARTAN POTASSIUM 100 MG TABLET PO (09:34)
[2024-01-05] MEDS: ENOXAPARIN 40 MG/0.4 ML SYRINGE SUB-Q (09:43)
[2024-01-05] MEDS: ERGOCALCIFEROL 50,000 UNITS CAPSULE 50000 UNITS PO (09:43)
[2024-01-05 11:37] LABS: Glucose Point of Care 295 mg/dl (65-105)
[2024-01-05] MEDS: MEROPENEM 1 GM/NS 100 ML 1 GM/100 ML BAG IVPB ×2 (12:02→17:44)
[2024-01-05] MEDS: INSULIN ASPART (*BKC) 100 UNITS/ML SUB-Q ×2 (12:05→17:44)
[2024-01-05] MEDS: LORazepam INJ (*CRX) 2 MG/ML VIAL 0.5 MG IV PUSH ×2 (14:23→17:45)
[2024-01-05] MEDS: hydrALAZINE HCL 20 MG/ML VIAL IV PUSH (14:24)
--- NOTE | 2024-01-05 15:50 | PC.NURSE ---
On 01/03/24, the MANAGER ACQUISITION, Licha, provided care and completed [facility] on this patient. I have reviewed the MANAGER ACQUISITION's documentation and agree with the findings.
--- NOTE | 2024-01-05 16:29 | P.PNIM_ITS ---
Progress Note: A&P Assessment and Plan (1) Acute UTI: Code(s): N39.0 - Urinary tract infection, site not specified Status: Acute Assessment and Plan: 01/03/24: * Pt with history of ESBL Staph species, E.coli and Proteus * Await cultures, of blood and Urine * Continue Meropenem, treatment day #2 * Monitor labs and VS. * Not meeting Sepsis criteria. 01/04/24: * Urine culture has grown out E.coli with limited sensitivity. Infection is sensitive to Meropenem which she is currently receiving. Will continue with meropenem for now and re-evaluate whether there is any improvement in her over all Mental status, and whether or not she begins eating enough to sustain hydration. 01/05/24: * Treating ESBL in urine * Continue with Meropenem today, will switch to Ertapenem tomorrow for discharge considering it is once a day * Will need 12 more days of IV antibiotics * Place PICC line for outpatient antibiotic use (2) Generalized weakness: Code(s): R53.1 - Weakness Status: Acute Assessment and Plan: 01/03/24: * Secondary to problem #1 01/05/24: * Wheelchair bound at senior care (3) Failure to thrive in adult: Code(s): R62.7 - Adult failure to thrive Status: Acute Assessment and Plan: 01/03/24: * Pt with poor intake. Eating only a few bites of meals despite being fed and offering food. * Will start to accurately record her I&O * Provide protein supplementation with ensure * Daily weights * Calorie count * Dietary consult * If unsuccessful in the setting of her chronic dementia and chronic disease, may consider discussing with POA initiation of artificial nutrition and/or palliative care. 01/05/24: * no change to current treatment plan (4) GERD (gastroesophageal reflux disease): Code(s): K21.9 - Gastro-esophageal reflux disease without esophagitis Status: Acute Assessment and Plan: 01/03/24: * Continue Pantoprazole switched to IV. 01/05/24: * No change to current treatment plan (5) Diabetes mellitus: Qualifiers: Diabetes mellitus type: type 2 Diabetes mellitus retirement insulin use: with retirement use Diabetes mellitus complication status: without complication Qualified Code(s): E11.9 - Type 2 diabetes mellitus without complications; Z79.4 - long-term (current) use of insulin Code(s): E11.9 - Type 2 diabetes mellitus without complications Status: Chronic Assessment and Plan: 01/03/24: * Continue glucose checks * Continue heart healthy diet * Continue Hypoglycemic protocol * Continue home dose of Lantus at 35 units HS * Continue SSI Low dose * Continue 5 units Humalog with meals. * If pt not eating, may hold insulin. * 01/04/2024: Pt's glucose has been maintained, but her appetite is very poor. She only takes a few bites according to nursing staff. If pt does not eat, we may hold and then adjust insulin as necessary, but otherwise continue to give. She has not had any hypoglycemic episodes to this point. 01/05/24: * No change to current treatment plan (6) Hypertension: Code(s): I10 - Essential (primary) hypertension Status: Chronic Assessment and Plan: 01/03/24: * Pt is refusing po meds, and will not open her mouth to take them. * Change prn IV Hydralazine to scheduled IV with parameters for holding. Pulse stable. 01/05/24: * No change to current treatment plan (7) Acute metabolic encephalopathy: Code(s): G93.41 - Metabolic encephalopathy Status: Acute Assess
--- NOTE | 2024-01-05 16:29 | PM.IMPN ---
Progress Note: A&P Assessment and Plan (1) Acute UTI: Code(s): N39.0 - Urinary tract infection, site not specified Status: Acute Assessment and Plan: 01/03/24: Pt with history of ESBL Staph species, E.coli and Proteus Await cultures, of blood and Urine Continue Meropenem, treatment day #2 Monitor labs and VS. Not meeting Sepsis criteria. 01/04/24: Urine culture has grown out E.coli with limited sensitivity. Infection is sensitive to Meropenem which she is currently receiving. Will continue with meropenem for now and re-evaluate whether there is any improvement in her overall Mental status, and whether or not she begins eating enough to sustain hydration. 01/05/24: Treating ESBL in urine Continue with Meropenem today, will switch to Ertapenem tomorrow for discharge considering it is once a day Will need 12 more days of IV antibiotics Place PICC line for outpatient antibiotic use (2) Generalized weakness: Code(s): R53.1 - Weakness Status: Acute Assessment and Plan: 01/03/24: Secondary to problem #1 01/05/24: Wheelchair bound at retirement (3) Failure to thrive in adult: Code(s): R62.7 - Adult failure to thrive Status: Acute Assessment and Plan: 01/03/24: Pt with poor intake. Eating only a few bites of meals despite being fed and offering food. Will start to accurately record her I&O Provide protein supplementation with ensure Daily weights Calorie count Dietary consult If unsuccessful in the setting of her chronic dementia and chronic disease, may consider discussing with POA initiation of artificial nutrition and/or palliative care. 01/05/24: no change to current treatment plan (4) GERD (gastroesophageal reflux disease): Code(s): K21.9 - Gastro-esophageal reflux disease without esophagitis Status: Acute Assessment and Plan: 01/03/24: Continue Pantoprazole switched to IV. 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 If pt not eating, may hold insulin. 01/04/2024: Pt's glucose has been maintained, but her appetite is very poor. She only takes a few bites according to nursing staff. If pt does not eat, we may hold and then adjust insulin as necessary, but otherwise continue to give. She has not had any hypoglycemic episodes to this point. 01/05/24: No change to current treatment plan (6) Hypertension: Code(s): I10 - Essential (primary) hypertension Status: Chronic Assessment and Plan: 01/03/24: Pt is refusing po meds, and will not open her mouth to take them. Change prn IV Hydralazine to scheduled IV with parameters for holding. Pulse stable. 01/05/24: No change to current treatment plan (7) Acute metabolic encephalopathy: Code(s): G93.41 - Metabolic encephalopathy Status: Acute Assessment and Plan: Secondary to problem #1 Time Spent With Patient Time with patient: Greater than 35 minutes Subjective Date/time seen: 01/05/24 16:29 Interval history: 01/04/24: This pt was examined at the bedside today in interval assessment after being admitted to the hospital for treatment of UTI and found to have increased AMS beyond what is her baseline. At baseline she is non-verbal and occasionally nods appropriately, but is not consistent. Her Urine
[2024-01-05 16:47] LABS: Glucose Point of Care 325 mg/dl (65-105)
[2024-01-05 20:19] LABS: Glucose Point of Care 383 mg/dl (65-105)
[2024-01-05] MEDS: INSULIN GLARGINE (*BKC) 100 UNITS/ML 35 UNITS SUB-Q (20:24)
[2024-01-05] MEDS: traZODone HCL 50 MG TABLET 150 MG PO (20:24)
[2024-01-06 05:04] VITALS: BP 145/80; PULSE 99; RESP 18; TEMP 36.9; O2SAT 97
[2024-01-06] MEDS: SUCRALFATE SUSP 100 MG/ML 10 ML UDC 1000 MG PO (06:00)
--- NOTE | 2024-01-06 06:43 | PC.NURSE ---
Ngoc from vascular access requesting midline not PICC line for this patient to discharge with output IV abt therapy.
[2024-01-06 07:28] LABS: Basophils Absolute Auto 0.1 K/mm3 (0.0-0.1); Basophils Percent Auto 0.8 % (0.2-1.2); Eosinophils Absolute Auto 0.1 K/mm3 (0-0.3); Eosinophils Percent Auto 2.1 % (0-4.4); Hematocrit 41.8 % (37.0-47.0); Hemoglobin 13.2 g/dL (12.0-15.0); Immature Granulocyte Absolute 0.02 K/mm3 (0.00-0.031); Immature Granulocyte Percent A 0.3 % (0-0.5); Lymphocytes Absolute Auto 1.43 K/mm3 (0.9-3.2); Lymphocytes Percent Auto 23.2 % (18.3-44.2); Mean Corpuscular HGB Conc 31.6 g/dl (32-36); Mean Corpuscular Hemoglobin 28.6 pg (26-34); Mean Corpuscular Volume 90.7 fl (80-100); Mean Platelet Volume 12.4 fl (7.4-10.4); Monocytes Absolute Auto 0.7 K/mm3 (0.1-0.6); Monocytes Percent Auto 11.4 % (2.6-8.5); Neutrophils Absolute Auto 3.8 K/mm3 (1.3-6.7); Neutrophils Percent Auto 62.2 % (45.5-73.1); Platelet Count Result 217 k/mm3 (150-375); Red Blood Count 4.61 M/mm3 (4.2-5.4); Red Cell Distribution Width 13.4 % (11.5-14.5); White Blood Count 6.2 K/mm3 (4.5-10.0)
[2024-01-06 07:54] LABS: Alanine Aminotransferase 18 U/L (6-35); Albumin Level 3.2 g/dL (3.5-5.1); Alkaline Phosphatase 76 U/L (38-126); Anion Gap 7 mmol/L (8-16); Aspartate Amino Transferase 25 U/L (14-36); Bilirubin,Total 0.9 mg/dL (0.2-1.3); Blood Urea Nitrogen 16 mg/dL (7-17); Calcium 9.8 mg/dL (8.4-10.2); Carbon Dioxide 24 mmol/L (22-30); Chloride 105 mmol/L (98-107); Estimated CRCL calculation 58 ml/min; Estimated Glomerular Filt Rate > 60; Glucose 296 mg/dL (65-110); Potassium 3.4 mmol/L (3.4-5.0); Sodium 136 mmol/L (137-145)
[2024-01-06] MEDS: LORazepam INJ (*CRX) 2 MG/ML VIAL 0.5 MG IV PUSH (08:01)
[2024-01-06 08:10] LABS: Glucose Point of Care 268 mg/dl (65-105)
[2024-01-06] MEDS: LIDOCAINE HCL 1% LOCAL INJ 2 ML AMPUL 5 ML INFILTRATE (08:10)
--- NOTE | 2024-01-06 09:00 | PC.NURSE ---
Scheduled Ativan 0.5mg IVP given prior to Midline insertion. Patient asleep, unable to take oral morning medications at this time.
[2024-01-06] MEDS: ERTAPENEM 1 GM/NS 50 ML 1 GM/50 ML BAG IVPB (09:11)
[2024-01-06] MEDS: ENOXAPARIN 40 MG/0.4 ML SYRINGE SUB-Q (09:14)
[2024-01-06] MEDS: PANTOPRAZOLE SODIUM IV 40 MG VIAL IV PUSH (09:14)
--- NOTE | 2024-01-06 09:17 | PM.DS ---
DS: Admitting Diagnosis Discharge Date 01/06/24 Admitting Diagnosis Acute Urinary tract infection Generalized weakness Metabolic encephalopathy GERD DS: Discharge Diagnosis Discharge Diagnosis (1) Acute UTI: Code(s): N39.0 - Urinary tract infection, site not specified Status: Acute (2) Generalized weakness: Code(s): R53.1 - Weakness Status: Acute (3) Failure to thrive in adult: Code(s): R62.7 - Adult failure to thrive Status: Acute (4) GERD (gastroesophageal reflux disease): Code(s): K21.9 - Gastro-esophageal reflux disease without esophagitis Status: Acute (5) Diabetes mellitus: Qualifiers: Diabetes mellitus complication status: without complication Diabetes mellitus longterm insulin use: 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 Diabetes mellitus type: type 2 Qualified Code(s): E11.9 - Type 2 diabetes mellitus without complications; Z79.4 - exterminator termite (current) use of insulin Code(s): E11.9 - Type 2 diabetes mellitus without complications Status: Chronic (6) Hypertension: Code(s): I10 - Essential (primary) hypertension Status: Chronic (7) Acute metabolic encephalopathy: Code(s): G93.41 - Metabolic encephalopathy Status: Acute DS: Summary Hospital Course Reason for hospitalization: Acute urinary tract infection Generalized weakness Acute metabolic encephalopathy GERD Hospital Course: Interval history: 01/04/24: This pt was examined at the bedside today in interval assessment after being admitted to the hospital for treatment of UTI and found to have increased AMS beyond what is her baseline. At baseline she is non-verbal and occasionally nods appropriately, but is not consistent. Her Urine culture returned positive today for E.coli with limited sensitivity. She has had hx of E.coli ESBL in the past requiring Meropenem and it is currently sensitive to it now, so we will continue. Pt is having elevated BP, but is refusing her oral meds. We have transitioned as many of her oral meds to IV as possible at this time. Her appetite is decreased, taking only a couple of bites of food with her meals. She does not appear to be in any acute distress, but is unable to give any ROS. 01/05/24: On examination today patient is alert and lying in the bed. Labs today essentially unremarkable. She is undergoing treatment for ESBL in the urine. Blood cultures showing no growth.? She was currently on Meropenem and we will switch to Ertapenem tomorrow for discharge back to facility after PICC has been placed. She will need a total of 12 more doses of IV Ertapenem. She will discharge back to facility tomorrow.? ? 01/06/24: On examination today patient is resting in the bed. Midline was placed today. Meropenem switched to Ertapenem today. Labs today essentially unremarkable. Blood cultures showing no growth to date. Patient is stable for discharge back to her facility today and will require 12 more days of IV antibiotics for her ESBL in the urine. Final diagnosis: Acute UTI, ESBL Status at Discharge Cognitive/behavioral status at discharge: Alert and oriented x1 Functional status at discharge: wheelchair bound Overall status at discharge: patient is progressing back to baseline Time Spent with Patient Time attestation: Total time spent providing and/or coordinating discharge services: Time spent: Greater than 30 minutes Exam Narrative: General: In no acute distress, well nourished Head: atraumatic, no encephalopathy Eyes: EOMI, PERRLA, sclera clear ENT: moist mucous membranes, nasal passages clear Neck: supple, no JVD, no adenopathy, trachea midline Cardiac: Normal S1 and S2. No murmur, gallops or friction rubs, peripheral pulses intact. Respiratory: Lungs clear to auscultation, no adventitious lung sounds, currently on room air Gastrointestinal: soft, non-distended, non-tender, normoactive bowel sounds. : Purewick in place, urine thick and purulent Extremit
[2024-01-06] MEDS: INSULIN ASPART (*BKC) 100 UNITS/ML SUB-Q ×2 (09:18→11:50)
[2024-01-06] MEDS: busPIRone HCL 10 MG TABLET PO (10:18)
[2024-01-06] MEDS: QUEtiapine FUMARATE 25 MG TABLET PO (10:18)
[2024-01-06] MEDS: GABAPENTIN 300 MG CAPSULE PO (10:18)
--- NOTE | 2024-01-06 10:21 | PC.NURSE ---
Combative. Unable to administer morning medication.
[2024-01-06 11:21] LABS: Glucose Point of Care 230 mg/dl (65-105)
[2024-01-06 12:55] VITALS: BP 166/98; PULSE 102; RESP 20; TEMP 36.5; O2SAT 98
--- NOTE | 2024-01-06 13:12 | PC.NURSE ---
Update on antibiotic regimen given per telephone to [facility] RN. Explained physician is ordering Ertapenem 1 gm IV q24h for 8 doses total. ANNIKA Souza verbalized understanding of information discussed.
[2024-01-06] MEDS: hydrALAZINE HCL 20 MG/ML VIAL IV PUSH (13:26)
[2024-01-06] MEDS: SALINE LOCK FLUSH 10 ML IV PUSH (13:26)
[2024-01-06 14:00] VITALS: BP 150/76
== END 2024-01-06 15:30 | DRG 689 ==
LOC: ANHED 01-03 01:05 → ANH3MEDSUR 01-03 02:21
PROVIDERS: Nurse Practitioner Acute Care; Admitting Provider Internal Medicine; Emergency Provider Emergency Medicine; PCP Hospitalist; Visit Provider Nurse Practitioner Adult Health
DX: N39.0 Urinary tract infection, site not specified (principal); G93.41 Metabolic encephalopathy; Z16.12 Extended spectrum beta lactamase (ESBL) resistance; R62.7 Adult failure to thrive; B96.20 Unspecified Escherichia coli [E. coli] as the cause of diseases classified elsewhere; B96.89 Other specified bacterial agents as the cause of diseases classified elsewhere; E78.5 Hyperlipidemia, unspecified; E11.42 Type 2 diabetes mellitus with diabetic polyneuropathy; I10 Essential (primary) hypertension; F41.9 Anxiety disorder, unspecified; K21.9 Gastro-esophageal reflux disease without esophagitis; K59.09 Other constipation; Z79.4 Long term (current) use of insulin; Z99.3 Dependence on wheelchair; Z85.3 Personal history of malignant neoplasm of breast; Z98.41 Cataract extraction status, right eye; Z98.42 Cataract extraction status, left eye; Z90.710 Acquired absence of both cervix and uterus; Z90.49 Acquired absence of other specified parts of digestive tract; Z90.11 Acquired absence of right breast and nipple
CPT/HCPCS: 36415; 36569; 71045; 71250; 74176; 80048; 80053; 81001; 82948; 83605; 83735; 84145; 84484; 85025; 85610; 85730; 87040; 87086; 87186; 87637; 93005; 96361; 99285; A9270; C9113; G0378; J0360; J1335; J1650; J1815; J2060; J2185; J7030

== ENCOUNTER 2024-04-03 12:46 | Inpatient (IN) | payer MEDICARE, MEDICAID, SELFPAY ==
[2024-04-03] VITALS (10 sets, daily range): BP systolic 133–181; BP diastolic 70–94; PULSE 87–104; RESP 12–21; TEMP 36.4–37.2; O2SAT 98–100
--- NOTE | ~2024-04-03 | CT_ITS ---
EXAMINATION: CT brain wo con DATE: 04/03/2024 14:00 INDICATION: fall . TECHNIQUE: Computed tomography (CT) of the head was performed without intravenous contrast. The mA wa s adjusted according to patient size. Iterative reconstruction technique was employed. The dose-lengt h product was 681.00 mGy-cm. COMPARISON: 10/22/2023. FINDINGS: No acute intracranial hemorrhage or extra-axial fluid collection. No hydrocephalus, mass, or herniation. No acute ischemic infarct. Unremarkable dural venous sinus attenuation. No acute osseous abnormality. Frontal scalp contusion/laceration. Left mastoid fluid, minimal ethmoid mucosal thickening, the remaining aerated spaces are clear. Moderate atrophy and chronic white matter change. Atherosclerotic intracranial calcification. Bilater al lens replacements. Small old bilateral basal ganglia lacunar infarct. Bilateral basal ganglia calc ifications. IMPRESSION: No acute intracranial process. Reviewed, dictated and finalized at location K.
--- NOTE | ~2024-04-03 | XR_ITS ---
XR chest 1V DATE: 04/03/2024 13:38 INDICATION: Unwitnessed ground level fall. TECHNIQUE: AP chest COMPARISON: January 06, 2024 portable AP chest January 02, 2024 CT chest abdomen pelvis FINDINGS: There is mild atelectasis or infiltrate at the lung bases, left greater than right. The jay gs otherwise appear clear. Heart size is within normal range. There is aortic arch calcification. No hilar or mediastinal enlarg ement is noted. No pleural effusion or pulmonary vascular congestion or pneumothorax. Surgical clips from right axillary node dissection are noted. Right breast implant reconstruction. Suture anchors are noted at the right humeral head. Status post cholecystectomy. IMPRESSION: Mild infiltrate or atelectasis at the lung bases, left greater than right Reviewed, dictated and finalized at location A.
--- NOTE | ~2024-04-03 | CT_ITS ---
EXAMINATION: CT facial & cervical spine wo DATE: 04/03/2024 14:00 INDICATION: fall TECHNIQUE: Computed tomography (CT) of the maxillofacial region and cervical spine was performed with out intravenous contrast. Automated exposure control and iterative reconstruction technique were empl oyed. The dose-length product was 325.20 mGy-cm. COMPARISON: 07/23/2021 FINDINGS: CERVICAL: Vertebral Body Alignment: Intact. Reversed lordosis centered at C5-6 Craniocervical and atlantoaxial alignment: Moderate degenerative change. Alignment intact. Osseous structures/fracture: No evidence of a lytic or blastic process in the visualized spine. No e vidence of acute fracture. Chronic fusion spanning C4-C7. Laminectomy spanning C1-C5. Cervical soft tissues: The paraspinal soft tissues planes are maintained. Degenerative changes: Degenerative changes, without severe neural foraminal or central canal narrowin g. FACE: Soft Tissues: No significant superficial soft tissue swelling. Facial bones: No acute fracture. No lytic or blastic process. Eyes: The globes are intact. The soft tissue planes of the orbits are maintained. Paranasal Sinuses: Left mastoid fluid. Status post left mastoidectomy. Additional prior facial/sinus surgeries. Minimal scattered mucosal thickening. Foreign Bodies: No radiopaque foreign bodies. Other Findings: None. IMPRESSION: No acute fracture or traumatic malalignment in the cervical spine. No acute facial bone fracture. Reviewed, dictated and finalized at location K. IMPRESSION: No acute fracture or traumatic malalignment in the cervical spine. No acute fac ial bone fracture.
--- NOTE | ~2024-04-03 | XR_ITS ---
XR pelvis 1-2V DATE: 04/03/2024 13:38 INDICATION: Ground-level fall TECHNIQUE: AP pelvis COMPARISON: None FINDINGS: Status post posterior interbody surgical fusion at L4-5. Severe degenerative disc disease at L3-4 and L5-S1. Normal alignment of the pubic symphysis and sacroiliac joints. No pelvic fracture or bone destruction is detected. Mild osteoarthritis at the hip joints. IMPRESSION: No pelvic fracture Status post posterior and interbody spinal fusion at L4-5 Severe degenerative disc disease at L3-4 and L5-S1 Reviewed, dictated and finalized at location A.
--- NOTE | ~2024-04-03 | CT_ITS ---
EXAMINATION: CT thoracic lumbar wo con DATE: 04/03/2024 14:01 INDICATION: fall . TECHNIQUE: Computed tomography (CT) of the thoracic and lumbar spine was performed without intravenou s contrast. Automated exposure control and iterative reconstruction technique were employed. The dose -length product was 1976.63 mGy-cm. COMPARISON: CT cap 01/02/2024. FINDINGS: THORACIC SPINE: Vertebral body alignment intact. Vertebral body heights preserved.. Moderate wedge deformity at T12. Multilevel moderate degenerative disc disease. Multilevel mild facet arthropathy. Diffusely decreased mineralization. Dependent scar/atelectasis. No severe central canal or neural foraminal narrowing. LUMBAR SPINE: 5 nonrib-bearing lumbar-type vertebral bodies. Pedicles intact. Uncomplicated appearing posterior L4- 5 fusion hardware and interbody device. Grade 1 anterolisthesis at L4-5. Grade 1 retrolisthesis at L5 -S1. Multilevel severe degenerative disc disease. Multilevel severe bilateral neural foraminal narrow ing. Multilevel laminectomies. IMPRESSION: No acute fracture or traumatic malalignment in the thoracic or lumbar spine. Reviewed, dictated and finalized at location K.
--- NOTE | 2024-04-03 12:53 | ECG_ITS ---
SEE SCANNED COPY FOR CONFIRMED REPORT MTDD
--- NOTE | 2024-04-03 12:55 | PC.NURSE ---
unable to verbalizes pain, c-collar applied on arrival to ED. collar intact
--- NOTE | 2024-04-03 13:14 | ED.FALL ---
HPI - Fall General Chief Complaint: Fall Stated Complaint: HEAD LAC S/P FALL Time Seen by Provider: 04/03/24 13:06 Source: EMS Mode of arrival: EMS Limitations: no limitations, dementia and other ( patient is nonverbal) History of Present Illness HPI Narrative: 79 years old white female came from long-term with unwitnessed ground fall, patient normally is nonverbal. Related Data Home Medications Medication Instructions Recorded Confirmed ondansetron 4 mg disintegrating 4 mg PO TID PRN Nausea And Vomiting 05/11/20 04/03/24 tablet vitamin B complex 1 tablet PO DAILY ##0 07/14/20 04/03/24 insulin glargine 100 unit/mL (3 35 unit subcut HS 07/31/20 04/03/24 mL) subcutaneous pen (Lantus Solostar U-100 Insulin) gabapentin 300 mg capsule 300 mg PO BID 03/20/21 04/03/24 lorazepam 1 mg tablet (Ativan) 0.5 mg PO TID 03/20/21 04/03/24 Lactobacillus acidophilus 10 mg PO DAILY ##0 11/24/22 04/03/24 buspirone 10 mg tablet 10 mg PO TID ##0 11/24/22 04/03/24 dicyclomine 10 mg capsule 10 mg PO Q6H PRN Diarrhea ##0 11/24/22 04/03/24 diphenhydramine HCl 25 mg tablet 25 mg PO Q6H PRN Itching ##0 11/24/22 04/03/24 ergocalciferol (vitamin D2) 1,250 1,250 mcg PO WEEKLY ##0 11/24/22 04/03/24 mcg (50,000 unit) capsule insulin lispro 100 unit/mL 5 unit subcut TIDWM 11/24/22 04/03/24 subcutaneous pen (Humalog KwikPen (U-100) Insulin) insulin lispro 100 unit/mL See Rx Instructions .Route .COMPLEX 11/24/22 04/03/24 subcutaneous pen (Humalog KwikPen (U-100) Insulin) loperamide 2 mg tablet 2 mg PO Q8H PRN Diarrhea ##0 11/24/22 04/03/24 losartan 100 mg tablet (Cozaar) 100 mg PO QAM ##0 11/24/22 04/03/24 magnesium hydroxide 400 mg/5 mL 30 ml PO HS PRN Constipation ##0 11/24/22 04/03/24 oral suspension meloxicam 7.5 mg tablet 7.5 mg PO DAILY ##0 11/24/22 04/03/24 polyethylene glycol 3350 17 gram 17 g PO DAILY PRN constipatipn ##0 11/24/22 04/03/24 oral powder packet quetiapine 25 mg tablet 25 mg PO BID 11/24/22 04/03/24 sucralfate 100 mg/mL oral 10 ml PO BID ##0 11/24/22 04/03/24 suspension trazodone 150 mg tablet 150 mg PO HS ##0 11/24/22 04/03/24 metoprolol succinate 50 mg 100 mg PO QAM 11/25/22 04/03/24 tablet,extended release 24 hr naloxone 4 mg/actuation nasal spray 4 mg intranasal Q3M PRN Opioid 01/03/24 04/03/24 Overdose tramadol 50 mg tablet 50 mg PO Q8H PRN Pain (Scale Score 01/03/24 04/03/24 4-6) Allergies Allergy/AdvReac Type Severity Reaction Status Date / Time caffeine Allergy Unknown Verified 01/02/24 20:28 chlordiazepoxide Allergy Unknown Verified 01/02/24 20:28 clidinium Allergy Unknown Verified 01/02/24 20:28 codeine Allergy Rash Verified 01/02/24 20:28 doxepin Allergy Unknown Verified 01/02/24 20:28 hydrocodone Allergy Rash Verified 01/02/24 20:28 hydromorphone [From Dilaudid] Allergy Unknown Verified 01/02/24 20:28 hydroxychloroquine Allergy Unknown Verified 01/02/24 20:28 morphine Allergy Rash Verified 01/02/24 20:28 sitagliptin [From Januvia] Allergy Rash Verified 01/02/24 20:28 Review of Systems Review of Systems: ROS unobtainable: Yes unobtainable due to medical condition and unobtainable due to mental status [facility] Past Medical History Medical History Anxiety disorder, unspecified Cancer of right breast Right mastectomy with chemo and radiation Dementia Diabetes mellitus With neuropathy Essential hypertension Failure to thrive in adult GERD (gastroesophageal reflux disease) Hyperlipidemia Meniere disease Rectal prolapse Surgical History Surgical History H/O cervical spine surgery History of bilateral cataract extraction History of hysterectomy History of lumbar surgery History of rectopexy rectal prolapse with repair February 2020 History of right mastectomy Hx of cholecystectomy Family History Family History Esteban
--- NOTE | 2024-04-03 13:17 | PC.NURSE ---
Nelda, patient's POA of healthcare called at [phone] and I gave her update.
[2024-04-03] MEDS: TETANUS,DIPHTHERIA,AC PERTUSSIS ADULT (0.5 ML) BOOSTRIX IM (14:05)
[2024-04-03 14:21] LABS: Basophils Absolute Auto 0.1 K/mm3 (0.0-0.1); Basophils Percent Auto 0.4 % (0.2-1.2); Eosinophils Absolute Auto 0.2 K/mm3 (0-0.3); Eosinophils Percent Auto 1.4 % (0-4.4); Hematocrit 40.9 % (37.0-47.0); Hemoglobin 13.2 g/dL (12.0-15.0); Immature Granulocyte Absolute 0.07 K/mm3 (0.00-0.031); Immature Granulocyte Percent A 0.6 % (0-0.5); Lymphocytes Absolute Auto 1.03 K/mm3 (0.9-3.2); Lymphocytes Percent Auto 8.6 % (18.3-44.2); Mean Corpuscular HGB Conc 32.3 g/dl (32-36); Mean Corpuscular Hemoglobin 28.7 pg (26-34); Mean Corpuscular Volume 88.9 fl (80-100); Mean Platelet Volume 11.2 fl (7.4-10.4); Monocytes Absolute Auto 0.6 K/mm3 (0.1-0.6); Monocytes Percent Auto 5.2 % (2.6-8.5); Neutrophils Absolute Auto 10.1 K/mm3 (1.3-6.7); Neutrophils Percent Auto 83.8 % (45.5-73.1); Platelet Count Result 272 k/mm3 (150-375); Red Cell Distribution Width 12.2 % (11.5-14.5)
[2024-04-03 14:33] LABS: Alanine Aminotransferase 19 U/L (6-35); Albumin Level 3.9 g/dL (3.5-5.1); Alkaline Phosphatase 138 U/L (38-126); Anion Gap 6 mmol/L (4-12); Aspartate Amino Transferase 23 U/L (14-36); Bilirubin,Total 0.7 mg/dL (0.2-1.3); Blood Urea Nitrogen 15 mg/dL (7-17); Calcium 10.2 mg/dL (8.4-10.2); Carbon Dioxide 29 mmol/L (22-30); Chloride 98 mmol/L (98-107); Estimated CRCL calculation 31 ml/min; Estimated Glomerular Filt Rate 43; Glucose 353 mg/dL (65-110); Potassium 4.6 mmol/L (3.4-5.0); Sodium 133 mmol/L (137-145)
[2024-04-03 15:39] LABS: Appearance Urine Turbid (Clear); Bacteria Urine 4+ /hpf; Bilirubin Urine Negative (Negative); Blood Urine 3+ (Negative); Color Urine Yellow (Yellow); Glucose Urine UA 1+ mg/dL (Negative); Ketones Urine Negative (Negative); Leukocyte Esterase Ur 3+ LEU/UL (Negative); Need Manual Microscopic Reviewed; Nitrate Urine Negative (Negative); Protein Urine 1+ mg/dL (Negative); RBC Urine 51-100 /hpf (0-2); Specific Grav Ur 1.012 (1.001-1.035); Squamous Epithelial Cell Urine Moderate /hpf (Few); WBC Urine >100 /hpf (0-3)
[2024-04-03 15:40] LABS: Add Urine Microscopic? YES
[2024-04-03 17:09] LABS: Lactic Acid Reflex 1.9 mmol/L (0.7-2.0)
--- NOTE | 2024-04-03 17:36 | PM.IMHP ---
H&P: HPI History of Present Illness Date/Time: 04/03/24 17:36 Chief Complaint: Fall, Possible UTI Narrative: 79 y/o F presents here with ground level fall and possible UTI with PMH of breast cancer (s/p right mastectomy, chemo, radiation), dementia, diabetes, HTN, ST-T, GERD, HLD, Meniere's, and rectal prolapse (s/p rectopexy). Patient presents here via EMS from [facility] for further evaluation after she sustained a unwitnessed ground level fall. Patient is essentially nonverbal at baseline and alert and orientated x0. Per staff report to EMS, patient initially had scant blood from right nare without active bleeding upon their arrival. Per daughter, patient will began to lean to 1 side and become more somnolent when she has a UTI. Patient somnolent today and leaning to one side without eye opening. Limited HPI due to patient condition, obtained through chart review and ED provider report. Initial VS at presentation: 97.9? F, HR 97, RR 21, 147/80, and 100% on RA. ED workup showed: WBC 12.0, no anemia, sodium 133, creatinine 1.2 and GFR 43 (creatinine previously 0.7 on 01/06/2024), glucose 353, and UA consistent with UTI. Trauma workup negative for injury or fracture, CXR showed mild infiltrate or atelectasis at the lung bases left greater than right that is new compared to prior. Review of Systems Review of Systems: All systems reviewed & are unremarkable except as noted in HPI and below PMFSH Past Medical History Medical History Anxiety disorder, unspecified Cancer of right breast Right mastectomy with chemo and radiation Dementia Diabetes mellitus With neuropathy Essential hypertension Failure to thrive in adult GERD (gastroesophageal reflux disease) Hyperlipidemia Meniere disease Rectal prolapse Surgical History Surgical History H/O cervical spine surgery History of bilateral cataract extraction History of hysterectomy History of lumbar surgery History of rectopexy rectal prolapse with repair February 2020 History of right mastectomy Hx of cholecystectomy Family History Family History Father Parkinsons Mother Alzheimer disease Social History Social History Social History: The patient resides at care center at [facility]. Primary care physician: Dr. Bhupendra Kerr Code status: Per state advanced directive form the patient is supposed to be a full code with only selective treatment. This will need to be clarified with family. The patient has a son and a daughter. She is estranged from the son. 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 To lifelong nonsmoker. She does not use any marijuana or illicit drugs. No alcohol. Smoking status: Never smoker Second hand tobacco smoke exposure: No Alcohol intake: never Substance use: never Substance use type: does not use Living arrangements: [facility] Gender identity (if verbalized by the patient): Female Spiritual care concerns: No Meds Home Medications and Allergies Home Medications Medication Instructions Recorded Confirmed Type ondansetron 4 mg disintegrating 4 mg PO TID PRN Nausea And Vomiting 05/11/20 04/03/24 History tablet vitamin B complex 1 tablet PO DAILY ##0 07/14/20 04/03/24 History insulin glargine 100 unit/mL (3 35 unit subcut HS 07/31/20 04/03/24 History mL) subcutaneous pen (Lantus Solostar U-100 Insulin) gabapentin 300 mg capsule 300 mg PO BID 03/20/21 04/03/24 History lorazepam 1 mg tablet (Ativan) 0.5 mg PO TID 03/20/21 04/03/24 History pantoprazole 40 mg tablet,delayed 40 mg PO QAM 4 weeks #28 tabs 03/24/21 04/03/24 Rx release Lactobacillus acidophilus 10 mg PO DAILY ##0 11/24/22 04/03/24 History buspirone 10 mg tablet 10 mg PO TID ##0 11/24/22 04/03/24 History dicyc
--- NOTE | 2024-04-03 18:16 | PC.NURSE ---
delay in patient getting upstairs due to needing ultrasound for IV.
[2024-04-03] MEDS: INSULIN HUMAN REGULAR (*BKC) 100 UNITS/ML 8 UNITS IV PUSH (18:34)
[2024-04-03] MEDS: SODIUM CHLORIDE 0.9% IV 1,000 ML 999 ML IV CONT (18:36)
--- NOTE | 2024-04-03 19:22 | ADMGEN ---
This patient, Naomi Govea, was admitted to [facility] Surg Room 317-01. Patient/family oriented to hospital policies and general routines including ID bracelet, bed and alarms, visiting hours, pain management, procedures, bathroom and other care routines, personal items, smoking policy, room service/diet, and visiting hours. Information on how to activate the Rapid Response Team has been discussed. Patient/Family are encouraged to report perceived risks to care and to ask questions if they do not understand what they are told or what they should do. patient non verbal, cleaned head off, PCT fed her some food. no family at bedside. IV fluids NS @125, patient on RA. report given to Ivania ROBLERO.
[2024-04-03 20:36] LABS: Glucose Point of Care 296 mg/dl (65-105)
[2024-04-04] MEDS: MEROPENEM 500 MG in SODIUM CHLORIDE 0.9% IV 100 ML 200 ML IVPB ×3 (01:08→17:03)
[2024-04-04 06:00] VITALS: BP 153/79; PULSE 100; RESP 16; TEMP 36.5; O2SAT 99
[2024-04-04 06:05] LABS: Basophils Absolute Auto 0.1 K/mm3 (0.0-0.1); Basophils Percent Auto 0.5 % (0.2-1.2); Eosinophils Absolute Auto 0.2 K/mm3 (0-0.3); Eosinophils Percent Auto 1.5 % (0-4.4); Hematocrit 38.8 % (37.0-47.0); Hemoglobin 12.2 g/dL (12.0-15.0); Immature Granulocyte Absolute 0.05 K/mm3 (0.00-0.031); Immature Granulocyte Percent A 0.5 % (0-0.5); Lymphocytes Absolute Auto 1.31 K/mm3 (0.9-3.2); Lymphocytes Percent Auto 13.2 % (18.3-44.2); Mean Corpuscular HGB Conc 31.4 g/dl (32-36); Mean Corpuscular Hemoglobin 28.6 pg (26-34); Mean Corpuscular Volume 90.9 fl (80-100); Mean Platelet Volume 11.4 fl (7.4-10.4); Monocytes Absolute Auto 0.7 K/mm3 (0.1-0.6); Monocytes Percent Auto 6.7 % (2.6-8.5); Neutrophils Absolute Auto 7.7 K/mm3 (1.3-6.7); Neutrophils Percent Auto 77.6 % (45.5-73.1); Platelet Count Result 245 k/mm3 (150-375); Red Blood Count 4.27 M/mm3 (4.2-5.4); Red Cell Distribution Width 12.1 % (11.5-14.5); White Blood Count 9.9 K/mm3 (4.5-10.0)
[2024-04-04 06:13] LABS: Alanine Aminotransferase 15 U/L (6-35); Albumin Level 3.5 g/dL (3.5-5.1); Alkaline Phosphatase 120 U/L (38-126); Anion Gap 7 mmol/L (4-12); Aspartate Amino Transferase 16 U/L (14-36); Bilirubin,Total 0.7 mg/dL (0.2-1.3); Blood Urea Nitrogen 13 mg/dL (7-17); Calcium 9.7 mg/dL (8.4-10.2); Carbon Dioxide 23 mmol/L (22-30); Chloride 107 mmol/L (98-107); Creatine Kinase 34 U/L (30-135); Estimated CRCL calculation 41 ml/min; Estimated Glomerular Filt Rate 60; Glucose 345 mg/dL (65-110); Potassium 4.1 mmol/L (3.4-5.0); Sodium 137 mmol/L (137-145)
[2024-04-04 06:24] LABS: Creatinine Urine 43.9 mg/dL; Sodium Urine Random 75 meq/L; Total Protein Urine Random 24 mg/dL; Ur Ttl Prot Creatinine Ratio 0.55 mg/mg (0-0.20)
[2024-04-04 07:45] LABS: Glucose Point of Care 313 mg/dl (65-105)
[2024-04-04 08:22] VITALS: O2SAT 97
[2024-04-04] MEDS: INSULIN ASPART (*BKC) 100 UNITS/ML SUB-Q ×8 (08:32→21:03)
[2024-04-04 08:34] VITALS: PULSE 100
[2024-04-04] MEDS: METOPROLOL SUCCINATE EXT REL 50 MG TABCR 100 MG PO (08:34)
[2024-04-04] MEDS: VITAMIN B COMPLEX CAPSULE 1 CAP PO (08:34)
[2024-04-04] MEDS: MELOXICAM 7.5 MG TABLET PO (08:34)
[2024-04-04] MEDS: QUEtiapine FUMARATE 25 MG TABLET PO ×2 (08:36→21:00)
[2024-04-04] MEDS: GABAPENTIN 300 MG CAPSULE PO ×2 (08:36→16:52)
[2024-04-04] MEDS: LORazepam (*CRX) 0.5 MG TABLET PO ×3 (08:36→16:52)
[2024-04-04] MEDS: ACIDOPHILUS/BULGARICUS CHEWABLE TABLET 1 TABLET PO (08:36)
[2024-04-04] MEDS: LOSARTAN POTASSIUM 100 MG TABLET PO (08:36)
[2024-04-04] MEDS: busPIRone HCL 10 MG TABLET PO ×3 (08:36→16:52)
[2024-04-04] MEDS: PANTOPRAZOLE 40 MG TABLET PO (08:36)
[2024-04-04] MEDS: SODIUM CHLORIDE 0.9% IV 1,000 ML 125 ML IV CONT (08:38)
[2024-04-04 11:23] LABS: Glucose Point of Care 435 mg/dl (65-105)
--- NOTE | 2024-04-04 12:17 | PM.IMPN ---
Progress Note: A&P Assessment and Plan (1) Fall: Code(s): W19.XXXA - Unspecified fall, initial encounter Status: Acute Assessment and Plan: - CT thoracic and lumbar spine: No acute fracture or traumatic malalignment in the thoracic or lumbar spine. - CT head/cervical spine/facial bones: No acute fracture or traumatic malalignment in the cervical spine. No acute facial bone fracture.? - CT head: No acute intracranial process. - CXR: Mild infiltrate or atelectasis at the lung bases, left greater than right - Pelvis XR: No pelvic fracture, Status post posterior and interbody spinal fusion at L4-5,Severe degenerative disc disease at L3-4 and L5-S1? - somnolent but otherwise at neuro baseline (2) SHELL (acute kidney injury): Code(s): N17.9 - Acute kidney failure, unspecified Status: Resolved Assessment and Plan: Creatinine 1.2 on admission - no previous hx of CKD - trend renal function - trend electrolytes, correct as needed - add CK, urine sodium, urine protein/creatinine - monitor I&Os - IV fluids - 04/04 BUN and Cr 13/0.9 Resolved. (3) Pneumonia: Code(s): J18.9 - Pneumonia, unspecified organism Status: Acute Assessment and Plan: - CXR: Mild infiltrate or atelectasis at the lung bases, left greater than right - risk factors: recent ABX use, lives [facility] - started on meropenem, has concurrent UTI with history of MDR UTI - MRSA PCR positive. Vancomycin started 04/04. - sputum culture if obtainable - no supplemental O2 requirement at this time (4) Acute UTI: Code(s): N39.0 - Urinary tract infection, site not specified Status: Acute Assessment and Plan: - UA: Turbid, 1+ protein, 1+ glucose, 3+ blood, 3+ leuks, 51-100 RBC, greater than 100 WBC, moderate epithelial cells, 4+ bacteria - UC pending - Hx of E. coli ESBL - started on Ceftriaxone on 04/03/2024, change to meropenem given hx of ESBL (5) Diabetes mellitus with hyperglycemia: Code(s): E11.65 - Type 2 diabetes mellitus with hyperglycemia Status: Acute Assessment and Plan: - hypoglycemia protocol - POC blood glucose ACHS - home medication: Sliding scale held, Lantus continued, lispro t.i.d. with meals continued - correct regimen ordered - low dose TIDWM and HS Subjective Date/time seen: 04/04/24 12:17 Interval history: patient A&O x0 Labs are improved today. Urine culture pending. She appears comfortable in bed. Continue current antibiotic therapy. Exam Narrative: GENERAL: Comfortable, no acute distress HENMT: moist mucous membranes EYES: EOM intact b/l NECK: no lymphadenopathy RESPIRATORY: clear to auscultation, no increased respiratory effort CARDIO: Regular rate and rhythm GI: soft, nontender, bowel sounds present SKIN/EXTREMITIES: no rashes, no edema, no redness or tenderness Objective Data Vital Signs Vital Signs: Vital Signs - 24 hr 04/03/24 12:44 04/03/24 14:54 04/03/24 13:00 Temperature 97.9 F Pulse Rate 97 99 Respiratory Rate 21 H 13 Blood Pressure 160/70 H 147/80 H Pulse Oximetry 100 100 100 Oxygen Delivery Room Air 04/03/24 13:15 04/03/24 15:21 04/03/24 16:01 Temperature Pulse Rate 94 87 Respiratory Rate 19 17 Blood Pressure 155/76 H 144/73 H Pulse Oximetry 100 99 100 Oxygen Delivery 04/03/24 16:31 04/03/24 17:32 04/03/24 19:02 Temperature 97.5 F L Pulse Rate 93 104 H 95 Respiratory Rate 18 15 12 Blood Pressure 133/89 181/91 H 158/94 H Pulse Oximetry 98 99 100 Oxygen Delivery 04/03/24 22:00 04/03/24 20:00 04/04/24 06:00 Temperature 98.9 F 97.7 F Pulse Rate 98 100 Respiratory Rate 18 16 Blood Pressure 148/80 H 153/79 H Pulse Oximetry 99 99 Oxygen Delivery Room Air 04/04/24 08:22 04/04/24 08:34 Temperature Pulse Rate 100 Respiratory Rate Blood Pressure Pulse Oximetry 97 Oxygen Delivery Room Air Intake/Output Intake/Output: Inta
[2024-04-04 12:27] LABS: MRSA (PCR) DETECTED (NOT DETECTE)
[2024-04-04] MEDS: VANCOMYCIN 2,000 MG/NS 500 ML 2,000 MG/500 ML BAG 250 MG IVPB (13:26)
[2024-04-04 14:00] VITALS: BP 155/91; PULSE 100; RESP 22; TEMP 36.6; O2SAT 100
[2024-04-04 16:37] LABS: Glucose Point of Care 330 mg/dl (65-105)
[2024-04-04] MEDS: traZODone HCL 50 MG TABLET 150 MG PO (20:59)
[2024-04-04] MEDS: INSULIN GLARGINE (*BKC) 100 UNITS/ML 35 UNITS SUB-Q (21:02)
[2024-04-04] MEDS: SUCRALFATE SUSP 100 MG/ML 10 ML UDC 1000 MG PO (21:02)
[2024-04-04 21:05] LABS: Glucose Point of Care 322 mg/dl (65-105)
[2024-04-04 21:12] VITALS: BP 154/74; PULSE 113; RESP 20; TEMP 37.3; O2SAT 95
[2024-04-05] VITALS: BP 151/86; PULSE 106; RESP 20; TEMP 37.1; O2SAT 98
[2024-04-05] MEDS: MEROPENEM 500 MG in SODIUM CHLORIDE 0.9% IV 100 ML 200 ML IVPB ×2 (01:05→09:09)
[2024-04-05 05:09] VITALS: BP 149/88; PULSE 108; RESP 20; TEMP 36.9; O2SAT 98
[2024-04-05 06:54] LABS: Hematocrit 34.4 % (37.0-47.0); Mean Corpuscular Hemoglobin 28.6 pg (26-34); Mean Corpuscular Volume 89.4 fl (80-100); Mean Platelet Volume 11.8 fl (7.4-10.4); Platelet Count Result 222 k/mm3 (150-375); Red Blood Count 3.85 M/mm3 (4.2-5.4); Red Cell Distribution Width 12.1 % (11.5-14.5); White Blood Count 7.8 K/mm3 (4.5-10.0)
[2024-04-05 07:20] LABS: Anion Gap 6 mmol/L (4-12); Blood Urea Nitrogen 16 mg/dL (7-17); Calcium 9.6 mg/dL (8.4-10.2); Carbon Dioxide 25 mmol/L (22-30); Chloride 106 mmol/L (98-107); Estimated CRCL calculation 41 ml/min; Estimated Glomerular Filt Rate 60; Glucose 386 mg/dL (65-110); Potassium 4.4 mmol/L (3.4-5.0); Sodium 137 mmol/L (137-145)
[2024-04-05 07:44] LABS: Glucose Point of Care 403 mg/dl (65-105)
[2024-04-05] MEDS: GABAPENTIN 300 MG CAPSULE PO ×2 (09:00→16:54)
[2024-04-05] MEDS: QUEtiapine FUMARATE 25 MG TABLET PO ×2 (09:00→19:55)
[2024-04-05] MEDS: LOSARTAN POTASSIUM 100 MG TABLET PO (09:00)
[2024-04-05] MEDS: LORazepam (*CRX) 0.5 MG TABLET PO ×2 (09:00→12:19)
[2024-04-05] MEDS: ERGOCALCIFEROL 50,000 UNITS CAPSULE 50000 UNITS PO (09:00)
[2024-04-05] MEDS: ACIDOPHILUS/BULGARICUS CHEWABLE TABLET 1 TABLET PO (09:00)
[2024-04-05] MEDS: VITAMIN B COMPLEX CAPSULE 1 CAP PO (09:00)
[2024-04-05 09:01] VITALS: PULSE 74
[2024-04-05] MEDS: PANTOPRAZOLE 40 MG TABLET PO (09:01)
[2024-04-05] MEDS: MELOXICAM 7.5 MG TABLET PO (09:01)
[2024-04-05] MEDS: busPIRone HCL 10 MG TABLET PO ×3 (09:01→16:54)
[2024-04-05] MEDS: METOPROLOL SUCCINATE EXT REL 50 MG TABCR 100 MG PO (09:01)
[2024-04-05] MEDS: SODIUM CHLORIDE 0.9% IV 1,000 ML 125 ML IV CONT (09:05)
[2024-04-05] MEDS: INSULIN GLARGINE (*BKC) 100 UNITS/ML 20 UNITS SUB-Q ×2 (09:08→20:00)
[2024-04-05] MEDS: SUCRALFATE SUSP 100 MG/ML 10 ML UDC 1000 MG PO ×2 (09:25→19:55)
[2024-04-05] MEDS: INSULIN ASPART (*BKC) 100 UNITS/ML SUB-Q ×6 (09:26→20:01)
[2024-04-05 11:19] LABS: Glucose Point of Care 333 mg/dl (65-105)
[2024-04-05 11:27] VITALS: BMI 33.3
[2024-04-05] MEDS: VANCOMYCIN 1,250 MG/NS 250 ML 1,250 MG/250 ML BAG 166.67 MG IVPB (12:21)
--- NOTE | 2024-04-05 12:55 | PCPTNOTE ---
per documentation, pt is nonverbal at baseline and A&Ox0, prior documentation (Dec 2023) states pt uses a [facility], per OT, today the pt would not respond or acknowledge any commands, notify therapy if status changes, spoke with Bethanie Moody about DC'ing PT/OT orders
--- NOTE | 2024-04-05 13:03 | PCOTNOTE ---
Attempted to evaluate pt. for occupational therapy . Per chart, pt is nonverbal at baseline and A&Ox0, prior documentation (Dec 2023) states pt uses [facility] shelter. Pt. unable to follow commands of demonstrate capacity for participation in therapy services at this time. Nursing aware. Hospitalist Bethanie Villalobos informed. Canceling orders.
--- NOTE | 2024-04-05 13:58 | PM.IMPN ---
Progress Note: A&P Assessment and Plan (1) Fall: Code(s): W19.XXXA - Unspecified fall, initial encounter Status: Acute Assessment and Plan: - CT thoracic and lumbar spine: No acute fracture or traumatic malalignment in the thoracic or lumbar spine. - CT head/cervical spine/facial bones: No acute fracture or traumatic malalignment in the cervical spine. No acute facial bone fracture.? - CT head: No acute intracranial process. - CXR: Mild infiltrate or atelectasis at the lung bases, left greater than right - Pelvis XR: No pelvic fracture, Status post posterior and interbody spinal fusion at L4-5,Severe degenerative disc disease at L3-4 and L5-S1? - somnolent but otherwise at neuro baseline (2) SHELL (acute kidney injury): Code(s): N17.9 - Acute kidney failure, unspecified Status: Resolved Assessment and Plan: Creatinine 1.2 on admission - no previous hx of CKD - trend renal function - trend electrolytes, correct as needed - add CK, urine sodium, urine protein/creatinine - monitor I&Os - IV fluids - 04/04 BUN and Cr 13/0.9 Resolved. (3) Pneumonia: Code(s): J18.9 - Pneumonia, unspecified organism Status: Acute Assessment and Plan: - CXR: Mild infiltrate or atelectasis at the lung bases, left greater than right - risk factors: recent ABX use, lives at care home - MRSA PCR positive. - sputum culture if obtainable - no supplemental O2 requirement at this time - Patient downgraded to doxy and Augmentin 04/05 (4) Acute UTI: Code(s): N39.0 - Urinary tract infection, site not specified Status: Acute Assessment and Plan: - UA: Turbid, 1+ protein, 1+ glucose, 3+ blood, 3+ leuks, 51-100 RBC, greater than 100 WBC, moderate epithelial cells, 4+ bacteria - UC no growth - Meropenem discontinued. (5) Diabetes mellitus with hyperglycemia: Code(s): E11.65 - Type 2 diabetes mellitus with hyperglycemia Status: Acute Assessment and Plan: - hypoglycemia protocol - POC blood glucose ACHS - home medication: Sliding scale held, Lantus continued, lispro t.i.d. with meals continued - correct regimen ordered - low dose TIDWM and HS Subjective Date/time seen: 04/05/24 13:58 Interval history: Patient is awake. She remains nonverbal. Her antibiotics were deceleration. Nurses claim she has been more sleepy. She is on many sedating medications. Her lorazepam was changed to p.r.n. and her Benadryl was discontinued. Exam Narrative: GENERAL: Comfortable, no acute distress HENMT: moist mucous membranes EYES: EOM intact b/l RESPIRATORY: clear to auscultation, no increased respiratory effort CARDIO: Regular rate and rhythm GI: soft, nontender, bowel sounds present SKIN/EXTREMITIES: no rashes, no edema, no redness or tenderness Objective Data Vital Signs Vital Signs: Vital Signs - 24 hr 04/04/24 14:00 04/04/24 21:12 04/04/24 20:00 Temperature 97.8 F 99.2 F Pulse Rate 100 113 H Respiratory Rate 22 H 20 Blood Pressure 155/91 H 154/74 H Pulse Oximetry 100 95 Oxygen Delivery Room Air 04/05/24 00:00 04/05/24 05:09 04/05/24 09:01 Temperature 98.7 F 98.5 F Pulse Rate 106 H 108 H 74 Respiratory Rate 20 20 Blood Pressure 151/86 H 149/88 H Pulse Oximetry 98 98 Oxygen Delivery Intake/Output Intake/Output: Intake & Output 04/02/24 04/03/24 04/04/24 04/05/24 23:59 23:59 23:59 23:59 Intake Total 3079 100 Output Total 400 600 900 Balance -400 2479 -800 Meds/Results Medications: Active Medications Generic Name Dose Route Start Last Admin Trade Name Tatianna PRN Reason Stop Dose Admin Amoxicillin/Clavulanate Potassium 1 tablet 04/05/24 21:00 Amoxicillin/Clavulanate K 875-125 Mg Tab PO 04/10/24 21:01 Q12HR WALDEMAR Buspirone HCl 10 mg 04/04/24 09:00 04/05/24 12:19 Buspirone Hcl 10 Mg Tablet PO 10 mg TID WALDEMAR Administration Dextrose 12.5 gm 04/03/24 23:45
[2024-04-05 14:00] VITALS: BP 137/80; PULSE 109; RESP 22; TEMP 36.6; O2SAT 97
[2024-04-05 16:14] LABS: Glucose Point of Care 325 mg/dl (65-105)
[2024-04-05] MEDS: traZODone HCL 50 MG TABLET 150 MG PO (19:54)
[2024-04-05] MEDS: DOXYCYCLINE HYCLATE 100 MG TABLET PO (19:55)
[2024-04-05] MEDS: AMOXICILLIN/CLAVULANATE K 875-125 MG TAB 1 TABLET PO (19:55)
[2024-04-05] MEDS: traMADol HCL (*CRX) 50 MG TABLET PO (19:57)
[2024-04-05] MEDS: SODIUM CHLORIDE 0.9% IV 1,000 ML 75 ML IV CONT (19:58)
[2024-04-05 21:15] LABS: Glucose Point of Care 259 mg/dl (65-105)
[2024-04-05 22:00] VITALS: BP 159/82; PULSE 97; RESP 20; TEMP 36.6; O2SAT 100
[2024-04-06 06:00] VITALS: BP 182/100; PULSE 91; RESP 20; TEMP 36; O2SAT 100
[2024-04-06 06:42] LABS: Hematocrit 39.1 % (37.0-47.0); Mean Corpuscular HGB Conc 30.7 g/dl (32-36); Mean Corpuscular Hemoglobin 28.2 pg (26-34); Mean Corpuscular Volume 91.8 fl (80-100); Mean Platelet Volume 11.6 fl (7.4-10.4); Platelet Count Result 186 k/mm3 (150-375); Red Blood Count 4.26 M/mm3 (4.2-5.4); Red Cell Distribution Width 12.1 % (11.5-14.5); White Blood Count 8.3 K/mm3 (4.5-10.0)
[2024-04-06 07:02] LABS: Anion Gap 6 mmol/L (4-12); Blood Urea Nitrogen 12 mg/dL (7-17); Calcium 9.2 mg/dL (8.4-10.2); Carbon Dioxide 23 mmol/L (22-30); Chloride 105 mmol/L (98-107); Estimated CRCL calculation 46 ml/min; Estimated Glomerular Filt Rate > 60; Glucose 217 mg/dL (65-110); Potassium 4.2 mmol/L (3.4-5.0); Sodium 134 mmol/L (137-145)
[2024-04-06] MEDS: AMOXICILLIN/CLAVULANATE K 875-125 MG TAB 1 TABLET PO (07:05)
[2024-04-06] MEDS: DOXYCYCLINE HYCLATE 100 MG TABLET PO (07:05)
[2024-04-06] MEDS: PANTOPRAZOLE 40 MG TABLET PO (07:07)
[2024-04-06 07:39] LABS: Glucose Point of Care 206 mg/dl (65-105)
[2024-04-06] MEDS: INSULIN GLARGINE (*BKC) 100 UNITS/ML 20 UNITS SUB-Q ×2 (09:58→21:51)
[2024-04-06] MEDS: hydrALAZINE HCL 20 MG/ML VIAL 10 MG IV PUSH ×2 (09:59→14:14)
[2024-04-06 11:17] LABS: Glucose Point of Care 256 mg/dl (65-105)
[2024-04-06] MEDS: INSULIN ASPART (*BKC) 100 UNITS/ML SUB-Q ×3 (11:58→21:51)
[2024-04-06 14:00] VITALS: BP 169/109; PULSE 105; RESP 18; TEMP 36.4; O2SAT 97
[2024-04-06] MEDS: cefTRIAXone 2 GM/NS 100 ML 2 GM/100 ML BAG IVPB (14:14)
--- NOTE | 2024-04-06 15:27 | PM.IMPN ---
Progress Note: A&P Assessment and Plan (1) Pneumonia: Code(s): J18.9 - Pneumonia, unspecified organism Status: Acute Assessment and Plan: - CXR: Mild infiltrate or atelectasis at the lung bases, left greater than right - risk factors: recent ABX use, lives at [facility] - MRSA PCR positive. - sputum culture if obtainable - no supplemental O2 requirement at this time - Patient downgraded to doxy and Augmentin 04/05 - patient not tolerating PO medication, put back on IV Rocephin and doxy on 04/06 - She may have to stay hospitalized for tx or need IV ABX at facility if she cannot tolerate PO (2) Fall: Code(s): W19.XXXA - Unspecified fall, initial encounter Status: Acute Assessment and Plan: - CT thoracic and lumbar spine: No acute fracture or traumatic malalignment in the thoracic or lumbar spine. - CT head/cervical spine/facial bones: No acute fracture or traumatic malalignment in the cervical spine. No acute facial bone fracture.? - CT head: No acute intracranial process. - CXR: Mild infiltrate or atelectasis at the lung bases, left greater than right - Pelvis XR: No pelvic fracture, Status post posterior and interbody spinal fusion at L4-5,Severe degenerative disc disease at L3-4 and L5-S1? - somnolent but otherwise at neuro baseline (3) SHELL (acute kidney injury): Code(s): N17.9 - Acute kidney failure, unspecified Status: Resolved Assessment and Plan: Creatinine 1.2 on admission - no previous hx of CKD - trend renal function - trend electrolytes, correct as needed - add CK, urine sodium, urine protein/creatinine - monitor I&Os - IV fluids - 04/04 BUN and Cr 13/0.9 Resolved. (4) Acute UTI: Code(s): N39.0 - Urinary tract infection, site not specified Status: Ruled-out Assessment and Plan: - UA: Turbid, 1+ protein, 1+ glucose, 3+ blood, 3+ leuks, 51-100 RBC, greater than 100 WBC, moderate epithelial cells, 4+ bacteria - UC no growth - Meropenem discontinued. (5) Diabetes mellitus with hyperglycemia: Code(s): E11.65 - Type 2 diabetes mellitus with hyperglycemia Status: Acute Assessment and Plan: - hypoglycemia protocol - POC blood glucose ACHS - home medication: Sliding scale held, Lantus continued, lispro t.i.d. with meals continued - correct regimen ordered - low dose TIDWM and HS - 04/05 changed latus from 35 units HS to 20 units BID due to uncontrolled sugars. Subjective Date/time seen: 04/06/24 15:27 Interval history: Patient not tolerating p.o. medication. Her antibiotics had to be transitioned back to IV. Daughter says that this is common when she has an active infection. She may need IV antibiotics at discharge or need to stay in the hospital for treatment. She also has decreased p.o. intake with food. This is not uncommon with the advanced dementia that she has. Continue to monitor daily. Exam Narrative: GENERAL: Comfortable, no acute distress, nonverbal HENMT: moist mucous membranes EYES: EOM intact b/l RESPIRATORY: clear to auscultation, no increased respiratory effort CARDIO: Regular rate and rhythm GI: soft, nontender, bowel sounds present SKIN/EXTREMITIES: no rashes, no edema, no redness or tenderness Objective Data Vital Signs Vital Signs: Vital Signs - 24 hr 04/05/24 16:15 04/05/24 22:00 04/05/24 20:00 Temperature 97.9 F Pulse Rate 97 Respiratory Rate 20 Blood Pressure 159/82 H Pulse Oximetry 100 Oxygen Delivery Room Air Room Air 04/06/24 07:07 04/06/24 06:00 04/06/24 14:00 Temperature 96.8 F L 97.5 F L Pulse Rate 88 91 105 H Respiratory Rate 20 18 Blood Pressure 182/100 H 169/109 H Pulse Oximetry 100 97 Oxygen Delivery Intake/Output Intake/Output: Intake & Output 04/03/24 04/04/24 04/05/24 04/06/24 23:59 23:59 23:59 23:59 Intake Total 3079 1753.5 957 Output Total 015 168 7406 2600 Balance -400 4479 -146.5 -1643
[2024-04-06 15:53] VITALS: BP 137/87; PULSE 106; RESP 16; TEMP 37.6; O2SAT 99
[2024-04-06 16:31] LABS: Glucose Point of Care 240 mg/dl (65-105)
[2024-04-06] MEDS: DOXYCYCLINE 100 MG/NS 100 ML 100 MG/100 ML BAG IVPB (17:35)
[2024-04-06] MEDS: SODIUM CHLORIDE 0.9% IV 1,000 ML 75 ML IV CONT (17:40)
[2024-04-06 19:29] VITALS: PULSE 106; RESP 16; O2SAT 99
[2024-04-06 21:20] VITALS: BP 162/98; PULSE 125; RESP 20; TEMP 36.7; O2SAT 100
[2024-04-06 21:31] LABS: Glucose Point of Care 276 mg/dl (65-105)
[2024-04-06] MEDS: SUCRALFATE SUSP 100 MG/ML 10 ML UDC 1000 MG PO (21:45)
[2024-04-06] MEDS: PANTOPRAZOLE SODIUM IV 40 MG VIAL IV PUSH (21:45)
[2024-04-06] MEDS: QUEtiapine FUMARATE 25 MG TABLET PO (21:45)
[2024-04-06] MEDS: traZODone HCL 50 MG TABLET 150 MG PO (21:45)
[2024-04-07 04:20] VITALS: BP 177/96; PULSE 117; RESP 20; TEMP 36.6; O2SAT 99
[2024-04-07] MEDS: DOXYCYCLINE 100 MG/NS 100 ML 100 MG/100 ML BAG IVPB ×2 (05:47→18:02)
[2024-04-07 06:22] LABS: Anion Gap 7 mmol/L (4-12); Blood Urea Nitrogen 10 mg/dL (7-17); Calcium 9.5 mg/dL (8.4-10.2); Carbon Dioxide 25 mmol/L (22-30); Chloride 104 mmol/L (98-107); Estimated CRCL calculation 46 ml/min; Estimated Glomerular Filt Rate > 60; Glucose 202 mg/dL (65-110); Potassium 4.1 mmol/L (3.4-5.0); Sodium 136 mmol/L (137-145)
[2024-04-07 07:22] LABS: Hematocrit 41.5 % (37.0-47.0); Hemoglobin 12.8 g/dL (12.0-15.0); Mean Corpuscular HGB Conc 30.8 g/dl (32-36); Mean Corpuscular Hemoglobin 28.8 pg (26-34); Mean Corpuscular Volume 93.5 fl (80-100); Platelet Count Result 227 k/mm3 (150-375); Red Blood Count 4.44 M/mm3 (4.2-5.4); Red Cell Distribution Width 11.9 % (11.5-14.5); White Blood Count 9.8 K/mm3 (4.5-10.0)
[2024-04-07 07:32] LABS: Glucose Point of Care 193 mg/dl (65-105)
[2024-04-07] MEDS: SODIUM CHLORIDE 0.9% IV 1,000 ML 75 ML IV CONT (08:19)
[2024-04-07] MEDS: INSULIN ASPART (*BKC) 100 UNITS/ML SUB-Q ×5 (08:20→20:54)
[2024-04-07] MEDS: PANTOPRAZOLE SODIUM IV 40 MG VIAL IV PUSH ×2 (08:22→20:49)
[2024-04-07] MEDS: cefTRIAXone 2 GM/NS 100 ML 2 GM/100 ML BAG IVPB (08:22)
[2024-04-07] MEDS: INSULIN GLARGINE (*BKC) 100 UNITS/ML 20 UNITS SUB-Q ×2 (08:25→20:53)
--- NOTE | 2024-04-07 09:18 | PM.IMPN ---
Progress Note: A&P Assessment and Plan (1) Pneumonia: Code(s): J18.9 - Pneumonia, unspecified organism Status: Acute Assessment and Plan: - CXR: Mild infiltrate or atelectasis at the lung bases, left greater than right - risk factors: recent ABX use, [facility] - MRSA PCR positive. - sputum culture if obtainable - no supplemental O2 requirement at this time - Patient downgraded to doxy and Augmentin 04/05 - patient not tolerating PO medication, put back on IV Rocephin and doxy on 04/06 - She may have to stay hospitalized for tx or need IV ABX at facility if she cannot tolerate PO (2) Fall: Code(s): W19.XXXA - Unspecified fall, initial encounter Status: Acute Assessment and Plan: Unwitnessed ground level fall at patients facility. - CT thoracic and lumbar spine: No acute fracture or traumatic malalignment in the thoracic or lumbar spine. - CT head/cervical spine/facial bones: No acute fracture or traumatic malalignment in the cervical spine. No acute facial bone fracture.? - CT head: No acute intracranial process. - CXR: Mild infiltrate or atelectasis at the lung bases, left greater than right - Pelvis XR: No pelvic fracture, Status post posterior and interbody spinal fusion at L4-5,Severe degenerative disc disease at L3-4 and L5-S1? - somnolent but otherwise at neuro at baseline (3) SHELL (acute kidney injury): Code(s): N17.9 - Acute kidney failure, unspecified Status: Resolved Assessment and Plan: Creatinine 1.2 on admission - no previous hx of CKD - trend renal function - trend electrolytes, correct as needed - add CK, urine sodium, urine protein/creatinine - monitor I&Os - IV fluids - 04/04 BUN and Cr 13/0.9 Resolved. (4) Acute UTI: Code(s): N39.0 - Urinary tract infection, site not specified Status: Ruled-out Assessment and Plan: - UA: Turbid, 1+ protein, 1+ glucose, 3+ blood, 3+ leuks, 51-100 RBC, greater than 100 WBC, moderate epithelial cells, 4+ bacteria - UC 04/03 final result: no growth - Meropenem discontinued. (5) Diabetes mellitus with hyperglycemia: Code(s): E11.65 - Type 2 diabetes mellitus with hyperglycemia Status: Acute Assessment and Plan: - hypoglycemia protocol - POC blood glucose ACHS - home medication: Sliding scale held, Lantus continued, lispro t.i.d. with meals continued - correct regimen ordered - low dose TIDWM and HS - 04/05 changed lantus from 35 units HS to 20 units BID due to uncontrolled sugars. Time Spent With Patient Time with patient: 25 - 35 minutes Subjective Date/time seen: 04/07/24 09:18 Interval history: 79 y/o F presents here with ground level fall with PMH of breast cancer (s/p right mastectomy, chemo, radiation), dementia, diabetes, HTN, ST-T, GERD, HLD, Meniere's, and rectal prolapse (s/p rectopexy). Patient is essentially nonverbal at baseline and unable to assess AO. Patient is lying in bed. She remains nonverbal, unable to assess AO. Patient has been consistently tachycardic and hypertensive today likely due to her refusing oral medications and not receiving her losartan and metoprolol. Will hold these PO medications and start patient on metoprolol 5 mg IV q 6 hours. Will need to discuss treatment plan for POA tomorrow in regards to possible NG placement if patient continues to refuse PO medications. Review of Systems Review of Systems: ROS unobtainable: Yes unobtainable due to mental status Exam Narrative: AF HR 111 RR 18 SpO2 100 BP 178/105 General:female in no acute respiratory distress who is nontoxic appearing, lying semi recumbent in bed. HEENT: Normocephalic. Atraumatic. Pupils equal round reactive to light. Extraocular movement intact. Sclera clear and anicteric. No facial asymmetry. Chest: Lungs are clear to auscultation bilaterally. No wheezes or crackles. CV: Heart was regular rate and rhythm. S1-S2. No murmurs, gallops, or rubs. Abd:
[2024-04-07 11:31] LABS: Glucose Point of Care 249 mg/dl (65-105)
[2024-04-07 13:46] VITALS: BP 178/105; PULSE 111; RESP 18; TEMP 36.5; O2SAT 100
[2024-04-07 17:57] LABS: Glucose Point of Care 150 mg/dl (65-105)
[2024-04-07 18:20] VITALS: PULSE 122
[2024-04-07] MEDS: METOPROLOL TARTRATE INJ 5 MG/5 ML VIAL IV PUSH (18:20)
--- NOTE | 2024-04-07 19:34 | PC.NURSE ---
On 04/07/24, the IT SERVICE CONTINUITY SUPERVISOR, Licha Dutta, provided care and completed [facility] documentation on this patient. I have reviewed the IT SERVICE CONTINUITY SUPERVISOR's documentation and agree with the findings. She provided care from 1400 to 0
[2024-04-07 20:00] VITALS: BP 180/120
[2024-04-07] MEDS: QUEtiapine FUMARATE 25 MG TABLET PO (20:47)
[2024-04-07] MEDS: traZODone HCL 50 MG TABLET 150 MG PO (20:47)
[2024-04-07] MEDS: traMADol HCL (*CRX) 50 MG TABLET PO (20:47)
[2024-04-07] MEDS: SUCRALFATE SUSP 100 MG/ML 10 ML UDC 1000 MG PO (20:49)
[2024-04-07 20:53] LABS: Glucose Point of Care 218 mg/dl (65-105)
[2024-04-07] MEDS: hydrALAZINE HCL 20 MG/ML VIAL 10 MG IV PUSH (20:54)
[2024-04-07 22:00] VITALS: BP 129/64; PULSE 111; RESP 16; TEMP 36.6; O2SAT 98
[2024-04-08] VITALS (7 sets, daily range): BP systolic 151–177; BP diastolic 83–98; PULSE 96–120; RESP 16–20; TEMP 36.4–36.8; O2SAT 97–100
[2024-04-08] MEDS: METOPROLOL TARTRATE INJ 5 MG/5 ML VIAL IV PUSH ×3 (00:35→11:50)
[2024-04-08] MEDS: SODIUM CHLORIDE 0.9% IV 1,000 ML 75 ML IV CONT (05:14)
[2024-04-08] MEDS: DOXYCYCLINE 100 MG/NS 100 ML 100 MG/100 ML BAG IVPB ×2 (05:14→17:04)
[2024-04-08] MEDS: hydrALAZINE HCL 20 MG/ML VIAL 10 MG IV PUSH (05:32)
[2024-04-08] MEDS: MAGNESIUM HYDROXIDE SUSP 30 ML UDC PO (05:33)
--- NOTE | 2024-04-08 07:14 | PM.IMPN ---
Progress Note: A&P Assessment and Plan (1) Pneumonia: Code(s): J18.9 - Pneumonia, unspecified organism Status: Acute Assessment and Plan: - CXR: Mild infiltrate or atelectasis at the lung bases, left greater than right - risk factors: recent ABX use, lives at group home - MRSA PCR positive. - sputum culture if obtainable - no supplemental O2 requirement at this time - patient was not tolerating PO medication, put back on IV Rocephin and doxy on 04/06 - She may have to stay hospitalized for tx or need IV ABX at facility if she cannot tolerate PO (2) Fall: Code(s): W19.XXXA - Unspecified fall, initial encounter Status: Acute Assessment and Plan: Unwitnessed ground level fall at patients facility. - CT thoracic and lumbar spine: No acute fracture or traumatic malalignment in the thoracic or lumbar spine. - CT head/cervical spine/facial bones: No acute fracture or traumatic malalignment in the cervical spine. No acute facial bone fracture.? - CT head: No acute intracranial process. - CXR: Mild infiltrate or atelectasis at the lung bases, left greater than right - Pelvis XR: No pelvic fracture, Status post posterior and interbody spinal fusion at L4-5,Severe degenerative disc disease at L3-4 and L5-S1? - neuro at baseline - PT/OT attempted to evaluate patient but patient is unable to follow commands to demonstrate capacity for participation. Per chart review patient typically uses charles and wheel chair for ambulation. (3) SHELL (acute kidney injury): Code(s): N17.9 - Acute kidney failure, unspecified Status: Resolved Assessment and Plan: Creatinine 1.2 on admission - no previous hx of CKD - trend renal function - trend electrolytes, correct as needed - add CK, urine sodium, urine protein/creatinine - monitor I&Os - IV fluids - 04/04 BUN and Cr 13/0.9 Resolved. (4) Acute UTI: Code(s): N39.0 - Urinary tract infection, site not specified Status: Ruled-out Assessment and Plan: - UA: Turbid, 1+ protein, 1+ glucose, 3+ blood, 3+ leuks, 51-100 RBC, greater than 100 WBC, moderate epithelial cells, 4+ bacteria - 04/03 final result: no growth - Meropenem discontinued. (5) Diabetes mellitus with hyperglycemia: Code(s): E11.65 - Type 2 diabetes mellitus with hyperglycemia Status: Acute Assessment and Plan: - hypoglycemia protocol - POC blood glucose ACHS - home medication: Sliding scale held, Lantus continued, lispro t.i.d. with meals continued - correct regimen ordered - low dose TIDWM and HS - 04/05 changed lantus from 35 units HS to 20 units BID due to uncontrolled sugars. (6) Hypertension: Code(s): I10 - Essential (primary) hypertension Status: Chronic Assessment and Plan: Home medications include losartan 100 mg daily and metoprolol 100 mg daily. Patient refusing oral medications. - Started metoprolol 5 mg IV TID - Vitals are stable at this time - Continue to monitor (7) Failure to thrive in adult: Code(s): R62.7 - Adult failure to thrive Status: Acute Assessment and Plan: Patient refusing oral intake. Per RN she will take a small bite and then refuse the remaining food. She has also had low fluid intake with small sips of water here and there. She is no longer taking her oral medications. - Call made to daughter/POA. Discussed possibly starting hospice due to patients decline. She states understanding and would like to set up a meeting with hospice. Time Spent With Patient Time with patient: 25 - 35 minutes Subjective Date/time seen: 04/08/24 07:14 Interval history: 79 y/o F presents here with ground level fall with PMH of breast cancer (s/p right mastectomy, chemo, radiation), dementia, diabetes, HTN, ST-T, GERD, HLD, Meniere's, and rectal prolapse (s/p rectopexy). Patient is essentially nonverbal at baseline and unable to assess AO. Patient is lying in bed with [employer]FTSMAN at
[2024-04-08 07:28] LABS: Glucose Point of Care 230 mg/dl (65-105)
[2024-04-08] MEDS: PANTOPRAZOLE SODIUM IV 40 MG VIAL IV PUSH ×2 (08:48→20:35)
[2024-04-08] MEDS: cefTRIAXone 2 GM/NS 100 ML 2 GM/100 ML BAG IVPB (08:49)
[2024-04-08] MEDS: INSULIN ASPART (*BKC) 100 UNITS/ML SUB-Q ×6 (08:49→21:52)
[2024-04-08] MEDS: INSULIN GLARGINE (*BKC) 100 UNITS/ML 20 UNITS SUB-Q ×2 (08:50→21:42)
[2024-04-08] MEDS: ENOXAPARIN 40 MG/0.4 ML SYRINGE SUB-Q (08:53)
[2024-04-08 11:10] LABS: Basophils Percent Auto 0.4 % (0.2-1.2); Eosinophils Absolute Auto 0.1 K/mm3 (0-0.3); Eosinophils Percent Auto 1.2 % (0-4.4); Hematocrit 39.3 % (37.0-47.0); Hemoglobin 12.9 g/dL (12.0-15.0); Immature Granulocyte Absolute 0.08 K/mm3 (0.00-0.031); Immature Granulocyte Percent A 0.8 % (0-0.5); Lymphocytes Absolute Auto 1.02 K/mm3 (0.9-3.2); Lymphocytes Percent Auto 10.3 % (18.3-44.2); Mean Corpuscular HGB Conc 32.8 g/dl (32-36); Mean Corpuscular Hemoglobin 28.6 pg (26-34); Mean Corpuscular Volume 87.1 fl (80-100); Mean Platelet Volume 11.1 fl (7.4-10.4); Monocytes Absolute Auto 0.5 K/mm3 (0.1-0.6); Monocytes Percent Auto 5.2 % (2.6-8.5); Neutrophils Absolute Auto 8.2 K/mm3 (1.3-6.7); Neutrophils Percent Auto 82.1 % (45.5-73.1); Platelet Count Result 249 k/mm3 (150-375); Red Blood Count 4.51 M/mm3 (4.2-5.4); Red Cell Distribution Width 12.5 % (11.5-14.5); White Blood Count 9.9 K/mm3 (4.5-10.0)
[2024-04-08 11:27] LABS: Alanine Aminotransferase 13 U/L (6-35); Albumin Level 3.6 g/dL (3.5-5.1); Alkaline Phosphatase 113 U/L (38-126); Anion Gap 9 mmol/L (4-12); Aspartate Amino Transferase 18 U/L (14-36); Bilirubin,Total 0.5 mg/dL (0.2-1.3); Blood Urea Nitrogen 11 mg/dL (7-17); Calcium 9.4 mg/dL (8.4-10.2); Carbon Dioxide 22 mmol/L (22-30); Chloride 104 mmol/L (98-107); Estimated CRCL calculation 46 ml/min; Estimated Glomerular Filt Rate > 60; Glucose 270 mg/dL (65-110); Potassium 3.5 mmol/L (3.4-5.0); Sodium 135 mmol/L (137-145)
[2024-04-08 11:51] LABS: Glucose Point of Care 238 mg/dl (65-105)
[2024-04-08] MEDS: busPIRone HCL 10 MG TABLET PO ×2 (13:55→17:02)
[2024-04-08 16:22] LABS: Glucose Point of Care 208 mg/dl (65-105)
[2024-04-08] MEDS: GABAPENTIN 300 MG CAPSULE PO (17:03)
[2024-04-08] MEDS: SUCRALFATE SUSP 100 MG/ML 10 ML UDC 1000 MG PO (20:35)
[2024-04-08] MEDS: traZODone HCL 50 MG TABLET 150 MG PO (20:35)
[2024-04-08] MEDS: traMADol HCL (*CRX) 50 MG TABLET PO (20:35)
[2024-04-08] MEDS: QUEtiapine FUMARATE 25 MG TABLET PO (20:35)
[2024-04-08] MEDS: TOLNAFTATE 1% POWDER 45 GM BTL 1 APPLIC TOPICAL (20:36)
[2024-04-08 21:42] LABS: Glucose Point of Care 205 mg/dl (65-105)
[2024-04-09] VITALS (7 sets, daily range): BP systolic 121–195; BP diastolic 61–110; PULSE 91–112; RESP 16–18; TEMP 36.2–37; O2SAT 98
[2024-04-09] MEDS: METOPROLOL TARTRATE INJ 5 MG/5 ML VIAL IV PUSH ×4 (00:53→17:44)
[2024-04-09] MEDS: SODIUM CHLORIDE 0.9% IV 1,000 ML 75 ML IV CONT ×2 (06:32→20:55)
[2024-04-09] MEDS: DOXYCYCLINE 100 MG/NS 100 ML 100 MG/100 ML BAG IVPB ×2 (06:32→18:10)
[2024-04-09 07:19] LABS: Glucose Point of Care 174 mg/dl (65-105)
--- NOTE | 2024-04-09 07:35 | PM.IMPN ---
Progress Note: A&P Assessment and Plan (1) Pneumonia: Code(s): J18.9 - Pneumonia, unspecified organism Status: Acute Assessment and Plan: - CXR: Mild infiltrate or atelectasis at the lung bases, left greater than right - risk factors: recent ABX use, lives at care home - MRSA PCR positive. - sputum culture if obtainable - no supplemental O2 requirement at this time - patient was not tolerating PO medication, put back on IV Rocephin and doxy on 04/06. Will complete antibiotic course on 04/10. - She may have to stay hospitalized for tx or need IV ABX at facility if she cannot tolerate PO (2) Fall: Code(s): W19.XXXA - Unspecified fall, initial encounter Status: Acute Assessment and Plan: Unwitnessed ground level fall at patients facility. - CT thoracic and lumbar spine: No acute fracture or traumatic malalignment in the thoracic or lumbar spine. - CT head/cervical spine/facial bones: No acute fracture or traumatic malalignment in the cervical spine. No acute facial bone fracture.? - CT head: No acute intracranial process. - CXR: Mild infiltrate or atelectasis at the lung bases, left greater than right - Pelvis XR: No pelvic fracture, Status post posterior and interbody spinal fusion at L4-5,Severe degenerative disc disease at L3-4 and L5-S1? - neuro at baseline - PT/OT attempted to evaluate patient but patient is unable to follow commands to demonstrate capacity for participation. Per chart review patient typically uses charles and wheel chair for ambulation. (3) SHELL (acute kidney injury): Code(s): N17.9 - Acute kidney failure, unspecified Status: Resolved Assessment and Plan: Creatinine 1.2 on admission - no previous hx of CKD - trend renal function - trend electrolytes, correct as needed - add CK, urine sodium, urine protein/creatinine - monitor I&Os - IV fluids - 04/04 BUN and Cr 13/0.9 Resolved. (4) Acute UTI: Code(s): N39.0 - Urinary tract infection, site not specified Status: Ruled-out Assessment and Plan: - UA: Turbid, 1+ protein, 1+ glucose, 3+ blood, 3+ leuks, 51-100 RBC, greater than 100 WBC, moderate epithelial cells, 4+ bacteria - UC 04/03 final result: no growth - Meropenem discontinued. (5) Diabetes mellitus with hyperglycemia: Code(s): E11.65 - Type 2 diabetes mellitus with hyperglycemia Status: Acute Assessment and Plan: - hypoglycemia protocol - POC blood glucose ACHS - home medication: Sliding scale held, Lantus continued, lispro t.i.d. with meals continued - correct regimen ordered - low dose TIDWM and HS - 04/05 changed lantus from 35 units HS to 20 units BID due to uncontrolled sugars. (6) Hypertension: Code(s): I10 - Essential (primary) hypertension Status: Chronic Assessment and Plan: Home medications include losartan 100 mg daily and metoprolol 100 mg daily. Patient refusing oral medications. - Started metoprolol 5 mg IV TID - Vitals are stable at this time - Continue to monitor (7) Failure to thrive in adult: Code(s): R62.7 - Adult failure to thrive Status: Acute Assessment and Plan: Patient refusing oral intake. Per RN she will take a small bite and then refuse the remaining food. She has also had low fluid intake with small sips of water here and there. She is no longer taking her oral medications. - Call made to daughter/POA on 04/08. Discussed possibly starting hospice due to patients decline. She states understanding and would like to set up a meeting with hospice. Per care coordination note today, daughter would like to meet with [facility] on Friday. Time Spent With Patient Time with patient: 25 - 35 minutes Subjective Date/time seen: 04/09/24 07:35 Interval history: 79 y/o F presents here with ground level fall with PMH of breast cancer (s/p right mastectomy, chemo, radiation), dementia, diabetes, HTN, ST-T, GERD, HLD, Meniere's, and recta
[2024-04-09 07:41] LABS: Basophils Absolute Auto 0.1 K/mm3 (0.0-0.1); Basophils Percent Auto 0.6 % (0.2-1.2); Eosinophils Absolute Auto 0.3 K/mm3 (0-0.3); Eosinophils Percent Auto 3.4 % (0-4.4); Hematocrit 36.1 % (37.0-47.0); Hemoglobin 11.5 g/dL (12.0-15.0); Immature Granulocyte Absolute 0.06 K/mm3 (0.00-0.031); Immature Granulocyte Percent A 0.8 % (0-0.5); Lymphocytes Absolute Auto 1.27 K/mm3 (0.9-3.2); Lymphocytes Percent Auto 15.9 % (18.3-44.2); Mean Corpuscular HGB Conc 31.9 g/dl (32-36); Mean Corpuscular Hemoglobin 28.8 pg (26-34); Mean Corpuscular Volume 90.5 fl (80-100); Mean Platelet Volume 10.8 fl (7.4-10.4); Monocytes Absolute Auto 0.6 K/mm3 (0.1-0.6); Monocytes Percent Auto 7.9 % (2.6-8.5); Neutrophils Absolute Auto 5.7 K/mm3 (1.3-6.7); Neutrophils Percent Auto 71.4 % (45.5-73.1); Platelet Count Result 220 k/mm3 (150-375); Red Blood Count 3.99 M/mm3 (4.2-5.4); Red Cell Distribution Width 12.4 % (11.5-14.5)
[2024-04-09 07:54] LABS: Alanine Aminotransferase 11 U/L (6-35); Albumin Level 3.2 g/dL (3.5-5.1); Alkaline Phosphatase 95 U/L (38-126); Anion Gap 5 mmol/L (4-12); Aspartate Amino Transferase 16 U/L (14-36); Bilirubin,Total 0.4 mg/dL (0.2-1.3); Blood Urea Nitrogen 14 mg/dL (7-17); Calcium 9.1 mg/dL (8.4-10.2); Carbon Dioxide 25 mmol/L (22-30); Chloride 107 mmol/L (98-107); Estimated CRCL calculation 37 ml/min; Estimated Glomerular Filt Rate 53; Glucose 188 mg/dL (65-110); Potassium 3.8 mmol/L (3.4-5.0); Sodium 137 mmol/L (137-145)
[2024-04-09] MEDS: cefTRIAXone 2 GM/NS 100 ML 2 GM/100 ML BAG IVPB (09:59)
[2024-04-09] MEDS: ENOXAPARIN 40 MG/0.4 ML SYRINGE SUB-Q (09:59)
[2024-04-09] MEDS: INSULIN GLARGINE (*BKC) 100 UNITS/ML 20 UNITS SUB-Q ×2 (09:59→20:57)
[2024-04-09] MEDS: MELOXICAM 7.5 MG TABLET PO (10:00)
[2024-04-09] MEDS: QUEtiapine FUMARATE 25 MG TABLET PO ×2 (10:00→21:00)
[2024-04-09] MEDS: busPIRone HCL 10 MG TABLET PO ×2 (10:00→17:51)
[2024-04-09] MEDS: ACIDOPHILUS/BULGARICUS CHEWABLE TABLET 1 TABLET PO (10:01)
[2024-04-09 11:30] LABS: Glucose Point of Care 186 mg/dl (65-105)
--- NOTE | 2024-04-09 13:07 | PCNFU ---
Nutrition Follow-Up Complete: Inadequate energy intake relate to appetite as evidenced by charted intake PO intake greater than 50% of meals and supplements - Not progressing. Continue same goals Goal: Pt current nutrition is Diabetic, heart healthy diet. Glucerna BID for additional 220 kcal and 10 g protein. Intakes minimal, a few bites of pudding or half a Glucerna shake. Nutrition recommendation: No new nutrition recommendations as poor intake seems related to overall decline. Continue feedings assistance/ encouragement. continue same orders. Last recorded weight is 80 kg. Bowel Motility: BM not charted Labs Reviewed: Hgb 11.5, Hct 36.1, Alb 3.2, Glu 186 Meds Noted: Novolog, lantus, Zofran Skin: No pressure injuries Additional Notes: Per notes, py is refusing intakes. ELLIE is aware, says she gets like this. ELLIE will meet with hospice Monitor intake, wt, labs. Follow up in 5 days.
[2024-04-09] MEDS: PANTOPRAZOLE SODIUM IV 40 MG VIAL IV PUSH ×2 (14:01→21:01)
[2024-04-09 17:00] LABS: Glucose Point of Care 210 mg/dl (65-105)
[2024-04-09] MEDS: INSULIN ASPART (*BKC) 100 UNITS/ML SUB-Q ×2 (17:49→17:50)
[2024-04-09] MEDS: LORazepam (*CRX) 0.5 MG TABLET PO (17:56)
[2024-04-09] MEDS: GABAPENTIN 300 MG CAPSULE PO (18:10)
[2024-04-09] MEDS: SUCRALFATE SUSP 100 MG/ML 10 ML UDC 1000 MG PO (21:00)
[2024-04-09] MEDS: traZODone HCL 50 MG TABLET 150 MG PO (21:00)
[2024-04-09] MEDS: TOLNAFTATE 1% POWDER 45 GM BTL 1 APPLIC TOPICAL (21:01)
[2024-04-09 21:18] LABS: Glucose Point of Care 160 mg/dl (65-105)
[2024-04-10 00:51] VITALS: PULSE 87
[2024-04-10] MEDS: METOPROLOL TARTRATE INJ 5 MG/5 ML VIAL IV PUSH ×2 (00:51→06:07)
[2024-04-10 05:48] VITALS: BP 147/90; PULSE 93; RESP 16; TEMP 36.1; O2SAT 98
[2024-04-10 06:07] VITALS: PULSE 84
[2024-04-10] MEDS: DOXYCYCLINE 100 MG/NS 100 ML 100 MG/100 ML BAG IVPB ×2 (06:10→17:55)
[2024-04-10 07:29] LABS: Glucose Point of Care 121 mg/dl (65-105)
[2024-04-10 07:34] LABS: Basophils Absolute Auto 0.1 K/mm3 (0.0-0.1); Basophils Percent Auto 0.8 % (0.2-1.2); Eosinophils Absolute Auto 0.2 K/mm3 (0-0.3); Eosinophils Percent Auto 3.8 % (0-4.4); Hematocrit 35.5 % (37.0-47.0); Hemoglobin 11.2 g/dL (12.0-15.0); Immature Granulocyte Absolute 0.05 K/mm3 (0.00-0.031); Immature Granulocyte Percent A 0.8 % (0-0.5); Lymphocytes Absolute Auto 1.47 K/mm3 (0.9-3.2); Lymphocytes Percent Auto 24.5 % (18.3-44.2); Mean Corpuscular HGB Conc 31.5 g/dl (32-36); Mean Corpuscular Hemoglobin 28.5 pg (26-34); Mean Corpuscular Volume 90.3 fl (80-100); Mean Platelet Volume 11.1 fl (7.4-10.4); Monocytes Absolute Auto 0.4 K/mm3 (0.1-0.6); Monocytes Percent Auto 7.2 % (2.6-8.5); Neutrophils Absolute Auto 3.8 K/mm3 (1.3-6.7); Neutrophils Percent Auto 62.9 % (45.5-73.1); Platelet Count Result 204 k/mm3 (150-375); Red Blood Count 3.93 M/mm3 (4.2-5.4); Red Cell Distribution Width 12.8 % (11.5-14.5)
[2024-04-10 08:00] VITALS: PULSE 84; RESP 16; O2SAT 98
--- NOTE | 2024-04-10 08:14 | PM.IMPN ---
Progress Note: A&P Assessment and Plan (1) Pneumonia: Code(s): J18.9 - Pneumonia, unspecified organism Status: Acute Assessment and Plan: - CXR: Mild infiltrate or atelectasis at the lung bases, left greater than right - risk factors: recent ABX use, lives at half-way - MRSA PCR positive. - sputum culture if obtainable - no supplemental O2 requirement at this time - patient was not tolerating PO medication, put back on IV Rocephin and doxy on 04/06. Will complete antibiotic course on 04/10. (2) Fall: Code(s): W19.XXXA - Unspecified fall, initial encounter Status: Acute Assessment and Plan: Unwitnessed ground level fall at patients facility. - CT thoracic and lumbar spine: No acute fracture or traumatic malalignment in the thoracic or lumbar spine. - CT head/cervical spine/facial bones: No acute fracture or traumatic malalignment in the cervical spine. No acute facial bone fracture.? - CT head: No acute intracranial process. - CXR: Mild infiltrate or atelectasis at the lung bases, left greater than right - Pelvis XR: No pelvic fracture, Status post posterior and interbody spinal fusion at L4-5,Severe degenerative disc disease at L3-4 and L5-S1? - neuro at baseline - PT/OT attempted to evaluate patient but patient is unable to follow commands to demonstrate capacity for participation. Per chart review patient typically uses charles and wheel chair for ambulation. (3) SHELL (acute kidney injury): Code(s): N17.9 - Acute kidney failure, unspecified Status: Resolved Assessment and Plan: Creatinine 1.2 on admission - no previous hx of CKD - trend renal function - trend electrolytes, correct as needed - add CK, urine sodium, urine protein/creatinine - monitor I&Os - IV fluids - 04/04 BUN and Cr 13/0.9 Resolved. (4) Acute UTI: Code(s): N39.0 - Urinary tract infection, site not specified Status: Ruled-out Assessment and Plan: - UA: Turbid, 1+ protein, 1+ glucose, 3+ blood, 3+ leuks, 51-100 RBC, greater than 100 WBC, moderate epithelial cells, 4+ bacteria - UC 04/03 final result: no growth - Meropenem discontinued. (5) Diabetes mellitus with hyperglycemia: Code(s): E11.65 - Type 2 diabetes mellitus with hyperglycemia Status: Acute Assessment and Plan: - hypoglycemia protocol - POC blood glucose ACHS - home medication: Sliding scale held, Lantus continued, lispro t.i.d. with meals continued - correct regimen ordered - low dose TIDWM and HS - 04/05 changed lantus from 35 units HS to 20 units BID due to uncontrolled sugars. (6) Hypertension: Code(s): I10 - Essential (primary) hypertension Status: Chronic Assessment and Plan: Home medications include losartan 100 mg daily and metoprolol 100 mg daily. Patient taking medications orally. - Restarted home medications - Vitals are stable at this time - Continue to monitor (7) Failure to thrive in adult: Code(s): R62.7 - Adult failure to thrive Status: Acute Assessment and Plan: Patient refusing oral intake. Per RN she will take a small bite and then refuse the remaining food. She has also had low fluid intake with small sips of water here and there. She is no longer taking her oral medications. - Call made to daughter/POA on 04/08. Discussed possibly starting hospice due to patients decline. She states understanding and would like to set up a meeting with hospice. Per care coordination note today, daughter would like to meet with [facility] on Friday. Time Spent With Patient Time with patient: 25 - 35 minutes Subjective Date/time seen: 04/10/24 08:14 Interval history: 79 y/o F presents here with ground level fall with PMH of breast cancer (s/p right mastectomy, chemo, radiation), dementia, diabetes, HTN, ST-T, GERD, HLD, Meniere's, and rectal prolapse (s/p rectopexy). Patient is essentially nonverbal at baseline and unable to assess AO.
[2024-04-10] MEDS: METOPROLOL SUCCINATE EXT REL 50 MG TABCR 100 MG PO (09:22)
[2024-04-10] MEDS: busPIRone HCL 10 MG TABLET PO ×3 (09:22→17:55)
[2024-04-10] MEDS: LOSARTAN POTASSIUM 100 MG TABLET PO (09:22)
[2024-04-10] MEDS: GABAPENTIN 300 MG CAPSULE PO ×2 (09:22→17:55)
[2024-04-10] MEDS: VITAMIN B COMPLEX CAPSULE 1 CAP PO (09:22)
[2024-04-10] MEDS: cefTRIAXone 2 GM/NS 100 ML 2 GM/100 ML BAG IVPB (09:22)
[2024-04-10] MEDS: ACIDOPHILUS/BULGARICUS CHEWABLE TABLET 1 TABLET PO (09:22)
[2024-04-10] MEDS: MELOXICAM 7.5 MG TABLET PO (09:22)
[2024-04-10] MEDS: ENOXAPARIN 40 MG/0.4 ML SYRINGE SUB-Q (09:23)
[2024-04-10] MEDS: INSULIN GLARGINE (*BKC) 100 UNITS/ML 20 UNITS SUB-Q ×2 (09:23→21:14)
[2024-04-10] MEDS: INSULIN ASPART (*BKC) 100 UNITS/ML SUB-Q ×2 (09:24→13:12)
[2024-04-10] MEDS: PANTOPRAZOLE SODIUM IV 40 MG VIAL IV PUSH ×2 (09:24→21:14)
[2024-04-10] MEDS: QUEtiapine FUMARATE 25 MG TABLET PO ×2 (09:25→21:14)
[2024-04-10] MEDS: SUCRALFATE SUSP 100 MG/ML 10 ML UDC 1000 MG PO ×2 (09:25→21:13)
[2024-04-10] MEDS: TOLNAFTATE 1% POWDER 45 GM BTL 1 APPLIC TOPICAL ×2 (09:26→21:14)
[2024-04-10 11:44] LABS: Alanine Aminotransferase 12 U/L (6-35); Albumin Level 3.1 g/dL (3.5-5.1); Alkaline Phosphatase 86 U/L (38-126); Anion Gap 5 mmol/L (4-12); Aspartate Amino Transferase 18 U/L (14-36); Bilirubin,Total 0.2 mg/dL (0.2-1.3); Blood Urea Nitrogen 12 mg/dL (7-17); Calcium 9.1 mg/dL (8.4-10.2); Carbon Dioxide 24 mmol/L (22-30); Chloride 111 mmol/L (98-107); Estimated CRCL calculation 41 ml/min; Estimated Glomerular Filt Rate 60; Glucose 136 mg/dL (65-110); Potassium 3.3 mmol/L (3.4-5.0); Sodium 140 mmol/L (137-145)
[2024-04-10 12:18] LABS: Glucose Point of Care 114 mg/dl (65-105)
[2024-04-10 13:44] VITALS: BP 146/102; PULSE 93; RESP 20; TEMP 36.4; O2SAT 100
[2024-04-10 16:39] LABS: Glucose Point of Care 81 mg/dl (65-105)
[2024-04-10 20:22] LABS: Glucose Point of Care 131 mg/dl (65-105)
[2024-04-10] MEDS: SODIUM CHLORIDE 0.9% IV 1,000 ML 75 ML IV CONT (21:12)
[2024-04-10] MEDS: traZODone HCL 50 MG TABLET 150 MG PO (21:13)
[2024-04-11 03:01] LABS: Glucose Point of Care 170 mg/dl (65-105)
[2024-04-11 05:25] VITALS: BP 155/93; PULSE 94; RESP 12; TEMP 36.8; O2SAT 100
[2024-04-11 06:31] LABS: Basophils Absolute Auto 0.1 K/mm3 (0.0-0.1); Basophils Percent Auto 0.9 % (0.2-1.2); Eosinophils Absolute Auto 0.2 K/mm3 (0-0.3); Eosinophils Percent Auto 2.9 % (0-4.4); Hematocrit 37.8 % (37.0-47.0); Hemoglobin 11.7 g/dL (12.0-15.0); Immature Granulocyte Absolute 0.05 K/mm3 (0.00-0.031); Immature Granulocyte Percent A 0.7 % (0-0.5); Lymphocytes Percent Auto 18.8 % (18.3-44.2); Mean Corpuscular Hemoglobin 28.7 pg (26-34); Mean Corpuscular Volume 92.9 fl (80-100); Monocytes Absolute Auto 0.5 K/mm3 (0.1-0.6); Monocytes Percent Auto 7.2 % (2.6-8.5); Neutrophils Absolute Auto 4.8 K/mm3 (1.3-6.7); Neutrophils Percent Auto 69.5 % (45.5-73.1); Platelet Count Result 188 k/mm3 (150-375); Red Blood Count 4.07 M/mm3 (4.2-5.4); Red Cell Distribution Width 12.8 % (11.5-14.5); White Blood Count 6.9 K/mm3 (4.5-10.0)
[2024-04-11 06:45] LABS: Alanine Aminotransferase 12 U/L (6-35); Albumin Level 3.3 g/dL (3.5-5.1); Alkaline Phosphatase 88 U/L (38-126); Anion Gap 7 mmol/L (4-12); Aspartate Amino Transferase 19 U/L (14-36); Bilirubin,Total 0.4 mg/dL (0.2-1.3); Blood Urea Nitrogen 11 mg/dL (7-17); Calcium 9.3 mg/dL (8.4-10.2); Carbon Dioxide 18 mmol/L (22-30); Chloride 114 mmol/L (98-107); Estimated CRCL calculation 46 ml/min; Estimated Glomerular Filt Rate > 60; Glucose 131 mg/dL (65-110); Potassium 3.5 mmol/L (3.4-5.0); Sodium 139 mmol/L (137-145)
[2024-04-11 07:26] LABS: Glucose Point of Care 110 mg/dl (65-105)
[2024-04-11 09:12] VITALS: PULSE 96
[2024-04-11] MEDS: QUEtiapine FUMARATE 25 MG TABLET PO (09:12)
[2024-04-11] MEDS: VITAMIN B COMPLEX CAPSULE 1 CAP PO (09:12)
[2024-04-11] MEDS: GABAPENTIN 300 MG CAPSULE PO (09:12)
[2024-04-11] MEDS: busPIRone HCL 10 MG TABLET PO ×2 (09:12→11:57)
[2024-04-11] MEDS: ACIDOPHILUS/BULGARICUS CHEWABLE TABLET 1 TABLET PO (09:12)
[2024-04-11] MEDS: METOPROLOL SUCCINATE EXT REL 50 MG TABCR 100 MG PO (09:12)
[2024-04-11] MEDS: MELOXICAM 7.5 MG TABLET PO (09:12)
[2024-04-11] MEDS: LOSARTAN POTASSIUM 100 MG TABLET PO (09:12)
[2024-04-11] MEDS: INSULIN GLARGINE (*BKC) 100 UNITS/ML 20 UNITS SUB-Q (09:13)
[2024-04-11] MEDS: PANTOPRAZOLE SODIUM IV 40 MG VIAL IV PUSH (09:24)
[2024-04-11] MEDS: ENOXAPARIN 40 MG/0.4 ML SYRINGE SUB-Q (09:24)
[2024-04-11] MEDS: SUCRALFATE SUSP 100 MG/ML 10 ML UDC 1000 MG PO (09:24)
[2024-04-11] MEDS: TOLNAFTATE 1% POWDER 45 GM BTL 1 APPLIC TOPICAL (09:27)
[2024-04-11 11:53] LABS: Glucose Point of Care 192 mg/dl (65-105)
[2024-04-11] MEDS: INSULIN ASPART (*BKC) 100 UNITS/ML SUB-Q (11:54)
[2024-04-11 12:43] LABS: SARS-CoV-2 RNA PCR Negative (Negative)
--- NOTE | 2024-04-11 13:44 | PM.DS ---
DS: Admitting Diagnosis Discharge Date 04/11/2024 Admitting Diagnosis Pneumonia Fall Acute kidney injury Acute UTI Diabetes mellitus with hyperglycemia Hypertension Failure to thrive DS: Discharge Diagnosis Discharge Diagnosis (1) Pneumonia: Code(s): J18.9 - Pneumonia, unspecified organism Status: Acute (2) Fall: Code(s): W19.XXXA - Unspecified fall, initial encounter Status: Acute (3) SHELL (acute kidney injury): Code(s): N17.9 - Acute kidney failure, unspecified Status: Resolved (4) Acute UTI: Code(s): N39.0 - Urinary tract infection, site not specified Status: Ruled-out (5) Diabetes mellitus with hyperglycemia: Code(s): E11.65 - Type 2 diabetes mellitus with hyperglycemia Status: Acute (6) Hypertension: Code(s): I10 - Essential (primary) hypertension Status: Chronic (7) Failure to thrive in adult: Code(s): R62.7 - Adult failure to thrive Status: Acute DS: Summary Hospital Course Reason for hospitalization: Pneumonia Fall Acute kidney injury Acute UTI Diabetes mellitus with hyperglycemia Hypertension Failure to thrive Hospital Course: 79 y/o F presents here with ground level fall at patients facility with PMH of breast cancer (s/p right mastectomy, chemo, radiation), dementia, diabetes, HTN, ST-T, GERD, HLD, Meniere's, and rectal prolapse (s/p rectopexy). Patient is essentially nonverbal at baseline and unable to assess AO. On arrival patient underwent CT head, head/cervical spine/facial bones, and thoracic/lumbar spine which were all without acute findings. Pelvis XR was also unremarkable. Patient had an SHELL on arrival which resolved throughout admission. CXR revealed pneumonia and patient was started on IV antibiotics. A MRSA PCR was positive and patient was placed on Rocephin and doxy. Patient did not require any oxygen supplementation throughout admission. The IV antibiotics were completed during patients admission due to patient refusing oral medications for a few days. Due to patients poor nutritional intake and her refusal of PO medications, hospice was discussed with her daughter/POA. Daughter was interested in speaking to hospice on Friday, 04/12 however patient discharged prior. Hospice meeting to be set up by nursing facility. Discussed this with daughter and she states understanding. Prior to discharge patient was taking her oral mediations for two days. Patients blood glucose levels were not well controlled on home medications. Patient will continue her home dose of lispro, but the lantus has been adjusted to 20 units every 12 hours. Her POC glucose will be checked prior to administering any insulin. Patient discharged to SNF in a stable condition. She will follow up with her PCP in 1 week. Status at Discharge Functional status at discharge: wheelchair bound Time Spent with Patient Time attestation: Total time spent providing and/or coordinating discharge services: Time spent: Greater than 30 minutes Exam Narrative: AF HR 96 RR 18 SpO2 98 BP 132/62 General:female in no acute respiratory distress who is nontoxic appearing, lying semi recumbent in bed. HEENT: Normocephalic. Atraumatic. Pupils equal round reactive to light. Extraocular movement intact. Sclera clear and anicteric. No facial asymmetry. Chest: Lungs are clear to auscultation bilaterally. No wheezes or crackles. CV: Heart was regular rate and rhythm. S1-S2. No murmurs, gallops, or rubs. Abd: Abdomen was soft. Nontender. Nondistended. Positive bowel sounds. No organomegaly or masses. Ext: No clubbing, cyanosis, or edema. 2+ DP pulses bilaterally. Neuro: Patient is nonverbal and AOx0. Speech is clear. Psych: Normal mood and affect. Skin: Warm and dry. No rashes noted. DS: Data Data Completed and Pending Completed studies during hospitalization: Thoracic/lumbar spine CT Head/cervical spine/facial bone CT Head CT Chest XR Pelvis XR Labs on day of
[2024-04-11 14:00] VITALS: BP 132/62; PULSE 96; RESP 18; TEMP 36.5; O2SAT 98
== END 2024-04-11 14:20 | DRG 689 ==
LOC: ANHED 13:19 → ANH3MEDSUR 17:13
PROVIDERS: Internal Medicine Critical Care Medicine; Student in an Organized Health Care Education/Training Program; Admitting Provider Internal Medicine; Emergency Provider Emergency Medicine; PCP Internal Medicine; Visit Provider Internal Medicine
DX: N39.0 Urinary tract infection, site not specified (principal); J15.212 Pneumonia due to Methicillin resistant Staphylococcus aureus; N17.9 Acute kidney failure, unspecified; E11.65 Type 2 diabetes mellitus with hyperglycemia; W19.XXXA Unspecified fall, initial encounter; Z85.3 Personal history of malignant neoplasm of breast; E78.5 Hyperlipidemia, unspecified; E11.42 Type 2 diabetes mellitus with diabetic polyneuropathy; F03.90 Unspecified dementia, unspecified severity, without behavioral disturbance, psychotic disturbance, mood disturbance, and anxiety; I10 Essential (primary) hypertension; K21.9 Gastro-esophageal reflux disease without esophagitis; Z92.21 Personal history of antineoplastic chemotherapy; Z92.3 Personal history of irradiation; Z79.4 Long term (current) use of insulin; Z99.3 Dependence on wheelchair; Z98.41 Cataract extraction status, right eye; Z98.42 Cataract extraction status, left eye; Z90.49 Acquired absence of other specified parts of digestive tract; Z90.11 Acquired absence of right breast and nipple
CPT/HCPCS: 36415; 70450; 70486; 71045; 72125; 72128; 72131; 72170; 80048; 80053; 81001; 81050; 82550; 82570; 82948; 83036; 83605; 84156; 84300; 85025; 85027; 87040; 87086; 87088; 87635; 87641; 90471; 90715; 93005; 96374; 96375; 99285; A9270; C9113; G0378; J0360; J0696; J1650; J1815; J2185; J3370; J7030